=== PATIENT | female | born 1940 | race Caucasian/White ===

== ENCOUNTER 2019-11-18 10:07 | Outpatient (CLI) | payer MEDICARE, OTHER, SELFPAY ==
[2019-11-18 11:20] LABS: Blood Urea Nitrogen 29 mg/dL (7-17); Calcium 9.5 mg/dL (8.4-10.2); Carbon Dioxide 30 mmol/L (22-30); Chloride 87 mmol/L (98-107); Cholesterol 133 mg/dL (0-200); Estimated Glomerular Filt Rate 43; Glucose 189 mg/dL (65-105); HDL Direct 48 mg/dL; Potassium 3.9 mmol/L (3.4-5.0); Sodium 129 mmol/L (137-145); Triglycerides 102 mg/dL (<150)
[2019-11-18 11:31] LABS: LDL Cholesterol Direct 64 mg/dL
[2019-11-18 11:34] LABS: Creatinine Urine 50.5 mg/dL
[2019-11-18 11:55] LABS: MALB Creatinine Ratio 966.5 mg/g (0-30); Microalbumin Urine Random 488.1 mg/L (0-16.7)
[2019-11-20 16:44] LABS: Glutamic acid decarboxylase AA <5 IU/mL (<5)
[2019-11-20 19:39] LABS: C-Peptide 1.36 ng/mL (0.80-3.85)
[2019-11-23 06:51] LABS: Islet Cell Antibody Screen NEGATIVE (NEGATIVE)
== END 2019-11-18 10:08 | disposition home or self-care (01) ==
PROVIDERS: PCP Internal Medicine; Visit Provider Internal Medicine Endocrinology, Diabetes & Metabolism
DX: E11.9 Type 2 diabetes mellitus without complications (principal)
CPT/HCPCS: 36415; 80048; 80061; 82043; 84443; 84681; 86341

== ENCOUNTER 2019-12-11 10:13 | Outpatient (CLI) | payer MEDICARE, OTHER, SELFPAY ==
[2019-12-11 10:32] LABS: Basophils Percent Auto 0.4 % (0.2-1.2); Eosinophils Absolute Auto 0.1 K/mm3 (0-0.3); Eosinophils Percent Auto 1.6 % (0-4.4); Hematocrit 36.6 % (37.0-47.0); Hemoglobin 12.3 g/dL (12.0-15.0); Immature Granulocyte Absolute 0.03 K/mm3 (0.00-0.031); Immature Granulocyte Percent A 0.4 % (0-0.5); Lymphocytes Absolute Auto 1.53 K/mm3 (0.9-3.2); Lymphocytes Percent Auto 18.9 % (18.3-44.2); Mean Corpuscular HGB Conc 33.6 g/dl (32-36); Mean Corpuscular Hemoglobin 31.1 pg (26-34); Mean Corpuscular Volume 92.7 fl (80-100); Mean Platelet Volume 8.8 fl (7.4-10.4); Monocytes Absolute Auto 0.7 K/mm3 (0.1-0.6); Monocytes Percent Auto 8.9 % (2.6-8.5); Neutrophils Absolute Auto 5.6 K/mm3 (1.3-6.7); Neutrophils Percent Auto 69.8 % (45.5-73.1); Platelet Count Result 311 k/mm3 (150-375); Red Blood Count 3.95 M/mm3 (4.2-5.4); Red Cell Distribution Width 11.9 % (11.5-14.5); White Blood Count 8.1 K/mm3 (4.5-10.0)
[2019-12-11 12:25] LABS: Blood Urea Nitrogen 25 mg/dL (7-17); Calcium 9.6 mg/dL (8.4-10.2); Carbon Dioxide 28 mmol/L (22-30); Chloride 88 mmol/L (98-107); Estimated Glomerular Filt Rate 48; Glucose 215 mg/dL (65-105); Sodium 129 mmol/L (137-145)
[2019-12-11 12:26] LABS: Iron 99 ug/dL (37-170)
[2019-12-11 12:35] LABS: Percent Iron Saturation 26 % (20-50)
== END 2019-12-11 10:14 | disposition home or self-care (01) ==
LOC: ANHLAB 10:14
PROVIDERS: PCP Internal Medicine; Visit Provider Internal Medicine Hematology & Oncology
DX: D50.9 Iron deficiency anemia, unspecified (principal)
CPT/HCPCS: 36415; 80048; 82728; 83540; 83550; 85025

== ENCOUNTER 2020-03-03 21:53 | Emergency (ER) | payer MEDICARE, OTHER, SELFPAY ==
[2020-03-03 21:56] VITALS: BP 174/87; PULSE 95; RESP 16; TEMP 36.8; O2SAT 97
--- NOTE | 2020-03-03 23:05 | ED.EYEPROB ---
HPI - Eye Problem General Chief complaint: Eye Problems Stated complaint: left eye swelling Time Seen by Provider: 03/03/20 22:46 Source: patient Mode of arrival: ambulatory Limitations: no limitations History of Present Illness HPI Narrative: Patient is a 79-year-old female who presents to the emergency department with complaint of left eye swelling. Patient states when she woke up this morning her left eye was swollen and she had trouble opening it. Patient has noticed throughout the day feeling as though the swelling has been present. She noticed some decreased vision to that I like she had trouble focusing. She denies any crusting or drainage. She does note her eye feeling a little bit watery. She denies any itching or redness. Patient called [facility] and has an appointment for Sunday. Patient became concerned and decided she should have an evaluation tonight due to persistent symptoms. chief complaint: other (Left eye swelling) Onset (ago): hour(s) Onset description: awoke with symptoms Duration: constant and now resolved Location: left eye Eye Symptoms: pain and blurry vision Place: home Mechanism: none Severity scale (1-10): 2 Associated symptoms: none Treatments Prior to Arrival: none Related Data Home Medications Medication Instructions Recorded Confirmed blood sugar diagnostic #10 each 10/01/19 11/23/19 cholecalciferol (vitamin D3) 25 1,000 unit PO DAILY 10/01/19 11/23/19 mcg (1,000 unit) capsule furosemide 20 mg tablet 20 mg PO QAM 10/01/19 11/23/19 gabapentin 100 mg capsule 100 mg PO TID 10/01/19 11/23/19 lancets #50 each 10/01/19 11/23/19 kobeug-[id number]-[id number] 1 cap PO TID 10/01/19 11/23/19 24,000-76,000-120,000 unit capsule,delayed rel naproxen sodium 220 mg capsule 220 mg PO BID PRN 10/01/19 11/23/19 Allergies Allergy/AdvReac Type Severity Reaction Status Date / Time acetaminophen Allergy Intermediate Rash Verified 11/17/19 10:50 Review of Systems Review of Systems: All systems reviewed & are unremarkable except as noted in HPI and below Eyes: Eyes: Reports blurry vision, Denies eye discharge, Reports irritation, Denies itchy eyes, Denies loss of vision and Reports eye pain PMF Past Medical History Medical History (Updated 03/03/20 @ 23:19 by Karin Cuevas MD) Anemia Benign paroxysmal positional vertigo due to bilateral vestibular disorder Chronic bilateral low back pain without sciatica CKD (chronic kidney disease) stage 3, GFR 30-59 ml/min Essential hypertension Gastroesophageal reflux disease Hyperlipidemia associated with type 2 diabetes mellitus Hyponatremia Idiopathic chronic pancreatitis Iron deficiency anemia Moderate mitral regurgitation Neuropathy Pulmonary hypertension Pure hypercholesterolemia Sarcoidosis of lung Spinal stenosis of lumbosacral region Type 2 diabetes mellitus with diabetic nephropathy, without long-term current use of insulin Venous insufficiency Surgical History Surgical History (Updated 03/03/20 @ 23:13 by Karin Cuevas MD) History of appendectomy History of cataract surgery History of repair of left rotator cuff History of tonsillectomy History of total right knee replacement Social History Social History Smoking status: Never smoker Alcohol intake: never Exam Const: General: cooperative, no acute distress and alert Nutritional Appearance: well nourished Orientation/consciousness: patient oriented x3 Limitations: no limitations Eyes: Alignment and Position: alignment normal Eyelids: eyelids normal (No swelling, erythema, induration) Conjunctivae: conjunctivae normal Sclera: sclerae normal Cornea: corneas normal Pupils: Equal, round and reactive pupils present EOM: EOMs intact bilaterally Other: Visual acuity 20/30 right eye, 20/50 left eye Resp: Effort & Inspection: normal respiratory effort Skin: General skin exam: normal color Neuro: G
[2020-03-03 23:19] VITALS: BP 157/76; PULSE 87; RESP 16; O2SAT 97
== END 2020-03-03 23:30 | disposition home or self-care (01) ==
PROVIDERS: Emergency Provider Emergency Medicine; PCP Internal Medicine
DX: H53.9 Unspecified visual disturbance (principal); H57.12 Ocular pain, left eye; Z86.2 Personal history of diseases of the blood and blood-forming organs and certain disorders involving the immune mechanism; I12.9 Hypertensive chronic kidney disease with stage 1 through stage 4 chronic kidney disease, or unspecified chronic kidney disease; E11.22 Type 2 diabetes mellitus with diabetic chronic kidney disease; N18.3 Chronic kidney disease, stage 3 (moderate); E11.21 Type 2 diabetes mellitus with diabetic nephropathy; K21.9 Gastro-esophageal reflux disease without esophagitis; E11.42 Type 2 diabetes mellitus with diabetic polyneuropathy; E11.69 Type 2 diabetes mellitus with other specified complication; E78.5 Hyperlipidemia, unspecified; K86.1 Other chronic pancreatitis; I34.0 Nonrheumatic mitral (valve) insufficiency; I27.20 Pulmonary hypertension, unspecified; D86.0 Sarcoidosis of lung; I87.2 Venous insufficiency (chronic) (peripheral); Z79.84 Long term (current) use of oral hypoglycemic drugs; Z79.4 Long term (current) use of insulin; Z98.49 Cataract extraction status, unspecified eye; Z96.651 Presence of right artificial knee joint
CPT/HCPCS: 99282

== ENCOUNTER 2020-03-15 10:17 | Outpatient (CLI) | payer MEDICARE, OTHER, SELFPAY ==
[2020-03-15 11:27] LABS: Albumin Level 4.4 g/dL (3.5-5.1); Blood Urea Nitrogen 24 mg/dL (7-17); Calcium 9.5 mg/dL (8.4-10.2); Carbon Dioxide 28 mmol/L (22-30); Chloride 87 mmol/L (98-107); Estimated Glomerular Filt Rate 43; Glucose 116 mg/dL (65-105); Phosphorus 3.7 mg/dL (2.5-4.5); Potassium 3.7 mmol/L (3.4-5.0); Sodium 125 mmol/L (137-145)
== END 2020-03-15 10:18 | disposition home or self-care (01) ==
PROVIDERS: PCP Internal Medicine; Referring Provider Internal Medicine; Visit Provider Internal Medicine Nephrology
DX: N18.3 Chronic kidney disease, stage 3 (moderate) (principal); E87.1 Hypo-osmolality and hyponatremia; E11.21 Type 2 diabetes mellitus with diabetic nephropathy
CPT/HCPCS: 36415; 80069; 83036

== ENCOUNTER 2020-03-26 10:47 | Outpatient (CLI) | payer MEDICARE, OTHER, SELFPAY ==
--- NOTE | ~2020-03-26 | CT_ITS ---
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 TECHNIQUE: Computed tomography (CT) of the head was performed without and with 100 mL Omnipaque 350 i ntravenous contrast. The mA was adjusted according to patient size. Iterative reconstruction techniqu e was employed. The dose-length product was 1059.33 mGy-cm. COMPARISON: Head CT 05/16/2019 FINDINGS: There is no intracranial hemorrhage, acute infarction, or abnormal intracranial mass lesion . There are scattered areas of low attenuation in the cerebral white matter, which is within normal l imits for the patient's age. The ventricles are normal in size. The paranasal sinuses are clear. Ther e are likely changes of ocular lens replacement surgeries. Again seen is a right mastoid effusion. Ag ain seen is a left otomastoid effusion. IMPRESSION: 1. Normal aging brain. Reviewed, dictated and finalized at location E. IMPRESSION: 1. Normal aging brain.
[2020-03-26 12:10] LABS: Estimated Glomerular Filt Rate 43
== END 2020-03-26 10:48 | disposition home or self-care (01) ==
LOC: ANHIMG 10:55
PROVIDERS: PCP Internal Medicine; Visit Provider Internal Medicine
DX: H49.02 Third [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, left eye (principal)
CPT/HCPCS: 36415; 70470; Q9967

== ENCOUNTER 2020-03-30 10:50 | Inpatient (IN) | payer MEDICARE, OTHER, SELFPAY ==
[2020-03-30] VITALS (16 sets, daily range): BP systolic 138–163; BP diastolic 66–100; PULSE 75–84; RESP 16–18; TEMP 36.3–36.7; O2SAT 95–100; BMI 26.5
--- NOTE | ~2020-03-30 | US_ITS ---
EXAMINATION: US renal BI DATE: 03/31/2020 12:47 INDICATION: Elevated creatinine TECHNIQUE: Multiple ultrasound grayscale images of the kidneys were obtained. COMPARISON: 12/13/[address] dated 6 FINDINGS: The right kidney measures 9.9 x 4.9 x 4.8 cm. The left kidney measures 10.2 x 4.9 x 4.7 cm. Bilateral diffuse mildly increased renal cortical echogenicity consistent with medical renal disease. 9 mm cys t at the lateral lower pole of the left kidney.. There is no hydronephrosis in either kidney. No sto erin identified. The bladder is nonvisualized, likely decompressed with a Marques catheter reportedly in place. IMPRESSION: 1. Bilateral increased renal cortical echogenicity consistent with medical renal disease. No hydrone phrosis. Reviewed, dictated and finalized at location D. IMPRESSION: 1. Bilateral increased renal cortical echogenicity consistent with medical regi al disease. No hydronephrosis.
--- NOTE | ~2020-03-30 | XR_ITS ---
CORRECTED REPORT ORDER CHANGE, TITLE CHANGE 04/05/20 PK EXAMINATION: XR CHEST-CHEST TUBE INSERT/POS DATE: 04/01/2020 16:46 INDICATION: CHEST TUBE INSERTION TECHNIQUE: Single postoperative upright AP view of the chest was obtained and submitted on 04/05/2020 COMPARISON: Chest radiograph dated 04/01/2020 at 2:32 PM FINDINGS: Dual-lumen left internal jugular central venous catheter with distal tip in the right atrium. Placement of a left chest tube. Resolution of prior small left pneumothorax. Bilateral airspace opacities most prominent in the left lower and right mid to upper lung zones. Prior opacities in the right lower lung zone has improved. Blunting at the bilateral costophrenic angles consistent with small bilateral pleural effusions. The cardiomediastinal silhouette is normal. Calcified mediastinal lymph nodes consistent with old granulomatous disease. Suture anchors at the right humeral head likely related to prior rotator cuff repair. IMPRESSION: 1. Resolution of prior left pneumothorax post left chest tube placement. 2. Bilateral lung disease consistent with small bilateral pleural effusions and associated pneumonia, pulmonary edema, atelectasis or some combination thereof. Reviewed, dictated and finalized at location A. YN NEELY
--- NOTE | ~2020-03-30 | XR_ITS ---
EXAMINATION: XR chest 1V portable DATE: 04/01/2020 03:35 INDICATION: Shortness of breath and wheezing. TECHNIQUE: A single frontal view of the chest was obtained. COMPARISON: Chest 2 views 11/28/2017, CT abdomen and pelvis 03/30/2020 FINDINGS: There is a diffuse interstitial pattern in the lungs. There are airspace opacities in the p erihilar regions and at left lung base. There is a small left pleural effusion. No pneumothorax. The heart size is normal. There are suture anchors in right humeral head. IMPRESSION: 1. New diffuse lung disease, consistent with moderate pulmonary edema versus pneumonia. 2. New small left pleural effusion. Reviewed, dictated and finalized at location A. IMPRESSION: 1. New diffuse lung disease, consistent with moderate pulmonary edema versus pn eumonia. 2. New small left pleural effusion.
--- NOTE | ~2020-03-30 | CT_ITS ---
EXAMINATION: CT abdomen pelvis wo con DATE: 03/30/2020 12:02 INDICATION: Abdominal pain. Vomiting. TECHNIQUE: Computed tomography (CT) of the abdomen and pelvis was performed without intravenous contr ast. Automated exposure control and iterative reconstruction technique were employed. The dose-length product was 325.12 mGy-cm. COMPARISON: None. FINDINGS: The visualized portions of the lung bases demonstrate mild atelectasis. There is a 5 mm nod ule in right lower lobe, likely benign. A calcified left lung nodule is consistent with old granuloma tous disease. No pleural effusion. The heart size is normal. There are coronary artery calcifications . No pericardial effusion. Calcifications in the liver and spleen are consistent with old granulomato us disease. There is contrast in the gallbladder, which is normal in size. The spleen and adrenal gla nds are normal. There is cortical thinning of the kidneys. There are heterogeneous persistent nephrog shane bilaterally, consistent with decreased renal function. There is a 4.2 cm fibroid in the uterus. There are no dilated loops of bowel. There are no dilated loops of bowel. The appendix is not visuali zed. There are no pathologically enlarged lymph nodes. There is no free intraperitoneal fluid. There is severe lumbar spondylosis. IMPRESSION: 1. Mild atrophy of the kidneys. Heterogeneous persistent nephrograms, consistent with acute kidney in jury. 2. Uterine fibroid. Reviewed, dictated and finalized at location A. IMPRESSION: 1. Mild atrophy of the kidneys. Heterogeneous persistent nephrograms, consisten t with acute kidney injury. 2. Uterine fibroid.
--- NOTE | ~2020-03-30 | XR_ITS ---
EXAMINATION: XR chest 1V portable DATE: 04/02/2020 09:29 INDICATION: Left pneumothorax. TECHNIQUE: A single frontal view of the chest was obtained. COMPARISON: A single view 04/01/2020 FINDINGS: There are mild airspace opacities in all right lung zones and in left lower lung zone. A ca lcified left lung nodule is consistent with old granulomatous disease. No pleural effusion or pneumot horax. There is a left-sided chest tube in expected position. The heart size is normal. A left international manager al jugular central venous catheter is seen with tip in the right atrium. There are suture anchors in right humeral head. IMPRESSION: 1. No pneumothorax. Left-sided chest tube in expected position. 2. Airspace opacities in right lung and left lower lung zone with interval improvement, consistent wi th pulmonary edema and atelectasis. Reviewed, dictated and finalized at location A. IMPRESSION: 1. No pneumothorax. Left-sided chest tube in expected position. 2. Airspace opacities in right lung and left lower lung zone with interval impr ovement, consistent with pulmonary edema and atelectasis.
--- NOTE | ~2020-03-30 | XR_ITS ---
CORRECTED REPORT ORDER # CHANGE, TITLE CHANGE 04/05/20 PK EXAMINATION: XR CHEST PORT-A-CATH/CENTRAL DATE: 04/01/2020 14:33 INDICATION: Central line placement. TECHNIQUE: A single frontal view of the chest was obtained. COMPARISON: Chest single view at 3:27 AM, CT abdomen and pelvis 03/30/2020 FINDINGS: There are airspace opacities in the mid and lower lung zones, right worse than left. There is a moderate-sized left pneumothorax. No pleural effusion. The heart size is normal. There are suture anchors in right humeral head. A left internal jugular central venous catheter is seen with tip in the proximal right atrium. There is soft tissue gas in left neck. IMPRESSION: 1. Moderate-sized left pneumothorax. Central line tip in proximal right atrium. I called this result to Dr. Carballo on 04/01/20 at 14:40. 2. Worsened airspace opacities in the mid and lower lung zones, right worse than left, consistent with pulmonary edema versus pneumonia. Reviewed, dictated and finalized at location A. MTDD
--- NOTE | ~2020-03-30 | XR_ITS ---
XR chest 1V portable 04/03/2020 05:39 Indication: Left pneumothorax Procedure: AP portable chest Comparison: Comparison to multiple prior studies sequentially, with oldest reviewed study dated 04/01. Findings: No pneumothorax identified. Chest tube in expected position. Subcutaneous gas in the left s upraclavicular soft tissues. Persistent mild interstitial edema. Probable bibasilar atelectasis. No a cute osseous abnormality. Central venous catheter tip near the cavoatrial junction. Impression: 1: Persistent mild interstitial edema and/or atelectasis. 2: No pneumothorax identified. Reviewed, dictated and finalized at location A. Impression: 1: Persistent mild interstitial edema and/or atelectasis. 2: No pneumothorax identified.
--- NOTE | ~2020-03-30 | XR_ITS ---
EXAMINATION: XR fl guide central line place DATE: 04/01/2020 14:08 INDICATION: Central line placement. TECHNIQUE: A single intraoperative fluoroscopic view of the chest was obtained. I was not present. Fl uoroscopy exposure time was 32 seconds. COMPARISON: Chest single view 04/01/2020 FINDINGS: A left internal jugular central venous catheter is seen with tip in the proximal right atri um. IMPRESSION: 1. Central line tip in proximal right atrium. Reviewed, dictated and finalized at location A.
--- NOTE | ~2020-03-30 | XR_ITS ---
XR chest 1V portable 04/03/2020 08:44 Indication: Removal of left chest tube Procedure: AP portable chest Comparison: Comparison to multiple prior studies sequentially, with oldest reviewed study dated 04/01. Findings: Central venous catheter tips near the cavoatrial junction. Right basilar airspace consolida tion. No pneumothorax. No pleural effusion. There is atherosclerosis. No edema. Impression: 1: Right basilar airspace disease may represent residual edema, atelectasis and/or pneumonia. Reviewed, dictated and finalized at location A. Impression: 1: Right basilar airspace disease may represent residual edema, atelectasis and /or pneumonia.
[2020-03-30 11:26] LABS: Basophils Percent Auto 0.3 % (0.2-1.2); Eosinophils Absolute Auto 0.1 K/mm3 (0-0.3); Eosinophils Percent Auto 0.5 % (0-4.4); Hematocrit 33.7 % (37.0-47.0); Hemoglobin 11.8 g/dL (12.0-15.0); Immature Granulocyte Absolute 0.07 K/mm3 (0.00-0.031); Immature Granulocyte Percent A 0.5 % (0-0.5); Lymphocytes Absolute Auto 1.31 K/mm3 (0.9-3.2); Mean Corpuscular Volume 88.5 fl (80-100); Mean Platelet Volume 8.8 fl (7.4-10.4); Monocytes Absolute Auto 0.8 K/mm3 (0.1-0.6); Monocytes Percent Auto 5.5 % (2.6-8.5); Neutrophils Absolute Auto 12.3 K/mm3 (1.3-6.7); Neutrophils Percent Auto 84.2 % (45.5-73.1); Platelet Count Result 333 k/mm3 (150-375); Red Blood Count 3.81 M/mm3 (4.2-5.4); Red Cell Distribution Width 12.2 % (11.5-14.5); White Blood Count 14.6 K/mm3 (4.5-10.0)
[2020-03-30 11:37] LABS: Magnesium 1.4 mg/dL (1.6-2.3)
[2020-03-30 11:41] LABS: Alanine Aminotransferase 18 U/L (4-35); Albumin Level 4.2 g/dL (3.5-5.1); Alkaline Phosphatase 108 U/L (38-126); Aspartate Amino Transferase 25 U/L (14-36); Bilirubin,Total 1.1 mg/dL (0.2-1.3); Blood Urea Nitrogen 60 mg/dL (7-17); Carbon Dioxide 24 mmol/L (22-30); Chloride 85 mmol/L (98-107); Estimated CRCL calculation 7 ml/min; Estimated Glomerular Filt Rate 8; Glucose 118 mg/dL (65-105); Lipase 110 U/L (23-300); Potassium 4.7 mmol/L (3.4-5.0); Sodium 123 mmol/L (137-145)
[2020-03-30] MEDS: LACTATED RINGERS 1,000 ML 999 ML IV CONT (11:41)
--- NOTE | 2020-03-30 13:17 | ED.GENADULT ---
HPI - General Adult General Chief complaint: Allergic Reaction Stated complaint: allgeric reaction ?? Time Seen by Provider: 03/30/20 10:56 Source: patient Mode of arrival: ambulatory Limitations: no limitations History of Present Illness HPI narrative: This patient is a 79 year old female who presents for evaluation of weakness started after taking antibiotics. She states on 03/26/20 she was prescribed Augmentin to treat Sinusitis seen on CT scan. AFter starting the antibiotics she developed diarrhea , weakness and nausea. She has not had any diarrhea today. She became more concerned today because she has having weakness and abnormal jerking of her hands. She states she was not having symptoms of sinusitis. Related Data Home Medications Medication Instructions Recorded Confirmed cholecalciferol (vitamin D3) 25 1,000 unit PO DAILY 10/01/19 03/30/20 mcg (1,000 unit) capsule furosemide 20 mg tablet 20 mg PO DAILY 10/01/19 03/30/20 gabapentin 100 mg capsule 100 mg PO TID 10/01/19 03/30/20 lancets #50 each 10/01/19 11/23/19 sxtveg-hdbryfag-gzszzie 1 cap PO TID 10/01/19 03/30/20 24,000-76,000-120,000 unit capsule,delayed rel naproxen sodium 220 mg capsule 220 mg PO BID PRN 10/01/19 03/30/20 amlodipine 2.5 mg tablet 2.5 mg PO DAILY 03/26/20 03/30/20 famotidine 40 mg tablet 40 mg PO BID tablet 03/26/20 03/30/20 atorvastatin 40 mg PO DAILY 03/30/20 03/30/20 metformin 500 mg PO BID 03/30/20 03/30/20 metoprolol tartrate 100 mg PO BID 03/30/20 03/30/20 vitamin B complex 1 tablet PO DAILY 03/30/20 03/30/20 Allergies Allergy/AdvReac Type Severity Reaction Status Date / Time acetaminophen Allergy Intermediate Rash Verified 03/30/20 15:14 Review of Systems Review of Systems: All systems reviewed & are unremarkable except as noted in HPI and below Constitutional: Constitutional: Denies chills, Denies fever(s) and Reports weakness ENT: Reports dizziness and Denies sore throat Cardiovascular: Cardiovascular: Denies chest pain Respiratory: Respiratory: Denies cough and Denies dyspnea Gastrointestinal: Gastrointestinal: Reports abdominal pain, Reports diarrhea and Reports nausea Neurologic: Denies headache(s), Denies focal weakness and Reports weakness Allergic/Immunologic: Allergic/Immunologic: Denies lip swelling, Denies throat swelling and Denies tongue swelling [facility] Past Medical History Medical History (Updated 03/30/20 @ 18:21 by Marielos Trejo MD) Anemia Benign paroxysmal positional vertigo due to bilateral vestibular disorder Chronic bilateral low back pain without sciatica CKD (chronic kidney disease) stage 3, GFR 30-59 ml/min Essential hypertension Gastroesophageal reflux disease Hyperlipidemia associated with type 2 diabetes mellitus Hyponatremia Idiopathic chronic pancreatitis Iron deficiency anemia Moderate mitral regurgitation Neuropathy Pulmonary hypertension Pure hypercholesterolemia Sarcoidosis of lung Spinal stenosis of lumbosacral region Type 2 diabetes mellitus with diabetic nephropathy, without long-term current use of insulin Venous insufficiency Surgical History Surgical History (Updated 03/03/20 @ 23:13 by Karin Cuevas MD) History of appendectomy History of cataract surgery History of repair of left rotator cuff History of tonsillectomy History of total right knee replacement Social History Social History Smoking status: Never smoker Alcohol intake: never Substance use: never Gender identity (if verbalized by the patient): Female Spiritual care concerns: No Exam Narrative: Exam Narrative: GENERAL: Well-appearing, well-nourished, and in no acute distress. HEAD: Normocephalic, atraumatic EYES: PERRLA and EOMI, conjunctiva clear without discharge THROAT:Mucous membranes moist, Oropharynx normal without erythema, exudate, peritonsillar swelling or fluctuance NECK: Supple, without l
[2020-03-30 13:44] LABS: Add Urine Microscopic? YES; Appearance Urine Clear (Clear); Bacteria Urine Trace /hpf; Bilirubin Urine Negative (Negative); Blood Urine 2+ (Negative); Color Urine Yellow (Yellow); Glucose Urine UA 1+ mg/dL (Negative); Ketones Urine Negative (Negative); Leukocyte Esterase Ur 1+ LEU/UL (Negative); Mucus Urine Rare /lpf; Nitrate Urine Negative (Negative); Protein Urine 2+ mg/dL (Negative); RBC Urine >75 /hpf (0-2); Specific Grav Ur 1.016 (1.001-1.035); Squamous Epithelial Cell Urine Rare /hpf (Few); Urobilinogen Urine Negative mg/dL (<2.0); WBC Clumps Urine Present /HPF; WBC Urine >75 /hpf
[2020-03-30] MEDS: SODIUM CHLORIDE 0.9% IV 1,000 ML 200 ML IV CONT (15:56)
--- NOTE | 2020-03-30 22:00 | PM.IMHP ---
H&P: HPI History of Present Illness Chief complaint: Diarrhea, weakness. Narrative: Danielle Thomason is a very pleasant 79-year-old female with insulin-dependent type 2 diabetes mellitus, diabetic peripheral neuropathy, GERD, and hypertension who presented to the emergency department earlier this evening from home with complaints of diarrhea and generalized weakness. She was seen by her primary care provider on 03/26/2020 in follow-up after seeing and an data architect manager due to diplopia in the left eye. A brain CT did not demonstrate any intracranial pathology and she was ultimately diagnosed with a 3rd nerve palsy by her data architect manager, attributed to her diabetes. The patient tells me that she was prescribed Augmentin due to findings of sinusitis on that brain CT (reading notes a right mastoid effusion and a left otomastoid effusion, both which had been documented on previous images). With further questioning, she tells me that she has had mild rhinorrhea which seems to improve when taking a half of an anti allergy pill. She had no other findings to suggest sinusitis. Shortly after taking her 1st dose of Augmentin, she developed diarrhea which persisted throughout that night. The following day she felt weak and lethargic. Her appetite has been poor for the past couple of days and she has been experiencing nausea but no vomiting. She also notes a subjective fever sometime last evening and sweats. Her legs were so weak today and she was having uncontrollable tremors of her hands, and she felt it would be best to come in for evaluation as she thought perhaps her symptoms were due to an allergic reaction from the Augmentin. She was found to have an acute kidney injury, and with further questioning she does admit that the last time she urinated on her own was last evening. A Marques catheter was placed in the emergency department. At the time my evaluation she does not really have any complaints and seems to be feeling a bit better. Review of Systems Review of Systems: Narrative: Twelve systems were reviewed. She reports subjective fever last evening. No sinus congestion, otalgia, or odynophagia. She was a bit short of breath today with exertion. No cough. She denies sick contacts and recent travel. No chest pain or palpitations. No lightheadedness or dizziness. She has not had diarrhea today. No dysuria or hematuria. She has chronic back pain for which she typically takes Aleve at home twice a day. She does suffer from peripheral neuropathy, and has had more tingling in her left hand and in fact she has been referred to Dr. Rose for possible carpal tunnel syndrome. Except as documented, all other systems were reviewed and are negative. [facility] Past Medical History Medical History (Updated 03/30/20 @ 22:45 by Monique Fernandez PA-C) Anemia With history of iron deficiency anemia requiring iron transfusions. Benign paroxysmal positional vertigo due to bilateral vestibular disorder Chronic anemia Chronic bilateral low back pain without sciatica Chronic hyponatremia CKD (chronic kidney disease) stage 3, GFR 30-59 ml/min She is a patient of Dr. Robin Shoemaker. Diabetic peripheral neuropathy Essential hypertension Gastroesophageal reflux disease Hyperlipidemia associated with type 2 diabetes mellitus Hyponatremia Idiopathic chronic pancreatitis On long-term Creon. Moderate mitral regurgitation Pulmonary hypertension Pure hypercholesterolemia Rectal hemorrhage due to inflammatory polyps of colon Sarcoidosis of lung Diagnosed in the . Spinal stenosis of lumbosacral region Type 2 diabetes mellitus with diabetic nephropathy, without long-term current use of insulin Venous insufficiency Surgical History Surgical History History of appendectomy History of cataract surgery History of repair of left rotator cuff History of tonsillectomy History of total right knee replacement Family
[2020-03-30 22:42] LABS: Blood Urea Nitrogen 62 mg/dL (7-17); Carbon Dioxide 21 mmol/L (22-30); Chloride 86 mmol/L (98-107); Estimated CRCL calculation 7 ml/min; Estimated Glomerular Filt Rate 7; Glucose 144 mg/dL (65-105); Sodium 121 mmol/L (137-145)
[2020-03-30 22:47] LABS: Creatine Kinase 55 U/L (30-135)
[2020-03-30] MEDS: INSULIN GLARGINE (*BKC) 100 UNITS/ML 15 UNITS SUB-Q (23:02)
[2020-03-30 23:18] LABS: Magnesium 1.4 mg/dL (1.6-2.3)
[2020-03-30 23:27] LABS: Complement C3 98 mg/dL (88-165)
[2020-03-31 01:32] LABS: Sodium Urine Random 47 meq/L
[2020-03-31 02:12] LABS: Blood Urea Nitrogen 63 mg/dL (7-17); Carbon Dioxide 21 mmol/L (22-30); Chloride 89 mmol/L (98-107); Estimated CRCL calculation 7 ml/min; Estimated Glomerular Filt Rate 7; Glucose 79 mg/dL (65-105); Sodium 119 mmol/L (137-145)
[2020-03-31] MEDS: MAGNESIUM SULF 2 GM/WATER 50ML 2 GM/50 ML BAG IVPB (03:11)
[2020-03-31] MEDS: SODIUM BICARBONATE 8.4% 150 MEQ in DEXTROSE 5% 1,000 ML 950 ML IV CONT ×2 (04:08→16:44)
[2020-03-31 05:25] VITALS: BP 146/68; PULSE 78; RESP 16; TEMP 36.7; O2SAT 96
[2020-03-31 08:04] LABS: Potassium 4.7 mmol/L (3.4-5.0)
[2020-03-31 08:08] LABS: Glucose Point of Care 98 (65-105)
[2020-03-31 08:14] LABS: Alanine Aminotransferase 13 U/L (4-35); Albumin Level 3.2 g/dL (3.5-5.1); Alkaline Phosphatase 90 U/L (38-126); Aspartate Amino Transferase 18 U/L (14-36); Bilirubin,Total 0.8 mg/dL (0.2-1.3); Blood Urea Nitrogen 63 mg/dL (7-17); Calcium 8.6 mg/dL (8.4-10.2); Carbon Dioxide 23 mmol/L (22-30); Chloride 85 mmol/L (98-107); Estimated CRCL calculation 7 ml/min; Estimated Glomerular Filt Rate 7; Glucose 99 mg/dL (65-105); Sodium 120 mmol/L (137-145)
[2020-03-31] MEDS: AMLODIPINE BESYLATE 5 MG TABLET PO (09:33)
[2020-03-31] MEDS: AMLODIPINE BESYLATE 2.5 MG TABLET PO (09:33)
[2020-03-31] MEDS: FAMOTIDINE 20 MG TABLET 40 MG PO ×2 (09:33→16:42)
[2020-03-31] MEDS: CHOLECALCIFEROL 1,000 UNIT TABLET 1000 UNITS PO (09:33)
[2020-03-31] MEDS: VITAMIN B COMPLEX CAPSULE 1 CAP PO (09:34)
[2020-03-31] MEDS: LIPASE/AMYLASE/PROTEASE 12,000 UNITS CAP 2 CAP PO ×2 (09:34→16:42)
[2020-03-31] MEDS: GABAPENTIN 100 MG CAPSULE PO ×2 (09:34→16:42)
[2020-03-31 09:39] VITALS: PULSE 85
[2020-03-31] MEDS: METOPROLOL TARTRATE 50 MG TAB 100 MG PO ×2 (09:39→20:43)
[2020-03-31 11:35] LABS: Glucose Point of Care 174 (65-105)
[2020-03-31 11:35] LABS: Sodium 119 mmol/L (137-145)
--- NOTE | 2020-03-31 13:53 | PM.IMPN ---
Progress Note: A&P Assessment and Plan (1) Ykfwj-ka-nsflfbh kidney injury: Code(s): N17.9 - Acute kidney failure, unspecified; N18.9 - Chronic kidney disease, unspecified Status: Acute Assessment and Plan: Her creatinine was 1.20 just 4 days ago and given the rapid insult, I am suspicious she may have interstitial nephritis from the Augmentin. Marques catheter has been inserted we will monitor strict I/O. Nephro toxic agents will be avoided. Renal ultrasound shows mild atrophy of the kidneys and findings suggestive of acute kidney injury. I will ask Dr. Shoemaker to see her in consult for his recommendations. ___03/31/20 13:53 Patient is 79-year-old female with history of chronic kidney disease her last creatinine was 1.2 on 03/26, patient was treated with Augmentin for sinusitis after 2 days developed generalized weakness and fatigue, nausea and had couple of loose bowel movement patient presented emergency department and found to acute kidney injury with creatinine of 5.4 and BUN of 60, most likely patient may have developed interstitial nephritis secondary to Augmentin, and is being hydrated will continue to monitor also patient has a chronic hyponatremia is getting worse most likely secondary to dehydration due to diarrhea, is being gently hydrated will monitor kidney function and sodium, will be seen by property management bookkeeper, we have ordered kidney ultrasound for further evaluation, showed Bilateral increased renal cortical echogenicity consistent with medical renal disease. No hydronephrosis. the patient states the feeling much better compared to when she arrived, is encouraged to hydrate herself and will continue IV fluids (2) Hyponatremia: Code(s): E87.1 - Hypo-osmolality and hyponatremia Status: Acute Assessment and Plan: She has chronic hyponatremia, and it looks like her sodium level is typically around 129 to 132. She may very well be a bit dry from the diarrhea, and she was aggressively hydrated in the emergency department. Repeat sodium pending at the time of this dictation to ensure it is correcting appropriately. (3) Type 2 diabetes mellitus with diabetic nephropathy, without long-term current use of insulin: Code(s): E11.21 - Type 2 diabetes mellitus with diabetic nephropathy Status: Acute Assessment and Plan: Hemoglobin A1c was 8.0% on 03/15/2020. Will continue basal insulin but hold metformin and nateglinide given acute kidney injury. Initiate sliding scale insulin, Accu-Cheks, and hypoglycemic protocol. (4) Anemia: Code(s): D64.9 - Anemia, unspecified Status: Acute Assessment and Plan: Hemoglobin and hematocrit are stable on review of previous labs. (5) Essential hypertension: Code(s): I10 - Essential (primary) hypertension Status: Acute Assessment and Plan: Blood pressures were reviewed and they are reasonable in the 140 systolic. Monitor closely as her losartan, furosemide, and chlorthalidone her on hold given acute kidney injury. (6) Hyperlipidemia associated with type 2 diabetes mellitus: Code(s): E11.69 - Type 2 diabetes mellitus with other specified complication; E78.5 - Hyperlipidemia, unspecified Status: Acute Assessment and Plan: Continue statin; LFTs within normal limits. (7) Gastroesophageal reflux disease: Code(s): K21.9 - Gastro-esophageal reflux disease without esophagitis Status: Acute Assessment and Plan: No acute issues. Continue Pepcid. Subjective Date/time seen: 03/31/20 13:53 Patient is 79-year-old formerly [facility]
[2020-03-31 14:00] VITALS: BP 142/72; PULSE 82; RESP 16; TEMP 36.7; O2SAT 97
[2020-03-31 14:45] LABS: Basophils Percent Auto 0.3 % (0.2-1.2); Eosinophils Absolute Auto 0.2 K/mm3 (0-0.3); Eosinophils Percent Auto 1.3 % (0-4.4); Hematocrit 31.1 % (37.0-47.0); Hemoglobin 10.9 g/dL (12.0-15.0); Immature Granulocyte Absolute 0.06 K/mm3 (0.00-0.031); Immature Granulocyte Percent A 0.5 % (0-0.5); Lymphocytes Percent Auto 9.9 % (18.3-44.2); Mean Corpuscular Hemoglobin 30.8 pg (26-34); Mean Corpuscular Volume 87.9 fl (80-100); Mean Platelet Volume 9.1 fl (7.4-10.4); Monocytes Absolute Auto 0.8 K/mm3 (0.1-0.6); Monocytes Percent Auto 6.9 % (2.6-8.5); Neutrophils Absolute Auto 9.9 K/mm3 (1.3-6.7); Neutrophils Percent Auto 81.1 % (45.5-73.1); Platelet Count Result 293 k/mm3 (150-375); Red Blood Count 3.54 M/mm3 (4.2-5.4); Red Cell Distribution Width 12.3 % (11.5-14.5); White Blood Count 12.2 K/mm3 (4.5-10.0)
[2020-03-31 15:01] LABS: Sodium 120 mmol/L (137-145)
[2020-03-31] MEDS: INSULIN ASPART (*BKC) 100 UNITS/ML SUB-Q (16:43)
[2020-03-31 16:48] LABS: Glucose Point of Care 208 (65-105)
--- NOTE | 2020-03-31 17:12 | PM.CNNEP ---
Assessment and Plan Assessment and plan (1) Oqsaj-qx-ljkxurr kidney injury: Code(s): N17.9 - Acute kidney failure, unspecified; N18.9 - Chronic kidney disease, unspecified Status: Acute Assessment and Plan: Danielle has chronic kidney disease. This is from diabetes and hypertension. Her creatinine has been stable at 1.2. She also has acute kidney injury. Her creatinine has kwasi rocketed to 6.0. There are several possible reasons. The patient had nausea and diarrhea for a few days. So she could just be dehydrated. Is a bit high consistent with concentrated urine. The patient was on Augmentin and so she could have allergic interstitial nephritis but this seems rather severe for that. She does not have a rash or fever. In her blood. I think this is a bit less likely. But it is possible so we can get some urine eosinophils. Was on metformin. Her bicarbonate level is not low and her anion gap is not high so I think we can just stop the medications. I do not think we need to do dialysis for this. (2) Hyponatremia: Code(s): E87.1 - Hypo-osmolality and hyponatremia Status: Acute Assessment and Plan: Sodium level is low. This is always somewhat low at around 1:30 a.m.. Now it is worse, possibly because of the dehydration. Will put her on fluid restriction as well as give her saline for IV fluids. Has been okay in the past. Will check a serum cortisol. (3) Acute UTI: Code(s): N39.0 - Urinary tract infection, site not specified Status: Acute Assessment and Plan: The patient has a culture pending She has no symptoms of UTI. Her nitrites are negative. Will repeat the UA using a in an out catheterization. (4) Type 2 diabetes mellitus with diabetic nephropathy, without long-term current use of insulin: Code(s): E11.21 - Type 2 diabetes mellitus with diabetic nephropathy Status: Acute Assessment and Plan: On Accu-Cheks and sliding-scale insulin. (5) Essential hypertension: Code(s): I10 - Essential (primary) hypertension Status: Acute Assessment and Plan: Blood pressure is doing pretty well. (6) Anemia: Code(s): D64.9 - Anemia, unspecified Status: Acute Assessment and Plan: Hemoglobin is 10.9. This is in the general range of where she usually is. Will follow this along. (7) Pulmonary hypertension: Code(s): I27.20 - Pulmonary hypertension, unspecified Status: Acute History of Present Illness Reason for Consult Consult date: 03/31/20 Chief Complaint Chief complaint: Diarrhea, weakness. History of Present Illness Narrative: Danielle is a very pleasant 79-year-old lady who has chronic kidney disease with a baseline creatinine about 1.2, hyperlipidemia, hypertension, diabetes, GERD, diabetic neuropathy, chronic pancreatitis, who was well until a few days ago when she started developing I discomfort and fuzzy vision. She went to see Dr. Kait leon who was concerned about cellulitis and so he sent her for a CT scan. The CT scan showed sinusitis. in a collar placed her on Augmentin. She took this for 3 doses but then developed nausea and diarrhea. She did not eat much at all during this period of time. Today she woke up and she was anxious and twitchy. So she decided to come to the emergency room. In the emergency room she was evaluated and found to be dehydrated. BUN and creatinine were very high. She received IV fluids and was admitted to the floor. Renal consultation was requested. Patient denies any rash or fever. No bloody foamy cloudy or smelly urine. No history of kidney stones. She is making some urine. Review of Systems Constitutional: Constitutional: Reports no additional constitutional complaints Eyes: Eyes: Reports no additional eye complaints ENT: Reports system reviewed and no additional complaints, except as documented Cardiovascular: Cardiovascular: Reports n
[2020-03-31 17:56] LABS: Sodium 120 mmol/L (137-145)
[2020-03-31 18:05] LABS: Creatine Kinase 69 U/L (30-135)
[2020-03-31 20:00] VITALS: PULSE 94; RESP 16; O2SAT 93
[2020-03-31 20:23] VITALS: BP 146/63; PULSE 94; RESP 16; TEMP 37; O2SAT 93
[2020-03-31 20:43] VITALS: PULSE 94
[2020-03-31] MEDS: INSULIN GLARGINE (*BKC) 100 UNITS/ML 15 UNITS SUB-Q (20:44)
[2020-03-31 20:45] LABS: Sodium 120 mmol/L (137-145)
[2020-03-31 21:15] LABS: Glucose Point of Care 290 (65-105)
[2020-04-01] VITALS (39 sets, daily range): BP systolic 122–170; BP diastolic 60–94; PULSE 76–94; RESP 10–20; TEMP 36.1–37; O2SAT 89–96
[2020-04-01 00:08] LABS: Sodium 120 mmol/L (137-145)
[2020-04-01] MEDS: SODIUM BICARBONATE 8.4% 150 MEQ in DEXTROSE 5% 1,000 ML 950 ML IV CONT (01:16)
[2020-04-01 02:22] LABS: Add Urine Microscopic? YES; Appearance Urine Clear (Clear); Bacteria Urine Trace /hpf; Bilirubin Urine Negative (Negative); Blood Urine 2+ (Negative); Color Urine Straw (Yellow); Glucose Urine UA 2+ mg/dL (Negative); Ketones Urine Negative (Negative); Leukocyte Esterase Ur 3+ LEU/UL (NEGATIVE); Nitrate Urine Negative (Negative); Protein Urine 3+ mg/dL (Negative); RBC Urine >75 /hpf (0-2); Specific Grav Ur 1.011 (1.001-1.035); Urobilinogen Urine Negative mg/dL (<2.0); WBC Urine >75 /hpf (0-3)
[2020-04-01 02:31] LABS: Creatinine Urine 39.4 mg/dL
[2020-04-01 02:32] LABS: Sodium Urine Random 42 meq/L
[2020-04-01 03:11] LABS: Total Protein Urine Random 235 mg/dL
[2020-04-01] MEDS: FUROSEMIDE INJ 40 MG/4 ML VIAL 20 MG IV PUSH (04:38)
[2020-04-01 06:18] LABS: Hematocrit 28.9 % (37.0-47.0); Hemoglobin 10.3 g/dL (12.0-15.0); Mean Corpuscular HGB Conc 35.6 g/dl (32-36); Mean Corpuscular Hemoglobin 30.7 pg (26-34); Mean Corpuscular Volume 86.3 fl (80-100); Mean Platelet Volume 8.8 fl (7.4-10.4); Platelet Count Result 269 k/mm3 (150-375); Red Blood Count 3.35 M/mm3 (4.2-5.4); Red Cell Distribution Width 12.2 % (11.5-14.5); White Blood Count 11.3 K/mm3 (4.5-10.0)
[2020-04-01 06:28] LABS: Albumin Level 3.1 g/dL (3.5-5.1); Blood Urea Nitrogen 70 mg/dL (7-17); Calcium 8.3 mg/dL (8.4-10.2); Carbon Dioxide 30 mmol/L (22-30); Chloride 81 mmol/L (98-107); Estimated CRCL calculation 6 ml/min; Estimated Glomerular Filt Rate 6; Glucose 147 mg/dL (65-105); Phosphorus 4.6 mg/dL (2.5-4.5); Sodium 119 mmol/L (137-145)
--- NOTE | 2020-04-01 07:48 | PM.PNNEP ---
Progress Note: A&P Assessment and Plan (1) Ogzdj-uc-otbrhyw kidney injury: Code(s): N17.9 - Acute kidney failure, unspecified; N18.9 - Chronic kidney disease, unspecified Status: Acute Assessment and Plan: Danielle has chronic kidney disease. This is from diabetes and hypertension. Her creatinine had been stable at 1.2. She also has acute kidney injury. Her creatinine has kwasi rocketed to 6.0 on admission and now is up to 6.7. Renal ultrasound shows only chronic changes. Urine electrolytes are non pre renal. Urine eosinophils pending UA still shows white cells. Currently she is fluid overloaded and creatinine is rising and urine output is very low. I think she needs to start dialysis. I do not know if this is acute or chronic. Since the creatinine got so much worse so quickly I am hoping it is only temporary. Long discussion about the process, risks, benefits and alternatives to dialysis. The patient agrees to proceed. (2) Hyponatremia: Code(s): E87.1 - Hypo-osmolality and hyponatremia Status: Acute Assessment and Plan: Sodium level is low. Dialysis will help this. Because of the low sodium I will do some dry ultrafiltration and some dialysis so it does not correct too quickly.. (3) Acute UTI: Code(s): N39.0 - Urinary tract infection, site not specified Status: Acute Assessment and Plan: The patient has a culture pending She has no symptoms of UTI. Her nitrites are negative. UA is positive still. Will give antibiotics. (4) Type 2 diabetes mellitus with diabetic nephropathy, without long-term current use of insulin: Code(s): E11.21 - Type 2 diabetes mellitus with diabetic nephropathy Status: Acute Assessment and Plan: On Accu-Cheks and sliding-scale insulin. (5) Essential hypertension: Code(s): I10 - Essential (primary) hypertension Status: Acute Assessment and Plan: Blood pressure is doing pretty well. Will keep observing this. (6) Anemia: Code(s): D64.9 - Anemia, unspecified Status: Acute Assessment and Plan: Hemoglobin is 10.3 today. Consider EPO if her hemoglobin keeps dropping. (7) Pulmonary hypertension: Code(s): I27.20 - Pulmonary hypertension, unspecified Status: Acute Subjective Date/time seen: 04/01/20 07:48 Interval history: Danielle is feeling worse today. She became short of breath last night. Fluids were stopped, she received a little Lasix, and today she feels a little bit better. She only made 150cc after the Lasix. She still has some nausea. Review of Systems Cardiovascular: Cardiovascular: Reports no additional cardiovascular complaints Respiratory: Respiratory: Reports no additional respiratory complaints Gastrointestinal: Gastrointestinal: Reports no additional gastrointestinal complaints Genitourinary: Genitourinary: Reports no additional female genitourinary complaints Exam Narrative: Exam Narrative: WDWN in NAD skin no rash head ncat lungs crackles at the bases. Some increase in expiratory phase. cor reg no rub abd BS+ nontender and soft ext 1+ edema. Objective Data Vital Signs Vital Signs: Vital Signs - 24 hr 03/31/20 09:39 03/31/20 14:00 03/31/20 20:00 Temperature 36.7 C Pulse Rate 85 82 94 Respiratory Rate 16 16 Blood Pressure 142/72 H Pulse Oximetry 97 93 03/31/20 20:23 03/31/20 20:43 04/01/20 03:10 Temperature 37.0 C Pulse Rate 94 94 94 Respiratory Rate 16 16 Blood Pressure 146/63 H Pulse Oximetry 93 93 04/01/20 05:13 04/01/20 05:45 Temperature 36.3 C L Pulse Rate 76 76 Respiratory Rate 14 14 Blood Pressure 144/83 H Pulse Oximetry 94 94 Intake/Output Intake/Output: Intake & Output 03/29/20 03/30/20 03/31/20 04/01/20 23:59 23:59 23:59 23:59 Intake Total 2165 2960 1492 Output Total 350 610 150 Balance 1815 2350 1342 Meds/Results Medications: Active Medicat
[2020-04-01 08:31] LABS: Glucose Point of Care 141 (65-105)
--- NOTE | 2020-04-01 09:32 | PM.CNGS ---
Assessment and Plan Assessment and plan (1) Ewowx-cz-dtrapyh kidney injury: Code(s): N17.9 - Acute kidney failure, unspecified; N18.9 - Chronic kidney disease, unspecified Status: Acute Assessment and Plan: Patient has continued to have worsening kidney function with current treatment. She is being followed by Nephrology, who is requesting temporary dialysis catheter placement in hopes that her kidney function will improve and this is only a temporary measure. I discussed the patient's case and plan of care with Dr. Carballo. We would be able to place the temporary dialysis catheter at the bedside today. Description of the procedure, risks, benefits, indications, and expected outcomes were discussed with the patient in detail. All questions were answered. The patient agrees to proceed. Thank you for allowing me to see the patient in consultation. (2) Hyponatremia: Code(s): E87.1 - Hypo-osmolality and hyponatremia Status: Acute (3) Anemia: Code(s): D64.9 - Anemia, unspecified Status: Acute (4) Type 2 diabetes mellitus with diabetic nephropathy, without long-term current use of insulin: Code(s): E11.21 - Type 2 diabetes mellitus with diabetic nephropathy Status: Acute (5) Essential hypertension: Code(s): I10 - Essential (primary) hypertension Status: Acute (6) Gastroesophageal reflux disease: Code(s): K21.9 - Gastro-esophageal reflux disease without esophagitis Status: Acute (7) Hyperlipidemia associated with type 2 diabetes mellitus: Code(s): E11.69 - Type 2 diabetes mellitus with other specified complication; E78.5 - Hyperlipidemia, unspecified Status: Acute (8) Idiopathic chronic pancreatitis: Code(s): K86.1 - Other chronic pancreatitis Status: Acute (9) Pulmonary hypertension: Code(s): I27.20 - Pulmonary hypertension, unspecified Status: Acute (10) 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 Qualified Code(s): H49.02 - Third [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, left eye Code(s): H49.00 - Third [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, unspecified eye Status: Acute History of Present Illness Consult details Consult date: 04/01/20 Reason for consult: other (Placement of temporary dialysis catheter) Requesting physician: Robin Shoemaker MD Narrative: This is a 79-year-old female with a history of insulin-dependent type 2 diabetes mellitus, diabetic peripheral neuropathy, chronic kidney disease, hypertension, and GERD, who presented to the ER with complaints of diarrhea, generalized weakness, and tremors. She had recently seen her opthalmologist for diplopia of the left eye and was diagnosed with 3rd nerve palsy. She reports being started on Augmentin for sinusitis, and began to develop the diarrhea, lethargy, and generalized weakness after taking this medication. Symptoms continued to worsen and she presented to the emeregency room for further evaluation. She was found to have acute on chronic kidney injury with hyponatremia. Sodium is at 119 today. The patient was admitted to the Hospitalist service and Nephrology was consulted. Baseline creatinine is 1.2 and on admission creatinine was 5.4. She has been given an adequate amount of IV fluid hydration. Overnight, she developed shortness of breath. IV fluids were stopped and she was diuresed. Still low urine output. Creatinine has continued to climb to 6.7 today. Nephrology has now consulted our service for placement of a temporary dialysis catheter. The patient is now being seen on the medical floor. She is now on oxygen via nasal cannula and reports feeling better this morning. Still having some generalized weakness and shakiness, but otherwise no new complaints. Review of Systems Constitutional: Constitutional: Reports as per HPI, Denies chills, Denies excessive sweating, Reports fatigue, Denies fever(s), Denies headache(s) and Reports weakness Eyes: Eyes:
[2020-04-01] MEDS: AMLODIPINE BESYLATE 2.5 MG TABLET PO (09:47)
[2020-04-01] MEDS: GABAPENTIN 100 MG CAPSULE PO ×2 (09:47→21:56)
[2020-04-01] MEDS: METOPROLOL TARTRATE 50 MG TAB 100 MG PO ×2 (09:47→21:55)
[2020-04-01] MEDS: AMLODIPINE BESYLATE 5 MG TABLET PO (09:49)
[2020-04-01 10:19] LABS: Hepatitis B Surface Anti Res Negative
--- NOTE | 2020-04-01 11:00 | PC.NURSE ---
Temporary dialysis catheter attempted at bedside by Dr. Carballo. Unable to thread catheter. Per Dr. Carballo, patient will go to the OR later today to have catheter placed.
[2020-04-01 11:33] LABS: Glucose Point of Care 132 (65-105)
--- NOTE | 2020-04-01 12:20 | PC.NURSE ---
To OR via bed with OR staff for placement of temporary dialysis catheter. Consent on chart.
[2020-04-01 12:28] LABS: Hepatitis B Surface Antigen Negative (Negative)
[2020-04-01] MEDS: SODIUM CHLORIDE 0.9% IV 500 ML 30 ML IV CONT (12:30)
--- NOTE | 2020-04-01 12:33 | P.PNAN_ITS ---
Anes - Eval Final PreProcedure Day of Procedure 04/01/20 12:33 Patient weight: obese Heart: regular rate and rhythm Lungs: clear to auscultation Airway: Mallampati scale class II Neurological: alert and oriented Last oral intake: >/= 8 hours ASA classification: IV Emergent: no Anesthetic plan: proceed Anesthesia type and monitoring: general GIVS and standard monitoring Informed Consent: The patient's anesthetic plan and its attendant risks and be nefits were discussed with the patient/family/POA. Questions were solicited and answers provided to the satisfaction of the patient/family/POA.
[2020-04-01 12:46] LABS: Hepatitis C Virus Antibody Negative (Negative)
[2020-04-01] MEDS: ceFAZolin 2 GM/D5W 50 ML 2 GM/50 ML BAG IVPB (13:20)
[2020-04-01] MEDS: LIDO 1%/EPINEPHRINE 1:100,000 20 ML VIAL INFILTRATE ×2 (13:49→16:02)
[2020-04-01] MEDS: HEPARIN SODIUM 5,000 UNITS/ML VIAL 5000 UNITS IRRIGATION (13:50)
[2020-04-01] MEDS: HEPARIN SODIUM, PORCINE 10,000 UNITS/10 ML VIAL 10000 UNITS IV PUSH (13:52)
--- NOTE | 2020-04-01 13:55 | PCOTNOTE ---
OT evaluation attempted this date. Patient off floor at this time. Will attempt OT evaluation at later time.
--- NOTE | 2020-04-01 13:56 | PCPTNOTE ---
Pt unable to be seen this afternoon secondary to out for procedure, will attempt again later when appropriate.
--- NOTE | 2020-04-01 14:17 | PM.PROC ---
Procedure Note - Detailed Date of procedure: 04/01/20 Pre-op diagnosis: Diarrhea, weakness. renal failure Post-op diagnosis: same Procedure performed: placement of left internal jugular vein Malik dialysis catheter measuring 19-1/2 cm Description of procedure: The patient was taken to the operating room and placed in the supine position. After adequate induction of mac anesthesia, the patient was prepped and draped in the normal sterile fashion. A time-out was then done to verify the patient's identity was well as the procedure being performed. I began by localizing an area in the left neck. Once this area was locally anesthetized, I used an 18 gauge needle to gain access into the left internal jugular vein. Once into the vein, was able to pass the guidewire into the left internal jugular vein. The 18 gauge needle was subsequently removed. I then serially dilated the vein over the guidewire. Once this was done, a 16 cm Malik catheter was placed into the left internal jugular vein. I was able to easily draw and flush from the blue port as well as the pigtail catheter, however, I was unable to easily draw from the blue port. I then had fluoroscopy called and it was noted that the catheter was too high. Given this, I removed the 16 cm catheter and replaced it with a 19-1/2 cm catheter. This looked to be in much better position under fluoroscopy. I was now able to easily draw and flush from both ports. The patient tolerated the procedure well, was alert awake in the operating room postoperatively. She will be sent to the recovery room in stable condition. Implants: Malik dialysis catheter left internal jugular vein Anesthesia: MAC and local Surgeon: Dannielle Carballo MD Estimated blood loss (mL): 5 Drains: No Packing: No Pathology: none sent Complications: No immediate complications Condition: stable Disposition: PACU Findings: Initially attempted right internal jugular vein placement of Malik catheter at bedside, however, was unable to pass guidewire despite multiple attempts. The patient was also becoming increasingly agitated and uncomfortable. Given this, patient was taken to the operating room for placement of Malik dialysis catheter. Placed left internal jugular Malik dialysis catheter. It was noted initial 16 cm catheter was difficult to withdrawal and subsequently switched to 19-1/2 cm catheter.
[2020-04-01 14:36] LABS: Glucose Point of Care 142 (65-105)
--- NOTE | 2020-04-01 15:13 | PCOTNOTE ---
Attempted OT evaluation, but unable to complete at this time. Per RN, patient went to surgery to have a dialysis catheter placed, things didn't go well, and patient will now be transferring to IMU upon return from surgery. Per RN, patient currently still in recovery. Will continue to follow.
--- NOTE | 2020-04-01 15:34 | SUR.PHASEI ---
1428 PORTABLE CHEST XRAY TAKEN.
--- NOTE | 2020-04-01 15:48 | PM.IMPN ---
Progress Note: A&P Assessment and Plan (1) Qygcr-ac-zttqdpy kidney injury: Code(s): N17.9 - Acute kidney failure, unspecified; N18.9 - Chronic kidney disease, unspecified Status: Acute Assessment and Plan: Her creatinine was 1.20 just 4 days ago and given the rapid insult, I am suspicious she may have interstitial nephritis from the Augmentin. Marques catheter has been inserted we will monitor strict I/O. Nephro toxic agents will be avoided. Renal ultrasound shows mild atrophy of the kidneys and findings suggestive of acute kidney injury. I will ask Dr. Shoemaker to see her in consult for his recommendations. 04/01/20 15:48 Patient is 79-year-old female with history of chronic kidney disease her last creatinine was 1.2 on 03/26, patient was treated with Augmentin for sinusitis after 2 days developed generalized weakness and fatigue, nausea and had couple of loose bowel movement patient presented emergency department and found to acute kidney injury with creatinine of 5.4 and BUN of 60, most likely patient may have developed interstitial nephritis secondary to Augmentin, and is being hydrated will continue to monitor also patient has a chronic hyponatremia is getting worse most likely secondary to dehydration due to diarrhea, is being gently hydrated will monitor kidney function and sodium, will be seen by cab starter, we have ordered kidney ultrasound for further evaluation, showed Bilateral increased renal cortical echogenicity consistent with medical renal disease. No hydronephrosis. the patient states the feeling much better compared to when she arrived, is encouraged to hydrate herself and will continue IV fluids, today discussed with Dr. Shoemaker patient BUN and creatinine are not improving patient will require emergent temporary dialysis, patient be seen by surgery team and temporary catheter placed and will have a dialysis today this will improve patient BUN creatinine as well as volume overload, patient hypernatremia still persist may receive 3% sodium chloride per Dr. Shoemaker, today patient is feeling little better did have an episode of shortness of breath last night this will improve with dialysis to remove excess volume, will continue to monitor (2) Hyponatremia: Code(s): E87.1 - Hypo-osmolality and hyponatremia Status: Acute Assessment and Plan: She has chronic hyponatremia, and it looks like her sodium level is typically around 129 to 132. She may very well be a bit dry from the diarrhea, and she was aggressively hydrated in the emergency department. Repeat sodium pending at the time of this dictation to ensure it is correcting appropriately. (3) Type 2 diabetes mellitus with diabetic nephropathy, without long-term current use of insulin: Code(s): E11.21 - Type 2 diabetes mellitus with diabetic nephropathy Status: Acute Assessment and Plan: Hemoglobin A1c was 8.0% on 03/15/2020. Will continue basal insulin but hold metformin and nateglinide given acute kidney injury. Initiate sliding scale insulin, Accu-Cheks, and hypoglycemic protocol. (4) Anemia: Code(s): D64.9 - Anemia, unspecified Status: Acute Assessment and Plan: Hemoglobin and hematocrit are stable on review of previous labs. (5) Essential hypertension: Code(s): I10 - Essential (primary) hypertension Status: Acute Assessment and Plan: Blood pressures were reviewed and they are reasonable in the 140 systolic. Monitor closely as her losartan, furosemide, and chlorthalidone her on hold given acute kidney injury. (6) Hyperlipidemia associated with type 2 diabetes mellitus: Code(s): E11.69 - Type 2 diabetes mellitus with other specified complication; E78.5 - Hyperli
--- NOTE | 2020-04-01 16:01 | PC.NURSE ---
Patient to go to room 214 (IMU) from surgery. Report given to Page VELAZQUEZ in IMU. Belongings transferred to room 214. Meds sent to unit. Patient to transfer directly to 214 from PACU.
--- NOTE | 2020-04-01 16:14 | P.OP_ITS ---
Procedure Note - Detailed Date of procedure: 04/01/20 Pre-op diagnosis: left pneumothorax Post-op diagnosis: same Procedure performed: Left thoracostomy tube placement Description of procedure: Procedure as well as risks benefits and alternatives were explained to the patient. Written consent was obtained and placed in chart prior to procedure. Time-out was done to confirm patient and procedure. Patient was placed in supine position in hospital bed. His left chest area was prepped and draped in sterile fashion using chlorhexidine prep. 1% lidocaine with epinephrine was infiltrated along the left anterior axillary space in the 5th intercostal space. A 2 cm incision was made using a 15 blade scalpel. Careful blunt dissection was carried out down to the 6th rib. A curved hemostat was then used to bluntly dissect directly over the 6th rib and into the 5th intercostal space. Then bluntly entered into the intercostal space and through the pleura into the pleural cavity. A gush of air was released. A 28 [place] chest tube was then advanced cephalad and anteriorly. The chest tube was sutured in place using 0 silk suture. Vaseline gauze was then applied at the insertion site, followed by 4 x 4 gauze and silk tape. The chest tube was applied to -20 cm of water suction. The patient was then sat up in bed and chest x-ray was ordered to confirm placement. Anesthesia: MAC and local (1% lidocaine with epinephrine) Surgeon: Alvaro Jensen DO Estimated blood loss (mL): 5 Drains: Yes ( 28 [place] chest tube) Complications: No immediate complications Condition: stable Disposition: floor Findings: * 28 Fr chest tube placed and directed anterior and cephalad. CXR pending in recovery.
--- NOTE | 2020-04-01 17:05 | SUR.PHASEI ---
1550 SPOKE WITH SPOUSE PER PHONE- VERBAL CONSENT OBTAINED FOR CHEST TUBE PLACEMENT UNDER ANESTHESIA. 1625 SPOKE WITH SPOUSE & UPDATED HIM THAT PT WAS OUT OF SURGERY.
[2020-04-01 17:59] LABS: Glucose Point of Care 166 (65-105)
--- NOTE | 2020-04-01 18:07 | PC.NURSE ---
This patient, Danielle Thomason, was received from PACU on 04/01/20 at 1722. The patient was delivered to 308, Dialysis room, directly from PACU and I went up to meet and assess the patient. Report was received from BOX TOE CUTTER and also from Kristen Bahena, 3rd medical RN. Assessed patients chest tube and full systems assessment as well as obtaining vital signs and checking IV status. Patient to receive first dialysis treatment using new left IJ Malik catheter. Report given to circus trainerNavin. Personal belongings list checked and signed. Patient/family oriented to unit policies and routines
[2020-04-01 21:46] LABS: Glucose Point of Care 195 (65-105)
[2020-04-01] MEDS: LIPASE/AMYLASE/PROTEASE 12,000 UNITS CAP 2 CAP PO (21:55)
[2020-04-01] MEDS: INSULIN GLARGINE (*BKC) 100 UNITS/ML 15 UNITS SUB-Q (22:01)
--- NOTE | 2020-04-01 22:07 | PC.NURSE ---
RECEIVED PT. FROM DIALYSIS REPORT FROM DEIDRE VELAZQUEZ AT 2130.
[2020-04-02] VITALS (32 sets, daily range): BP systolic 118–149; BP diastolic 63–86; PULSE 69–84; RESP 16–24; TEMP 35.8–37; O2SAT 86–98
[2020-04-02 05:03] LABS: Basophils Percent Auto 0.1 % (0.2-1.2); Hematocrit 27.5 % (37.0-47.0); Hemoglobin 9.7 g/dL (12.0-15.0); Immature Granulocyte Absolute 0.05 K/mm3 (0.00-0.031); Immature Granulocyte Percent A 0.4 % (0-0.5); Lymphocytes Absolute Auto 0.95 K/mm3 (0.9-3.2); Lymphocytes Percent Auto 8.5 % (18.3-44.2); Mean Corpuscular HGB Conc 35.3 g/dl (32-36); Mean Corpuscular Hemoglobin 30.8 pg (26-34); Mean Corpuscular Volume 87.3 fl (80-100); Mean Platelet Volume 8.9 fl (7.4-10.4); Monocytes Absolute Auto 0.9 K/mm3 (0.1-0.6); Monocytes Percent Auto 8.1 % (2.6-8.5); Neutrophils Absolute Auto 9.3 K/mm3 (1.3-6.7); Neutrophils Percent Auto 82.9 % (45.5-73.1); Platelet Count Result 274 k/mm3 (150-375); Red Blood Count 3.15 M/mm3 (4.2-5.4); Red Cell Distribution Width 12.3 % (11.5-14.5); White Blood Count 11.2 K/mm3 (4.5-10.0)
[2020-04-02 05:20] LABS: Albumin Level 3.2 g/dL (3.5-5.1); Blood Urea Nitrogen 51 mg/dL (7-17); Calcium 7.9 mg/dL (8.4-10.2); Carbon Dioxide 30 mmol/L (22-30); Chloride 84 mmol/L (98-107); Estimated CRCL calculation 7 ml/min; Estimated Glomerular Filt Rate 7; Glucose 217 mg/dL (65-105); Phosphorus 5.3 mg/dL (2.5-4.5); Potassium 4.4 mmol/L (3.4-5.0); Sodium 124 mmol/L (137-145)
[2020-04-02 08:27] LABS: Glucose Point of Care 147 (65-105)
--- NOTE | 2020-04-02 09:07 | WPDANESPN ---
Anes - Prog Note Post-Op Date/Time: 04/02/20 09:07 Cardiovascular status: normal Respiratory status: normal Airway patency: baseline Mental status: baseline Post-Op hydration status: normal Vital Signs: Last Vital Signs Temp 36.5 C 04/02/20 08:00 Pulse 79 04/02/20 08:00 Resp 20 04/02/20 08:00 BP 149/82 H 04/02/20 08:00 Pulse Ox 91 04/02/20 08:00 I/O: Intake & Output 04/01/20 04/02/20 04/02/20 23:59 07:59 15:59 Intake Total 60 250 Output Total 3635 660 Balance -3575 -410 Laboratory Tests 04/02/20 04:39 04/02/20 04:39 04/01/20 04/01/20 04/01/20 08:42 08:42 11:20 WBC RBC Hgb Hct MCV MCH MCHC RDW Plt Count MPV Immature Gran % (Auto) Neut % (Auto) Lymph % (Auto) Hand % (Auto) Eos % (Auto) Baso % (Auto) Lymph # (Auto) Hand # (Auto) Eos # (Auto) Baso # (Auto) Abs Immat Gran (auto) Absolute Neuts (auto) Absolute Nucleated RBC Nucleated RBC % Sodium Potassium Chloride Carbon Dioxide BUN Creatinine Estim Creat Clear Calc Estimated GFR Glucose POC Capillary Glucose 132 H Calcium Phosphorus Albumin Hep Bs Antigen Negative Hep Bs Antibody Negative Hepatitis C Ab Screen Negative 04/01/20 04/01/20 04/01/20 14:34 17:41 21:41 WBC RBC Hgb Hct MCV MCH MCHC RDW Plt Count MPV Immature Gran % (Auto) Neut % (Auto) Lymph % (Auto) Hand % (Auto) Eos % (Auto) Baso % (Auto) Lymph # (Auto) Hand # (Auto) Eos # (Auto) Baso # (Auto) Abs Immat Gran (auto) Absolute Neuts (auto) Absolute Nucleated RBC Nucleated RBC % Sodium Potassium Chloride Carbon Dioxide BUN Creatinine Estim Creat Clear Calc Estimated GFR Glucose POC Capillary Glucose 142 H 166 H 195 H Calcium Phosphorus Albumin Hep Bs Antigen Hep Bs Antibody Hepatitis C Ab Screen 04/02/20 04/02/20 04/02/20 04:39 04:39 08:02 WBC 11.2 H RBC 3.15 L Hgb 9.7 L Hct 27.5 L MCV 87.3 MCH 30.8 MCHC 35.3 RDW 12.3 Plt Count 274 MPV 8.9 Immature Gran % (Auto) 0.4 Neut % (Auto) 82.9 H Lymph % (Auto) 8.5 L Hand % (Auto) 8.1 Eos % (Auto) 0.0 Baso % (Auto) 0.1 L Lymph # (Auto) 0.95 Hand # (Auto) 0.9 H Eos # (Auto) 0.0 Baso # (Auto) 0.0 Abs Immat Gran (auto) 0.05 H Absolute Neuts (auto) 9.3 H Absolute Nucleated RBC 0.0 Nucleated RBC % 0.0 Sodium 124 L Potassium 4.4 Chloride 84 L Carbon Dioxide 30 BUN 51 H D Creatinine 5.70 H Estim Creat Clear Calc 7 Estimated GFR 7 L Glucose 217 H POC Capillary Glucose 147 H Calcium 7.9 L Phosphorus 5.3 H Albumin 3.2 L Hep Bs Antigen Hep Bs Antibody Hepatitis C Ab Screen Post-procedural complaints: none Patient Feedback: Patient satisfied with anesthetic care.
[2020-04-02] MEDS: GABAPENTIN 100 MG CAPSULE PO ×2 (09:28→18:48)
[2020-04-02] MEDS: AMLODIPINE BESYLATE 5 MG TABLET PO (09:28)
[2020-04-02] MEDS: LIPASE/AMYLASE/PROTEASE 12,000 UNITS CAP 2 CAP PO ×3 (09:28→18:48)
[2020-04-02] MEDS: CHOLECALCIFEROL 1,000 UNIT TABLET 1000 UNITS PO (09:28)
[2020-04-02] MEDS: AMLODIPINE BESYLATE 2.5 MG TABLET PO (09:28)
[2020-04-02] MEDS: METOPROLOL TARTRATE 50 MG TAB 100 MG PO ×2 (09:28→21:27)
[2020-04-02] MEDS: VITAMIN B COMPLEX CAPSULE 1 CAP PO (09:28)
--- NOTE | 2020-04-02 10:11 | PM.PNGS ---
Progress Note: A&P Assessment and Plan (1) Acute renal failure (ARF): Code(s): N17.9 - Acute kidney failure, unspecified Status: Acute Assessment and Plan: catheter used for HD yesterday, cont to use as necessary (2) Pneumothorax, left: Code(s): J93.9 - Pneumothorax, unspecified Status: Acute Assessment and Plan: CXR shows no PTX, no leak on exam, will place to water seal Subjective Subjective Date/Time Seen: 04/02/20 10:11 Pt feels ok, c/o some pain at CT site. Pt had HD yest s issue, plan for HD again today. Review of Systems Constitutional: Constitutional: Reports fatigue, Reports lethargy and Reports weakness Cardiovascular: Cardiovascular: Denies chest pain and Denies palpitations Respiratory: Respiratory: Denies cough, Denies dyspnea and Denies wheezing Gastrointestinal: Gastrointestinal: Denies abdominal pain, Denies nausea and Denies vomiting Exam Const: General: no acute distress Neck: Other: LIJ HD cath - C/D/I Resp: Auscultation: clear to auscultation bilaterally Cardio: Rate: regular rate Rhythm: regular rhythm GI: Other: SNTND Objective Data Vital Signs Vital Signs: Vital Signs - 24 hr 04/01/20 12:40 04/01/20 14:23 04/01/20 14:35 Temperature 36.9 C 36.5 C Pulse Rate 83 84 81 Respiratory Rate 10 L 12 Blood Pressure 138/62 143/91 H 146/94 H Pulse Oximetry 90 90 93 04/01/20 14:50 04/01/20 15:05 04/01/20 15:20 Temperature Pulse Rate 80 80 82 Respiratory Rate 18 16 16 Blood Pressure 154/72 H 146/66 H 126/67 Pulse Oximetry 90 91 91 04/01/20 15:35 04/01/20 15:50 04/01/20 16:14 Temperature 36.5 C 36.9 C Pulse Rate 81 82 82 Respiratory Rate 16 14 18 Blood Pressure 133/68 144/74 H 125/61 Pulse Oximetry 91 92 91 04/01/20 16:25 04/01/20 16:40 04/01/20 16:55 Temperature Pulse Rate 84 82 83 Respiratory Rate 18 14 12 Blood Pressure 143/66 H 124/63 122/60 Pulse Oximetry 94 92 89 L 04/01/20 17:10 04/01/20 17:30 04/01/20 17:35 Temperature 36.7 C 36.7 C 36.6 C Pulse Rate 82 83 84 Respiratory Rate 12 20 20 Blood Pressure 130/66 170/76 H 170/76 H Pulse Oximetry 95 96 04/01/20 18:09 04/01/20 18:15 04/01/20 18:30 Temperature Pulse Rate 84 81 82 Respiratory Rate Blood Pressure 157/84 H 155/71 H 154/79 H Pulse Oximetry 04/01/20 18:45 04/01/20 19:00 04/01/20 19:10 Temperature Pulse Rate 81 81 81 Respiratory Rate 20 Blood Pressure 137/75 148/78 H 148/78 H Pulse Oximetry 93 04/01/20 19:15 04/01/20 19:30 04/01/20 19:45 Temperature Pulse Rate 80 82 81 Respiratory Rate Blood Pressure 134/77 144/77 H 137/80 Pulse Oximetry 04/01/20 20:00 04/01/20 20:15 04/01/20 20:30 Temperature Pulse Rate 83 82 82 Respiratory Rate Blood Pressure 165/85 H 151/79 H 150/82 H Pulse Oximetry 04/01/20 20:45 04/01/20 21:00 04/01/20 21:09 Temperature Pulse Rate 81 81 81 Respiratory Rate Blood Pressure 150/88 H 140/84 153/80 H Pulse Oximetry 04/01/20 21:15 04/01/20 21:46 04/01/20 22:00 Temperature 36.5 C 36.1 C L Pulse Rate 83 90 82 Respiratory Rate 18 20 Blood Pressure 164/90 H 164/70 H Pulse Oximetry 92 04/02/20 00:00 04/02/20 02:00 04/02/20 04:00 Temperature 36.1 C L 36.6 C Pulse Rate 84 81 81 Respiratory Rate 24 H 20 Blood Pressure 125/63 148/65 H Pulse Oximetry 98 97 04/02/20 06:00 04/02/20 08:00 04/02/20 09:28 Temperature 36.5 C Pulse Rate 76 79 76 Respiratory Rate 20 Blood Pressure 149/82 H Pulse Oximetry 91 Intake/Output Intake/Output: Intake & Output 06/16/20 06/17/20 06/18/20 06/19/20 23:59 23:59 23:59 23:59 Intake Total 2165 2960 1652 350 Output Total 702 908 3770 660 Balance 4419 9122 -7505 -608 Meds/Results Medications: Active Medications Generic Name Dose Route Start Last Admin Trade Name Freq PRN Reason Stop Dose Admin Amlodipine Besylate 2.5 mg 03/31/20 09:00 04/02/20 09:28 Norvasc PO 2.5 mg
[2020-04-02 11:12] LABS: Creatine Kinase 73 U/L (30-135)
[2020-04-02 11:26] LABS: Erythrocyte Sedimentation Rate 89 mm/hr (0-20)
[2020-04-02 11:45] LABS: Complement C3 122 mg/dL (88-165)
--- NOTE | 2020-04-02 12:07 | PM.PNNEP ---
Progress Note: A&P Assessment and Plan (1) Ukecg-zy-cmkbyeh kidney injury: Code(s): N17.9 - Acute kidney failure, unspecified; N18.9 - Chronic kidney disease, unspecified Status: Acute Assessment and Plan: Danielle has chronic kidney disease. This is from diabetes and hypertension. Her creatinine had been stable at 1.2. She also has acute kidney injury. Her creatinine has kwasi rocketed. The reason for this is not clear. Fluids that not help. Renal ultrasound shows only chronic changes. Urine electrolytes are non pre renal. Urine eosinophils pending UA still shows white cells. Urine culture is negative. Consider some intrinsic disease? I doubt if this is ATN there is no inciting cause. Consider some GN because of the active urinary sediment. Will expand serology. Will try steroids. Consider biopsy on Sunday if things do not improve. Will do another round of dialysis later today. (2) Hyponatremia: Code(s): E87.1 - Hypo-osmolality and hyponatremia Status: Acute Assessment and Plan: Sodium level is low. Dialysis will help this. Once again will do brief dialysis but a dry ultrafiltration, this combination to get rid of fluid and not bring the sodium up to quickly. (3) Acute UTI: Code(s): N39.0 - Urinary tract infection, site not specified Status: Acute Assessment and Plan: The patient has a culture which is negative. She has no symptoms of UTI. Her nitrites are negative. (4) Type 2 diabetes mellitus with diabetic nephropathy, without long-term current use of insulin: Code(s): E11.21 - Type 2 diabetes mellitus with diabetic nephropathy Status: Acute Assessment and Plan: On Accu-Cheks and sliding-scale insulin. (5) Essential hypertension: Code(s): I10 - Essential (primary) hypertension Status: Acute Assessment and Plan: Blood pressure is doing pretty well. Will keep observing this. (6) Anemia: Code(s): D64.9 - Anemia, unspecified Status: Acute Assessment and Plan: Hemoglobin is 9.7. Will give EPO. (7) Pulmonary hypertension: Code(s): I27.20 - Pulmonary hypertension, unspecified Status: Acute Assessment and Plan: Continue supportive care Subjective Date/time seen: 04/02/20 12:07 Interval history: Danielle is feeling a little better today. She is not short of breath. She does have some tremor. Appetite is not great. She has had some pain where her chest tube site is. Review of Systems Cardiovascular: Cardiovascular: Reports no additional cardiovascular complaints Respiratory: Respiratory: Reports no additional respiratory complaints Gastrointestinal: Gastrointestinal: Reports no additional gastrointestinal complaints Genitourinary: Genitourinary: Reports no additional female genitourinary complaints Exam Narrative: Exam Narrative: WDWN in NAD skin no rash head ncat lungs decreased breath sounds on the left mostly because of the pain with the chest tube. cor reg no rub abd BS+ nontender and soft ext 1+ edema. Objective Data Vital Signs Vital Signs: Vital Signs - 24 hr 04/01/20 12:40 04/01/20 14:23 04/01/20 14:35 Temperature 36.9 C 36.5 C Pulse Rate 83 84 81 Respiratory Rate 10 L 12 Blood Pressure 138/62 143/91 H 146/94 H Pulse Oximetry 90 90 93 04/01/20 14:50 04/01/20 15:05 04/01/20 15:20 Temperature Pulse Rate 80 80 82 Respiratory Rate 18 16 16 Blood Pressure 154/72 H 146/66 H 126/67 Pulse Oximetry 90 91 91 04/01/20 15:35 04/01/20 15:50 04/01/20 16:14 Temperature 36.5 C 36.9 C Pulse Rate 81 82 82 Respiratory Rate 16 14 18 Blood Pressure 133/68 144/74 H 125/61 Pulse Oximetry 91 92 91 04/01/20 16:25 04/01/20 16:40 04/01/20 16:55 Temperature Pulse Rate 84 82 83 Respiratory Rate 18 14 12 Blood Pressure 143/66 H 124/63 122/60 Pulse Oximetry 94 92 89 L 04/01/20 17:10 04/01/20 17:30
[2020-04-02 12:53] LABS: Glucose Point of Care 217 (65-105)
[2020-04-02 13:40] LABS: Add Urine Microscopic? YES; Appearance Urine Clear (Clear); Bilirubin Urine Negative (Negative); Blood Urine 1+ (Negative); Color Urine Straw (Yellow); Glucose Urine UA 3+ mg/dL (Negative); Ketones Urine Negative (Negative); Leukocyte Esterase Ur 1+ LEU/UL (NEGATIVE); Mucus Urine Rare /lpf; Nitrate Urine Negative (Negative); Protein Urine 2+ mg/dL (Negative); Specific Grav Ur 1.007 (1.001-1.035); Squamous Epithelial Cell Urine Rare /hpf (Few); Urobilinogen Urine Negative mg/dL (<2.0); WBC Urine 21-30 /hpf (0-3)
[2020-04-02 13:49] LABS: Creatinine Urine 23.4 mg/dL; Total Protein Urine Random 82 mg/dL
[2020-04-02 13:50] LABS: Sodium Urine Random 96 meq/L
[2020-04-02] MEDS: INSULIN ASPART (*BKC) 100 UNITS/ML SUB-Q (14:26)
[2020-04-02] MEDS: FAMOTIDINE 20 MG TABLET 40 MG PO ×2 (14:27→18:48)
--- NOTE | 2020-04-02 14:50 | PC.NURSE ---
Patient to dialysis via bed.
[2020-04-02] MEDS: SODIUM CHLORIDE 0.9% IV 1,000 ML 285 ML (15:00)
--- NOTE | 2020-04-02 17:14 | PM.IMPN ---
Progress Note: A&P Assessment and Plan (1) Jrllt-nn-izyhlmc kidney injury: Code(s): N17.9 - Acute kidney failure, unspecified; N18.9 - Chronic kidney disease, unspecified Status: Acute Assessment and Plan: Her creatinine was 1.20 just 4 days ago and given the rapid insult, I am suspicious she may have interstitial nephritis from the Augmentin. [place] catheter has been inserted we will monitor strict I/O. Nephro toxic agents will be avoided. Renal ultrasound shows mild atrophy of the kidneys and findings suggestive of acute kidney injury. I will ask Dr. Shoemaker to see her in consult for his recommendations. 04/02/20 17:14 Patient is 79-year-old female with history of chronic kidney disease her last creatinine was 1.2 on 03/26, patient was treated with Augmentin for sinusitis after 2 days developed generalized weakness and fatigue, nausea and had couple of loose bowel movement patient presented emergency department and found to acute kidney injury with creatinine of 5.4 and BUN of 60, most likely patient may have developed interstitial nephritis secondary to Augmentin, and is being hydrated will continue to monitor also patient has a chronic hyponatremia is getting worse most likely secondary to dehydration due to diarrhea, is being gently hydrated will monitor kidney function and sodium, will be seen by vp production, we have ordered kidney ultrasound for further evaluation, showed Bilateral increased renal cortical echogenicity consistent with medical renal disease. No hydronephrosis. the patient states the feeling much better compared to when she arrived, is encouraged to hydrate herself and will continue IV fluids, today discussed with Dr. Shoemaker patient BUN and creatinine are not improving patient will require emergent temporary dialysis, patient be seen by surgery team and temporary catheter placed and will have a dialysis today this will improve patient BUN creatinine as well as volume overload, patient hypernatremia still persist may receive 3% sodium chloride per Dr. Shoemaker, on 04/01 patient was seen by surgery team and temporary dialysis catheter was placed however there was complication patient developed pneumothorax chest tube was placed, catheter was used dialyzed the dialysis yesterday this has improved patient kidney function as well as hyponatremia, today patient is feeling little better denies any cough or shortness of breath, abdominal pain nausea or vomiting fever or chills, patient continue to make urine this is a good sign, patient will have dialysis today patient is seen by vp production and further recommendation to follow (2) Hyponatremia: Code(s): E87.1 - Hypo-osmolality and hyponatremia Status: Acute Assessment and Plan: She has chronic hyponatremia, and it looks like her sodium level is typically around 129 to 132. She may very well be a bit dry from the diarrhea, and she was aggressively hydrated in the emergency department. Repeat sodium pending at the time of this dictation to ensure it is correcting appropriately. (3) Type 2 diabetes mellitus with diabetic nephropathy, without long-term current use of insulin: Code(s): E11.21 - Type 2 diabetes mellitus with diabetic nephropathy Status: Acute Assessment and Plan: Hemoglobin A1c was 8.0% on 03/15/2020. Will continue basal insulin but hold metformin and nateglinide given acute kidney injury. Initiate sliding scale insulin, Accu-Cheks, and hypoglycemic protocol. (4) Anemia: Code(s): D64.9 - Anemia, unspecified Status: Acute Assessment and Plan: Hemoglobin and hematocrit are stable on review of previous labs. (5) Essential hypertension: Code(s): I10 - Essential (primary) hypertension Status: Acute Assessment and Plan: B
[2020-04-02] MEDS: EPOETIN ALFA 10,000 UNITS/ML VIAL 10000 UNITS IV PUSH (18:23)
--- NOTE | 2020-04-02 18:44 | PC.NURSE ---
Patient returned to room following dialysis.
[2020-04-02 18:54] LABS: Glucose Point of Care 178 (65-105)
[2020-04-02 21:02] LABS: Glucose Point of Care 269 (65-105)
[2020-04-02] MEDS: INSULIN GLARGINE (*BKC) 100 UNITS/ML 15 UNITS SUB-Q (21:29)
[2020-04-03] VITALS (33 sets, daily range): BP systolic 97–171; BP diastolic 52–81; PULSE 65–88; RESP 16–20; TEMP 35.6–37; O2SAT 95–98
[2020-04-03 03:52] LABS: Osmolality, Urine 265 mOsm/kg (50-1200)
[2020-04-03 05:10] LABS: Basophils Percent Auto 0.4 % (0.2-1.2); Eosinophils Absolute Auto 0.1 K/mm3 (0-0.3); Eosinophils Percent Auto 1.1 % (0-4.4); Hematocrit 29.6 % (37.0-47.0); Hemoglobin 10.2 g/dL (12.0-15.0); Immature Granulocyte Absolute 0.05 K/mm3 (0.00-0.031); Immature Granulocyte Percent A 0.5 % (0-0.5); Lymphocytes Absolute Auto 1.74 K/mm3 (0.9-3.2); Lymphocytes Percent Auto 18.6 % (18.3-44.2); Mean Corpuscular HGB Conc 34.5 g/dl (32-36); Mean Corpuscular Hemoglobin 30.6 pg (26-34); Mean Corpuscular Volume 88.9 fl (80-100); Mean Platelet Volume 9.3 fl (7.4-10.4); Monocytes Absolute Auto 1.1 K/mm3 (0.1-0.6); Monocytes Percent Auto 11.3 % (2.6-8.5); Neutrophils Absolute Auto 6.4 K/mm3 (1.3-6.7); Neutrophils Percent Auto 68.1 % (45.5-73.1); Platelet Count Result 268 k/mm3 (150-375); Red Blood Count 3.33 M/mm3 (4.2-5.4); Red Cell Distribution Width 12.6 % (11.5-14.5); White Blood Count 9.3 K/mm3 (4.5-10.0)
[2020-04-03 05:28] LABS: Albumin Level 3.5 g/dL (3.5-5.1); Blood Urea Nitrogen 37 mg/dL (7-17); Calcium 8.5 mg/dL (8.4-10.2); Carbon Dioxide 30 mmol/L (22-30); Chloride 87 mmol/L (98-107); Estimated CRCL calculation 9 ml/min; Estimated Glomerular Filt Rate 10; Glucose 130 mg/dL (65-105); Phosphorus 4.8 mg/dL (2.5-4.5); Sodium 127 mmol/L (137-145)
[2020-04-03 08:06] LABS: Glucose Point of Care 99 (65-105)
--- NOTE | 2020-04-03 08:38 | PM.PNGS ---
Progress Note: A&P Assessment and Plan (1) Pneumothorax, left: Code(s): J93.9 - Pneumothorax, unspecified Status: Acute Assessment and Plan: No pleural leak noted this morning on water seal. Left chest tube removed without difficulty. Pending postprocedure chest x-ray. Patient tolerated this well. (2) Acute renal failure (ARF): Code(s): N17.9 - Acute kidney failure, unspecified Status: Acute Assessment and Plan: About to begin dialysis this morning. Subjective Subjective Date/Time Seen: 04/03/20 08:38 Patient reports: no new complaints and pain is less Review of Systems Review of Systems: All systems reviewed & are unremarkable except as noted in HPI and below (HPI) Exam Const: General: comfortable and no acute distress; No confusion Orientation/consciousness: patient oriented x3 and No confusion Resp: Effort & Inspection: normal respiratory effort and other (No pleural leak from left chest) Auscultation: clear to auscultation bilaterally Other: Left chest tube removed without difficulty. Sen chest x-ray Neuro: General: patient oriented x3, no focal motor deficits and No confusion Extrem: General: no calf tenderness and no edema Psych: Affect: normal affect Insight: Good insight present (Psych) Judgement: Good judgement present (Psych) Objective Data Vital Signs Vital Signs: Vital Signs - 24 hr 04/02/20 09:28 04/02/20 09:53 04/02/20 10:00 Temperature Pulse Rate 76 72 Respiratory Rate Blood Pressure Pulse Oximetry 95 04/02/20 10:31 04/02/20 12:00 04/02/20 14:00 Temperature 36.5 C Pulse Rate 77 76 Respiratory Rate 20 Blood Pressure 144/63 H Pulse Oximetry 86 L 92 04/02/20 15:00 04/02/20 15:15 04/02/20 15:30 Temperature Pulse Rate 76 74 70 Respiratory Rate Blood Pressure 144/76 H 132/66 125/71 Pulse Oximetry 04/02/20 15:45 04/02/20 16:00 04/02/20 16:15 Temperature Pulse Rate 71 69 70 Respiratory Rate Blood Pressure 133/71 133/70 132/69 Pulse Oximetry 04/02/20 16:30 04/02/20 16:45 04/02/20 17:00 Temperature Pulse Rate 71 70 69 Respiratory Rate Blood Pressure 119/69 126/68 118/63 Pulse Oximetry 04/02/20 17:15 04/02/20 17:30 04/02/20 17:45 Temperature Pulse Rate 70 71 72 Respiratory Rate Blood Pressure 127/69 123/69 126/74 Pulse Oximetry 04/02/20 18:00 04/02/20 18:15 04/02/20 18:30 Temperature Pulse Rate 80 73 73 Respiratory Rate Blood Pressure 123/75 122/70 121/73 Pulse Oximetry 04/02/20 18:35 04/02/20 19:45 04/02/20 20:00 Temperature 35.8 C L Pulse Rate 71 80 79 Respiratory Rate 16 18 Blood Pressure 149/78 H 120/86 Pulse Oximetry 97 04/02/20 21:27 04/02/20 22:00 04/03/20 00:00 Temperature Pulse Rate 82 81 75 Respiratory Rate Blood Pressure Pulse Oximetry 04/03/20 00:10 04/03/20 02:00 04/03/20 04:00 Temperature 35.8 C L Pulse Rate 78 65 69 Respiratory Rate 18 Blood Pressure 153/64 H Pulse Oximetry 95 04/03/20 04:55 04/03/20 05:53 04/03/20 08:00 Temperature 35.6 C L 36.6 C Pulse Rate 75 73 76 Respiratory Rate 18 18 Blood Pressure 171/72 H 152/62 H Pulse Oximetry 97 95 Intake/Output Intake/Output: Intake & Output 03/31/20 04/01/20 04/02/20 04/03/20 23:59 23:59 23:59 23:59 Intake Total 2960 1652 630 50 Output Total 610 5895 4510 1025 Balance 8220 -2133 -3880 -975 Meds/Results Medications: Active Medications Generic Name Dose Route Start Last Admin Trade Name Freq PRN Reason Stop Dose Admin Amlodipine Besylate 2.5 mg 03/31/20 09:00 04/02/20 09:28 Norvasc PO 2.5 mg DAILY JAMARI Administration Amlodipine Besylate 5 mg 03/31/20 09:00 04/02/20 09:28 Norvasc PO 5 mg DAILY JAMARI Administration Lipase/Protease/Amylase 2 cap 03/31/20 09:00 04/02/20 18:[address] 12,000 Units Capsule PO 04/30/20 09:01 2 cap TID JAMARI Administration Dextrose 12.5 gm 0
--- NOTE | 2020-04-03 09:18 | PCOTNOTE ---
Patient out of room for testing this date
[2020-04-03] MEDS: EPOETIN ALFA 10,000 UNITS/ML VIAL 10000 UNITS IV PUSH (10:48)
--- NOTE | 2020-04-03 12:06 | PM.PNNEP ---
Progress Note: A&P Assessment and Plan (1) Phzbr-pd-myeozmp kidney injury: Code(s): N17.9 - Acute kidney failure, unspecified; N18.9 - Chronic kidney disease, unspecified Status: Acute Assessment and Plan: Danielle has chronic kidney disease. This is from diabetes and hypertension. Her creatinine had been stable at 1.2. She also has acute kidney injury. The reason for this is not clear. Fluids that not help. Renal ultrasound shows only chronic changes. Urine electrolytes are non pre renal. Urine eosinophils pending UA still shows white cells. Urine culture is negative. Receiving steroids. If no recovery by Sunday or Sunday consider biopsy. (2) Hyponatremia: Code(s): E87.1 - Hypo-osmolality and hyponatremia Status: Acute Assessment and Plan: Sodium level is low. This is gradually improving. (3) Acute UTI: Code(s): N39.0 - Urinary tract infection, site not specified Status: Acute Assessment and Plan: The patient has a culture which is negative. She has no symptoms of UTI. Her nitrites are negative. (4) Type 2 diabetes mellitus with diabetic nephropathy, without long-term current use of insulin: Code(s): E11.21 - Type 2 diabetes mellitus with diabetic nephropathy Status: Acute Assessment and Plan: On Accu-Cheks and sliding-scale insulin. (5) Essential hypertension: Code(s): I10 - Essential (primary) hypertension Status: Acute Assessment and Plan: Blood pressure is doing pretty well. (6) Anemia: Code(s): D64.9 - Anemia, unspecified Status: Acute Assessment and Plan: Hemoglobin is 9.7. Will give EPO. (7) Pulmonary hypertension: Code(s): I27.20 - Pulmonary hypertension, unspecified Status: Acute Assessment and Plan: Continue supportive care Subjective Date/time seen: 04/03/20 12:06 Interval history: Danielle is feeling better. On dialysis. Blood pressure dropped while on the machine and so ultrafiltration stopped and she was given some fluid. She recovered promptly. She was seen at 11 40 a.m. Review of Systems Cardiovascular: Cardiovascular: Reports no additional cardiovascular complaints Respiratory: Respiratory: Reports no additional respiratory complaints Gastrointestinal: Gastrointestinal: Reports no additional gastrointestinal complaints Genitourinary: Genitourinary: Reports no additional female genitourinary complaints Exam Narrative: Exam Narrative: WDWN in NAD skin no rash or subcu nodules head ncat lungs clear cor reg no rub or gallop abd BS+ nontender and soft ext no edema. Objective Data Vital Signs Vital Signs: Vital Signs - 24 hr 04/02/20 14:00 04/02/20 15:00 04/02/20 15:15 Temperature Pulse Rate 76 76 74 Respiratory Rate Blood Pressure 144/76 H 132/66 Pulse Oximetry 04/02/20 15:30 04/02/20 15:45 04/02/20 16:00 Temperature Pulse Rate 70 71 69 Respiratory Rate Blood Pressure 125/71 133/71 133/70 Pulse Oximetry 04/02/20 16:15 04/02/20 16:30 04/02/20 16:45 Temperature Pulse Rate 70 71 70 Respiratory Rate Blood Pressure 132/69 119/69 126/68 Pulse Oximetry 04/02/20 17:00 04/02/20 17:15 04/02/20 17:30 Temperature Pulse Rate 69 70 71 Respiratory Rate Blood Pressure 118/63 127/69 123/69 Pulse Oximetry 04/02/20 17:45 04/02/20 18:00 04/02/20 18:15 Temperature Pulse Rate 72 80 73 Respiratory Rate Blood Pressure 126/74 123/75 122/70 Pulse Oximetry 04/02/20 18:30 04/02/20 18:35 04/02/20 19:45 Temperature 35.8 C L Pulse Rate 73 71 80 Respiratory Rate 16 18 Blood Pressure 121/73 149/78 H 120/86 Pulse Oximetry 97 04/02/20 20:00 04/02/20 21:27 04/02/20 22:00 Temperature Pulse Rate 79 82 81 Respiratory Rate Blood Pressure Pulse Oximetry 04/03/20 00:00 04/03/20 00:10 04/03/20 02:00 Temperature 35.8 C L Puls
[2020-04-03 12:44] LABS: Glucose Point of Care 256 (65-105)
[2020-04-03] MEDS: GABAPENTIN 100 MG CAPSULE PO ×2 (12:44→16:41)
[2020-04-03] MEDS: METOPROLOL TARTRATE 50 MG TAB 100 MG PO ×2 (12:44→20:08)
[2020-04-03] MEDS: LIPASE/AMYLASE/PROTEASE 12,000 UNITS CAP 2 CAP PO ×2 (12:44→16:41)
[2020-04-03] MEDS: VITAMIN B COMPLEX CAPSULE 1 CAP PO (12:44)
[2020-04-03] MEDS: CHOLECALCIFEROL 1,000 UNIT TABLET 1000 UNITS PO (12:45)
[2020-04-03] MEDS: AMLODIPINE BESYLATE 5 MG TABLET PO (12:45)
[2020-04-03] MEDS: FAMOTIDINE 20 MG TABLET 40 MG PO ×2 (12:45→16:41)
[2020-04-03] MEDS: AMLODIPINE BESYLATE 2.5 MG TABLET PO (12:45)
[2020-04-03] MEDS: INSULIN ASPART (*BKC) 100 UNITS/ML SUB-Q ×2 (12:45→16:41)
--- NOTE | 2020-04-03 13:21 | PC.NURSE ---
This patient, Danielle Thomason, was transferred to [facility] on 04/03/20 at 1305. Personal belongings sent with patient. Belongings list checked]. Report given to Rafaela VELAZQUEZ. Appropriate documentation sent with patient.
--- NOTE | 2020-04-03 14:30 | PC.NURSE ---
1324 transfer from IMU on today. Instructed to call for assistance as needed,call light in reach. Resting in bed without any complaints voiced.
[2020-04-03 16:41] LABS: Glucose Point of Care 287 (65-105)
--- NOTE | 2020-04-03 17:31 | PM.IMPN ---
Progress Note: A&P Assessment and Plan (1) Gmfzh-aa-yrkwfjr kidney injury: Code(s): N17.9 - Acute kidney failure, unspecified; N18.9 - Chronic kidney disease, unspecified Status: Acute Assessment and Plan: Her creatinine was 1.20 just 4 days ago and given the rapid insult, I am suspicious she may have interstitial nephritis from the Augmentin. Marques catheter has been inserted we will monitor strict I/O. Nephro toxic agents will be avoided. Renal ultrasound shows mild atrophy of the kidneys and findings suggestive of acute kidney injury. I will ask Dr. Shoemaker to see her in consult for his recommendations. 04/03/20 17:31 Patient is 79-year-old female with history of chronic kidney disease her last creatinine was 1.2 on 03/26, patient was treated with Augmentin for sinusitis after 2 days developed generalized weakness and fatigue, nausea and had couple of loose bowel movement patient presented emergency department and found to acute kidney injury with creatinine of 5.4 and BUN of 60, most likely patient may have developed interstitial nephritis secondary to Augmentin, and is being hydrated will continue to monitor also patient has a chronic hyponatremia is getting worse most likely secondary to dehydration due to diarrhea, is being gently hydrated will monitor kidney function and sodium, will be seen by crm dynamics developer, we have ordered kidney ultrasound for further evaluation, showed Bilateral increased renal cortical echogenicity consistent with medical renal disease. No hydronephrosis. the patient states the feeling much better compared to when she arrived, is encouraged to hydrate herself and will continue IV fluids, today discussed with Dr. Shoemaker patient BUN and creatinine are not improving patient will require emergent temporary dialysis, patient be seen by surgery team and temporary catheter placed and will have a dialysis today this will improve patient BUN creatinine as well as volume overload, patient hypernatremia still persist may receive 3% sodium chloride per Dr. Shoemaker, on 04/01 patient was seen by surgery team and temporary dialysis catheter was placed however there was complication patient developed pneumothorax chest tube was placed, catheter was used dialyzed the dialysis yesterday this has improved patient kidney function as well as hyponatremia, today patient was seen by surgery team chest tube was removed repeat x-ray did not show any pneumothorax, patient seen in dialysis while having dialysis patient developed hypotension Dr. Shoemaker was present patient was given 200 cc twice bolus to improve her blood pressure patient remained clinically stable will continue to monitor. (2) Hyponatremia: Code(s): E87.1 - Hypo-osmolality and hyponatremia Status: Acute Assessment and Plan: She has chronic hyponatremia, and it looks like her sodium level is typically around 129 to 132. She may very well be a bit dry from the diarrhea, and she was aggressively hydrated in the emergency department. Repeat sodium pending at the time of this dictation to ensure it is correcting appropriately. (3) Type 2 diabetes mellitus with diabetic nephropathy, without long-term current use of insulin: Code(s): E11.21 - Type 2 diabetes mellitus with diabetic nephropathy Status: Acute Assessment and Plan: Hemoglobin A1c was 8.0% on 03/15/2020. Will continue basal insulin but hold metformin and nateglinide given acute kidney injury. Initiate sliding scale insulin, Accu-Cheks, and hypoglycemic protocol. (4) Anemia: Code(s): D64.9 - Anemia, unspecified Status: Acute Assessment and Plan: Hemoglobin and hematocrit are stable on review of previous labs. (5) Essential hypertension: Code(s): I10 - Essential (primary) hypertension
[2020-04-03 19:43] LABS: Hepatitis B Core Ab Total Nonreactive (Nonreactive)
[2020-04-03] MEDS: INSULIN GLARGINE (*BKC) 100 UNITS/ML 15 UNITS SUB-Q (20:09)
[2020-04-03 20:47] LABS: Glucose Point of Care 327 (65-105)
[2020-04-04] VITALS (15 sets, daily range): BP systolic 101–157; BP diastolic 56–77; PULSE 69–94; RESP 16–18; TEMP 36.1–36.6; O2SAT 95–100
[2020-04-04 06:01] LABS: Hemoglobin 10.5 g/dL (12.0-15.0); Mean Corpuscular HGB Conc 33.9 g/dl (32-36); Mean Corpuscular Hemoglobin 31.2 pg (26-34); Mean Platelet Volume 9.2 fl (7.4-10.4); Platelet Count Result 287 k/mm3 (150-375); Red Blood Count 3.37 M/mm3 (4.2-5.4); Red Cell Distribution Width 12.8 % (11.5-14.5); White Blood Count 10.4 K/mm3 (4.5-10.0)
[2020-04-04 06:22] LABS: Albumin Level 3.6 g/dL (3.5-5.1); Blood Urea Nitrogen 30 mg/dL (7-17); Calcium 8.8 mg/dL (8.4-10.2); Carbon Dioxide 29 mmol/L (22-30); Chloride 89 mmol/L (98-107); Estimated CRCL calculation 11 ml/min; Estimated Glomerular Filt Rate 12; Glucose 174 mg/dL (65-105); Phosphorus 3.8 mg/dL (2.5-4.5); Potassium 3.5 mmol/L (3.4-5.0); Sodium 128 mmol/L (137-145)
[2020-04-04] MEDS: CHOLECALCIFEROL 1,000 UNIT TABLET 1000 UNITS PO (07:36)
[2020-04-04] MEDS: LIPASE/AMYLASE/PROTEASE 12,000 UNITS CAP 2 CAP PO ×3 (07:36→16:13)
[2020-04-04] MEDS: AMLODIPINE BESYLATE 2.5 MG TABLET PO (07:37)
[2020-04-04] MEDS: METOPROLOL TARTRATE 50 MG TAB 100 MG PO ×2 (07:37→20:41)
[2020-04-04] MEDS: VITAMIN B COMPLEX CAPSULE 1 CAP PO (07:38)
[2020-04-04] MEDS: AMLODIPINE BESYLATE 5 MG TABLET PO (07:38)
[2020-04-04] MEDS: FAMOTIDINE 20 MG TABLET 40 MG PO ×2 (07:38→16:13)
[2020-04-04] MEDS: GABAPENTIN 100 MG CAPSULE PO ×2 (07:39→16:13)
[2020-04-04 09:08] LABS: Glucose Point of Care 168 (65-105)
--- NOTE | 2020-04-04 10:21 | PM.PNNEP ---
Progress Note: A&P Assessment and Plan (1) Zhqdb-oq-aybrruw kidney injury: Code(s): N17.9 - Acute kidney failure, unspecified; N18.9 - Chronic kidney disease, unspecified Status: Acute Assessment and Plan: Danielle has chronic kidney disease. This is from diabetes and hypertension. Her creatinine had been stable at 1.2. She also has acute kidney injury. The reason for this is not clear. Renal ultrasound shows only chronic changes. Urine electrolytes are non pre renal. Urine eosinophils pending UA still shows white cells. Urine culture is negative. She has a past history of sarcoidosis. Consider: ATN, allergic interstitial nephritis, sarcoidosis, GN? Receiving steroids. She made a little bit more urine yesterday. Will watch this overnight. Recheck blood work. If she seems to be recovering will hold off on dialysis tomorrow. If no recovery evident then continue dialysis and consider biopsy. Long conversation with the patient today in with her sister yesterday. 25 minutes were spent in conversations apart from clinical activity. (2) Hyponatremia: Code(s): E87.1 - Hypo-osmolality and hyponatremia Status: Acute Assessment and Plan: Sodium level is low but stable. (3) Acute UTI: Code(s): N39.0 - Urinary tract infection, site not specified Status: Acute Assessment and Plan: The patient has a culture which is negative. She has no symptoms of UTI. Her nitrites are negative. (4) Type 2 diabetes mellitus with diabetic nephropathy, without long-term current use of insulin: Code(s): E11.21 - Type 2 diabetes mellitus with diabetic nephropathy Status: Acute Assessment and Plan: On Accu-Cheks and sliding-scale insulin. (5) Essential hypertension: Code(s): I10 - Essential (primary) hypertension Status: Acute Assessment and Plan: Blood pressure dropped with ultrafiltration yesterday. It is been fine since then. (6) Anemia: Code(s): D64.9 - Anemia, unspecified Status: Acute Assessment and Plan: Hemoglobin is 9.7. Will give EPO. (7) Pulmonary hypertension: Code(s): I27.20 - Pulmonary hypertension, unspecified Status: Acute Assessment and Plan: Continue supportive care Subjective Date/time seen: 04/04/20 10:21 Interval history: Danielle is feeling better. She can take a deep breath without pain. No shortness of breath. No swelling. Blood pressure stable overnight. Review of Systems Cardiovascular: Cardiovascular: Reports no additional cardiovascular complaints Respiratory: Respiratory: Reports no additional respiratory complaints Gastrointestinal: Gastrointestinal: Reports no additional gastrointestinal complaints Genitourinary: Genitourinary: Reports no additional female genitourinary complaints Exam Narrative: Exam Narrative: WDWN in NAD skin no rash or subcu nodules head ncat lungs clear bilaterally cor reg no rub or gallop abd BS+ nontender and soft ext no edema. No cyanosis Objective Data Vital Signs Vital Signs: Vital Signs - 24 hr 04/03/20 10:30 04/03/20 10:45 04/03/20 11:00 Temperature Pulse Rate 78 79 78 Respiratory Rate Blood Pressure 122/71 123/65 122/62 Pulse Oximetry 04/03/20 11:15 04/03/20 11:20 04/03/20 11:30 Temperature Pulse Rate 85 82 76 Respiratory Rate Blood Pressure 97/52 L 155/75 H 133/71 Pulse Oximetry 04/03/20 11:45 04/03/20 11:54 04/03/20 12:00 Temperature 36.6 C Pulse Rate 80 80 85 Respiratory Rate 16 Blood Pressure 135/76 149/77 H 145/79 H Pulse Oximetry 04/03/20 12:30 04/03/20 12:44 04/03/20 13:43 Temperature 36.8 C Pulse Rate 77 88 74 Respiratory Rate 18 Blood Pressure 128/58 L Pulse Oximetry 98 04/03/20 16:00 04/03/20 17:50 04/03/20 20:00 Temperature 36.7 C Pulse Rate 82 83 80 Respiratory Rate 18 Blood Pressure 131/65 Pulse Oximetr
[2020-04-04 11:37] LABS: Glucose Point of Care 347 (65-105)
[2020-04-04] MEDS: INSULIN ASPART (*BKC) 100 UNITS/ML SUB-Q ×3 (11:45→21:01)
--- NOTE | 2020-04-04 14:29 | PM.IMPN ---
Progress Note: A&P Assessment and Plan (1) Njwsp-mg-lxartiq kidney injury: Code(s): N17.9 - Acute kidney failure, unspecified; N18.9 - Chronic kidney disease, unspecified Status: Acute Assessment and Plan: Her creatinine was 1.20 just 4 days ago and given the rapid insult, I am suspicious she may have interstitial nephritis from the Augmentin. Marques catheter has been inserted we will monitor strict I/O. Nephro toxic agents will be avoided. Renal ultrasound shows mild atrophy of the kidneys and findings suggestive of acute kidney injury. I will ask Dr. Shoemaker to see her in consult for his recommendations. 04/04/20 14:29 Patient is 79-year-old female with history of chronic kidney disease her last creatinine was 1.2 on 03/26, patient was treated with Augmentin for sinusitis after 2 days developed generalized weakness and fatigue, nausea and had couple of loose bowel movement patient presented emergency department and found to acute kidney injury with creatinine of 5.4 and BUN of 60, most likely patient may have developed interstitial nephritis secondary to Augmentin, and is being hydrated and continued to monitor also patient has a chronic hyponatremia is getting worse most likely secondary to dehydration due to diarrhea, is being gently hydrated will monitor kidney function and sodium, will be seen by box blank machine operator, we had ordered kidney ultrasound for further evaluation, showed Bilateral increased renal cortical echogenicity consistent with medical renal disease. No hydronephrosis. the patient stated the feeling much better compared to when she arrived, is encouraged to hydrate herself and will continue IV fluids, discussed with Dr. Shoemaker patient BUN and creatinine are not improving patient will require emergent temporary dialysis, patient was seen by surgery team and temporary catheter placed and will have a dialysis later, this will improve patient BUN creatinine as well as volume overload, patient hyponatremia still persist may receive 3% sodium chloride per Dr. Shoemaker, on 04/01 patient was seen by surgery team and temporary dialysis catheter was placed however there was complication patient had developed pneumothorax chest tube was placed and catheter was used dialyzed the dialysis, this has improved patient kidney function as well as hyponatremia, 04/03 patient was seen by surgery team chest tube was removed repeat x-ray did not show any pneumothorax, patient seen in dialysis while having dialysis patient developed hypotension Dr. Shoemaker was present patient was given 200 cc twice bolus to improve her blood pressure patient remained clinically stable continued her dailysis, today patien stats she feeling and urinating more, tomorrow patient will have a dialysis and further recommendation to follow, denies any chest pain shortness of breath palpitation, abdominal pain fever or chills (2) Hyponatremia: Code(s): E87.1 - Hypo-osmolality and hyponatremia Status: Acute Assessment and Plan: She has chronic hyponatremia, and it looks like her sodium level is typically around 129 to 132. She may very well be a bit dry from the diarrhea, and she was aggressively hydrated in the emergency department. Repeat sodium pending at the time of this dictation to ensure it is correcting appropriately. (3) Type 2 diabetes mellitus with diabetic nephropathy, without long-term current use of insulin: Code(s): E11.21 - Type 2 diabetes mellitus with diabetic nephropathy Status: Acute Assessment and Plan: Hemoglobin A1c was 8.0% on 03/15/2020. Will continue basal insulin but hold metformin and nateglinide given acute kidney injury. Initiate sliding scale insulin, Accu-Cheks, and hypoglycemic protocol. (4) Anemia: Code(s): D64.9 - Anemia, unspecified Status: Acute Assessment and Plan: H
[2020-04-04 16:25] LABS: Glucose Point of Care 360 (65-105)
--- NOTE | 2020-04-04 16:34 | PCPTNOTE ---
Attempted therapy session. Pt was eating dinner and requested therapy to come back tomorrow. Will continue PT per POC.
[2020-04-04] MEDS: INSULIN GLARGINE (*BKC) 100 UNITS/ML 15 UNITS SUB-Q (20:44)
[2020-04-04 22:56] LABS: Glucose Point of Care 374 (65-105)
[2020-04-05] VITALS (14 sets, daily range): BP systolic 105–151; BP diastolic 54–69; PULSE 66–114; RESP 14–18; TEMP 36.1–36.9; O2SAT 94–98
[2020-04-05 01:15] LABS: Glucose Point of Care 215 (65-105)
--- NOTE | 2020-04-05 01:20 | ECG_ITS ---
Measurements Intervals [place] Rate: 86 P: AL: 0 QRS: -31 QRSD: 142 T: 136 QT: 411 QTc: 494 Interpretive Statements ATRIAL FIBRILLATION LEFT AXIS DEVIATION LEFT BUNDLE BRANCH BLOCK ABNORMAL ECG Electronically Signed On 04-05-2020 11:22:37 CDT by Jose Carty D.O.
[2020-04-05 05:17] LABS: Hematocrit 29.7 % (37.0-47.0); Hemoglobin 10.3 g/dL (12.0-15.0); Mean Corpuscular HGB Conc 34.7 g/dl (32-36); Mean Corpuscular Hemoglobin 31.2 pg (26-34); Mean Platelet Volume 8.8 fl (7.4-10.4); Platelet Count Result 287 k/mm3 (150-375); Red Cell Distribution Width 12.6 % (11.5-14.5); White Blood Count 11.5 K/mm3 (4.5-10.0)
[2020-04-05 05:30] LABS: Albumin Level 3.5 g/dL (3.5-5.1); Blood Urea Nitrogen 40 mg/dL (7-17); Calcium 8.8 mg/dL (8.4-10.2); Carbon Dioxide 28 mmol/L (22-30); Chloride 90 mmol/L (98-107); Estimated CRCL calculation 10 ml/min; Estimated Glomerular Filt Rate 12; Glucose 211 mg/dL (65-105); Potassium 3.1 mmol/L (3.4-5.0); Sodium 127 mmol/L (137-145)
[2020-04-05 07:58] LABS: Glucose Point of Care 190 (65-105)
[2020-04-05] MEDS: POTASSIUM CHLORIDE 20 MEQ TABLET 40 MEQ PO (07:59)
[2020-04-05] MEDS: AMLODIPINE BESYLATE 5 MG TABLET PO (09:38)
[2020-04-05] MEDS: AMLODIPINE BESYLATE 2.5 MG TABLET PO (09:38)
[2020-04-05] MEDS: VITAMIN B COMPLEX CAPSULE 1 CAP PO (09:39)
[2020-04-05] MEDS: GABAPENTIN 100 MG CAPSULE PO ×2 (09:39→18:07)
[2020-04-05] MEDS: METOPROLOL TARTRATE 50 MG TAB 100 MG PO ×2 (09:39→20:57)
[2020-04-05] MEDS: FAMOTIDINE 20 MG TABLET 40 MG PO ×2 (09:39→18:07)
[2020-04-05] MEDS: LIPASE/AMYLASE/PROTEASE 12,000 UNITS CAP 2 CAP PO ×3 (09:39→18:07)
[2020-04-05] MEDS: CHOLECALCIFEROL 1,000 UNIT TABLET 1000 UNITS PO (09:39)
[2020-04-05] MEDS: INSULIN ASPART (*BKC) 100 UNITS/ML SUB-Q (11:38)
--- NOTE | 2020-04-05 12:56 | PM.IMPN ---
Progress Note: A&P Assessment and Plan (1) Lidcz-bh-nmcxaco kidney injury: Code(s): N17.9 - Acute kidney failure, unspecified; N18.9 - Chronic kidney disease, unspecified Status: Acute Assessment and Plan: Her creatinine was 1.20 just 4 days ago and given the rapid insult, I am suspicious she may have interstitial nephritis from the Augmentin. Marques catheter has been inserted we will monitor strict I/O. Nephro toxic agents will be avoided. Renal ultrasound shows mild atrophy of the kidneys and findings suggestive of acute kidney injury. I will ask Dr. Shoemaker to see her in consult for his recommendations. 04/05/20 12:56 Patient is 79-year-old female with history of chronic kidney disease her last creatinine was 1.2 on 03/26, patient was treated with Augmentin for sinusitis after 2 days developed generalized weakness and fatigue, nausea and had couple of loose bowel movement patient presented emergency department and found to acute kidney injury with creatinine of 5.4 and BUN of 60, most likely patient may have developed interstitial nephritis secondary to Augmentin, and is being hydrated and continued to monitor also patient has a chronic hyponatremia is getting worse most likely secondary to dehydration due to diarrhea, is being gently hydrated will monitor kidney function and sodium, will be seen by plasterer apprentice, we had ordered kidney ultrasound for further evaluation, showed Bilateral increased renal cortical echogenicity consistent with medical renal disease. No hydronephrosis. the patient stated the feeling much better compared to when she arrived, is encouraged to hydrate herself and will continue IV fluids, discussed with Dr. Shoemaker patient BUN and creatinine are not improving patient will require emergent temporary dialysis, patient was seen by surgery team and temporary catheter placed and will have a dialysis later, this will improve patient BUN creatinine as well as volume overload, patient hyponatremia still persist may receive 3% sodium chloride per Dr. Shoemaker, on 04/01 patient was seen by surgery team and temporary dialysis catheter was placed however there was complication patient had developed pneumothorax chest tube was placed and catheter was used dialyzed the dialysis, this has improved patient kidney function as well as hyponatremia, 04/03 patient was seen by surgery team chest tube was removed repeat x-ray did not show any pneumothorax, patient seen in dialysis while having dialysis patient developed hypotension Dr. Shoemaker was present patient was given 200 cc twice bolus to improve her blood pressure patient remained clinically stable continued her dailysis, on 04/04 patien stats she feeling and urinating more, her BUN and creatinine are trending down and there was no plan for dialysis. Today patient feeling better still urinating, sodium is trending up, have not seen the plasterer apprentice today not sure about the dialysis, patient will be seen by Dr. Shrestha today further recommendation to follow, denies any chest pain shortness of breath palpitation, abdominal pain fever or chills (2) Hyponatremia: Code(s): E87.1 - Hypo-osmolality and hyponatremia Status: Acute Assessment and Plan: She has chronic hyponatremia, and it looks like her sodium level is typically around 129 to 132. She may very well be a bit dry from the diarrhea, and she was aggressively hydrated in the emergency department. Repeat sodium pending at the time of this dictation to ensure it is correcting appropriately. (3) Type 2 diabetes mellitus with diabetic nephropathy, without long-term current use of insulin: Code(s): E11.21 - Type 2 diabetes mellitus with diabetic nephropathy Status: Acute Assessment and Plan: Hemoglobin A1c was 8.0% on 03/15/2020. Will continue basal insulin but hold metformin and nateglinide given acute kidney injury. Initiate sliding scal
[2020-04-05 16:44] LABS: Glucose Point of Care 413 (65-105)
[2020-04-05] MEDS: INSULIN GLARGINE (*BKC) 100 UNITS/ML 10 UNITS SUB-Q (16:45)
[2020-04-05] MEDS: INSULIN ASPART (*BKC) 100 UNITS/ML 9 UNITS SUB-Q (16:45)
--- NOTE | 2020-04-05 17:00 | PC.NURSE ---
Dr. Shrestha here making rounds. Asked him about ordered Epogen (patient did not go to dialysis today). He states it should be held since patient is not receiving dialysis today.
--- NOTE | 2020-04-05 17:46 | PM.PNNEP ---
Progress Note: A&P Assessment and Plan (1) Acute kidney injury: Code(s): N17.9 - Acute kidney failure, unspecified Status: Acute Assessment and Plan: etiology not entirely clear evaluation to date demonstrates: - renal ultrasound shows only chronic changes - urine electrolytes are non pre renal - urine eosinophils pending - UA with white cells but urine culture is negative possible ATN versus allergic interstitial nephritis versus sarcoidosis or glomerulonephritis?? empirically on steroids better urine output and not much change in creatinine over the last 24 hours - possible kidney recovery? - hold HD today and follow trend of labs and UOP (2) Chronic kidney disease, stage 3: Code(s): N18.3 - Chronic kidney disease, stage 3 (moderate) Status: Chronic Assessment and Plan: baseline creatinine runs ~ 1.2mg/dl this is due to diabetes and hypertension (3) Hyponatremia: Code(s): E87.1 - Hypo-osmolality and hyponatremia Status: Acute Assessment and Plan: slow improvement noted presumably due to #1 follow repeat labs (4) Essential hypertension: Code(s): I10 - Essential (primary) hypertension Status: Acute Assessment and Plan: reasonable control at this time follow trend of hemodynamics (5) Anemia: Code(s): D64.9 - Anemia, unspecified Status: Acute Assessment and Plan: partly related to #1 was getting Epogen with HD follow trend of H/H (6) Pulmonary hypertension: Code(s): I27.20 - Pulmonary hypertension, unspecified Status: Acute Assessment and Plan: continue supportive care (7) Type 2 diabetes mellitus with diabetic nephropathy, without long-term current use of insulin: Code(s): E11.21 - Type 2 diabetes mellitus with diabetic nephropathy Status: Acute Assessment and Plan: follow accuchecks on SSI Will continue to follow. Subjective Date/time seen: 04/05/20 17:46 Overall, she states she is feeling better; no apparent distress voiced; concern about jerking movements in her hands which is making it difficult for her to write as well text. Exam Narrative: Exam Narrative: General: WD/WN female in NAD Heart: normal S1 and S2; no rub Lungs: clear to auscultation Abdomen: soft, nontender, nondistended, positive bowel sounds Extremities: no cyanosis or clubbing; no edema Skin: warm and dry Objective Data Vital Signs Vital Signs: Vital Signs Temp Pulse Resp BP Pulse Ox 04/05/20 16:00 80 04/05/20 13:47 36.3 C L 86 14 134/54 L 96 04/05/20 12:00 82 04/05/20 09:56 36.1 C L 88 16 150/65 H 98 04/05/20 09:39 84 04/05/20 08:00 86 04/05/20 05:00 36.2 C L 90 16 143/63 H 94 04/05/20 04:00 93 04/05/20 01:09 36.3 C L 66 16 105/69 94 04/05/20 00:00 114 H 04/04/20 21:59 36.3 C L 88 16 157/65 H 96 04/04/20 20:41 89 04/04/20 20:00 92 04/04/20 18:00 36.6 C 94 18 147/58 H 97 Intake/Output Intake/Output: Intake & Output 04/02/20 04/03/20 04/04/20 04/05/20 23:59 23:59 23:59 23:59 Intake Total 630 530 920 460 Output Total 4510 3075 750 1825 Balance -4033 -0172 170 -1365 Meds/Results Medications: Active Medications Generic Name Dose Route Start Last Admin Trade Name Jalilq PRN Reason Stop Dose Admin Amlodipine Besylate 2.5 mg 03/31/20 09:00 04/05/20 09:38 Norvasc PO 2.5 mg DAILY JAMARI Administration Amlodipine Besylate 5 mg 03/31/20 09:00 04/05/20 09:38 Norvasc PO 5 mg DAILY JAMARI Administration Lipase/Protease/Amylase 2 cap 03/31/20 09:00 04/05/20 12:[address] 12,000 Units Capsule PO 04/30/20 09:01 2 cap TID JAMARI Administration Dextrose 12.5 gm 03/30/20 22:30 Dextrose 50% Syringe IV PUSH PRN PRN Hypoglycemia Protocol Epoetin Mau 10,000 units 04/02/20 12:20 04/05/20 1
[2020-04-05] MEDS: INSULIN GLARGINE (*BKC) 100 UNITS/ML 15 UNITS SUB-Q (20:57)
[2020-04-05 21:17] LABS: Glucose Point of Care 378 (65-105)
[2020-04-05 23:30] LABS: Kappa\\Lambda Light Chains 1.89 (0.26-1.65); Lambda Light Chain 46.4 mg/L (5.7-26.3)
[2020-04-06] VITALS (15 sets, daily range): BP systolic 133–151; BP diastolic 60–65; PULSE 72–97; RESP 12–20; TEMP 36.7–37.6; O2SAT 95–99
[2020-04-06 03:43] LABS: Glucose Point of Care 451 (65-105)
[2020-04-06 05:49] LABS: Hematocrit 29.8 % (37.0-47.0); Hemoglobin 10.1 g/dL (12.0-15.0); Mean Corpuscular HGB Conc 33.9 g/dl (32-36); Mean Corpuscular Hemoglobin 30.7 pg (26-34); Mean Corpuscular Volume 90.6 fl (80-100); Mean Platelet Volume 8.9 fl (7.4-10.4); Platelet Count Result 294 k/mm3 (150-375); Red Blood Count 3.29 M/mm3 (4.2-5.4); Red Cell Distribution Width 12.6 % (11.5-14.5); White Blood Count 10.6 K/mm3 (4.5-10.0)
[2020-04-06 06:11] LABS: Albumin Level 3.5 g/dL (3.5-5.1); Blood Urea Nitrogen 47 mg/dL (7-17); Calcium 8.9 mg/dL (8.4-10.2); Carbon Dioxide 28 mmol/L (22-30); Chloride 92 mmol/L (98-107); Estimated CRCL calculation 12 ml/min; Estimated Glomerular Filt Rate 14; Glucose 223 mg/dL (65-105); Phosphorus 3.8 mg/dL (2.5-4.5); Potassium 3.2 mmol/L (3.4-5.0); Sodium 127 mmol/L (137-145)
[2020-04-06 08:10] LABS: Glucose Point of Care 181 (65-105)
[2020-04-06] MEDS: GABAPENTIN 100 MG CAPSULE PO ×2 (08:31→16:35)
[2020-04-06] MEDS: LIPASE/AMYLASE/PROTEASE 12,000 UNITS CAP 2 CAP PO ×3 (08:31→16:35)
[2020-04-06] MEDS: AMLODIPINE BESYLATE 5 MG TABLET PO (08:32)
[2020-04-06] MEDS: METOPROLOL TARTRATE 50 MG TAB 100 MG PO ×2 (08:32→21:07)
[2020-04-06] MEDS: CHOLECALCIFEROL 1,000 UNIT TABLET 1000 UNITS PO (08:32)
[2020-04-06] MEDS: VITAMIN B COMPLEX CAPSULE 1 CAP PO (08:32)
[2020-04-06] MEDS: POTASSIUM CHLORIDE 20 MEQ TABLET 40 MEQ PO (08:32)
[2020-04-06] MEDS: AMLODIPINE BESYLATE 2.5 MG TABLET PO (08:32)
[2020-04-06] MEDS: FAMOTIDINE 20 MG TABLET 40 MG PO ×2 (08:33→16:35)
[2020-04-06] MEDS: INSULIN GLARGINE (*BKC) 100 UNITS/ML 15 UNITS SUB-Q ×2 (08:33→21:04)
--- NOTE | 2020-04-06 09:35 | PM.PNNEP ---
Progress Note: A&P Assessment and Plan (1) Acute kidney injury: Code(s): N17.9 - Acute kidney failure, unspecified Status: Acute Assessment and Plan: etiology not entirely clear evaluation to date demonstrates: - renal ultrasound shows only chronic changes - urine electrolytes are non pre renal - urine eosinophils pending - UA with white cells but urine culture is negative possible ATN versus allergic interstitial nephritis versus sarcoidosis or glomerulonephritis?? s/p empiric steroids continues to have good urine output with improvement in creatinine by AM labs - possible kidney recovery? -- creatinine peaked/plateaued at 3.7mg/dl(?) - continue to hold HD and follow trend of labs and UOP (2) Chronic kidney disease, stage 3: Code(s): N18.3 - Chronic kidney disease, stage 3 (moderate) Status: Chronic Assessment and Plan: baseline creatinine runs ~ 1.2mg/dl this is due to diabetes and hypertension (3) Hyponatremia: Code(s): E87.1 - Hypo-osmolality and hyponatremia Status: Acute Assessment and Plan: slow improvement if not stability noted presumably due to #1 follow repeat labs (4) Essential hypertension: Code(s): I10 - Essential (primary) hypertension Status: Acute Assessment and Plan: reasonable control at this time follow trend of hemodynamics (5) Anemia: Code(s): D64.9 - Anemia, unspecified Status: Acute Assessment and Plan: partly related to #1 was getting Epogen with HD follow trend of H/H (6) Pulmonary hypertension: Code(s): I27.20 - Pulmonary hypertension, unspecified Status: Acute Assessment and Plan: continue supportive care (7) Type 2 diabetes mellitus with diabetic nephropathy, without long-term current use of insulin: Code(s): E11.21 - Type 2 diabetes mellitus with diabetic nephropathy Status: Acute Assessment and Plan: follow accuchecks on SSI Will continue to follow. Subjective Date/time seen: 04/06/20 09:35 Dialysis held yesterday (since good urine output and stable renal function); continues to have good urine output in the last 24 hours; no apparent distress voiced. Exam Narrative: Exam Narrative: General: WD/WN female in NAD Heart: normal S1 and S2; no rub Lungs: clear to auscultation Abdomen: soft, nontender, nondistended, positive bowel sounds Extremities: no cyanosis or clubbing; no edema Skin: warm and intact Objective Data Vital Signs Vital Signs: Vital Signs Temp Pulse Resp BP Pulse Ox 04/06/20 08:32 84 04/06/20 08:00 86 04/06/20 06:00 36.7 C 75 16 144/65 H 95 04/06/20 04:00 74 04/06/20 02:00 37.1 C 77 12 142/63 H 97 04/06/20 00:00 76 04/05/20 22:00 36.9 C 85 16 151/59 H 96 04/05/20 20:57 90 04/05/20 20:00 88 04/05/20 18:21 36.3 C L 86 18 147/63 H 97 04/05/20 16:00 80 04/05/20 13:47 36.3 C L 86 14 134/54 L 96 04/05/20 12:00 82 04/05/20 09:56 36.1 C L 88 16 150/65 H 98 04/05/20 09:39 84 Intake/Output Intake/Output: Intake & Output 04/03/20 04/04/20 04/05/20 04/06/20 23:59 23:59 23:59 23:59 Intake Total 530 920 700 240 Output Total 3073 288 1829 559 [facility] -[phone] Meds/Results Medications: Active Medications Generic Name Dose Route Start Last Admin Trade Name Freq PRN Reason Stop Dose Admin Amlodipine Besylate 2.5 mg 03/31/20 09:00 04/06/20 08:32 Norvasc PO 2.5 mg DAILY JAMARI Administration Amlodipine Besylate 5 mg 03/31/20 09:00 04/06/20 08:32 Norvasc PO 5 mg DAILY JAMARI Administration Lipase/Protease/Amylase 2 cap 03/31/20 09:00 04/06/20 08:31 Thao Bennett 12,000 Units Capsule PO 04/30/20 09:01 2 cap TID JAMARI Administration Dextrose 12.5 gm 03/30/20 22:30 Dextrose 50% Syringe IV PUSH PRN PRN Hypoglycemi
[2020-04-06 11:53] LABS: Glucose Point of Care 332 (65-105)
[2020-04-06] MEDS: INSULIN ASPART (*BKC) 100 UNITS/ML SUB-Q ×2 (11:56→16:37)
--- NOTE | 2020-04-06 14:30 | PM.IMPN ---
Progress Note: A&P Assessment and Plan (1) Foepl-xd-elglghg kidney injury: Code(s): N17.9 - Acute kidney failure, unspecified; N18.9 - Chronic kidney disease, unspecified Status: Acute Assessment and Plan: Her creatinine was 1.20 just 4 days ago and given the rapid insult, I am suspicious she may have interstitial nephritis from the Augmentin. Marques catheter has been inserted we will monitor strict I/O. Nephro toxic agents will be avoided. Renal ultrasound shows mild atrophy of the kidneys and findings suggestive of acute kidney injury. I will ask Dr. Shoemaker to see her in consult for his recommendations. 04/06/20 14:30 Patient is 79-year-old female with history of chronic kidney disease her last creatinine was 1.2 on 03/26, patient was treated with Augmentin for sinusitis after 2 days developed generalized weakness and fatigue, nausea and had couple of loose bowel movement patient presented emergency department and found to acute kidney injury with creatinine of 5.4 and BUN of 60, most likely patient may have developed interstitial nephritis secondary to Augmentin, and is being hydrated and continued to monitor also patient has a chronic hyponatremia is getting worse most likely secondary to dehydration due to diarrhea, is being gently hydrated will monitor kidney function and sodium, will be seen by relief pilot, we had ordered kidney ultrasound for further evaluation, showed Bilateral increased renal cortical echogenicity consistent with medical renal disease. No hydronephrosis. the patient stated the feeling much better compared to when she arrived, is encouraged to hydrate herself and will continue IV fluids, discussed with Dr. Shoemaker patient BUN and creatinine are not improving patient will require emergent temporary dialysis, patient was seen by surgery team and temporary catheter placed and will have a dialysis later, this will improve patient BUN creatinine as well as volume overload, patient hyponatremia still persist may receive 3% sodium chloride per Dr. Shoemaker, on 04/01 patient was seen by surgery team and temporary dialysis catheter was placed however there was complication patient had developed pneumothorax chest tube was placed and catheter was used dialyzed the dialysis, this has improved patient kidney function as well as hyponatremia, 04/03 patient was seen by surgery team chest tube was removed repeat x-ray did not show any pneumothorax, patient seen in dialysis while having dialysis patient developed hypotension Dr. Shoemaker was present patient was given 200 cc twice bolus to improve her blood pressure patient remained clinically stable continued her dailysis, on 04/04 patien stats she feeling and urinating more, her BUN and creatinine are trending down and there was no plan for dialysis. Today patient feeling better still urinating, sodium is trending up, patient will be seen by Dr. Shrestha today patient kidney function is improved and not need dialysis today will continue to monitor kidney function reassess her tomorrow further recommendation to follow, denies any chest pain shortness of breath palpitation, abdominal pain fever or chills (2) Hyponatremia: Code(s): E87.1 - Hypo-osmolality and hyponatremia Status: Acute Assessment and Plan: She has chronic hyponatremia, and it looks like her sodium level is typically around 129 to 132. She may very well be a bit dry from the diarrhea, and she was aggressively hydrated in the emergency department. Repeat sodium pending at the time of this dictation to ensure it is correcting appropriately. (3) Type 2 diabetes mellitus with diabetic nephropathy, without long-term current use of insulin: Code(s): E11.21 - Type 2 diabetes mellitus with diabetic nephropathy Status: Acute Assessment and Plan: Hemoglobin A1c was 8.0% on 03/15/2020. Will continue basal insulin but hold metformin and
[2020-04-06 16:42] LABS: Glucose Point of Care 368 (65-105)
--- NOTE | 2020-04-06 17:18 | PCDIET ---
Nutrition LOS screen complete Pt current nutrition is Renal Dialysis Diet/Fluid Restriction Nutrition recommendation: Agree Last recorded weight is 61 kg. Bowel Motility: 04/05 BM + Labs Reviewed:Hgb 10.1, Hct 29.8, Na 127, K 3.2, GFR 14, BUN 47, Cr 3.30, Glucose 332 Meds Noted:Insulin, Epogen, Gabapentin, Zofran, Tramadol, Vitamin D and B complex Additional Notes: Pt eating well on a limited diet (90, 95, and 75%). She states being tired from walking. She denies GI pain. She would like more fluids at this time. Diet rationale explained. Diet appropriate. We will continue to monitor PO intake, labs, weight, diet every seven days.
[2020-04-06 21:13] LABS: Glucose Point of Care 322 (65-105)
[2020-04-06 21:18] LABS: ANCA Screen Negative (Negative)
[2020-04-07] VITALS (13 sets, daily range): BP systolic 144–157; BP diastolic 63–80; PULSE 74–94; RESP 12–20; TEMP 36.5–37; O2SAT 96–99
[2020-04-07 06:26] LABS: Hematocrit 29.1 % (37.0-47.0); Hemoglobin 9.9 g/dL (12.0-15.0); Mean Corpuscular Hemoglobin 30.8 pg (26-34); Mean Corpuscular Volume 90.7 fl (80-100); Mean Platelet Volume 8.9 fl (7.4-10.4); Platelet Count Result 333 k/mm3 (150-375); Red Blood Count 3.21 M/mm3 (4.2-5.4); Red Cell Distribution Width 12.6 % (11.5-14.5); White Blood Count 11.5 K/mm3 (4.5-10.0)
[2020-04-07 06:42] LABS: Albumin Level 3.5 g/dL (3.5-5.1); Blood Urea Nitrogen 49 mg/dL (7-17); Calcium 9.1 mg/dL (8.4-10.2); Carbon Dioxide 26 mmol/L (22-30); Chloride 93 mmol/L (98-107); Estimated CRCL calculation 14 ml/min; Estimated Glomerular Filt Rate 17; Glucose 207 mg/dL (65-105); Phosphorus 3.5 mg/dL (2.5-4.5); Potassium 3.5 mmol/L (3.4-5.0); Sodium 127 mmol/L (137-145)
[2020-04-07 07:51] LABS: Glucose Point of Care 198 (65-105)
[2020-04-07] MEDS: INSULIN GLARGINE (*BKC) 100 UNITS/ML 15 UNITS SUB-Q ×2 (07:53→21:20)
[2020-04-07] MEDS: VITAMIN B COMPLEX CAPSULE 1 CAP PO (07:54)
[2020-04-07] MEDS: AMLODIPINE BESYLATE 5 MG TABLET PO (07:55)
[2020-04-07] MEDS: FAMOTIDINE 20 MG TABLET 40 MG PO ×2 (07:55→16:39)
[2020-04-07] MEDS: CHOLECALCIFEROL 1,000 UNIT TABLET 1000 UNITS PO (07:55)
[2020-04-07] MEDS: GABAPENTIN 100 MG CAPSULE PO ×2 (07:55→16:39)
[2020-04-07] MEDS: METOPROLOL TARTRATE 50 MG TAB 100 MG PO ×2 (07:55→21:20)
[2020-04-07] MEDS: LIPASE/AMYLASE/PROTEASE 12,000 UNITS CAP 2 CAP PO ×3 (07:55→16:39)
[2020-04-07] MEDS: AMLODIPINE BESYLATE 2.5 MG TABLET PO (07:55)
[2020-04-07 11:50] LABS: Glucose Point of Care 377 (65-105)
[2020-04-07] MEDS: INSULIN ASPART (*BKC) 100 UNITS/ML SUB-Q (11:53)
--- NOTE | 2020-04-07 12:00 | PM.IMPN ---
Progress Note: A&P Assessment and Plan (1) Jzxja-fk-fhyombf kidney injury: Code(s): N17.9 - Acute kidney failure, unspecified; N18.9 - Chronic kidney disease, unspecified Status: Acute Assessment and Plan: ESRD ? medication related Marques catheter has been inserted we will monitor strict I/O. Nephro toxic agents will be avoided. Renal ultrasound shows mild atrophy of the kidneys and findings suggestive of acute kidney injury. Nephrology rounding. (2) Hyponatremia: Code(s): E87.1 - Hypo-osmolality and hyponatremia Status: Acute Assessment and Plan: She has chronic hyponatremia, and it looks like her sodium level is typically around 129 to 132. Fluid restrict, sodium is 127. (3) Type 2 diabetes mellitus with diabetic nephropathy, without long-term current use of insulin: Code(s): E11.21 - Type 2 diabetes mellitus with diabetic nephropathy Status: Acute Assessment and Plan: Hemoglobin A1c was 8.0% on 03/15/2020. Will continue basal insulin but hold metformin and nateglinide given acute kidney injury. Initiate sliding scale insulin, Accu-Cheks, and hypoglycemic protocol. (4) Anemia: Code(s): D64.9 - Anemia, unspecified Status: Acute Assessment and Plan: Hemoglobin and hematocrit are stable, continue to monitor (5) Essential hypertension: Code(s): I10 - Essential (primary) hypertension Status: Acute Assessment and Plan: Blood pressures were reviewed and they are reasonable in the 140 systolic. Monitor closely as her losartan, furosemide, and chlorthalidone her on hold given acute kidney injury. (6) Hyperlipidemia associated with type 2 diabetes mellitus: Code(s): E11.69 - Type 2 diabetes mellitus with other specified complication; E78.5 - Hyperlipidemia, unspecified Status: Acute Assessment and Plan: Continue statin; LFTs within normal limits. (7) Gastroesophageal reflux disease: Code(s): K21.9 - Gastro-esophageal reflux disease without esophagitis Status: Acute Assessment and Plan: No acute issues. Continue Pepcid. Subjective Date/time seen: 04/07/20 12:00 Interval history: 79-year-old female with history of chronic kidney disease her last creatinine was 1.2 on 03/26, patient was treated with Augmentin for sinusitis after 2 days developed generalized weakness and fatigue, nausea and had couple of loose bowel movement patient presented emergency department and found to acute kidney injury with creatinine of 5.4 and BUN of 60, most likely patient may have developed interstitial nephritis secondary to Augmentin, and is being hydrated and continued to monitor also patient has a chronic hyponatremia is getting worse most likely secondary to dehydration due to diarrhea, is being gently hydrated will monitor kidney function and sodium, will be seen by national sales associate, we had ordered kidney ultrasound for further evaluation, showed Bilateral increased renal cortical echogenicity consistent with medical renal disease. No hydronephrosis. As per previous note. Pt is seeing nephrology and is on a fluid restriction. Pt has started on dialysis and has a temprorary dialysis catheter in place. kidney function today is creat is 2.7, bun is 49. Pt has history of DM and htn, but does not mention previous kidney problems. Sodium is 127. Pt also developed a pneumothorax, pt had a chest tube was placed. Pt is feeling anxious otherwise denies any SOB or CP Review of Systems Review of Systems: All systems reviewed & are unremarkable except as noted in HPI and below Cardiovascular: Card
[2020-04-07 16:52] LABS: Glucose Point of Care 417 (65-105)
[2020-04-07] MEDS: INSULIN ASPART (*BKC) 100 UNITS/ML 7 UNITS SUB-Q (17:00)
--- NOTE | 2020-04-07 17:14 | PM.PNNEP ---
Progress Note: A&P Assessment and Plan (1) Acute kidney injury: Code(s): N17.9 - Acute kidney failure, unspecified Status: Acute Assessment and Plan: etiology not entirely clear evaluation to date demonstrates: - renal ultrasound shows only chronic changes - urine electrolytes are non pre renal - urine eosinophils pending - UA with white cells but urine culture is negative possible ATN versus allergic interstitial nephritis versus sarcoidosis or glomerulonephritis?? s/p empiric steroids continues to have good urine output with improvement in creatinine by AM labs - possible kidney recovery? -- creatinine peaked/plateaued at 3.7mg/dl(?) - continue to hold HD and follow trend of labs and UOP (2) Chronic kidney disease, stage 3: Code(s): N18.3 - Chronic kidney disease, stage 3 (moderate) Status: Chronic Assessment and Plan: baseline creatinine runs ~ 1.2mg/dl this is due to diabetes and hypertension (3) Hyponatremia: Code(s): E87.1 - Hypo-osmolality and hyponatremia Status: Acute Assessment and Plan: improvement noted and seems stable now partly due to #1 noted to a chronic issue with sodium levels running ~ 125 - 132 since at least 2018 follow repeat labs (4) Essential hypertension: Code(s): I10 - Essential (primary) hypertension Status: Acute Assessment and Plan: reasonable control at this time follow trend of hemodynamics (5) Anemia: Code(s): D64.9 - Anemia, unspecified Status: Acute Assessment and Plan: partly related to #1 was getting Epogen with HD follow trend of H/H (6) Pulmonary hypertension: Code(s): I27.20 - Pulmonary hypertension, unspecified Status: Acute Assessment and Plan: continue supportive care (7) Type 2 diabetes mellitus with diabetic nephropathy, without long-term current use of insulin: Code(s): E11.21 - Type 2 diabetes mellitus with diabetic nephropathy Status: Acute Assessment and Plan: follow accuchecks on SSI Will continue to follow. Subjective Date/time seen: 04/07/20 17:14 Appears to be doing reasonably well; stable urine output noted; remains hemodynamically stable at this time; no other acute issues or complaints voiced currently. Exam Narrative: Exam Narrative: General: WD/WN female in NAD Heart: normal S1 and S2; no rub Lungs: clear to auscultation Abdomen: soft, nontender, nondistended, positive bowel sounds Extremities: no cyanosis or clubbing; no edema Skin: No rash or nodules Objective Data Vital Signs Vital Signs: Vital Signs Temp Pulse Resp BP Pulse Ox 04/07/20 16:00 86 04/07/20 14:00 36.9 C 86 19 157/80 H 99 04/07/20 12:00 74 04/07/20 10:00 36.5 C 74 15 145/69 H 99 04/07/20 08:00 86 04/07/20 07:55 86 04/07/20 06:00 36.7 C 94 20 145/65 H 96 04/07/20 04:00 81 04/07/20 02:00 37.0 C 81 18 144/63 H 97 04/07/20 00:00 80 04/06/20 22:53 37.0 C 04/06/20 22:00 37.6 C H 97 20 151/60 H 97 04/06/20 21:07 88 04/06/20 20:00 88 04/06/20 18:00 36.9 C 88 16 139/65 98 Intake/Output Intake/Output: Intake & Output 04/04/20 04/05/20 04/06/20 04/07/20 23:59 23:59 23:59 23:59 Intake Total 920 700 905 370 Output Total 750 2015 1371 900 Balance 170 -1125 -470 -530 Meds/Results Medications: Active Medications Generic Name Dose Route Start Last Admin Trade Name Freq PRN Reason Stop Dose Admin Amlodipine Besylate 2.5 mg 03/31/20 09:00 04/07/20 07:55 Norvasc PO 2.5 mg DAILY JAMARI Administration Amlodipine Besylate 5 mg 03/31/20 09:00 04/07/20 07:55 Norvasc PO 5 mg DAILY JAMARI Administration Lipase/Protease/Amylase 2 cap 03/31/20 09:00 04/07/20 16:39 Creon 12,000 Units Capsule PO 04/30/20 09:01 2 cap TID JAMARI Administration Dextrose 12.5 gm
[2020-04-07 22:06] LABS: Glucose Point of Care 366 (65-105)
[2020-04-07 23:10] LABS: Anti Glomerular Basement Memb <1.0 AI (<1.0)
[2020-04-08] VITALS (7 sets, daily range): BP systolic 141–160; BP diastolic 64–69; PULSE 76–89; RESP 16–18; TEMP 36.2–36.8; O2SAT 96–97
[2020-04-08 06:22] LABS: Hematocrit 28.1 % (37.0-47.0); Hemoglobin 9.5 g/dL (12.0-15.0); Mean Corpuscular HGB Conc 33.8 g/dl (32-36); Mean Corpuscular Hemoglobin 30.7 pg (26-34); Mean Corpuscular Volume 90.9 fl (80-100); Mean Platelet Volume 8.7 fl (7.4-10.4); Platelet Count Result 323 k/mm3 (150-375); Red Blood Count 3.09 M/mm3 (4.2-5.4); Red Cell Distribution Width 12.7 % (11.5-14.5)
[2020-04-08 06:36] LABS: Blood Urea Nitrogen 52 mg/dL (7-17); Calcium 9.1 mg/dL (8.4-10.2); Carbon Dioxide 27 mmol/L (22-30); Chloride 96 mmol/L (98-107); Estimated CRCL calculation 15 ml/min; Estimated Glomerular Filt Rate 18; Glucose 197 mg/dL (65-105); Potassium 3.5 mmol/L (3.4-5.0); Sodium 130 mmol/L (137-145)
[2020-04-08] MEDS: AMLODIPINE BESYLATE 2.5 MG TABLET PO (08:43)
[2020-04-08] MEDS: AMLODIPINE BESYLATE 5 MG TABLET PO (08:43)
[2020-04-08] MEDS: LIPASE/AMYLASE/PROTEASE 12,000 UNITS CAP 2 CAP PO ×2 (08:44→12:01)
[2020-04-08] MEDS: METOPROLOL TARTRATE 50 MG TAB 100 MG PO (08:44)
[2020-04-08] MEDS: GABAPENTIN 100 MG CAPSULE PO (08:44)
[2020-04-08] MEDS: FAMOTIDINE 20 MG TABLET 40 MG PO (08:44)
[2020-04-08] MEDS: CHOLECALCIFEROL 1,000 UNIT TABLET 1000 UNITS PO (08:44)
[2020-04-08] MEDS: INSULIN GLARGINE (*BKC) 100 UNITS/ML 15 UNITS SUB-Q (08:45)
[2020-04-08] MEDS: VITAMIN B COMPLEX CAPSULE 1 CAP PO (08:45)
[2020-04-08] MEDS: INSULIN ASPART (*BKC) 100 UNITS/ML SUB-Q (08:47)
[2020-04-08 09:48] LABS: Glucose Point of Care 212 (65-105)
[2020-04-08 11:32] LABS: Glucose Point of Care 414 (65-105)
--- NOTE | 2020-04-08 11:49 | P.DS_ITS ---
DS: Admitting Diagnosis Admitting Diagnosis Admitting Diagnosis: Acute kidney failure, unspecified DS: Discharge Diagnosis Discharge Diagnosis (1) Vrhaw-rq-hgucyod kidney injury: Code(s): N17.9 - Acute kidney failure, unspecified; N18.9 - Chronic kidney disease, unspecified Status: Acute Assessment and Plan: * ESRD ? medication related * Marques catheter has been inserted we will monitor strict I/O. Nephro toxic agents will be avoided. * Renal ultrasound shows mild atrophy of the kidneys and findings suggestive of acute kidney injury. * Nephrology rounding. * creat is improving * Pt is accepted to [facility] bed, can be discharged today. (2) Hyponatremia: Code(s): E87.1 - Hypo-osmolality and hyponatremia Status: Acute Assessment and Plan: * She has chronic hyponatremia, and it looks like her sodium level is typically around 129 to 132. * Fluid restrict, sodium is 130 today. (3) Type 2 diabetes mellitus with diabetic nephropathy, without long-term current use of insulin: Code(s): E11.21 - Type 2 diabetes mellitus with diabetic nephropathy Status: Acute Assessment and Plan: * Hemoglobin A1c was 8.0% on 03/15/2020. * Will continue basal insulin but hold metformin and nateglinide given acute kidney injury. * Initiate sliding scale insulin, Accu-Cheks, and hypoglycemic protocol. (4) Anemia: Code(s): D64.9 - Anemia, unspecified Status: Acute Assessment and Plan: * Hemoglobin and hematocrit are stable, continue to monitor (5) Essential hypertension: Code(s): I10 - Essential (primary) hypertension Status: Acute Assessment and Plan: * Blood pressures were reviewed and they are reasonable in the 140 systolic. * Monitor closely as her losartan, furosemide, and chlorthalidone her on hold given acute kidney injury. (6) Hyperlipidemia associated with type 2 diabetes mellitus: Code(s): E11.69 - Type 2 diabetes mellitus with other specified complication; E78.5 - Hyperlipidemia, unspecified Status: Acute Assessment and Plan: * Continue statin; LFTs within normal limits. (7) Gastroesophageal reflux disease: Code(s): K21.9 - Gastro-esophageal reflux disease without esophagitis Status: Acute Assessment and Plan: * No acute issues. * Continue Pepcid. DS: Summary Time Spent with Patient Time attestation: Total time spent providing and/or coordinating discharge services:40 minutes on day of dischrage Exam Const: General: comfortable and no acute distress Chest: Other: temporary dialysis catheter in situ Resp: Effort & Inspection: normal respiratory effort Auscultation: clear to auscultation bilaterally Cardio: Rate: regular rate Rhythm: regular rhythm GI: Auscultation: normal bowel sounds Skin: General skin exam: normal color Neuro: Speech: normal speech Sensory Exam: normal sensation Extrem: General: normal to inspection Psych: Affect: Anxious affect present DS: Data Data Completed and Pending Labs on day of discharge: Labs from last 24 hours
--- NOTE | 2020-04-08 11:49 | PM.DS ---
DS: Admitting Diagnosis Admitting Diagnosis Admitting Diagnosis: Acute kidney failure, unspecified DS: Discharge Diagnosis Discharge Diagnosis (1) Yvafx-su-kdozphj kidney injury: Code(s): N17.9 - Acute kidney failure, unspecified; N18.9 - Chronic kidney disease, unspecified Status: Acute Assessment and Plan: ESRD ? medication related Marques catheter has been inserted we will monitor strict I/O. Nephro toxic agents will be avoided. Renal ultrasound shows mild atrophy of the kidneys and findings suggestive of acute kidney injury. Nephrology rounding. creat is improving Pt is accepted to [facility] bed, can be discharged today. (2) Hyponatremia: Code(s): E87.1 - Hypo-osmolality and hyponatremia Status: Acute Assessment and Plan: She has chronic hyponatremia, and it looks like her sodium level is typically around 129 to 132. Fluid restrict, sodium is 130 today. (3) Type 2 diabetes mellitus with diabetic nephropathy, without long-term current use of insulin: Code(s): E11.21 - Type 2 diabetes mellitus with diabetic nephropathy Status: Acute Assessment and Plan: Hemoglobin A1c was 8.0% on 03/15/2020. Will continue basal insulin but hold metformin and nateglinide given acute kidney injury. Initiate sliding scale insulin, Accu-Cheks, and hypoglycemic protocol. (4) Anemia: Code(s): D64.9 - Anemia, unspecified Status: Acute Assessment and Plan: Hemoglobin and hematocrit are stable, continue to monitor (5) Essential hypertension: Code(s): I10 - Essential (primary) hypertension Status: Acute Assessment and Plan: Blood pressures were reviewed and they are reasonable in the 140 systolic. Monitor closely as her losartan, furosemide, and chlorthalidone her on hold given acute kidney injury. (6) Hyperlipidemia associated with type 2 diabetes mellitus: Code(s): E11.69 - Type 2 diabetes mellitus with other specified complication; E78.5 - Hyperlipidemia, unspecified Status: Acute Assessment and Plan: Continue statin; LFTs within normal limits. (7) Gastroesophageal reflux disease: Code(s): K21.9 - Gastro-esophageal reflux disease without esophagitis Status: Acute Assessment and Plan: No acute issues. Continue Pepcid. DS: Summary Time Spent with Patient Time attestation: Total time spent providing and/or coordinating discharge services:40 minutes on day of dischrage Exam Const: General: comfortable and no acute distress Chest: Other: temporary dialysis catheter in situ Resp: Effort & Inspection: normal respiratory effort Auscultation: clear to auscultation bilaterally Cardio: Rate: regular rate Rhythm: regular rhythm GI: Auscultation: normal bowel sounds Skin: General skin exam: normal color Neuro: Speech: normal speech Sensory Exam: normal sensation Extrem: General: normal to inspection Psych: Affect: Anxious affect present DS: Data Data Completed and Pending Labs on day of discharge: Labs from last 24 hours 04/08/20 04/08/20 04/08/20 11:28 07:52 05:55 WBC RBC Hgb Hct MCV MCH MCHC RDW Plt Count MPV Sodium 130 L Potassium 3.5 Chloride 96 L Carbon Dioxide 27 BUN 52 H Creatinine 2.60 H Estim Creat Clear Calc 15 Estimated GFR 18 L Glucose 197 H POC Capillary Glucose 414 H 212 H Calcium 9.1 MARY Screen Glomerular Base Memb Ab 04/08/20 04/07/2004/07/20 05:55 21:19 16:41 WBC 10.0 RBC 3.09 L Hgb 9.5 L Hct 28.1 L MCV 90.9 MCH 30.7 MCHC 3
[2020-04-08] MEDS: INSULIN ASPART (*BKC) 100 UNITS/ML 7 UNITS SUB-Q (11:59)
--- NOTE | 2020-04-08 12:58 | PCOTNOTE ---
Attempted to see patient this pm, however upon entering RN stated patient is on bed rest at this time due to having a line removed.
[2020-04-08 15:02] LABS: Glucose Point of Care 297 (65-105)
--- NOTE | 2020-04-08 15:05 | PC.NURSE ---
Report called to [facility] nurse Dave. All questions and concerns answered at this time.
[2020-04-08 17:40] LABS: Complement Total CH50 >60 U/mL (31-60)
--- NOTE | 2020-04-09 15:30 | P.PNNP_ITS ---
Progress Note: A&P Assessment and Plan (1) Acute kidney injury: Code(s): N17.9 - Acute kidney failure, unspecified Status: Acute Assessment and Plan: * etiology not entirely clear * evaluation to date demonstrates: - renal ultrasound shows only chronic changes - urine electrolytes are non pre renal - urine eosinophils pending - UA with white cells but urine culture is negative * possible ATN versus allergic interstitial nephritis versus sarcoidosis or glomerulonephritis?? * s/p empiric steroids * continues to have good urine output with improvement in creatinine by labs - kidney recovery -- creatinine peaked/plateaued at 3.7mg/dl - s/p removal of temporary HD catheter * continue supportive therapy (2) Chronic kidney disease, stage 3: Code(s): N18.3 - Chronic kidney disease, stage 3 (moderate) Status: Chronic Assessment and Plan: * baseline creatinine runs ~ 1.2mg/dl * this is due to diabetes and hypertension (3) Hyponatremia: Code(s): E87.1 - Hypo-osmolality and hyponatremia Status: Acute Assessment and Plan: * improvement noted and seems stable now * partly due to #1 * noted to a chronic issue with sodium levels running ~ 125 - 132 since at least 2018 * follow repeat labs (4) Essential hypertension: Code(s): I10 - Essential (primary) hypertension Status: Acute Assessment and Plan: * reasonable control at this time * follow trend of hemodynamics (5) Anemia: Code(s): D64.9 - Anemia, unspecified Status: Acute Assessment and Plan: * partly related to #1 * was getting Epogen with HD * follow trend of H/H (6) Type 2 diabetes mellitus with diabetic nephropathy, without long-term current use of insulin: Code(s): E11.21 - Type 2 diabetes mellitus with diabetic nephropathy Status: Acute Assessment and Plan: * follow accuchecks * on SSI Will continue to follow. Subjective Date/time seen: 04/09/20 15:30 Transferred to ARU for further PT/OT/rehab following recent inpatient hospitalization at [facility] (please seen consultation by Dr. Shoemaker on 03/31/20 and my last progress noted from 04/07/20); appears to be doing reasonably well. Exam Narrative: Exam Narrative: General: WD/WN female in NAD Heart: normal S1 and S2; no rub Lungs: clear to auscultation Abdomen: soft, nontender, nondistended, positive bowel sounds Extremities: no cyanosis or clubbing; no edema Skin: warm and dry Objective Data Intake/Output Intake/Output: Intake & Output 04/06/20 04/07/20 04/08/20 04/09/20 23:59 23:59 23:59 23:59 Intake Total 905 695 660 Output Total 1375 1900 1350 Balance -832 -1738 -645 Meds/Results Radiology Results: ITS Impressions Abdomen/Pelvis CT 03/30/20 12:04 IMPRESSION: 1. Mild atrophy of the kidneys. Heterogeneous persistent nephrograms, consistent with acute kidney injury. 2. Uterine fibroid. Renal Ultrasound 03/31/20 13:00 IMPRESSION: 1. Bilateral increased renal cortical echogenicity consistent with medical renal disease. No hydronephrosis. Central Venous Line 04/01/20 14:33 IMPRESSION: 1. Central line tip in proximal right atrium. Labs Labs: Laboratory Tests
== END 2020-04-08 15:13 | DRG 683 ==
LOC: ANHED 13:53 → ANH3MED 17:26 → ANHIMU 04-01 20:55 → ANH2MED 04-03 15:36 → ANH3MED 04-12 16:40 → ANHIMU 04-12 16:40
PROVIDERS: Family Medicine; Internal Medicine Nephrology; Physician Assistant; Surgery; Admitting Provider Internal Medicine; Emergency Provider General Practice; PCP Internal Medicine; Visit Provider Family Medicine
PROC: 05HN33Z Insertion of Infusion Device into Left Internal Jugular Vein, Percutaneous Approach (ICD-10-PCS; principal; 2020-04-01 13:30)
PROC: 0W9B30Z Drainage of Left Pleural Cavity with Drainage Device, Percutaneous Approach (ICD-10-PCS; CPT 32551; principal; 2020-04-01 16:00)
DX: N17.9 Acute kidney failure, unspecified (principal); E87.1 Hypo-osmolality and hyponatremia; J95.811 Postprocedural pneumothorax; N39.0 Urinary tract infection, site not specified; E11.22 Type 2 diabetes mellitus with diabetic chronic kidney disease; I12.9 Hypertensive chronic kidney disease with stage 1 through stage 4 chronic kidney disease, or unspecified chronic kidney disease; N18.3 Chronic kidney disease, stage 3 (moderate); E78.5 Hyperlipidemia, unspecified; K21.9 Gastro-esophageal reflux disease without esophagitis; E11.42 Type 2 diabetes mellitus with diabetic polyneuropathy; H49.02 Third [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, left eye; N12 Tubulo-interstitial nephritis, not specified as acute or chronic; D64.9 Anemia, unspecified; Y83.8 Other surgical procedures as the cause of abnormal reaction of the patient, or of later complication, without mention of misadventure at the time of the procedure; I27.20 Pulmonary hypertension, unspecified; T36.0X5A Adverse effect of penicillins, initial encounter; T36.1X5A Adverse effect of cephalosporins and other beta-lactam antibiotics, initial encounter
CPT/HCPCS: 36415; 51703; 71045; 74176; 76775; 77001; 80048; 80053; 80069; 81001; 82533; 82550; 82570; 83520; 83690; 83735; 83883; 83930; 83935; 84156; 84295; 84300; 84443; 85025; 85027; 85652; 85999; 86021; 86038; 86160; 86162; 86334; 86704; 86706; 86803; 87086; 87324; 87340; 93005; 96361; 96365; 97110; 97116; 97161; 97165; 97530; 97535; 99285; A9270; C1729; C1752; G0257; J0690; J0696; J1644; J1815; J1940; J2704; J3010; J3475; J7030; J7040; J7070; J7120; Q4081

== ENCOUNTER 2020-04-08 15:27 | IRF | payer MEDICARE, OTHER, SELFPAY ==
[2020-04-08 15:30] VITALS: BP 154/58; PULSE 88; RESP 20; TEMP 36.7; O2SAT 99; BMI 26.2
--- NOTE | 2020-04-08 16:37 | ADMGEN ---
This patient, Danielle Thomason, was admitted to [facility] Room 219-02. Patient/family oriented to hospital policies and general routines including ID bracelet, bed and alarms, visiting hours, pain management, procedures, bathroom and other care routines, personal items, smoking policy, room service/diet, and visiting hours. Valuables list has been completed. Information on how to activate the Rapid Response Team has been discussed. Patient/Family are encouraged to report perceived risks to care and to ask questions if they do not understand what they are told or what they should do.
[2020-04-08] MEDS: LIPASE/AMYLASE/PROTEASE 12,000 UNITS CAP 2 CAP PO (18:05)
[2020-04-08 18:07] LABS: Glucose Point of Care 211 (65-105)
[2020-04-08 21:10] LABS: Glucose Point of Care 322 (65-105)
[2020-04-08 21:12] VITALS: PULSE 88
[2020-04-08] MEDS: METOPROLOL TARTRATE 50 MG TAB 100 MG PO (21:12)
[2020-04-08] MEDS: INSULIN GLARGINE (*BKC) 100 UNITS/ML 15 UNITS SUB-Q (21:17)
[2020-04-08 21:43] LABS: Add Urine Microscopic? YES; Appearance Urine Cloudy (Clear); Bacteria Urine Trace /hpf; Bilirubin Urine Negative (Negative); Blood Urine 2+ (Negative); Color Urine Yellow (Yellow); Glucose Urine UA 3+ mg/dL (Negative); Ketones Urine Negative (Negative); Leukocyte Esterase Ur 3+ LEU/UL (Negative); Mucus Urine Rare /lpf; Nitrate Urine Negative (Negative); Protein Urine 2+ mg/dL (Negative); RBC Urine 51-75 /hpf (0-2); Specific Grav Ur 1.015 (1.001-1.035); Urobilinogen Urine Negative mg/dL (<2.0); WBC Urine >75 /hpf
[2020-04-08 22:00] VITALS: BP 164/63; PULSE 95; RESP 20; TEMP 37.1; O2SAT 97
[2020-04-09 04:54] LABS: Basophils Percent Auto 0.4 % (0.2-1.2); Eosinophils Absolute Auto 0.3 K/mm3 (0-0.3); Eosinophils Percent Auto 2.6 % (0-4.4); Hemoglobin 9.5 g/dL (12.0-15.0); Immature Granulocyte Absolute 0.08 K/mm3 (0.00-0.031); Immature Granulocyte Percent A 0.8 % (0-0.5); Lymphocytes Absolute Auto 1.62 K/mm3 (0.9-3.2); Lymphocytes Percent Auto 15.3 % (18.3-44.2); Mean Corpuscular HGB Conc 33.9 g/dl (32-36); Mean Corpuscular Hemoglobin 30.9 pg (26-34); Mean Corpuscular Volume 91.2 fl (80-100); Mean Platelet Volume 8.7 fl (7.4-10.4); Monocytes Absolute Auto 1.1 K/mm3 (0.1-0.6); Monocytes Percent Auto 10.1 % (2.6-8.5); Neutrophils Absolute Auto 7.5 K/mm3 (1.3-6.7); Neutrophils Percent Auto 70.8 % (45.5-73.1); Platelet Count Result 335 k/mm3 (150-375); Red Blood Count 3.07 M/mm3 (4.2-5.4); Red Cell Distribution Width 12.8 % (11.5-14.5); White Blood Count 10.6 K/mm3 (4.5-10.0)
[2020-04-09 05:05] LABS: Hemoglobin A1C 8.3 % (<5.7)
[2020-04-09 05:08] LABS: Blood Urea Nitrogen 55 mg/dL (7-17); Calcium 9.1 mg/dL (8.4-10.2); Carbon Dioxide 26 mmol/L (22-30); Chloride 97 mmol/L (98-107); Estimated CRCL calculation 15 ml/min; Estimated Glomerular Filt Rate 21; Glucose 215 mg/dL (65-105); Potassium 3.4 mmol/L (3.4-5.0); Sodium 132 mmol/L (137-145)
[2020-04-09 06:00] VITALS: BP 149/70; PULSE 84; RESP 20; TEMP 36.9; O2SAT 99
[2020-04-09 06:37] LABS: Glucose Point of Care 183 (65-105)
[2020-04-09] MEDS: AMLODIPINE BESYLATE 5 MG TABLET PO (08:59)
[2020-04-09] MEDS: AMLODIPINE BESYLATE 2.5 MG TABLET PO (08:59)
[2020-04-09] MEDS: ATORVASTATIN 40 MG TABLET PO (08:59)
[2020-04-09] MEDS: CHOLECALCIFEROL 1,000 UNIT TABLET 1000 UNITS PO (08:59)
[2020-04-09] MEDS: GABAPENTIN 100 MG CAPSULE PO ×3 (09:00→16:59)
[2020-04-09] MEDS: FUROSEMIDE 20 MG TABLET PO (09:00)
[2020-04-09] MEDS: LIPASE/AMYLASE/PROTEASE 12,000 UNITS CAP 2 CAP PO ×3 (09:00→17:00)
[2020-04-09] MEDS: FAMOTIDINE 20 MG TABLET 40 MG PO ×2 (09:00→16:59)
[2020-04-09 09:01] VITALS: PULSE 92
[2020-04-09] MEDS: METOPROLOL TARTRATE 50 MG TAB 100 MG PO ×2 (09:01→20:35)
[2020-04-09] MEDS: LOSARTAN POTASSIUM 100 MG TABLET PO (09:01)
[2020-04-09] MEDS: VITAMIN B COMPLEX CAPSULE 1 CAP PO (09:02)
[2020-04-09] MEDS: INSULIN GLARGINE (*BKC) 100 UNITS/ML 15 UNITS SUB-Q ×2 (09:03→20:34)
--- NOTE | 2020-04-09 10:00 | WPDREHABHP ---
H&P: HPI History of Present Illness Chief complaint: acute renal failure Narrative: Danielle Thomason is a 79 year old femaleHISTORY OF PRESENT ILLNESS: The patient's primary rehab impairment category is 20-miscellaneous The etiologic diagnosis is acute renal failure with generalized weakness debility and inability to perform the activities of daily living I saw this patient [id number] on April 09 at 10:00 a.m. The patient is a 79-year-old right-handed white woman with a prior medical history of insulin dependent type 2 diabetes mellitus, diabetic peripheral neuropathy, GERD and hypertension who presented to [facility] on March 30 for evaluation of weakness after starting augmenting antibiotic to treat sinusitis on March 26, 2020. The patient reported that after starting the antibiotic she developed diarrhea weakness and nausea. She stated that she is not having symptoms of sinusitis. Lab results showed creatinine of 5.4 and BUN of 60. The patient was found to have acute kidney injury most likely she may have developed interstitial nephritis secondary to Augmentin and is being hydrated. Kidney ultrasound showed bilateral increased renal cortical echogenicity consistent with medical renal disease. No hydronephrosis nephrosis. Nephrology was consulted and due to the patient worsening renal failure the decision was made for emergent temporary dialysis catheter placement. Patient was seen by the surgery team and temporary dialysis catheter was placed on April 01, 2020 there was complication and the patient developed a left pneumothorax. A chest tube was placed than the new catheter was used for dialysis. Patient's kidney function improved as well as the hypo in a tree me a on April 03, 2020 the surgery team removed the chest tube as repeat imaging showed no pneumothorax. The patient developed hypotension while in the dialysis on the and was given fluids her blood pressure normalized and she continued her dialysis. On April 04, 2020 BUN and creatinine were trending down and there are no plans for dialysis in future. Her kidney function is improving and hyponatremia will require continued monitoring of the labs in the urinary output. She has a Marques catheter which I plan to remove as she is having good urine output hypertension is being reasonably controlled at this time the patient received Epogen during dialysis for her anemia and H and H and H will require monitoring. The patient will be discharged to rehab with sequential compression devices for DVT prophylaxis the patient has not traveled outside the [place] or had contact with someone who is ill that has traveled outside the [place] in the past 21 days. The patient has not traveled to an area of the [place] that is experiencing no transmission of the Coronavirus and has not had close personal contact with anyone that has. The patient does not have a fever. The patient is not experiencing lower respiratory illness symptoms Therapy was initiated at the acute care facility and the patient transferred to us from [facility] on April 08, 2020 FALLS OR SURGERIES: The patient has had no major surgeries in the 100 days prior to admission. They had no falls in the past year. They had no falls with injury in the past year. 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
[2020-04-09 12:29] LABS: Glucose Point of Care 237 (65-105)
--- NOTE | 2020-04-09 13:23 | PCCCNOTE ---
On 04/09/20, the student, [Will Coppola ], provided care and completed [facility] documentation on this patient. I have reviewed the student's documentation and agree with the findings.
[2020-04-09 13:35] VITALS: BMI 26.2
--- NOTE | 2020-04-09 13:55 | PHAR ---
The patient's home med of Nateglinide 120mg [id number]
[2020-04-09 14:00] VITALS: BP 152/72; PULSE 90; RESP 18; TEMP 36.5; O2SAT 97
--- NOTE | 2020-04-09 16:50 | RPD ---
INDIVIDUALIZED PLAN OF CARE FOR Danielle Thomason Brief Synthesis of Pre-Admission Screen, Post-Admission Evaluation and Therapy Evaluations: The patient presents to rehab with acute renal failure. Comorbidities include status post temporary dialysis catheter placement, temporary dialysis treatment, left pneumothorax, status post thoracostomy tube placement and removal, chronic kidney disease, hyponatremia, essential hypertension, anemia, pulmonary hypertension, type 2 diabetes mellitus with diabetic nephropathy, weakness, diarrhea, and dehydration.The patient?s needs will be best met in an intensive program vs. at a lower level of care. The patient requires physician services for medical oversight, management of medical complications (hyponatremia, left pneumothorax, hypotension) in setting of present comorbidities, and pain management. The patient requires nursing services for anticoagulation therapy, diabetes training, DVT prophylactics, infection protection, medication management and education, pressure relief, and wound care. Deficits include:ADLs, Balance, Endurance, Family Training/Education, Mobility, Pain Management, ROM, Safety, Strength, and Transfers Photographic Specialist/Case Management for: Discharge Planning and Patient/Family Counseling Physical Therapy: 5 days per week for 90 minutes. Treatments may include: Therapeutic Exercise, Gait Training, Neuromuscular Re-education, Transfer Training, Community Reintegration, Bed Mobility, Patient/Family Education, Wheelchair Mobility Group Therapy/Concurrent Therapy Rationales: -Improve attention span during functional activities in a distracted environment. -Enhance problem solving and/or adequate judgment skills during functional activities in a distracted environment. -Promote increased safety awareness in a distracted environment to reduce fall risk with functional tasks, transfers, and ambulation to allow a more safe, self-sufficient return to the home environment. -Improve dynamic balance skills to promote safety and independence with functional activities in a distracted environment for maximum gain. Occupational Therapy: 5 days per week for 90 minutes. Treatments may include: Therapeutic Exercise, Therapeutic Activity, Cognitive Training, Self-Care Transfer Training, Community Reintegration, Home Management, Patient/Family Education, Wheelchair Mobility Training, Energy Conservation Training Group Therapy/Concurrent Therapy Rationales: -Allow therapist to observe and teach generalization and carry-over of skills learned in individual therapy. -Enhance problem solving and sequencing skills during therapeutic activities in a distracted environment. -Promote increased safety awareness in a realistic setting to reduce fall risk with functional tasks due to visual and verbal distractions. -Increase functional level with ADLs, ADL transfers and use of adaptive equipment through therapeutic activities with others while promoting safety to allow a more safe, self-sufficient return home. Medical Prognosis: Good Anticipated Length of Stay: 7 days Rehab Goals: Eating Goal: 06-Independent Oral Hygiene Goal: 06-Independent Toileting Hygiene Goal: 06-Independent Shower/Bathe Self Goal: 06-Independent Upper Body Dressing Goal: 06-Independent Lower Body Dressing Goal: 06-Independent Putting On/Taking Off Footwear Goal: 06-Independent Rolling Left and Right Goal: 06-Independent Sit to Lying Goal: 06-Independent Lying to Sitting on Side of Bed Goal: 06-Independent Sit to Stand Goal: 06-Independent Chair/Prj-po-Staog Transfer Goal: 06-Independent Toilet Transfer Goal: 06-Independent Car Transfer Goal: 06-Independent Walk 10' Goal: 06-Independent Walk 50' with Two Turns Goal: 06-Independent Walk 150' Goal: 06-Independent Walk 10' on Uneven Surface Goal: 06-Independent 1 Step (Curb) Goal: 06-Independent 4 Steps Goal: 06-Independent 12 Steps Goal Score: 06-Independent Picking Up Object Goal: 06-Independent Whe
[2020-04-09 17:11] LABS: Glucose Point of Care 368 (65-105)
[2020-04-09 20:35] VITALS: PULSE 89
[2020-04-09 22:00] VITALS: BP 153/66; PULSE 87; RESP 18; TEMP 37; O2SAT 100
[2020-04-09 22:10] LABS: Glucose Point of Care 289 (65-105)
[2020-04-10 06:00] VITALS: BP 148/73; PULSE 81; RESP 17; TEMP 37.3; O2SAT 99
[2020-04-10 07:05] LABS: Glucose Point of Care 120 (65-105)
[2020-04-10] MEDS: ATORVASTATIN 40 MG TABLET PO (08:46)
[2020-04-10] MEDS: CHOLECALCIFEROL 1,000 UNIT TABLET 1000 UNITS PO (08:47)
[2020-04-10] MEDS: FAMOTIDINE 20 MG TABLET 40 MG PO ×2 (08:47→17:05)
[2020-04-10] MEDS: GABAPENTIN 100 MG CAPSULE PO ×3 (08:47→17:05)
[2020-04-10] MEDS: LIPASE/AMYLASE/PROTEASE 12,000 UNITS CAP 2 CAP PO ×3 (08:48→17:04)
[2020-04-10] MEDS: AMLODIPINE BESYLATE 5 MG TABLET PO (08:48)
[2020-04-10] MEDS: FUROSEMIDE 20 MG TABLET PO (08:48)
[2020-04-10] MEDS: AMLODIPINE BESYLATE 2.5 MG TABLET PO (08:48)
[2020-04-10 08:49] VITALS: PULSE 81
[2020-04-10] MEDS: LOSARTAN POTASSIUM 100 MG TABLET PO (08:49)
[2020-04-10] MEDS: METOPROLOL TARTRATE 50 MG TAB 100 MG PO ×2 (08:49→20:44)
[2020-04-10] MEDS: VITAMIN B COMPLEX CAPSULE 1 CAP PO (08:50)
[2020-04-10] MEDS: INSULIN GLARGINE (*BKC) 100 UNITS/ML 15 UNITS SUB-Q ×2 (08:54→20:44)
[2020-04-10 12:28] LABS: Glucose Point of Care 142 (65-105)
[2020-04-10 14:00] VITALS: BP 117/48; PULSE 82; RESP 17; TEMP 36.3; O2SAT 99
--- NOTE | 2020-04-10 15:47 | WPDNEURORHBP ---
Subjective Date/time seen: 04/10/20 15:47 Interval history: this 79-year-old woman is here after having and significant medical problems related to acute renal failure the details are available in my history she is doing better her renal functions getting better and show is quite happy with the progress her generalized weakness is improving while getting the PT OT and gait training Review of Systems Review of Systems: All systems reviewed & are unremarkable except as noted in HPI and below Functional Status Ambulation Ability Ability to Ambulate 10 Feet: Minimum Assistance X 1 Ability to Ambulate 50 Feet With 2 Turns: Minimum Assistance X 1 Ability to Ambulate 150 Feet: Minimum Assistance X 1 Ambulation Assistive Devices: Walker, Wheeled Transfers Ability Ability to Transfer In/Out of Chair: Standby Assistance Exam Const: General: comfortable and no acute distress HENMT: General nose exam: Normal nares present Mouth: Yes moist mucous membranes Eyes: General: appearance normal, both eyes and all related structures Neck: Neck: supple and no JVD Resp: Effort & Inspection: normal respiratory effort Auscultation: clear to auscultation bilaterally Cardio: Rate: regular rate Rhythm: regular rhythm GI: GI Palp: Yes Soft to palpation Auscultation: normal bowel sounds Skin: General skin exam: normal color and no rashes or lesions noted Neuro: Other: patient is awake alert well oriented has normal speech and language function normal cranial examination and improving strength in both upper lower extremities Extrem: General: normal to inspection Psych: Mental Status: mental status grossly normal Objective Data Vital Signs Vital Signs: Vital Signs - 24 hr 04/09/20 20:35 04/09/20 22:00 04/10/20 06:00 Temperature 37.0 C 37.3 C Pulse Rate 89 87 81 Respiratory Rate 18 17 Blood Pressure 153/66 H 148/73 H Pulse Oximetry 100 99 04/10/20 08:49 04/10/20 14:00 Temperature 36.3 C L Pulse Rate 81 82 Respiratory Rate 17 Blood Pressure 117/48 L Pulse Oximetry 99 Intake/Output Intake/Output: Intake & Output 04/07/20 04/08/20 04/09/20 04/10/20 23:59 23:59 23:59 23:59 Intake Total 1070 600 Output Total 1350 800 Balance -280 -200 Meds/Results Medications: Active Medications Generic Name Dose Route Start Last Admin Trade Name Freq PRN Reason Stop Dose Admin Amlodipine Besylate 2.5 mg 04/09/20 09:00 04/10/20 08:48 Norvasc PO 2.5 mg DAILY JAMARI Administration Amlodipine Besylate 5 mg 04/09/20 09:00 04/10/20 08:48 Norvasc PO 5 mg DAILY JAMARI Administration Lipase/Protease/Amylase 2 cap 04/08/20 17:00 04/10/20 12:[address] 12,000 Units Capsule PO 2 cap TID JAMARI Administration Atorvastatin Calcium 40 mg 04/09/20 09:00 04/10/20 08:46 Lipitor PO 40 mg DAILY JAMARI Administration Dextrose 12.5 gm 04/08/20 17:03 Dextrose 50% Syringe IV PUSH PRN PRN Hypoglycemia Protocol Famotidine 40 mg 04/09/20 09:00 04/10/20 08:47 Pepcid PO 40 mg BID JAMARI Administration Furosemide 20 mg 04/09/20 09:00 04/10/20 08:48 Lasix Tablet PO 20 mg DAILY JAMARI Administration Gabapentin 100 mg 04/09/20 09:00 04/10/20 12:19 Neurontin PO 100 mg TID JAMARI Administration Glucagon 1 mg 04/08/20 17:03 Glucagon For Inj IM PRN PRN Hypoglycemia Protocol Glucose 15 gm 04/08/20 17:03 Glutose 15 PO PRN PRN Hypoglycemia Protocol Dextrose 1,000 mls @ 100 mls/hr 04/08/20 17:03 Dextrose 5% 1,000 Ml IVPB PRN PRN Hypoglycemia Protocol Insulin Glargine 15 units 04/08/20 21:00 04/10/20 08:54 Lantus SUB-Q 15 units Q12HR JAMARI Administration Losartan Potassium 100 mg 04/09/20 09:00 04/10/20 08:49 Cozaar PO 100 mg DAILY JAMARI Administration Metoprolol Tartrate 100 mg 04/08/20 21:00 04/10/20 08:49 Lopressor PO 100 mg Q12HR JAMARI Administration Non-Form
--- NOTE | 2020-04-10 17:42 | PM.PNNEP ---
Progress Note: A&P Assessment and Plan (1) Acute kidney injury: Code(s): N17.9 - Acute kidney failure, unspecified Status: Acute Assessment and Plan: resolving possible ATN versus allergic interstitial nephritis versus sarcoidosis or glomerulonephritis?? s/p empiric steroids continues to have good urine output with improvement in creatinine by labs - kidney recovery -- creatinine peaked/plateaued at 3.7mg/dl - s/p removal of temporary HD catheter continue supportive therapy (2) Chronic kidney disease, stage 3: Code(s): N18.3 - Chronic kidney disease, stage 3 (moderate) Status: Chronic Assessment and Plan: baseline creatinine runs ~ 1.2mg/dl this is due to diabetes and hypertension (3) Hyponatremia: Code(s): E87.1 - Hypo-osmolality and hyponatremia Status: Acute Assessment and Plan: improvement noted and seems stable now partly due to #1 noted to a chronic issue with sodium levels running ~ 125 - 132 since at least 2018 follow repeat labs (4) Essential hypertension: Code(s): I10 - Essential (primary) hypertension Status: Chronic Assessment and Plan: reasonable control at this time follow trend of hemodynamics (5) Acute UTI: Code(s): N39.0 - Urinary tract infection, site not specified Status: Acute Assessment and Plan: urine culture with Pseudomonas started on oral ciprofloxacin (6) Debility: Code(s): R53.81 - Other malaise Status: Acute Assessment and Plan: due to prolonged inpatient stay PT/OT/rehab Will continue to follow. Subjective Date/time seen: 04/10/20 17:42 Working with PT/OT as tolerated; no new issues or problems to report at this time; feeling reasonably well; no apparent distress voiced at the time of my visit. Exam Narrative: Exam Narrative: General: WD/WN female in NAD Heart: normal S1 and S2; no rub Lungs: clear to auscultation Abdomen: soft, nontender, nondistended, positive bowel sounds Extremities: no cyanosis or clubbing; no edema Skin: no rash Objective Data Vital Signs Vital Signs: Vital Signs Temp Pulse Resp BP Pulse Ox 04/10/20 14:00 36.3 C L 82 17 117/48 L 99 04/10/20 08:49 81 04/10/20 06:00 37.3 C 81 17 148/73 H 99 04/09/20 22:00 37.0 C 87 18 153/66 H 100 04/09/20 20:35 89 Intake/Output Intake/Output: Intake & Output 04/07/20 04/08/20 04/09/20 04/10/20 23:59 23:59 23:59 23:59 Intake Total 1070 600 Output Total 1350 800 Balance -280 -200 Meds/Results Medications: Active Medications Generic Name Dose Route Start Last Admin Trade Name Russ PRN Reason Stop Dose Admin Amlodipine Besylate 2.5 mg 04/09/20 09:00 04/10/20 08:48 Norvasc PO 2.5 mg DAILY JAMARI Administration Amlodipine Besylate 5 mg 04/09/20 09:00 04/10/20 08:48 Norvasc PO 5 mg DAILY JAMARI Administration Lipase/Protease/Amylase 2 cap 04/08/20 17:00 04/10/20 17:[address] 12,000 Units Capsule PO 2 cap TID JAMARI Administration Atorvastatin Calcium 40 mg 04/09/20 09:00 04/10/20 08:46 Lipitor PO 40 mg DAILY JAMARI Administration Dextrose 12.5 gm 04/08/20 17:03 Dextrose 50% Syringe IV PUSH PRN PRN Hypoglycemia Protocol Famotidine 40 mg 04/09/20 09:00 04/10/20 17:05 Pepcid PO 40 mg BID JAMARI Administration Furosemide 20 mg 04/09/20 09:00 04/10/20 08:48 Lasix Tablet PO 20 mg DAILY JAMARI Administration Gabapentin 100 mg 04/09/20 09:00 04/10/20 17:05 Neurontin PO 100 mg TID JAMARI Administration Glucagon 1 mg 04/08/20 17:03 Glucagon For Inj IM PRN PRN Hypoglycemia Protocol Glucose 15 gm 04/08/20 17:03 Glutose 15 PO PRN PRN Hypoglycemia Protocol Dextrose 1,000 mls @ 100 mls/hr 04/08/20 17:03 Dextrose 5% 1,000 Ml IVPB PRN PRN Hypoglycemia Protocol Insulin G
[2020-04-10 19:11] LABS: Glucose Point of Care 410 (65-105)
[2020-04-10 19:11] LABS: Glucose Point of Care 419 (65-105)
[2020-04-10 20:44] VITALS: PULSE 80
[2020-04-10] MEDS: CIPROFLOXACIN 250 MG TABLET PO (20:44)
[2020-04-10 21:17] LABS: Glucose Point of Care 337 (65-105)
[2020-04-10 22:00] VITALS: BP 149/58; PULSE 88; RESP 17; TEMP 36.2; O2SAT 99
[2020-04-11 06:00] VITALS: BP 147/91; PULSE 80; RESP 18; TEMP 36.9; O2SAT 97
[2020-04-11 06:13] LABS: Glucose Point of Care 195 (65-105)
[2020-04-11] MEDS: ATORVASTATIN 40 MG TABLET PO (09:37)
[2020-04-11] MEDS: AMLODIPINE BESYLATE 2.5 MG TABLET PO (09:37)
[2020-04-11] MEDS: AMLODIPINE BESYLATE 5 MG TABLET PO (09:37)
[2020-04-11] MEDS: CIPROFLOXACIN 250 MG TABLET PO ×2 (09:38→20:43)
[2020-04-11] MEDS: CHOLECALCIFEROL 1,000 UNIT TABLET 1000 UNITS PO (09:38)
[2020-04-11] MEDS: FAMOTIDINE 20 MG TABLET 40 MG PO ×2 (09:38→17:33)
[2020-04-11] MEDS: VITAMIN B COMPLEX CAPSULE 1 CAP PO (09:39)
[2020-04-11] MEDS: FUROSEMIDE 20 MG TABLET PO (09:39)
[2020-04-11] MEDS: GABAPENTIN 100 MG CAPSULE PO ×3 (09:39→17:34)
[2020-04-11] MEDS: LIPASE/AMYLASE/PROTEASE 12,000 UNITS CAP 2 CAP PO ×3 (09:39→17:34)
[2020-04-11] MEDS: LOSARTAN POTASSIUM 100 MG TABLET PO (09:39)
[2020-04-11 09:40] VITALS: PULSE 80
[2020-04-11] MEDS: METOPROLOL TARTRATE 50 MG TAB 100 MG PO ×2 (09:40→20:43)
[2020-04-11] MEDS: INSULIN GLARGINE (*BKC) 100 UNITS/ML 15 UNITS SUB-Q (09:40)
[2020-04-11 12:23] LABS: Glucose Point of Care 293 (65-105)
[2020-04-11 14:00] VITALS: BP 120/65; PULSE 79; RESP 18; TEMP 36.3; O2SAT 99
--- NOTE | 2020-04-11 16:18 | PC.NURSE ---
Dr. Coley aware of high blood sugars last evening and today-he increased Lantus to 20 units BID.
--- NOTE | 2020-04-11 17:16 | WPDNEURORHBP ---
Subjective Date/time seen: 04/11/20 17:16 Interval history: this 79-year-old woman is recuperating here with generalized weakness related to acute renal failure acute kidney injury her sugars have been relatively high so have adjusted her insulin a little bit see what the responses otherwise she is doing well and in the physical therapy she denies any headache nausea vomiting chest pain or shortness of breath and she is producing urine to her satisfaction Review of Systems Review of Systems: All systems reviewed & are unremarkable except as noted in HPI and below Functional Status Ambulation Ability Ability to Ambulate 10 Feet: Standby Assistance Ability to Ambulate 50 Feet With 2 Turns: Standby Assistance Ability to Ambulate 150 Feet: Standby Assistance Ambulation Assistive Devices: Walker, Wheeled Transfers Ability Ability to Transfer In/Out of Chair: Standby Assistance Exam Const: General: comfortable and no acute distress HENMT: General nose exam: Normal nares present Mouth: Yes moist mucous membranes Eyes: General: appearance normal, both eyes and all related structures Neck: Neck: supple and no JVD Resp: Effort & Inspection: normal respiratory effort Auscultation: clear to auscultation bilaterally Cardio: Rate: regular rate Rhythm: regular rhythm GI: GI Palp: Yes Soft to palpation Auscultation: normal bowel sounds Skin: General skin exam: normal color and no rashes or lesions noted Neuro: Other: the patient remains awake alert well oriented time place and person is speech and language functions are normal cranial exam shows normal strength is improving Extrem: General: normal to inspection Psych: Mental Status: mental status grossly normal Objective Data Vital Signs Vital Signs: Vital Signs - 24 hr 04/10/20 20:44 04/10/20 22:00 04/11/20 06:00 Temperature 36.2 C L 36.9 C Pulse Rate 80 88 80 Respiratory Rate 17 18 Blood Pressure 149/58 H 147/91 H Pulse Oximetry 99 97 04/11/20 09:40 04/11/20 14:00 Temperature 36.3 C L Pulse Rate 80 79 Respiratory Rate 18 Blood Pressure 120/65 Pulse Oximetry 99 Intake/Output Intake/Output: Intake & Output 04/08/20 04/09/20 04/10/20 04/11/20 23:59 23:59 23:59 23:59 Intake Total 1070 840 720 Output Total 5725 454 4466 Balance -280 40 -280 Meds/Results Medications: Active Medications Generic Name Dose Route Start Last Admin Trade Name Freq PRN Reason Stop Dose Admin Amlodipine Besylate 2.5 mg 04/09/20 09:00 04/11/20 09:37 Norvasc PO 2.5 mg DAILY JAMARI Administration Amlodipine Besylate 5 mg 04/09/20 09:00 04/11/20 09:37 Norvasc PO 5 mg DAILY JAMARI Administration Lipase/Protease/Amylase 2 cap 04/08/20 17:00 04/11/20 13:[address] 12,000 Units Capsule PO 2 cap TID JAMARI Administration Atorvastatin Calcium 40 mg 04/09/20 09:00 04/11/20 09:37 Lipitor PO 40 mg DAILY JAMARI Administration Ciprofloxacin 250 mg 04/10/20 21:00 04/11/20 09:38 Cipro Po PO 04/15/20 09:01 250 mg Q12HR JAMARI Administration Dextrose 12.5 gm 04/08/20 17:03 Dextrose 50% Syringe IV PUSH PRN PRN Hypoglycemia Protocol Famotidine 40 mg 04/09/20 09:00 04/11/20 09:38 Pepcid PO 40 mg BID JAMARI Administration Furosemide 20 mg 04/09/20 09:00 04/11/20 09:39 Lasix Tablet PO 20 mg DAILY JAMARI Administration Gabapentin 100 mg 04/09/20 09:00 04/11/20 13:21 Neurontin PO 100 mg TID JAMARI Administration Glucagon 1 mg 04/08/20 17:03 Glucagon For Inj IM PRN PRN Hypoglycemia Protocol Glucose 15 gm 04/08/20 17:03 Glutose 15 PO PRN PRN Hypoglycemia Protocol Dextrose 1,000 mls @ 100 mls/hr 04/08/20 17:03 Dextrose 5% 1,000 Ml IVPB PRN PRN Hypoglycemia Protocol Insulin Glargine 20 units 04/11/20 21:00 Lantus SUB-Q Q12HR JAMARI Losartan Potassium 100 mg 04/09/20 09:00 04/11/20 09:39 Cozaar PO 100 m
[2020-04-11 17:40] LABS: Glucose Point of Care 219 (65-105)
[2020-04-11 20:41] LABS: Glucose Point of Care 308 (65-105)
[2020-04-11 20:43] VITALS: PULSE 82
[2020-04-11] MEDS: INSULIN GLARGINE (*BKC) 100 UNITS/ML 20 UNITS SUB-Q (20:44)
[2020-04-11 22:00] VITALS: BP 149/100; PULSE 84; RESP 16; TEMP 36.8; O2SAT 98
[2020-04-12 05:10] LABS: Albumin Level 3.3 g/dL (3.5-5.1); Blood Urea Nitrogen 53 mg/dL (7-17); Carbon Dioxide 26 mmol/L (22-30); Chloride 102 mmol/L (98-107); Estimated CRCL calculation 17 ml/min; Estimated Glomerular Filt Rate 24; Glucose 146 mg/dL (65-105); Phosphorus 4.3 mg/dL (2.5-4.5); Potassium 3.3 mmol/L (3.4-5.0); Sodium 136 mmol/L (137-145)
[2020-04-12 06:00] VITALS: BP 140/60; PULSE 67; RESP 18; TEMP 36.6; O2SAT 100
[2020-04-12 07:01] LABS: Glucose Point of Care 123 (65-105)
[2020-04-12] MEDS: AMLODIPINE BESYLATE 2.5 MG TABLET PO (08:23)
[2020-04-12] MEDS: AMLODIPINE BESYLATE 5 MG TABLET PO (08:23)
[2020-04-12] MEDS: ATORVASTATIN 40 MG TABLET PO (08:23)
[2020-04-12 08:24] VITALS: PULSE 62
[2020-04-12] MEDS: CIPROFLOXACIN 250 MG TABLET PO ×2 (08:24→20:33)
[2020-04-12] MEDS: FAMOTIDINE 20 MG TABLET 40 MG PO ×2 (08:24→16:58)
[2020-04-12] MEDS: METOPROLOL TARTRATE 50 MG TAB 100 MG PO ×2 (08:24→20:33)
[2020-04-12] MEDS: CHOLECALCIFEROL 1,000 UNIT TABLET 1000 UNITS PO (08:24)
[2020-04-12] MEDS: FUROSEMIDE 20 MG TABLET PO (08:25)
[2020-04-12] MEDS: LIPASE/AMYLASE/PROTEASE 12,000 UNITS CAP 2 CAP PO ×3 (08:25→16:58)
[2020-04-12] MEDS: LOSARTAN POTASSIUM 100 MG TABLET PO (08:25)
[2020-04-12] MEDS: VITAMIN B COMPLEX CAPSULE 1 CAP PO (08:27)
[2020-04-12] MEDS: GABAPENTIN 100 MG CAPSULE PO ×3 (08:28→16:58)
[2020-04-12] MEDS: INSULIN GLARGINE (*BKC) 100 UNITS/ML 20 UNITS SUB-Q (08:29)
[2020-04-12 11:55] LABS: Glucose Point of Care 175 (65-105)
[2020-04-12 14:00] VITALS: BP 143/59; PULSE 77; RESP 22; TEMP 36.6; O2SAT 100
[2020-04-12 14:10] VITALS: BMI 26.2
--- NOTE | 2020-04-12 17:04 | P.PNNP_ITS ---
Progress Note: A&P Assessment and Plan (1) Acute kidney injury: Code(s): N17.9 - Acute kidney failure, unspecified Status: Acute Assessment and Plan: * resolving * possible ATN versus allergic interstitial nephritis versus other? * s/p empiric steroids * continues to have good urine output with improvement in creatinine by labs - kidney recovery ongoing -- creatinine peaked/plateaued at 3.7mg/dl - s/p removal of temporary HD catheter * continue supportive therapy (2) Chronic kidney disease, stage 3: Code(s): N18.3 - Chronic kidney disease, stage 3 (moderate) Status: Chronic Assessment and Plan: * baseline creatinine runs ~ 1.2mg/dl * this is due to diabetes and hypertension (3) Hyponatremia: Code(s): E87.1 - Hypo-osmolality and hyponatremia Status: Acute Assessment and Plan: * improvement noted and seems stable now * partly due to #1 * noted to a chronic issue with sodium levels running ~ 125 - 132 since at least 2018 * follow repeat labs (4) Essential hypertension: Code(s): I10 - Essential (primary) hypertension Status: Chronic Assessment and Plan: * reasonable control at this time * follow trend of hemodynamics (5) Acute UTI: Code(s): N39.0 - Urinary tract infection, site not specified Status: Acute Assessment and Plan: * urine culture with Pseudomonas * on oral ciprofloxacin (6) Debility: Code(s): R53.81 - Other malaise Status: Acute Assessment and Plan: * due to prolonged inpatient stay * PT/OT/rehab Will continue to follow. Subjective Date/time seen: 04/12/20 17:04 Continue to make slow and steady progress with therapy; no apparent distress noted; overall, feels reasonably well with no acute issues or problems to report. Exam Narrative: Exam Narrative: General: WD/WN female in NAD Heart: normal S1 and S2; no rub Lungs: clear to auscultation Abdomen: soft, nontender, nondistended, positive bowel sounds Extremities: no cyanosis or clubbing; no edema Skin: no nodules Objective Data Vital Signs Vital Signs: Vital Signs Temp Pulse Resp BP Pulse Ox 04/12/20 14:00 36.6 C 77 22 H 143/59 H 100 04/12/20 08:24 62 04/12/20 06:00 36.6 C 67 18 140/60 100 04/11/20 22:00 36.8 C 84 16 149/100 H 98 04/11/20 20:43 82 Intake/Output Intake/Output: Intake & Output 04/09/20 04/10/20 04/11/20 04/12/20 23:59 23:59 23:59 23:59 Intake Total 1070 840 960 500 Output Total 7588 062 7233 Balance -280 40 -40 500 Meds/Results Medications: Active Medications Generic Name Dose Route Start Last Admin Trade Name Freq PRN Reason Stop Dose Admin Amlodipine Besylate 2.5 mg 04/09/20 09:00 04/12/20 08:23 Norvasc PO 2.5 mg DAILY JAMARI Administration Amlodipine Besylate 5 mg 04/09/20 09:00 04/12/20 08:23 Norvasc PO 5 mg DAILY JAMARI Administration Lipase/Protease/Amylase 2 cap 04/08/20 17:00 04/12/20 16:[address] 12,000 Units Capsule PO 2 cap TID JAMARI Administration Atorvastatin Calcium 40 mg 04/09/20 09:00 04/12/20 08:23 Lipitor PO 40 mg DAILY JAMARI Administration Cip
--- NOTE | 2020-04-12 17:04 | PM.PNNEP ---
Progress Note: A&P Assessment and Plan (1) Acute kidney injury: Code(s): N17.9 - Acute kidney failure, unspecified Status: Acute Assessment and Plan: resolving possible ATN versus allergic interstitial nephritis versus other? s/p empiric steroids continues to have good urine output with improvement in creatinine by labs - kidney recovery ongoing -- creatinine peaked/plateaued at 3.7mg/dl - s/p removal of temporary HD catheter continue supportive therapy (2) Chronic kidney disease, stage 3: Code(s): N18.3 - Chronic kidney disease, stage 3 (moderate) Status: Chronic Assessment and Plan: baseline creatinine runs ~ 1.2mg/dl this is due to diabetes and hypertension (3) Hyponatremia: Code(s): E87.1 - Hypo-osmolality and hyponatremia Status: Acute Assessment and Plan: improvement noted and seems stable now partly due to #1 noted to a chronic issue with sodium levels running ~ 125 - 132 since at least 2018 follow repeat labs (4) Essential hypertension: Code(s): I10 - Essential (primary) hypertension Status: Chronic Assessment and Plan: reasonable control at this time follow trend of hemodynamics (5) Acute UTI: Code(s): N39.0 - Urinary tract infection, site not specified Status: Acute Assessment and Plan: urine culture with Pseudomonas on oral ciprofloxacin (6) Debility: Code(s): R53.81 - Other malaise Status: Acute Assessment and Plan: due to prolonged inpatient stay PT/OT/rehab Will continue to follow. Subjective Date/time seen: 04/12/20 17:04 Continue to make slow and steady progress with therapy; no apparent distress noted; overall, feels reasonably well with no acute issues or problems to report. Exam Narrative: Exam Narrative: General: WD/WN female in NAD Heart: normal S1 and S2; no rub Lungs: clear to auscultation Abdomen: soft, nontender, nondistended, positive bowel sounds Extremities: no cyanosis or clubbing; no edema Skin: no nodules Objective Data Vital Signs Vital Signs: Vital Signs Temp Pulse Resp BP Pulse Ox 04/12/20 14:00 36.6 C 77 22 H 143/59 H 100 04/12/20 08:24 62 04/12/20 06:00 36.6 C 67 18 140/60 100 04/11/20 22:00 36.8 C 84 16 149/100 H 98 04/11/20 20:43 82 Intake/Output Intake/Output: Intake & Output 04/09/20 04/10/20 04/11/20 04/12/20 23:59 23:59 23:59 23:59 Intake Total 1070 840 960 500 Output Total 8884 673 2016 Balance -280 40 -40 500 Meds/Results Medications: Active Medications Generic Name Dose Route Start Last Admin Trade Name Freq PRN Reason Stop Dose Admin Amlodipine Besylate 2.5 mg 04/09/20 09:00 04/12/20 08:23 Norvasc PO 2.5 mg DAILY JAMARI Administration Amlodipine Besylate 5 mg 04/09/20 09:00 04/12/20 08:23 Norvasc PO 5 mg DAILY JAMARI Administration Lipase/Protease/Amylase 2 cap 04/08/20 17:00 04/12/20 16:[address] 12,000 Units Capsule PO 2 cap TID JAMARI Administration Atorvastatin Calcium 40 mg 04/09/20 09:00 04/12/20 08:23 Lipitor PO 40 mg DAILY JAMARI Administration Ciprofloxacin 250 mg 04/10/20 21:00 04/12/20 08:24 Cipro Po PO 04/15/20 09:01 250 mg Q12HR JAMARI Administration Dextrose 12.5 gm 04/08/20 17:03 Dextrose 50% Syringe IV PUSH PRN PRN Hypoglycemia Protocol Famotidine 40 mg 04/09/20 09:00 04/12/20 16:58 Pepcid PO 40 mg BID JAMARI Administration Furosemide 20 mg 04/09/20 09:00 04/12/20 08:25 Lasix Tablet PO 20 mg DAILY JAMARI Administration Gabapentin 100 mg 04/09/20 09:00 04/12/20 16:58 Neurontin PO 100 mg TID JAMARI Administration Glucagon 1 mg 04/08/20 17:03 Glucagon For Inj IM PRN PRN Hypoglycemia Protocol Glucose 15 gm 04/08/20 17:03 Glutose 15 PO PRN PRN Hypoglycemia Protocol Dextrose 1,000 mls @ 10
[2020-04-12 17:31] LABS: Glucose Point of Care 135 (65-105)
[2020-04-12] MEDS: INSULIN ASPART (*BKC) 100 UNITS/ML SUB-Q (18:35)
[2020-04-12 20:00] VITALS: PULSE 79; RESP 17; O2SAT 99
[2020-04-12 20:33] VITALS: PULSE 80
[2020-04-12 22:00] VITALS: BP 149/63; PULSE 79; RESP 17; TEMP 36.8; O2SAT 99
[2020-04-13 01:11] LABS: Glucose Point of Care 283 (65-105)
[2020-04-13 06:00] VITALS: BP 149/76; PULSE 76; RESP 17; TEMP 36.9; O2SAT 98
[2020-04-13 07:03] LABS: Glucose Point of Care 144 (65-105)
[2020-04-13] MEDS: INSULIN ASPART (*BKC) 100 UNITS/ML SUB-Q ×4 (07:45→17:20)
[2020-04-13] MEDS: FAMOTIDINE 20 MG TABLET 40 MG PO ×2 (07:45→17:10)
[2020-04-13 07:46] VITALS: PULSE 76
[2020-04-13] MEDS: AMLODIPINE BESYLATE 5 MG TABLET PO (07:46)
[2020-04-13] MEDS: METOPROLOL TARTRATE 50 MG TAB 100 MG PO ×2 (07:46→20:40)
[2020-04-13] MEDS: ATORVASTATIN 40 MG TABLET PO (07:46)
[2020-04-13] MEDS: CIPROFLOXACIN 250 MG TABLET PO ×2 (07:46→20:40)
[2020-04-13] MEDS: GABAPENTIN 100 MG CAPSULE PO ×3 (07:46→17:10)
[2020-04-13] MEDS: LOSARTAN POTASSIUM 100 MG TABLET PO (07:46)
[2020-04-13] MEDS: AMLODIPINE BESYLATE 2.5 MG TABLET PO (07:46)
[2020-04-13] MEDS: CHOLECALCIFEROL 1,000 UNIT TABLET 1000 UNITS PO (07:46)
[2020-04-13] MEDS: VITAMIN B COMPLEX CAPSULE 1 CAP PO (07:47)
[2020-04-13] MEDS: LIPASE/AMYLASE/PROTEASE 12,000 UNITS CAP 2 CAP PO ×3 (07:47→17:10)
[2020-04-13] MEDS: FUROSEMIDE 20 MG TABLET PO (07:47)
[2020-04-13 11:49] LABS: Glucose Point of Care 165 (65-105)
[2020-04-13 14:00] VITALS: BP 140/72; PULSE 84; RESP 18; TEMP 36.6; O2SAT 96
--- NOTE | 2020-04-13 15:01 | WPDNEURORHBP ---
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 the renal status is getting better and changes engage in therapy denies any headache nausea vomiting chest pain shortness of breath fever chills sore throat Review of Systems Review of Systems: All systems reviewed & are unremarkable except as noted in HPI and below Functional Status Ambulation Ability Ability to Ambulate 10 Feet: Independent Ability to Ambulate 50 Feet With 2 Turns: Independent Ability to Ambulate 150 Feet: Independent Ambulation Assistive Devices: Walker, Rollator Transfers Ability Ability to Transfer In/Out of Chair: Standby Assistance Exam Const: General: comfortable and no acute distress HENMT: General nose exam: Normal nares present Mouth: Yes moist mucous membranes Eyes: General: appearance normal, both eyes and all related structures Neck: Neck: supple and no JVD Resp: Effort & Inspection: normal respiratory effort Auscultation: clear to auscultation bilaterally Cardio: Rate: regular rate Rhythm: regular rhythm GI: GI Palp: Yes Soft to palpation Auscultation: normal bowel sounds Skin: General skin exam: normal color and no rashes or lesions noted Neuro: Other: patient is awake and alert well oriented without any lateralizing focal motor weakness she is walking fairly well has generalized weakness which is getting better overall Extrem: General: normal to inspection Psych: Mental Status: mental status grossly normal Objective Data Vital Signs Vital Signs: Vital Signs - 24 hr 04/12/20 20:00 04/12/20 20:33 04/12/20 22:00 Temperature 36.8 C Pulse Rate 79 80 79 Respiratory Rate 17 17 Blood Pressure 149/63 H Pulse Oximetry 99 99 04/13/20 06:00 04/13/20 07:46 04/13/20 14:00 Temperature 36.9 C 36.6 C Pulse Rate 76 76 84 Respiratory Rate 17 18 Blood Pressure 149/76 H 140/72 Pulse Oximetry 98 96 Intake/Output Intake/Output: Intake & Output 04/10/20 04/11/20 04/12/20 04/13/20 23:59 23:59 23:59 23:59 Intake Total 840 960 700 480 Output Total 800 1000 Balance 40 -40 700 480 Meds/Results Medications: Active Medications Generic Name Dose Route Start Last Admin Trade Name Freq PRN Reason Stop Dose Admin Amlodipine Besylate 2.5 mg 04/09/20 09:00 04/13/20 07:46 Norvasc PO 2.5 mg DAILY JAMARI Administration Amlodipine Besylate 5 mg 04/09/20 09:00 04/13/20 07:46 Norvasc PO 5 mg DAILY JAMARI Administration Lipase/Protease/Amylase 2 cap 04/08/20 17:00 04/13/20 11:[address] 12,000 Units Capsule PO 2 cap TID JAMARI Administration Atorvastatin Calcium 40 mg 04/09/20 09:00 04/13/20 07:46 Lipitor PO 40 mg DAILY JAMARI Administration Ciprofloxacin 250 mg 04/10/20 21:00 04/13/20 07:46 Cipro Po PO 04/15/20 09:01 250 mg Q12HR JAMARI Administration Dextrose 12.5 gm 04/08/20 17:03 Dextrose 50% Syringe IV PUSH PRN PRN Hypoglycemia Protocol Famotidine 40 mg 04/09/20 09:00 04/13/20 07:45 Pepcid PO 40 mg BID JAMARI Administration Furosemide 20 mg 04/09/20 09:00 04/13/20 07:47 Lasix Tablet PO 20 mg DAILY JAMARI Administration Gabapentin 100 mg 04/09/20 09:00 04/13/20 11:56 Neurontin PO 100 mg TID JAMARI Administration Glucagon 1 mg 04/08/20 17:03 Glucagon For Inj IM PRN PRN Hypoglycemia Protocol Glucose 15 gm 04/08/20 17:03 Glutose 15 PO PRN PRN Hypoglycemia Protocol Dextrose 1,000 mls @ 100 mls/hr 04/08/20 17:03 Dextrose 5% 1,000 Ml IVPB PRN PRN Hypoglycemia Protocol Insulin Aspart 5 units 04/12/20 17:00 04/13/20 12:00 Novolog SUB-Q 5 units TIDWM JAMARI Administration Insulin As
[2020-04-13 17:03] LABS: Glucose Point of Care 229 (65-105)
[2020-04-13] MEDS: PHARMACIST COMMUNICATION ORDER 1 EACH XX (19:53)
[2020-04-13 20:40] VITALS: PULSE 84
[2020-04-13] MEDS: INSULIN GLARGINE (*BKC) 100 UNITS/ML 15 UNITS SUB-Q (20:41)
[2020-04-13 21:00] LABS: Glucose Point of Care 298 (65-105)
[2020-04-13 22:00] VITALS: BP 150/54; PULSE 97; RESP 17; TEMP 36.1; O2SAT 76
[2020-04-14 05:04] LABS: Albumin Level 3.3 g/dL (3.5-5.1); Blood Urea Nitrogen 39 mg/dL (7-17); Calcium 8.9 mg/dL (8.4-10.2); Carbon Dioxide 26 mmol/L (22-30); Chloride 101 mmol/L (98-107); Estimated CRCL calculation 20 ml/min; Estimated Glomerular Filt Rate 29; Glucose 169 mg/dL (65-105); Phosphorus 3.6 mg/dL (2.5-4.5); Potassium 3.4 mmol/L (3.4-5.0); Sodium 136 mmol/L (137-145)
[2020-04-14 06:00] VITALS: BP 144/62; PULSE 70; RESP 18; TEMP 36.8; O2SAT 98
[2020-04-14 06:49] LABS: Glucose Point of Care 153 (65-105)
[2020-04-14] MEDS: INSULIN ASPART (*BKC) 100 UNITS/ML SUB-Q ×4 (09:08→16:58)
[2020-04-14] MEDS: AMLODIPINE BESYLATE 2.5 MG TABLET PO (09:13)
[2020-04-14] MEDS: AMLODIPINE BESYLATE 5 MG TABLET PO (09:14)
[2020-04-14] MEDS: ATORVASTATIN 40 MG TABLET PO (09:14)
[2020-04-14] MEDS: CIPROFLOXACIN 250 MG TABLET PO ×2 (09:14→20:17)
[2020-04-14] MEDS: CHOLECALCIFEROL 1,000 UNIT TABLET 1000 UNITS PO (09:14)
[2020-04-14] MEDS: LIPASE/AMYLASE/PROTEASE 12,000 UNITS CAP 2 CAP PO ×3 (09:15→17:00)
[2020-04-14] MEDS: FUROSEMIDE 20 MG TABLET PO (09:15)
[2020-04-14] MEDS: GABAPENTIN 100 MG CAPSULE PO ×3 (09:15→16:59)
[2020-04-14] MEDS: FAMOTIDINE 20 MG TABLET 40 MG PO ×2 (09:15→16:59)
[2020-04-14 09:16] VITALS: PULSE 70
[2020-04-14] MEDS: METOPROLOL TARTRATE 50 MG TAB 100 MG PO ×2 (09:16→20:18)
[2020-04-14] MEDS: VITAMIN B COMPLEX CAPSULE 1 CAP PO (09:16)
[2020-04-14] MEDS: LOSARTAN POTASSIUM 100 MG TABLET PO (09:16)
--- NOTE | 2020-04-14 11:26 | PCDIET ---
Nutrition Follow-Up Complete: No nutrition diagnosis at this time. Nutrition Diagnosis: Patient to consume 75% of meals or greater. Goal met. Average intake since 04/10/20 has been 87% of recorded meals on diabetic diet. Last recorded weight is 65 kg. Recommend obtaining new weight. Bowel Motility: Last BM on 04/12/20, per nursing flowsheet. Labs Reviewed: Glu (153), BUN (39), Cr (1.7), Na (136), Alb (3.3) Meds Noted: Creon, Cipro, Pepcid, Lasix, Vitamin D, Novolog, Lantus, Vitamin B Complex Additional Notes: No pressure ulcers documented. Will continue to monitor with same goal. Nutrition Monitoring and Evaluation: Follow up every 7 days.
[2020-04-14 11:57] LABS: Glucose Point of Care 189 (65-105)
--- NOTE | 2020-04-14 12:00 | PCCDE ---
diabetes education f/up: current insulin orders: 15 units Lantus HS, 5 units Novolog TID WM, low dose correction scale. Met with pt; pt sts her endo had her try Trulicity in Oct as alternative to taking mealtime insulin however pt has noted that it has been expensive for her and that her A1c has climbed. Discussed pros/cons of taking mealtime insulin. Pt is receptive and also aware she has endo f/up 05/13/20. Provided h/o Mealtime insulin management and reviewed: how to use insulin pen, when to take, types of insulin and when to take each, how to synchronize rapid acting insulin with the meal when eating at home or dining out. Encouraged pt to maintain consistent intake of carbs at meals until endo can titrate doses. Reviewed carb counting and recommended consistent intake of 30-60g CHO /meal. pt v/u.
--- NOTE | 2020-04-14 13:22 | WPDNEURORHBP ---
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 her renal function is getting better she denies any headache nausea vomiting chest pain shortness of breath and has good urinary output no fever no chills no sore throat she is planning to be discharged tomorrow Review of Systems Review of Systems: All systems reviewed & are unremarkable except as noted in HPI and below Functional Status Ambulation Ability Ability to Ambulate 10 Feet: Independent Ability to Ambulate 50 Feet With 2 Turns: Independent Ability to Ambulate 150 Feet: Independent Ambulation Assistive Devices: Walker, Rollator Transfers Ability Ability to Transfer In/Out of Chair: Independent Exam Const: General: comfortable and no acute distress HENMT: General nose exam: Normal nares present Mouth: Yes moist mucous membranes Eyes: General: appearance normal, both eyes and all related structures Neck: Neck: supple and no JVD Resp: Effort & Inspection: normal respiratory effort Auscultation: clear to auscultation bilaterally Cardio: Rate: regular rate Rhythm: regular rhythm GI: GI Palp: Yes Soft to palpation Auscultation: normal bowel sounds Skin: General skin exam: normal color and no rashes or lesions noted Neuro: Other: she is awake and alert well oriented to time place and person has normal speech infection and significant improvement in her generalized weakness debility and the fatigue Extrem: General: normal to inspection Psych: Mental Status: mental status grossly normal Objective Data Vital Signs Vital Signs: Vital Signs - 24 hr 04/13/20 14:00 04/13/20 20:40 04/13/20 22:00 Temperature 36.6 C 36.1 C L Pulse Rate 84 84 97 Respiratory Rate 18 17 Blood Pressure 140/72 150/54 H Pulse Oximetry 96 76 L 04/14/20 06:00 04/14/20 09:16 Temperature 36.8 C Pulse Rate 70 70 Respiratory Rate 18 Blood Pressure 144/62 H Pulse Oximetry 98 Intake/Output Intake/Output: Intake & Output 04/11/20 04/12/20 04/13/20 04/14/20 23:59 23:59 23:59 23:59 Intake Total 960 700 720 240 Output Total 1000 Balance -40 700 720 240 Meds/Results Medications: Active Medications Generic Name Dose Route Start Last Admin Trade Name Jalilq PRN Reason Stop Dose Admin Amlodipine Besylate 2.5 mg 04/09/20 09:00 04/14/20 09:13 Norvasc PO 2.5 mg DAILY JAMARI Administration Amlodipine Besylate 5 mg 04/09/20 09:00 04/14/20 09:14 Norvasc PO 5 mg DAILY JAMARI Administration Lipase/Protease/Amylase 2 cap 04/08/20 17:00 04/14/20 12:[address] 12,000 Units Capsule PO 2 cap TID JAMARI Administration Atorvastatin Calcium 40 mg 04/09/20 09:00 04/14/20 09:14 Lipitor PO 40 mg DAILY JAMARI Administration Ciprofloxacin 250 mg 04/10/20 21:00 04/14/20 09:14 Cipro Po PO 04/15/20 09:01 250 mg Q12HR JAMARI Administration Dextrose 12.5 gm 04/08/20 17:03 Dextrose 50% Syringe IV PUSH PRN PRN Hypoglycemia Protocol Famotidine 40 mg 04/09/20 09:00 04/14/20 09:15 Pepcid PO 40 mg BID JAMARI Administration Furosemide 20 mg 04/09/20 09:00 04/14/20 09:15 Lasix Tablet PO 20 mg DAILY JAMARI Administration Gabapentin 100 mg 04/09/20 09:00 04/14/20 12:41 Neurontin PO 100 mg TID JAMARI Administration Glucagon 1 mg 04/08/20 17:03 Glucagon For Inj IM PRN PRN Hypoglycemia Protocol Glucose 15 gm 04/08/20 17:03 Glutose 15 PO PRN PRN Hypoglycemia Protocol Dextrose 1,000 mls @ 100 mls/hr 04/08/20 17:03 Dextrose 5% 1,000 Ml IVPB PRN PRN Hypoglycemia Protocol Insulin Aspart 5 units 04/12/20 17:00 04/14/20 12:44 Novolog SUB-Q 5 units TIDWM JAMARI Administration Insulin Aspart 2 - 5 units 04/12/20 17:00 04/14/20 12:42 Novolog SUB-Q Not Given
[2020-04-14 14:00] VITALS: BP 147/71; PULSE 86; RESP 18; TEMP 36.3; O2SAT 98
[2020-04-14 17:11] LABS: Glucose Point of Care 266 (65-105)
--- NOTE | 2020-04-14 18:42 | PM.PNNEP ---
Progress Note: A&P Assessment and Plan (1) Acute kidney injury: Code(s): N17.9 - Acute kidney failure, unspecified Status: Acute Assessment and Plan: resolving possible ATN versus allergic interstitial nephritis versus other? s/p empiric steroids continues to have good urine output with improvement in creatinine by labs - kidney recovery ongoing -- creatinine peaked/plateaued at 3.7mg/dl - s/p removal of temporary HD catheter continue supportive therapy (2) Chronic kidney disease, stage 3: Code(s): N18.3 - Chronic kidney disease, stage 3 (moderate) Status: Chronic Assessment and Plan: baseline creatinine runs ~ 1.2mg/dl this is due to diabetes and hypertension (3) Hyponatremia: Code(s): E87.1 - Hypo-osmolality and hyponatremia Status: Acute Assessment and Plan: improvement noted and seems stable now partly due to #1 noted to a chronic issue with sodium levels running ~ 125 - 132 since at least 2018 follow repeat labs (4) Essential hypertension: Code(s): I10 - Essential (primary) hypertension Status: Chronic Assessment and Plan: reasonable control at this time follow trend of hemodynamics (5) Acute UTI: Code(s): N39.0 - Urinary tract infection, site not specified Status: Acute Assessment and Plan: urine culture with Pseudomonas on oral ciprofloxacin (6) Debility: Code(s): R53.81 - Other malaise Status: Acute Assessment and Plan: due to prolonged inpatient stay PT/OT/rehab Will continue to follow - not opposed to discharge from renal perspective. Subjective Date/time seen: 04/14/20 18:42 Patient is doing quite well at the time of my visit; PT/OT has helped improve her strength and mobility; noted plans for tentative discharge tomorrow; no distress voiced currently. Exam Narrative: Exam Narrative: General: WD/WN female in NAD Heart: normal S1 and S2; no rub Lungs: clear to auscultation Abdomen: soft, nontender, nondistended, positive bowel sounds Extremities: no cyanosis or clubbing; no edema Skin: warm and dry Objective Data Vital Signs Vital Signs: Vital Signs Temp Pulse Resp BP Pulse Ox 04/14/20 14:00 36.3 C L 86 18 147/71 H 98 04/14/20 09:16 70 04/14/20 06:00 36.8 C 70 18 144/62 H 98 04/13/20 22:00 36.1 C L 97 17 150/54 H 76 L 04/13/20 20:40 84 Intake/Output Intake/Output: Intake & Output 04/11/20 04/12/20 04/13/20 04/14/20 23:59 23:59 23:59 23:59 Intake Total 960 700 720 720 Output Total 1000 Balance -40 700 720 720 Meds/Results Medications: Active Medications Generic Name Dose Route Start Last Admin Trade Name Freq PRN Reason Stop Dose Admin Amlodipine Besylate 2.5 mg 04/09/20 09:00 04/14/20 09:13 Norvasc PO 2.5 mg DAILY JAMARI Administration Amlodipine Besylate 5 mg 04/09/20 09:00 04/14/20 09:14 Norvasc PO 5 mg DAILY JAMARI Administration Lipase/Protease/Amylase 2 cap 04/08/20 17:00 04/14/20 17:[address] 12,000 Units Capsule PO 2 cap TID JAMARI Administration Atorvastatin Calcium 40 mg 04/09/20 09:00 04/14/20 09:14 Lipitor PO 40 mg DAILY JAMARI Administration Ciprofloxacin 250 mg 04/10/20 21:00 04/14/20 09:14 Cipro Po PO 04/15/20 09:01 250 mg Q12HR JAMARI Administration Dextrose 12.5 gm 04/08/20 17:03 Dextrose 50% Syringe IV PUSH PRN PRN Hypoglycemia Protocol Famotidine 40 mg 04/09/20 09:00 04/14/20 16:59 Pepcid PO 40 mg BID JAMARI Administration Furosemide 20 mg 04/09/20 09:00 04/14/20 09:15 Lasix Tablet PO 20 mg DAILY JAMARI Administration Gabapentin 100 mg 04/09/20 09:00 04/14/20 16:59 Neurontin PO 100 mg TID JAMARI Administration Glucagon 1 mg 04/08/20 17:03 Glucagon For Inj IM PRN PRN Hypoglycemia Protocol Glucose 15 gm 04/08/20 17:03 Glutose 15 PO
[2020-04-14 20:18] VITALS: PULSE 89
[2020-04-14] MEDS: INSULIN GLARGINE (*BKC) 100 UNITS/ML 15 UNITS SUB-Q (20:24)
[2020-04-14 20:48] LABS: Glucose Point of Care 299 (65-105)
[2020-04-14 22:00] VITALS: BP 152/59; PULSE 78; RESP 17; TEMP 36.9; O2SAT 99
[2020-04-15 06:00] VITALS: BP 156/88; PULSE 75; RESP 18; TEMP 37.2; O2SAT 99
[2020-04-15 07:02] LABS: Glucose Point of Care 208 (65-105)
[2020-04-15] MEDS: INSULIN ASPART (*BKC) 100 UNITS/ML SUB-Q ×3 (07:23→12:42)
[2020-04-15] MEDS: LIPASE/AMYLASE/PROTEASE 12,000 UNITS CAP 2 CAP PO ×2 (08:39→12:44)
[2020-04-15] MEDS: AMLODIPINE BESYLATE 5 MG TABLET PO (08:40)
[2020-04-15] MEDS: AMLODIPINE BESYLATE 2.5 MG TABLET PO (08:40)
[2020-04-15] MEDS: CIPROFLOXACIN 250 MG TABLET PO (08:40)
[2020-04-15] MEDS: FAMOTIDINE 20 MG TABLET 40 MG PO (08:42)
[2020-04-15] MEDS: FUROSEMIDE 20 MG TABLET PO (08:42)
[2020-04-15] MEDS: CHOLECALCIFEROL 1,000 UNIT TABLET 1000 UNITS PO (08:42)
[2020-04-15 08:43] VITALS: PULSE 75
[2020-04-15] MEDS: METOPROLOL TARTRATE 50 MG TAB 100 MG PO (08:43)
[2020-04-15] MEDS: GABAPENTIN 100 MG CAPSULE PO ×2 (08:43→12:43)
[2020-04-15] MEDS: LOSARTAN POTASSIUM 100 MG TABLET PO (08:43)
[2020-04-15] MEDS: VITAMIN B COMPLEX CAPSULE 1 CAP PO (08:43)
[2020-04-15] MEDS: ATORVASTATIN 40 MG TABLET PO (08:55)
[2020-04-15 12:07] LABS: Glucose Point of Care 155 (65-105)
--- NOTE | 2020-04-15 16:18 | PCCCNOTE ---
On 04/15/20, the student, [Will Coppola ], provided care and completed [facility] documentation on this patient. I have reviewed the student's documentation and agree with the findings.
--- NOTE | 2020-04-25 16:29 | PM.DS ---
DS: Admitting Diagnosis Admitting Diagnosis Admitting Diagnosis: Acute kidney failure, unspecified DS: Discharge Diagnosis Discharge Diagnosis (1) Uncontrolled diabetes mellitus with diabetic neuropathy: Code(s): E11.40 - Type 2 diabetes mellitus with diabetic neuropathy, unspecified; E11.65 - Type 2 diabetes mellitus with hyperglycemia Status: Acute (2) Debility: Code(s): R53.81 - Other malaise Status: Acute (3) Chronic kidney disease, stage 3: Code(s): N18.3 - Chronic kidney disease, stage 3 (moderate) Status: Chronic (4) Pneumothorax, left: Code(s): J93.9 - Pneumothorax, unspecified Status: Acute (5) Anemia: Code(s): D64.9 - Anemia, unspecified Status: Acute (6) [id number] kidney injury: Code(s): N17.9 - Acute kidney failure, unspecified; N18.9 - Chronic kidney disease, unspecified Status: Acute (7) Acute kidney injury: Code(s): N17.9 - Acute kidney failure, unspecified Status: Acute (8) Acute renal failure (ARF): Code(s): N17.9 - Acute kidney failure, unspecified Status: Acute (9) Hyponatremia: Code(s): E87.1 - Hypo-osmolality and hyponatremia Status: Acute (10) Acute UTI: Code(s): N39.0 - Urinary tract infection, site not specified Status: Acute (11) Carpal tunnel syndrome: Qualifiers: Laterality: left Qualified Code(s): G56.02 - Carpal tunnel syndrome, left upper limb Code(s): G56.00 - Carpal tunnel syndrome, unspecified upper limb Status: Acute (12) 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 Qualified Code(s): H49.02 - Third [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, left eye Code(s): H49.00 - Third [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, unspecified eye Status: Acute (13) Venous insufficiency: Code(s): I87.2 - Venous insufficiency (chronic) (peripheral) Status: Acute (14) Type 2 diabetes mellitus with diabetic nephropathy, without long-term current use of insulin: Code(s): E11.21 - Type 2 diabetes mellitus with diabetic nephropathy Status: Acute (15) Spinal stenosis of lumbosacral region: Code(s): M48.07 - Spinal stenosis, lumbosacral region Status: Acute (16) Sarcoidosis of lung: Code(s): D86.0 - Sarcoidosis of lung Status: Acute (17) Pure hypercholesterolemia: Code(s): E78.00 - Pure hypercholesterolemia, unspecified Status: Acute (18) Pulmonary hypertension: Code(s): I27.20 - Pulmonary hypertension, unspecified Status: Acute (19) Moderate mitral regurgitation: Code(s): I34.0 - Nonrheumatic mitral (valve) insufficiency Status: Acute (20) Iron deficiency anemia: Code(s): D50.9 - Iron deficiency anemia, unspecified Status: Acute (21) Hyponatremia: Code(s): E87.1 - Hypo-osmolality and hyponatremia Status: Acute (22) Idiopathic chronic pancreatitis: Code(s): K86.1 - Other chronic pancreatitis Status: Acute (23) Hyperlipidemia associated with type 2 diabetes mellitus: Code(s): E11.69 - Type 2 diabetes mellitus with other specified complication; E78.5 - Hyperlipidemia, unspecified Status: Acute (24) Gastroesophageal reflux disease: Code(s): K21.9 - Gastro-esophageal reflux disease without esophagitis Status: Acute (25) Essential hypertension: Code(s): I10 - Essential (primary) hypertension Status: Chronic (26) Chronic bilateral low back pain without sciatica: Code(s): M54.5 - Low back pain; G89.29 - Other chronic pain Status: Acute (27) CKD (chronic kidney disease) stage 3, GFR 30-59 ml/min: Code(s): N18.3 - Chronic kidney disease, stage 3 (moderate) Status: Acute (28) Benign paroxysmal positional vertigo due to bilateral vestibular disorder: Code(s): H81.13 - Benign paroxysmal vertigo, bilateral Status: Acute (29) Diabetes:
== END 2020-04-15 13:00 | disposition home health service (06) | DRG 683 ==
PROVIDERS: Internal Medicine Nephrology; Admitting Provider Psychiatry & Neurology Neurology; PCP Internal Medicine; Visit Provider Psychiatry & Neurology Neurology
DX: N17.9 Acute kidney failure, unspecified (principal); E87.1 Hypo-osmolality and hyponatremia; K86.1 Other chronic pancreatitis; R53.1 Weakness; E11.42 Type 2 diabetes mellitus with diabetic polyneuropathy; K21.9 Gastro-esophageal reflux disease without esophagitis; D63.1 Anemia in chronic kidney disease; D86.0 Sarcoidosis of lung; D50.9 Iron deficiency anemia, unspecified; E78.5 Hyperlipidemia, unspecified; E11.22 Type 2 diabetes mellitus with diabetic chronic kidney disease; E11.65 Type 2 diabetes mellitus with hyperglycemia; G89.29 Other chronic pain; H81.13 Benign paroxysmal vertigo, bilateral; I34.0 Nonrheumatic mitral (valve) insufficiency; I27.20 Pulmonary hypertension, unspecified; I87.2 Venous insufficiency (chronic) (peripheral); I12.9 Hypertensive chronic kidney disease with stage 1 through stage 4 chronic kidney disease, or unspecified chronic kidney disease; M48.07 Spinal stenosis, lumbosacral region; N18.3 Chronic kidney disease, stage 3 (moderate); Z79.4 Long term (current) use of insulin; Z96.651 Presence of right artificial knee joint
CPT/HCPCS: 36415; 80048; 80069; 81001; 83036; 85025; 87077; 87086; 87088; 87186; 97110; 97116; 97161; 97165; 97530; 97535; A9270; J1815

== ENCOUNTER → 2020-06-16 11:17 | Outpatient (CLI) | payer MEDICARE, OTHER, SELFPAY ==
--- NOTE | ~2020-06-16 | MM_ITS ---
EXAMINATION: MM screening rose BI w emily HISTORY: Screening TECHNIQUE: Craniocaudal and mediolateral oblique 3-D tomosynthesis images were obtained and synthetic 2-D images were generated. CAD analysis was submitted and interpreted. COMPARISON: Comparison to multiple prior studies sequentially, with oldest reviewed study dated 09/15. BREAST PARENCHYMAL COMPOSITION: The breasts are extremely dense, which lowers the sensitivity of mamm ography. FINDINGS: There is developing asymmetry in the upper outer quadrant of the right breast, middle third . Left breast is stable without evidence for malignancy. IMPRESSION: 1. Developing right breast asymmetry, upper outer quadrant. 2. Additional mammographic views and possible breast ultrasound are recommended. BI-RADS Category 0: Incomplete: Needs additional imaging evaluation. Reviewed, dictated and finalized at location A. IMPRESSION: 1. Developing right breast asymmetry, upper outer quadrant. 2. Additional mammographic views and possible breast ultrasound are recommended . BI-RADS Category 0: Incomplete: Needs additional imaging evaluation.
== END ==
PROVIDERS: Visit Provider Obstetrics & Gynecology
DX: Z12.31 Encounter for screening mammogram for malignant neoplasm of breast (principal); R92.8 Other abnormal and inconclusive findings on diagnostic imaging of breast
CPT/HCPCS: 77063; 77067

== ENCOUNTER → 2020-06-29 09:29 | Outpatient (CLI) | payer MEDICARE, OTHER, SELFPAY ==
--- NOTE | ~2020-06-29 | MMUS_ITS ---
EXAMINATION: MM diagnostic mammo unilat RT, US breast RT complete HISTORY: Developing asymmetry in upper outer quadrant of right breast reported on screening mammogram of 06/16/2020 TECHNIQUE: Additional 3-D tomosynthesis images of the right breast were performed and synthetic 2-D i mages were generated. CAD analysis was submitted and interpreted. High resolution complete right kalli st ultrasound was performed. COMPARISON: 06/16/2020 bilateral digital screening mammogram FINDINGS: MAMMOGRAPHIC FINDINGS: 6.5 x 9.5 mm oval circumscribed opacity with central lucency is noted in the central left breast slig htly medial to the mid sagittal plane (craniocaudal Tomosynthesis image 15/35). This has the appearan ce of a possible lymph node mammographically. Heterogeneously dense stroma may obscure masses. There are numerous scattered benign calcifications as well as some arterial calcification. ULTRASOUND: 6:00 3 cm from nipple: 3.8 x 9 mm circumscribed parallel hypoechoic lesion with calcifications/associ ated shadowing, no internal vascularity. 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 6 month follow-up diagnostic right mammogram and ultrasound examination is recommended. 8:00 4 cm from nipple: Parallel circumscribed hypoechoic 3.7 x 5.5 x 5.4 mm lesion without internal v ascularity or suspicious shadowing 11:00 4 cm from nipple: Parallel circumscribed 4 x 6.7 x 8.9 mm hypoechoic area with calcification an d associated shadowing IMPRESSION: 1. Probable benign masses, including 2 with calcifications and associated shadowing 2. 6 month diagnostic right mammogram and right breast ultrasound follow-up are recommended. BI-RADS category 3, probably benign findings. Reviewed, dictated and finalized at location A. IMPRESSION: 1. Probable benign masses, including 2 with calcifications and associated shado wing 2. 6 month diagnostic right mammogram and right breast ultrasound follow-up are recommended. BI-RADS category 3, probably benign findings.
== END ==
PROVIDERS: PCP Internal Medicine; Visit Provider Obstetrics & Gynecology
DX: R92.8 Other abnormal and inconclusive findings on diagnostic imaging of breast (principal)
CPT/HCPCS: 76641; 77065

== ENCOUNTER 2020-07-15 13:11 | Outpatient (CLI) | payer MEDICARE, OTHER, SELFPAY ==
--- NOTE | 2020-07-15 15:00 | NEURO_ITS ---
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 # Bilateral Carpal Tunnel Syndrome. # No ulnar neuropathy. # Abnormal needle/EMG exam of left APB. # Clinical correlation recommended. Nerve Conduction Studies Anti Sensory Summary Table Stim Site NR Peak (ms) P-T Amp (?V) Site1 Site2 Delta-P (ms) Dist (cm) Yanick (m/s) Left Median Anti Sensory (2-3nd Digit) Wrist 4.7 14.9 Wrist 2-3nd Digit 4.7 14.0 30 Wrist 6.3 2.9 Wrist 2-3nd Digit 4.7 14.0 30 Right Median Anti Sensory (2-3nd Digit) Wrist 3.2 102.0 Wrist 2-3nd Digit 3.2 14.0 44 Wrist 3.5 6.3 Wrist 2-3nd Digit 3.2 14.0 44 Left Radial Anti Sensory (Base 1st Digit) Wrist 2.8 63.4 Wrist Base 1st Digit 2.8 0.0 Right Radial Anti Sensory (Base 1st Digit) Wrist 2.8 22.2 Wrist Base 1st Digit 2.8 0.0 Left Ulnar Anti Sensory (5th Digit) Wrist 3.1 81.1 Wrist 5th Digit 3.1 14.0 45 Right Ulnar Anti Sensory (5th Digit) Wrist 2.2 40.4 Wrist 5th Digit 2.2 14.0 64 Motor Summary Table Stim Site NR Onset (ms) O-P Amp (mV) Site1 Site2 Delta-0 (ms) Dist (cm) Yanick (m/s) Left Median Motor (Abd Poll Brev) Wrist 4.4 1.2 Elbow Wrist 5.1 28.0 55 Elbow 9.5 0.4 Right Median Motor (Abd Poll Brev) Wrist 4.0 1.2 Elbow Wrist 4.5 26.0 58 Elbow 8.5 1.8 Left Ulnar Motor (Abd Dig Minimi) Wrist 2.8 2.1 A Elbow Wrist 5.4 29.0 54 A Elbow 8.2 2.8 Right Ulnar Motor (Abd Dig Minimi) Wrist 2.7 3.9 A Elbow Wrist 4.8 26.0 54 A Elbow 7.5 3.0 F Wave Studies NR F-Lat (ms) L-R F-Lat (ms) Left Median (Mrkrs) (Abd Poll Brev) 27.80 0.00 Right Median (Mrkrs) (Abd Poll Brev) 27.80 0.00 Left Ulnar (Mrkrs) (Abd Dig Min) 32.42 2.11 Right Ulnar (Mrkrs) (Abd Dig Min) 30.31 2.11 EMG Side Muscle Nerve Root Ins Act Fibs Amp Dur Recrt Comment Right 1stDorInt Ulnar C8-T1 Nml Nml Nml Nml Nml Right Ext Indicis Radial (Post Int) C7-8 Nml Nml Nml Nml Nml Right Ext Digitorum Radial (Post Int) C7-8 Nml Nml Nml Nml Nml Right BrachioRad Radial C5-6 Nml Nml Nml Nml Nml Right PronatorTeres Median C6-7 Nml Nml Nml Nml Nml Right Abd Poll Brev Median C8-T1 Nml Nml Decr >12ms Reduced Left 1stDorInt Ulnar C8-T1 Nml Nml Nml Nml Nml Left Ext Indicis Radial (Post Int) C7-8 Nml Nml Nml Nml Nml Left Ext Digitorum Radial (Post Int) C7-8 Nml Nml Nml Nml Nml Left BrachioRad Radial C5-6 Nml Nml Nml Nml Nml Left PronatorTeres Median C6-7 Nml Nml Nml Nml Nml Left Abd Poll Brev Median C8-T1 Nml Nml Decr >12ms Reduced Right ABD Dig Min Ulnar C8-T1 Nml Nml Nml Nml Nml Right Anconeus Radial C7-8 Nml Nml Nml Nml Nml Right Brachialis Musculocut C5-6 Nml Nml Nml Nml Nml Left ABD Dig Min Ulnar C8-T1 Nml Nml Nml Nml Nml Left Anconeus Radial C7-8 Nml Nml Nml Nml Nml Left Brachialis Musculocut C5-6 Nml Nml Nml Nml Nml MTDD
== END 2020-07-15 13:12 | disposition home or self-care (01) ==
LOC: ANHNEURO 13:13
PROVIDERS: PCP Internal Medicine; Visit Provider Internal Medicine
DX: G56.03 Carpal tunnel syndrome, bilateral upper limbs (principal)
CPT/HCPCS: 95886; 95911

== ENCOUNTER 2020-08-16 11:03 | Outpatient (CLI) | payer MEDICARE, OTHER, SELFPAY ==
[2020-08-16 11:19] LABS: Basophils Percent Auto 0.4 % (0.2-1.2); Eosinophils Absolute Auto 0.1 K/mm3 (0-0.3); Hematocrit 36.5 % (37.0-47.0); Hemoglobin 11.9 g/dL (12.0-15.0); Immature Granulocyte Absolute 0.02 K/mm3 (0.00-0.031); Immature Granulocyte Percent A 0.3 % (0-0.5); Lymphocytes Absolute Auto 1.61 K/mm3 (0.9-3.2); Lymphocytes Percent Auto 23.5 % (18.3-44.2); Mean Corpuscular HGB Conc 32.6 g/dl (32-36); Mean Corpuscular Hemoglobin 30.1 pg (26-34); Mean Corpuscular Volume 92.2 fl (80-100); Mean Platelet Volume 8.7 fl (7.4-10.4); Monocytes Absolute Auto 0.7 K/mm3 (0.1-0.6); Monocytes Percent Auto 10.5 % (2.6-8.5); Neutrophils Absolute Auto 4.3 K/mm3 (1.3-6.7); Neutrophils Percent Auto 63.3 % (45.5-73.1); Platelet Count Result 273 k/mm3 (150-375); Red Blood Count 3.96 M/mm3 (4.2-5.4); Red Cell Distribution Width 13.2 % (11.5-14.5); White Blood Count 6.8 K/mm3 (4.5-10.0)
[2020-08-16 17:16] LABS: Iron 81 ug/dL (37-170)
[2020-08-16 17:17] LABS: Alanine Aminotransferase 16 U/L (4-35); Alkaline Phosphatase 93 U/L (38-126); Anion Gap 8 mmol/L (8-16); Aspartate Amino Transferase 21 U/L (14-36); Bilirubin,Total 0.4 mg/dL (0.2-1.3); Blood Urea Nitrogen 24 mg/dL (7-17); Calcium 9.4 mg/dL (8.4-10.2); Carbon Dioxide 30 mmol/L (22-30); Chloride 101 mmol/L (98-107); Estimated Glomerular Filt Rate 48; Glucose 116 mg/dL (65-105); Sodium 139 mmol/L (137-145)
[2020-08-16 17:26] LABS: Percent Iron Saturation 21 % (20-50)
[2020-08-18 13:28] LABS: Hemoglobin A1C 6.5 % (<5.7)
== END 2020-08-16 11:04 | disposition home or self-care (01) ==
LOC: ANHLAB 11:04
PROVIDERS: PCP Internal Medicine; Visit Provider Internal Medicine Hematology & Oncology
DX: D50.9 Iron deficiency anemia, unspecified (principal); E11.22 Type 2 diabetes mellitus with diabetic chronic kidney disease
CPT/HCPCS: 36415; 80053; 82728; 83036; 83540; 83550; 85025

== ENCOUNTER 2020-08-17 01:28 | Outpatient (CLI) | payer MEDICARE, OTHER, SELFPAY ==
[2020-08-17 20:51] LABS: SARS-CoV-2 RNA PCR Negative
== END 2020-08-17 01:29 | disposition home or self-care (01) ==
LOC: ANHCOVIDDT 01:28
PROVIDERS: PCP Internal Medicine; Visit Provider Plastic Surgery
DX: Z01.812 Encounter for preprocedural laboratory examination (principal); Z20.828 Contact with and (suspected) exposure to other viral communicable diseases
CPT/HCPCS: 87635; C9803; U0003

== ENCOUNTER 2020-08-19 01:01 | Day surgery (SDC) | payer MEDICARE, OTHER, SELFPAY ==
[2020-08-10 15:13] VITALS: BMI 24.3
[2020-08-19] VITALS (7 sets, daily range): BP systolic 148–187; BP diastolic 81–93; PULSE 81–87; RESP 16–18; TEMP 36.6; O2SAT 95–100
--- NOTE | 2020-08-19 07:11 | WPDHPUPDATE1 ---
History and Physical Update Update Date/Time: 08/19/20 07:11 History and Physical has been reviewed, including an updated exam of the patient. There are NO changes in the patient's condition. Risks, benefits, and alternatives have been discussed and questions answered. Patient agrees to proceed with procedure.
[2020-08-19] MEDS: LIDO 1%/EPINEPHRINE 1:100,000 20 ML VIAL 3 ML INFILTRATE (10:55)
--- NOTE | 2020-08-19 11:58 | PM.OP ---
Procedure Note - Brief Procedure Note - Brief Date of procedure: 08/19/20 Pre-op diagnosis: left carpal tunnel syndrome Post-op diagnosis: same Procedure performed: L OCTR Anesthesia: local Surgeon: Jv Rose MD Estimated blood loss (mL): 0 Tourniquet time (min): 0 Drains: No Packing: No Pathology: none sent Complications: No immediate complications Condition: stable Disposition: same day
--- NOTE | 2020-08-19 12:02 | PM.PROC ---
Procedure Note - Detailed Date of procedure: 08/19/20 Pre-op diagnosis: left carpal tunnel syndrome Post-op diagnosis: same Procedure performed: Left open carpal tunnel release Description of procedure: The appropriate carpal tunnel was marked in the holding area. The patient was taken to the operating room placed supine on the operating table. Time-out was held and confirmed. The extremity was prepped and draped in usual fashion. The site was marked once again and locally infiltrated with 1% lidocaine with epinephrine. The tourniquet was not utilized. The incision was made in the palm and dissection was carried through the subcutaneous tissue to the palmar fascia. This and the carpal ligament were incised with a 15. Blade. Under 3 point retraction the ligament was divided distally and proximally for complete release. No unusual anatomy was noted. The skin was closed with interrupted 5 0 nylon suture. The usual bandage was applied. Patient has tramadol at home and will be given no prescriptions. She has instructions in wound care and follow-up Surgeon: Jv Rose MD
[2020-08-19 12:19] LABS: Glucose Point of Care 85 (65-105)
== END 2020-08-19 12:32 | disposition home or self-care (01) ==
PROVIDERS: PCP Internal Medicine; Visit Provider Plastic Surgery
PROC: (CPT 64721; principal; 2020-08-19 11:30)
DX: G56.02 Carpal tunnel syndrome, left upper limb (principal)
CPT/HCPCS: 64721

== ENCOUNTER 2020-11-11 11:15 | Outpatient (CLI) | payer MEDICARE, OTHER, SELFPAY ==
[2020-11-11 11:37] LABS: Basophils Percent Auto 0.3 % (0.2-1.2); Eosinophils Absolute Auto 0.1 K/mm3 (0-0.3); Eosinophils Percent Auto 1.7 % (0-4.4); Hematocrit 36.6 % (37.0-47.0); Hemoglobin 11.8 g/dL (12.0-15.0); Immature Granulocyte Absolute 0.03 K/mm3 (0.00-0.031); Immature Granulocyte Percent A 0.4 % (0-0.5); Lymphocytes Absolute Auto 2.03 K/mm3 (0.9-3.2); Lymphocytes Percent Auto 29.1 % (18.3-44.2); Mean Corpuscular HGB Conc 32.2 g/dl (32-36); Mean Corpuscular Hemoglobin 30.4 pg (26-34); Mean Corpuscular Volume 94.3 fl (80-100); Mean Platelet Volume 8.9 fl (7.4-10.4); Monocytes Absolute Auto 0.6 K/mm3 (0.1-0.6); Neutrophils Absolute Auto 4.2 K/mm3 (1.3-6.7); Neutrophils Percent Auto 59.5 % (45.5-73.1); Platelet Count Result 257 k/mm3 (150-375); Red Blood Count 3.88 M/mm3 (4.2-5.4); Red Cell Distribution Width 13.2 % (11.5-14.5)
[2020-11-11 13:39] LABS: Alanine Aminotransferase 16 U/L (4-35); Albumin Level 3.7 g/dL (3.5-5.1); Alkaline Phosphatase 86 U/L (38-126); Anion Gap 5 mmol/L (8-16); Aspartate Amino Transferase 20 U/L (14-36); Bilirubin,Total 0.4 mg/dL (0.2-1.3); Blood Urea Nitrogen 26 mg/dL (7-17); Calcium 9.1 mg/dL (8.4-10.2); Carbon Dioxide 32 mmol/L (22-30); Chloride 98 mmol/L (98-107); Estimated Glomerular Filt Rate 48; Glucose 81 mg/dL (65-105); Potassium 4.1 mmol/L (3.4-5.0); Sodium 135 mmol/L (137-145)
[2020-11-11 13:40] LABS: Iron 88 ug/dL (37-170)
[2020-11-11 13:52] LABS: Percent Iron Saturation 25 % (20-50)
[2020-11-11 15:48] LABS: Folic Acid > 20.0 ng/mL (2.76->20)
== END 2020-11-11 11:16 | disposition home or self-care (01) ==
LOC: ANHLAB 11:17
PROVIDERS: PCP Internal Medicine; Visit Provider Internal Medicine Hematology & Oncology
DX: D50.9 Iron deficiency anemia, unspecified (principal)
CPT/HCPCS: 36415; 80053; 82607; 82728; 82746; 83540; 83550; 85025

== ENCOUNTER 2021-01-10 13:02 | Outpatient (CLI) | payer MEDICARE, OTHER, SELFPAY ==
--- NOTE | 2021-01-10 | ECHO_ITS ---
Patient Info Name: Danielle Thomason Age: 80 years : 1940 Gender: Female Ht: 63 in Wt: 138 lbs BSA: 1.68 m2 HR: 72 bpm BP: 152 / 79 mmHg Technical Quality: Good Exam Date: 01/10/2021 1:43 PM Exam Location: [facility] Patient Status: Outpatient Admit Date: 01/10/2021 Staff Ordering Physician: Yuri Prajapati MD Supervisor Shuttle Preparation: Danielle Valencia RDCS Attending Provider: Yuri Prajapati MD Exam Type: CA echo doppler color flow Study Info Indications - MITRAL VALVE INSUFFICIANCY Complete two-dimentional, color flow and Doppler transthoracic echocardiogram is performed with agitated saline and with contrast to opacify the left ventricle and to improve the delineation of the left ventricle endocardial borders. Summary 1. Left ventricular chamber dimension is normal. 2. Left ventricular systolic function is normal, estimated at 55-60%. 3. There is mildly increased left ventricular wall thickness. 4. Left ventricular septal wall motion is abnormal with septal motion related to bundle branch block. 5. The left ventricular diastolic function is grade II diastolic dysfunction. 6. E/e' 27 is elevated. 7. Left atrial chamber dimension is moderately enlarged. 8. Right atrial chamber dimension is mildly enlarged. 9. There is mild aortic valve sclerosis. 10. There is trace tricuspid valve regurgitation. 11. No pulmonary hypertension, estimated pulmonary arterial systolic pressure is 19 mmHg. Left Ventricle E/e' 27 is elevated. Left ventricular chamber dimension is normal. Left ventricular systolic function is normal, estimated at 55-60%. There is mildly increased left ventricular wall thickness. Left ventricular septal wall motion is abnormal with septal motion related to bundle branch block. The left ventricular diastolic function is grade II diastolic dysfunction. Right Ventricle Right ventricular chamber dimension is normal. Right ventricular systolic function is normal. Left Atria Left atrial chamber dimension is moderately enlarged. Right Atria Right atrial chamber dimension is mildly enlarged. Aortic Valve The aortic valve is trileaflet. There is mild aortic valve sclerosis. There is no aortic valve stenosis. There is no aortic valve regurgitation. Pulmonic Valve There is no pulmonic regurgitation. Mitral Valve There is no mitral valve stenosis. There is no mitral valve regurgitation. Tricuspid Valve There is trace tricuspid valve regurgitation. No pulmonary hypertension, estimated pulmonary arterial systolic pressure is 19 mmHg. Pericardium/Pleural There is no pericardial effusion. Inferior Vena Cava Normal inferior vena cava with >50% collapse upon inspiration consistent with normal right atrial pressure, 5 mmHg. Aorta The aortic root size at the sinus of Valsalva is normal. Left Ventricular Outflow Tract Name Value Normal LVOT 2D LVOT Diameter 2.0 cm LVOT Doppler LVOT Peak Gradient 4 mmHg LVOT Mean Gradient 3 mmHg LVOT VTI 21 cm LVOT VTI/AV VTI Ratio
== END 2021-01-10 13:03 | disposition home or self-care (01) ==
PROVIDERS: PCP Internal Medicine; Visit Provider Internal Medicine
DX: I34.0 Nonrheumatic mitral (valve) insufficiency (principal)
CPT/HCPCS: 93306

== ENCOUNTER 2021-03-11 11:33 | Outpatient (CLI) | payer MEDICARE, OTHER, SELFPAY ==
[2021-03-11 11:53] LABS: Basophils Absolute Auto 0.1 K/mm3 (0.0-0.1); Basophils Percent Auto 0.7 % (0.2-1.2); Eosinophils Absolute Auto 0.2 K/mm3 (0-0.3); Eosinophils Percent Auto 2.3 % (0-4.4); Hematocrit 36.6 % (37.0-47.0); Hemoglobin 12.1 g/dL (12.0-15.0); Immature Granulocyte Absolute 0.03 K/mm3 (0.00-0.031); Immature Granulocyte Percent A 0.4 % (0-0.5); Lymphocytes Absolute Auto 1.68 K/mm3 (0.9-3.2); Lymphocytes Percent Auto 22.9 % (18.3-44.2); Mean Corpuscular HGB Conc 33.1 g/dl (32-36); Mean Corpuscular Hemoglobin 30.6 pg (26-34); Mean Corpuscular Volume 92.7 fl (80-100); Mean Platelet Volume 8.8 fl (7.4-10.4); Monocytes Absolute Auto 0.8 K/mm3 (0.1-0.6); Monocytes Percent Auto 10.5 % (2.6-8.5); Neutrophils Absolute Auto 4.7 K/mm3 (1.3-6.7); Neutrophils Percent Auto 63.2 % (45.5-73.1); Platelet Count Result 306 k/mm3 (150-375); Red Blood Count 3.95 M/mm3 (4.2-5.4); White Blood Count 7.4 K/mm3 (4.5-10.0)
[2021-03-11 12:57] LABS: Iron 101 ug/dL (37-170)
[2021-03-11 12:59] LABS: Alanine Aminotransferase 12 U/L (4-35); Albumin Level 4.1 g/dL (3.5-5.1); Alkaline Phosphatase 98 U/L (38-126); Anion Gap 8 mmol/L (8-16); Aspartate Amino Transferase 18 U/L (14-36); Bilirubin,Total 0.5 mg/dL (0.2-1.3); Blood Urea Nitrogen 23 mg/dL (7-17); Calcium 9.8 mg/dL (8.4-10.2); Carbon Dioxide 30 mmol/L (22-30); Chloride 99 mmol/L (98-107); Estimated Glomerular Filt Rate 43; Glucose 112 mg/dL (65-105); Potassium 4.1 mmol/L (3.4-5.0); Sodium 137 mmol/L (137-145)
[2021-03-11 13:06] LABS: Percent Iron Saturation 31 % (20-50)
[2021-03-11 13:44] LABS: Folic Acid 18.3 ng/mL (2.76->20)
== END 2021-03-11 11:34 | disposition home or self-care (01) ==
LOC: ANHLAB 11:36
PROVIDERS: PCP Internal Medicine; Visit Provider Internal Medicine Hematology & Oncology
DX: D50.9 Iron deficiency anemia, unspecified (principal)
CPT/HCPCS: 36415; 80053; 82607; 82728; 82746; 83540; 83550; 85025

== ENCOUNTER 2021-09-19 16:00 | Outpatient (CLI) | payer MEDICARE, OTHER, SELFPAY ==
[2021-09-19 16:19] LABS: Basophils Percent Auto 0.4 % (0.2-1.2); Eosinophils Absolute Auto 0.1 K/mm3 (0-0.3); Eosinophils Percent Auto 1.3 % (0-4.4); Hematocrit 38.7 % (37.0-47.0); Hemoglobin 12.4 g/dL (12.0-15.0); Immature Granulocyte Absolute 0.03 K/mm3 (0.00-0.031); Immature Granulocyte Percent A 0.4 % (0-0.5); Lymphocytes Absolute Auto 1.59 K/mm3 (0.9-3.2); Lymphocytes Percent Auto 22.6 % (18.3-44.2); Mean Corpuscular Hemoglobin 30.9 pg (26-34); Mean Corpuscular Volume 96.5 fl (80-100); Mean Platelet Volume 8.8 fl (7.4-10.4); Monocytes Absolute Auto 0.7 K/mm3 (0.1-0.6); Monocytes Percent Auto 9.6 % (2.6-8.5); Neutrophils Absolute Auto 4.6 K/mm3 (1.3-6.7); Neutrophils Percent Auto 65.7 % (45.5-73.1); Platelet Count Result 272 k/mm3 (150-375); Red Blood Count 4.01 M/mm3 (4.2-5.4); Red Cell Distribution Width 13.2 % (11.5-14.5); White Blood Count 7.1 K/mm3 (4.5-10.0)
[2021-09-19 16:56] LABS: Anion Gap 10 mmol/L (8-16); Blood Urea Nitrogen 24 mg/dL (7-17); Calcium 9.2 mg/dL (8.4-10.2); Carbon Dioxide 28 mmol/L (22-30); Chloride 97 mmol/L (98-107); Estimated Glomerular Filt Rate 43; Glucose 252 mg/dL (65-110); Potassium 3.6 mmol/L (3.4-5.0); Sodium 135 mmol/L (137-145)
[2021-09-19 17:53] LABS: Iron 111 ug/dL (37-170)
[2021-09-19 17:56] LABS: Folic Acid 9.6 ng/mL (2.76->20); Vitamin B12 > 1000.0 pg/mL (239-931)
[2021-09-19 18:03] LABS: Percent Iron Saturation 34 % (20-50)
== END 2021-09-19 16:01 | disposition home or self-care (01) ==
PROVIDERS: PCP Internal Medicine; Visit Provider Internal Medicine Hematology & Oncology
DX: D50.9 Iron deficiency anemia, unspecified (principal)
CPT/HCPCS: 36415; 80048; 82607; 82728; 82746; 83540; 83550; 85025

== ENCOUNTER → 2022-01-23 09:40 | Outpatient (REF) | payer MEDICARE, OTHER, SELFPAY | LOC: ANHLAB 09:40 | PROVIDERS: PCP Internal Medicine; Visit Provider Nurse Practitioner | DX: C44.319 Basal cell carcinoma of skin of other parts of face (principal) | CPT/HCPCS: 88305; 88331 ==

== ENCOUNTER 2022-03-20 14:58 | Outpatient (CLI) | payer MEDICARE, OTHER, SELFPAY ==
[2022-03-20 15:26] LABS: Basophils Percent Auto 0.3 % (0.2-1.2); Eosinophils Absolute Auto 0.1 K/mm3 (0-0.3); Eosinophils Percent Auto 0.8 % (0-4.4); Hematocrit 40.8 % (37.0-47.0); Hemoglobin 13.4 g/dL (12.0-15.0); Immature Granulocyte Absolute 0.06 K/mm3 (0.00-0.031); Immature Granulocyte Percent A 0.6 % (0-0.5); Lymphocytes Absolute Auto 1.83 K/mm3 (0.9-3.2); Lymphocytes Percent Auto 17.2 % (18.3-44.2); Mean Corpuscular HGB Conc 32.8 g/dl (32-36); Mean Corpuscular Hemoglobin 31.2 pg (26-34); Mean Corpuscular Volume 94.9 fl (80-100); Mean Platelet Volume 9.2 fl (7.4-10.4); Monocytes Absolute Auto 0.8 K/mm3 (0.1-0.6); Monocytes Percent Auto 7.4 % (2.6-8.5); Neutrophils Absolute Auto 7.9 K/mm3 (1.3-6.7); Neutrophils Percent Auto 73.7 % (45.5-73.1); Platelet Count Result 262 k/mm3 (150-375); Red Cell Distribution Width 12.6 % (11.5-14.5); White Blood Count 10.7 K/mm3 (4.5-10.0)
[2022-03-20 16:44] LABS: Iron 121 ug/dL (37-170)
[2022-03-20 16:51] LABS: Anion Gap 7 mmol/L (8-16); Blood Urea Nitrogen 28 mg/dL (7-17); Calcium 8.9 mg/dL (8.4-10.2); Carbon Dioxide 29 mmol/L (22-30); Chloride 100 mmol/L (98-107); Estimated Glomerular Filt Rate 36; Glucose 123 mg/dL (65-110); Potassium 4.4 mmol/L (3.4-5.0); Sodium 136 mmol/L (137-145)
[2022-03-20 16:54] LABS: Percent Iron Saturation 36 % (20-50)
[2022-03-20 17:59] LABS: Folic Acid 11.4 ng/mL (2.76->20)
== END 2022-03-20 14:59 | disposition home or self-care (01) ==
LOC: ANHLAB 15:00
PROVIDERS: PCP Internal Medicine; Visit Provider Internal Medicine Hematology & Oncology
DX: D64.9 Anemia, unspecified (principal)
CPT/HCPCS: 36415; 80048; 82607; 82728; 82746; 83540; 83550; 85025

== ENCOUNTER 2022-03-22 09:41 | Inpatient (IN) | payer MEDICARE, OTHER, SELFPAY ==
[2022-03-22] VITALS (31 sets, daily range): BP systolic 92–153; BP diastolic 62–93; PULSE 71–97; RESP 11–22; TEMP 36.3–36.6; O2SAT 76–100; BMI 28.0
--- NOTE | 2022-03-22 | ECHO_ITS ---
Patient Info Name: Danielle Thomason Age: 81 years : 1940 Gender: Female Ht: 62 in Wt: 141 lbs BSA: 1.69 m2 HR: 103 bpm BP: 137 / 71 mmHg Heart Rhythm: Sinus Rhythm Technical Quality: Fair Exam Date: 03/22/2022 2:33 PM Exam Location: [facility] Pulmonary Patient Status: Inpatient Admit Date: 03/22/2022 Staff Ordering Physician: Brian Taylor MD Film Reproducer: Amber Forde RDCS Attending Provider: Adria Negron MD Exam Type: CA echo dop color flow w con Study Info Indications - stemi Complete two-dimensional, color flow and Doppler transthoracic echocardiogram is performed with contrast to opacify the left ventricle and to improve the deliniation of the left ventricle endocardial borders. Contrast/Agitated Saline Contrast/Ag. Saline: Definity Amount: 3.00 ml Administered By: Amber Forde RDCS Existing IV Access: Yes IV Access Condition: patent with no signs of infiltration Summary 1. Normal left ventricular size with mild concentric hypertrophy. Severe hypokinesis of the mid anteroseptal wood with akinesis of the distal anteroseptal wall and apex. The distal inferior and lateral wood also severely hypokinetic. The basal segments are hyperdynamic. Ejection fraction is estimated to be 25-30%. Grade 2 diastolic dysfunction is present. 2. Left atrial chamber dimension is mildly enlarged. 3. No pulmonary hypertension, estimated pulmonary arterial systolic pressure is 30 mmHg. 4. No significant valve regurgitation. 5. Mild aortic valve calcification without stenosis. 6. Probable underlying sinus rhythm. 7. Technically difficult study; definity echo contrast used. Left Ventricle Left ventricular chamber dimension is normal. Left ventricular systolic function is severely reduced, estimated at Empty. There is mildly increased left ventricular wall thickness. Left ventricular septal wall motion is normal. The left ventricular diastolic function is grade II diastolic dysfunction. Right Ventricle Right ventricular chamber dimension is normal. Right ventricular systolic function is normal. Left Atria Left atrial chamber dimension is mildly enlarged. Right Atria Right atrial chamber dimension is normal. Aortic Valve The aortic valve is trileaflet. There is no aortic valve sclerosis. There is no aortic valve stenosis. There is no aortic valve regurgitation. There is mild aortic valve calcification. Pulmonic Valve The pulmonic valve is normal. There is no pulmonic valve stenosis. There is no pulmonic regurgitation. Mitral Valve The mitral valve has thickened leaflets. There is no mitral valve stenosis. There is trace mitral valve regurgitation. Tricuspid Valve The tricuspid valve leaflets are normal. There is no significant tricuspid valve stenosis. There is trace tricuspid valve regurgitation. No pulmonary hypertension, estimated pulmonary arterial systolic pressure is 30 mmHg. Pericardium/Pleural The pericardium appears normal. There is no pericardial effusion. Inferior Vena Cava Normal inferior vena cava with >50% collapse upon inspiration consistent with Empty right atrial pressure, 10 mmHg. Aorta The aortic root size at the sinus of Valsalva is normal. The prox ascending aorta size is normal. Left Ventricular Outflow Tract Name Value Ronit
--- NOTE | ~2022-03-22 | XR_ITS ---
XR chest 1V portable 03/22/2022 13:05 Indication: Hypoxia Procedure: AP portable chest Comparison: 03/22/2022 Findings: Heart size is normal. There is diffuse bilateral interstitial infiltrates. No pleural effus ion or pneumothorax. No acute osseous abnormality. Impression: 1: Diffuse bilateral interstitial infiltrates may represent pneumonia or edema. Reviewed, dictated and finalized at location B. Impression: 1: Diffuse bilateral interstitial infiltrates may represent pneumonia or edema.
--- NOTE | ~2022-03-22 | XR_ITS ---
XR chest 1V portable DATE: 03/22/2022 10:12 INDICATION: Chest pain, chest pressure TECHNIQUE: Portable upright AP chest on 03/22/2022 at 0959 hours COMPARISON: 04/03/2020 portable AP chest FINDINGS: Heart size is within normal range. Is aortic arch calcification. No pulmonary infiltrate or consolidation, pleural effusion or pulmonary vascular congestion or pneumo thorax. Diffuse osteopenia. Several anchor devices of the proximal right humerus. IMPRESSION: No active cardiopulmonary disease Aortic calcification Osteopenia Reviewed, dictated and finalized at location A.
--- NOTE | 2022-03-22 09:45 | ECG_ITS ---
Measurements Intervals [place] Rate: 72 P: 12 SC: 183 QRS: -24 QRSD: 134 T: 97 QT: 413 QTc: 454 Interpretive Statements SINUS RHYTHM LEFT BUNDLE BRANCH BLOCK [120+ ms QRS DURATION, 80+ ms Q/S IN V1/V2, 85+ ms R IN I/aVL/V5/V6] COMPARED TO ECG 04/05/2020 01:21:01 SINUS RHYTHM NOW PRESENT Electronically Signed On 03-22-2022 22:10:27 CDT by Prudence Lan M.D.
[2022-03-22 09:58] LABS: Basophils Percent Auto 0.3 % (0.2-1.2); Eosinophils Absolute Auto 0.1 K/mm3 (0-0.3); Eosinophils Percent Auto 0.9 % (0-4.4); Hematocrit 38.3 % (37.0-47.0); Hemoglobin 12.6 g/dL (12.0-15.0); Immature Granulocyte Absolute 0.06 K/mm3 (0.00-0.031); Immature Granulocyte Percent A 0.5 % (0-0.5); Lymphocytes Absolute Auto 2.01 K/mm3 (0.9-3.2); Lymphocytes Percent Auto 17.2 % (18.3-44.2); Mean Corpuscular HGB Conc 32.9 g/dl (32-36); Mean Corpuscular Hemoglobin 31.5 pg (26-34); Mean Corpuscular Volume 95.8 fl (80-100); Monocytes Absolute Auto 0.9 K/mm3 (0.1-0.6); Neutrophils Absolute Auto 8.5 K/mm3 (1.3-6.7); Neutrophils Percent Auto 73.1 % (45.5-73.1); Platelet Count Result 254 k/mm3 (150-375); Red Cell Distribution Width 12.8 % (11.5-14.5); White Blood Count 11.7 K/mm3 (4.5-10.0)
[2022-03-22 10:00] LABS: Glucose Point of Care 156 mg/dl (65-105)
[2022-03-22] MEDS: SODIUM CHLORIDE 0.9% IV 500 ML 999 ML IV CONT (10:01)
--- NOTE | 2022-03-22 10:04 | PC.NURSE ---
Dr. Negron with Cardiology at bedside to assess pt.
[2022-03-22 10:12] LABS: Alanine Aminotransferase 16 U/L (6-35); Albumin Level 3.9 g/dL (3.5-5.1); Alkaline Phosphatase 81 U/L (38-126); Anion Gap 6 mmol/L (8-16); Aspartate Amino Transferase 20 U/L (14-36); Bilirubin,Total 0.6 mg/dL (0.2-1.3); Blood Urea Nitrogen 25 mg/dL (7-17); Calcium 9.2 mg/dL (8.4-10.2); Carbon Dioxide 28 mmol/L (22-30); Chloride 99 mmol/L (98-107); Estimated CRCL calculation 26 ml/min; Estimated Glomerular Filt Rate 43; Glucose 156 mg/dL (65-110); Potassium 3.8 mmol/L (3.4-5.0); Sodium 133 mmol/L (137-145)
--- NOTE | 2022-03-22 10:12 | ED.CHESTPAIN ---
HPI - Chest Pain General Chief Complaint: Chest Pain Stated Complaint: chest pain Time Seen by Provider: 03/22/22 09:43 Source: patient Mode of arrival: EMS Limitations: no limitations History of Present Illness HPI narrative: 81-year-old with a history of hypertension, diabetes, osteoarthritis of the right shoulder presents to the ER with complaints of active chest pain. Patient states that pain started yesterday got worse this morning, called 911. Patient did receive 1 sublingual nitro on arrival to the hospital which gave her significant relief upon arrival to the ER she started having pain in the left side of the chest . Pt also states she is diaphoretic .Denies any SOB ,nausea . MD complaint: chest pain Pertinent past history: other Onset (ago): day(s) (1) Timing of current episode: constant Onset: during rest Pain location: left chest Pain radiation: none Relieving factors: nitroglycerin Exacerbating factors: nothing Risk Factors Coronary artery disease risk factors: diabetes Related Data Home Medications Medication Instructions Recorded Confirmed cholecalciferol (vitamin D3) 25 1,000 unit PO DAILY 10/01/19 03/22/22 mcg (1,000 unit) capsule (Vitamin D3) famotidine 20 mg tablet (Pepcid) 20 mg PO DAILY 12/16/20 03/22/22 mecobalamin (vitamin B12) 1,000 500 mcg sublingual DAILY 12/16/20 03/22/22 mcg disintegrating tablet,sublingual furosemide 20 mg tablet 20 mg PO QAM 03/29/21 03/22/22 flash glucose scanning reader 04/20/21 03/22/22 (FreeStyle Hallie 14 Day Varnell) gabapentin 100 mg capsule 100 mg PO BID 03/20/22 03/22/22 insulin glargine 100 unit/mL (3 14 unit subcut HS 03/22/22 03/22/22 mL) subcutaneous pen (Basaglar KwikPen U-100 Insulin) losartan 100 mg tablet 100 mg PO HS 03/22/22 03/22/22 tramadol 50 mg tablet 100 mg PO DAILY PRN pain 03/22/22 03/22/22 Allergies Allergy/AdvReac Type Severity Reaction Status Date / Time acetaminophen Allergy Intermediate Rash Verified 03/22/22 13:57 amoxicillin Allergy Mild Other Verified 03/22/22 13:57 clavulanic acid AdvReac Unknown Other Verified 03/22/22 13:56 [From Augmentin] Review of Systems Constitutional: Constitutional: Reports no additional constitutional complaints Eyes: Eyes: Reports no additional eye complaints ENT: Reports system reviewed and no additional complaints, except as documented Cardiovascular: Cardiovascular: Reports as per HPI Respiratory: Respiratory: Reports no additional respiratory complaints Gastrointestinal: Gastrointestinal: Reports no additional gastrointestinal complaints Musculoskeletal: Musculoskeletal: Reports no additional musculoskeletal complaints Integumentary/Breasts: Skin/Breast: Reports system reviewed and no additional complaints, except as docu Neurologic: Reports system reviewed and no additional complaints, except as documented Psychiatric: Psychiatric: Reports no additional psychiatric complaints PMF Past Medical History Medical History Anemia With history of iron deficiency anemia requiring iron transfusions. Benign paroxysmal positional vertigo due to bilateral vestibular disorder Chronic bilateral low back pain without sciatica Chronic hyponatremia CKD (chronic kidney disease) stage 3, GFR 30-59 ml/min She is a patient of Dr. Robin Shoemaker. Colon polyp Diabetic peripheral neuropathy Essential hypertension Gastroesophageal reflux disease Hyperlipidemia associated with type 2 diabetes mellitus Hyponatremia Idiopathic chronic pancreatitis On long-term Creon. 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 Spinal stenosis of lumbosacral region Type 2 diabetes mellitus with diabetic nephropathy, without long-term current use of insulin Uncontrolled diabetes cristinai
--- NOTE | 2022-03-22 10:22 | PM.IMHP ---
H&P: HPI History of Present Illness Date/Time: 03/22/22 10:22 Chief Complaint: Chest pain Narrative: this is an 81-year-old woman I am seeing at the request of the ED staff to determine if she requires emergency angiography. She is unknown to me prior to this encounter. She began to experience pressure-like chest pain radiating into the mid interscapular region yesterday. The discomfort was moderate in intensity at home she did not consider this to be an urgent matter. She states that improved later in the day and she went to sleep. This morning the pain was still there but worse in intensity and so she elected to come into the emergency room to be evaluated. She was having moderate pain on arrival and was somewhat diaphoretic. Electrocardiogram shows sinus rhythm with left bundle branch block. On my direct inspection there is some ST segment elevation in lead V4 and V5 that was not present on her prior tracing. The left bundle branch block is chronic. She reports a history of hypertension diabetes dyslipidemia and stage 3 chronic kidney disease. She states her PCP is Dr. Prajapati. Review of Systems Review of Systems: ROS unobtainable: Yes unobtainable due to medical condition [facility] Past Medical History Medical History Anemia With history of iron deficiency anemia requiring iron transfusions. Benign paroxysmal positional vertigo due to bilateral vestibular disorder Chronic bilateral low back pain without sciatica Chronic hyponatremia CKD (chronic kidney disease) stage 3, GFR 30-59 ml/min She is a patient of Dr. Robin Shoemaker. Colon polyp Diabetic peripheral neuropathy Essential hypertension Gastroesophageal reflux disease Hyperlipidemia associated with type 2 diabetes mellitus Hyponatremia Idiopathic chronic pancreatitis On long-term Creon. 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 Spinal stenosis of lumbosacral region Type 2 diabetes mellitus with diabetic nephropathy, without long-term current use of insulin Uncontrolled diabetes mellitus with diabetic neuropathy Vaginal delivery x3 Venous insufficiency Surgical History Surgical History History of appendectomy History of breast biopsy History of cataract surgery History of hand surgery History of repair of left rotator cuff History of rotator cuff surgery right History of tonsillectomy History of total right knee replacement Family History Family History Father Hypertension Heart disease Acute myocardial infarction Mother Family history of lung cancer Family history of malignant neoplasm of breast in first degree relative Hypertension Sibling Breast cancer Acute myocardial infarction sister and brother Cerebrovascular accident sister Diabetes mellitus Heart disease Hypertension Other Breast cancer aunt Social History Social History Social History: The patient is and lives with her in [place]. 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 She is a lifelong nonsmoker and denies alcohol and illicit substance use. She designates her , Lionel, as her surrogate decision maker and she wishes to be a full code. Smoking status: Never smoker Second hand tobacco smoke exposure: No Alcohol intake: former Substance use: never Substance use type: does not use Spiritual care concerns: No Meds Home Medications and Allergies Home Medications Medication Instructions Recorded Confirmed Type cholecalciferol (vitamin D3) 25 1,000 unit PO DAILY 10/01/19 03/20/22 History mcg (1,000 unit) ca
[2022-03-22 10:23] LABS: INR 0.9; Prothrombin Time 12.2 Seconds (11.1-14.7)
[2022-03-22 10:25] LABS: NT Pro B Type Natriuretic Pept 3700 pg/mL (5-100)
[2022-03-22 10:27] LABS: Troponin I 0.146 ng/mL (0.000-0.034)
--- NOTE | 2022-03-22 12:11 | ECG_ITS ---
Measurements Intervals [place] Rate: 86 P: 45 UT: 186 QRS: -35 QRSD: 146 T: 107 QT: 459 QTc: 551 Interpretive Statements SINUS RHYTHM MARKED LEFT AXIS DEVIATION [QRS AXIS < -30] LEFT BUNDLE BRANCH BLOCK [120+ ms QRS DURATION, 80+ ms Q/S IN V1/V2, 85+ ms R IN I/aVL/V5/V6] ANTERIOR ST-ELEVATION WITH SOME RECIPROCAL DEPRESSION CONSISTENT WITH AN ACUTE ANTERIOR MYOCARDIAL INFARCTION COMPARED TO ECG 03/22/2022 09:42:[address] ELEVATION AND T-WAVE CHANGES ARE NEW Electronically Signed On 03-22-2022 22:14:20 CDT by Prudence Lan M.D.
--- NOTE | 2022-03-22 12:17 | WPDCARDPROC ---
Cardiac Cath Procedure Note Date of procedure:: 03/22/22 Performing physician:: Adria Negron MD Indication:: acute ST-elevation IA Brief clinical history:: this is an 81-year-old woman with a history of hypertension diabetes and dyslipidemia as well as chronic left bundle branch block. She presents with chest pain and ST elevation in leads V4 and V5 Procedure Procedure performed:: emergency coronary angiogram emergency PTCA of LAD Sedation/Medication given:: fentanyl 25 mg Versed 2 mg Access site:: right femoral artery Estimated blood loss:: 50 cc Procedure note:: patient was brought to the cardiac catheterization lab in the emergency setting described above. The right femoral triangle was prepared and draped in the usual fashion. Anesthesia was provided with 1% lidocaine infiltrated locally. Using the modified Seldinger technique a 6 English sheath was placed into the right femoral artery. I then used 5 English FL4 catheter to engage and inject the left coronary artery and then a 5 English JR4 catheter to engage and inject the right coronary artery. The electrical power in the cardiac catheterization lab transitioned to Emergency power at the beginning of the angiograms. For that reason cine angiographic quality was poor as well as the time that we would have electrical power even on backup mode was uncertain. The cineangiograms were reviewed and following this PCI of the mid LAD was recommended and carried out as detailed below. Prior to PCI the patient received 180 mg of Brilinta. She was given loading dose of aspirin in the emergency room. She was anticoagulated with a bolus and infusion of Angiomax for this intervention. Following PTCA of the target lesion in the LAD I elected to terminate the procedure as PTCA of the lesion was difficult and challenging and we had good flow restored down to the apex and uncertain Purcell fly in the laborer gold leaf to continue a likely difficult stent procedure. Following the intervention the patient's chest pain was much improved she was otherwise stable and was taken to ICU room 2. For recovery. Findings:: Hemodynamics: Central aortic pressure was 136/82. Left ventricle was not entered during this procedure the left coronary artery is moderately calcified. The left main coronary artery is short and has a somewhat superior takeoff it is free of disease. The left anterior descending appears to be a moderately caliber artery it is moderately calcified and is 100% occluded at the origin of the 1st septal perforating complex. This appears to be the culprit lesion for the patient's presentation. The circumflex is a moderate caliber artery giving rise to only 1 significant obtuse marginal branch the circumflex is free of significant disease. The right coronary artery is large in caliber also calcified and dominant to the posterior circulation. The right coronary artery trunk has no significant lesions. The RPDA appears to have mild diffuse disease. Once again quality of the angiograms was poor on emergency backup mode. Intervention: The left coronary artery was engaged using a 6 English CLS 3.5 guiding catheter. I had a very difficult time wiring the LAD is the guiding catheter was directing the wires into the circumflex. I was ultimately able to pass a loose wire into the LAD up to the lesion but would not cross the target lesion. I left this wire in position in the proximal septal up prior to the occlusion and then used a 0.014 towboat pilot 150 wire with some difficulty was able to cross the occlusion point in the LAD into the apical portion of the artery. I attempted to pre dilate the lesion using a 3 mm PTCA balloon which would not cross the lesion as it was heavily calcified. Similarly a 2 mm balloon would not cross then I was able to finally cross the lesion using a 1.25 mm associate professor of education balloon. This was inflated at 20 atmospheres several times. Then with some difficulty I was abl
--- NOTE | 2022-03-22 12:21 | WPDCNINT ---
Assessment and Plan Assessment and plan (1) STEMI (ST elevation myocardial infarction): Code(s): I21.3 - ST elevation (STEMI) myocardial infarction of unspecified site Status: Acute Assessment and Plan: Status post complicated PCI with balloon angioplasty of LAD lesion Continue aspirin, Brilinta, Lipitor, metoprolol, losartan Check echocardiogram ICU telemetry monitoring Patient will complete another dose of Angiomax Monitor for recurrence of chest pain (2) CKD stage 3 due to type 2 diabetes mellitus: Code(s): E11.22 - Type 2 diabetes mellitus with diabetic chronic kidney disease; N18.30 - Chronic kidney disease, stage 3 unspecified Status: Acute Assessment and Plan: Patient at risk of contrast induced acute kidney injury due to her risk factors IV fluids and Mucomyst Monitor urine output electrolytes and creatinine (3) Hypertension: Qualifiers: Hypertension type: primary hypertension Qualified Code(s): I10 - Essential (primary) hypertension Code(s): I10 - Essential (primary) hypertension Status: Acute Assessment and Plan: Continue beta-nash and amlodipine Hold losartan until renal function is stabilized (4) Type 2 diabetes mellitus with diabetic nephropathy, with long-term current use of insulin: Code(s): E11.21 - Type 2 diabetes mellitus with diabetic nephropathy; Z79.4 - [facility] (current) use of insulin Status: Acute Assessment and Plan: Sliding scale insulin, with meal insulin and bedtime Lantus (5) Hyperlipidemia LDL goal <100: Code(s): E78.5 - Hyperlipidemia, unspecified Status: Acute Assessment and Plan: Continue Lipitor (6) Neuropathy: Code(s): G62.9 - Polyneuropathy, unspecified Status: Acute Assessment and Plan: Continue Neurontin (7) Hypoxia: Code(s): R09.02 - Hypoxemia Status: Acute Assessment and Plan: Patient is on 4-5 L of oxygen this time. Crackles on right base on exam Cautious IV fluids for renal protection Check BNP, check echo, repeat portable chest x-ray now (8) Gastroesophageal reflux disease: Code(s): K21.9 - Gastro-esophageal reflux disease without esophagitis Status: Acute Assessment and Plan: Continue home Pepcid Additional Plan DVT prophylaxis -patient receiving Angiomax at this time. Will start Lovenox from tomorrow Nutrition -diabetic diet Code Status -patient requests to be full code and wants her to make decisions on her behalf if she is unable to do so. Activity Manager Consult Note Consult date: 03/22/22 Reason for consult: STEMI HPI: Danielle Thomason is a 81 year old female with past history of diabetes, hyperlipidemia on chronic kidney disease, hypertension but no documented history of coronary disease presented today to ER with chief complaint of chest pain. Chest pain started yesterday it was retrosternal and pressure-like quality. Pain was 9/10 severe, intermittent, radiated to her back and left arm. Pain was associated with mild shortness of breath and feeling of anxiety. Pain was intermittent and went away spontaneously. She did not seek any medical attention yesterday. She kept on having multiple episodes of pain which appeared resolved spontaneously. This morning on breakfast pain came back and was severe enough that she called EMS. Morning the pain started again and was as stated with diaphoresis as patient presented to ER. Patient states the pain In ED patient was found to be having left bundle branch block which was old on her EKG but ST segment elevation in anterior lateral leads. Patient was taken to cardiac catheterization lab and underwent angiogram. Patient was found to be having 100% occlusion of LAD with a complicated lesion. Balloon angioplasty of LAD lesion was done and MIGNON 3 flow was obtained. 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
--- NOTE | 2022-03-22 12:30 | PC.NURSE ---
This patient, Danielle Thomason, was admitted to Intensive Care Unit-2. Patient/family oriented to hospital policies and general routines including ID bracelet, bed and alarms, visiting hours, pain management, procedures, bathroom and other care routines, personal items, smoking policy, room service/diet, and visiting hours. Information on how to activate the Rapid Response Team has been discussed. Patient/Family are encouraged to report perceived risks to care and to ask questions if they do not understand what they are told or what they should do.
[2022-03-22 12:43] LABS: Glucose Point of Care 202 mg/dl (65-105)
[2022-03-22 13:19] LABS: Hemoglobin A1C 7.4 % (<5.7)
[2022-03-22] MEDS: SODIUM CHLORIDE 0.9% IV 1,000 ML 100 ML IV CONT (13:26)
[2022-03-22 13:39] LABS: NT Pro B Type Natriuretic Pept 3500 pg/mL (5-100); Troponin I 0.625 ng/mL (0.000-0.034)
[2022-03-22] MEDS: PERFLUTREN LIPID MICROSPHERES 1.5 ML VIAL DILUTED TO 10 ML TOTAL VOLUME IV PUSH (14:55)
--- NOTE | 2022-03-22 14:56 | IVDEFINITY ---
Prior to administration of IV Definity the patient was educated on the risks and benefits of the imaging enhancing agent including potential adverse side effects. The patient verbalized understanding. Allergies were verified. No exclusion criteria were identified and at least one of the following inclusion criteria were met: 1) physician request, 2) patient technically difficult to image (per the [place] [employer] guidelines of two or more segments not discernable within the apical view), or 3) questionable left ventricular function. ?
[2022-03-22 18:14] LABS: Glucose Point of Care 230 mg/dl (65-105)
[2022-03-22] MEDS: INSULIN ASPART (*BKC) 100 UNITS/ML SUB-Q ×2 (18:51)
[2022-03-22] MEDS: GABAPENTIN 100 MG CAPSULE PO (18:51)
[2022-03-22] MEDS: METOPROLOL TARTRATE 50 MG TAB PO (20:25)
[2022-03-22] MEDS: TICAGRELOR 90 MG TABLET PO (20:25)
[2022-03-22] MEDS: FAMOTIDINE 20 MG TABLET PO (20:25)
[2022-03-22] MEDS: INSULIN GLARGINE (*BKC) 100 UNITS/ML 14 UNITS SUB-Q (20:30)
[2022-03-22 20:32] LABS: Glucose Point of Care 245 mg/dl (65-105)
[2022-03-23] VITALS (16 sets, daily range): BP systolic 110–139; BP diastolic 55–84; PULSE 68–97; RESP 12–23; TEMP 36.3–36.6; O2SAT 95–100
[2022-03-23] MEDS: traMADol HCL (*CRX) 50 MG TABLET PO ×2 (02:35→08:34)
[2022-03-23 04:33] LABS: Mean Corpuscular HGB Conc 33.3 g/dl (32-36); Mean Corpuscular Hemoglobin 31.5 pg (26-34); Mean Corpuscular Volume 94.5 fl (80-100); Mean Platelet Volume 9.3 fl (7.4-10.4); Platelet Count Result 210 k/mm3 (150-375); Red Blood Count 3.81 M/mm3 (4.2-5.4); Red Cell Distribution Width 12.8 % (11.5-14.5); White Blood Count 12.5 K/mm3 (4.5-10.0)
[2022-03-23 04:47] LABS: Alanine Aminotransferase 16 U/L (6-35); Alkaline Phosphatase 85 U/L (38-126); Anion Gap 3 mmol/L (8-16); Aspartate Amino Transferase 49 U/L (14-36); Blood Urea Nitrogen 18 mg/dL (7-17); Calcium 8.2 mg/dL (8.4-10.2); Carbon Dioxide 25 mmol/L (22-30); Chloride 102 mmol/L (98-107); Estimated CRCL calculation 36 ml/min; Estimated Glomerular Filt Rate 53; Glucose 149 mg/dL (65-110); Magnesium 1.6 mg/dL (1.6-2.3); Potassium 3.9 mmol/L (3.4-5.0); Sodium 130 mmol/L (137-145)
--- NOTE | 2022-03-23 05:11 | ECG_ITS ---
Measurements Intervals [place] Rate: 73 P: 12 MO: 185 QRS: -33 QRSD: 142 T: 133 QT: 519 QTc: 576 Interpretive Statements SINUS RHYTHM MARKED LEFT AXIS DEVIATION [QRS AXIS < -30] LEFT BUNDLE BRANCH BLOCK [120+ ms QRS DURATION, 80+ ms Q/S IN V1/V2, 85+ ms R IN I/aVL/V5/V6] RECENT ANTERIOR CO COMPARED TO ECG 03/22/2022 12:36:20 NO SIGNIFICANT CHANGES Electronically Signed On 03-23-2022 20:34:13 CDT by Prudence Lan M.D.
[2022-03-23] MEDS: MAGNESIUM SULF 2 GM/WATER 50ML 2 GM/50 ML BAG IVPB (07:42)
[2022-03-23] MEDS: FUROSEMIDE INJ 40 MG/4 ML VIAL 20 MG IV PUSH (07:42)
[2022-03-23 08:12] LABS: Glucose Point of Care 145 mg/dl (65-105)
[2022-03-23] MEDS: TICAGRELOR 90 MG TABLET PO ×2 (08:35→20:12)
[2022-03-23] MEDS: ASPIRIN 81 MG CHEWABLE TABLET PO (08:35)
[2022-03-23] MEDS: METOPROLOL TARTRATE 50 MG TAB PO ×2 (08:35→20:12)
[2022-03-23] MEDS: LOSARTAN POTASSIUM 50 MG TABLET PO (08:35)
[2022-03-23] MEDS: FAMOTIDINE 20 MG TABLET PO ×2 (08:35→20:12)
[2022-03-23] MEDS: ATORVASTATIN 40 MG TABLET 80 MG PO (08:35)
[2022-03-23] MEDS: INSULIN ASPART (*BKC) 100 UNITS/ML SUB-Q ×5 (08:36→18:01)
[2022-03-23] MEDS: GABAPENTIN 100 MG CAPSULE PO ×2 (08:36→18:02)
[2022-03-23 10:03] LABS: Glucose Point of Care 153 mg/dl (65-105)
--- NOTE | 2022-03-23 10:07 | WPDINTPN ---
Progress Note: A&P Assessment and Plan (1) STEMI (ST elevation myocardial infarction): Code(s): I21.3 - ST elevation (STEMI) myocardial infarction of unspecified site Status: Acute Assessment and Plan: Status post complicated PCI with balloon angioplasty of LAD lesion Continue aspirin, Brilinta, Lipitor, metoprolol, losartan echocardiogram reviewed - see below patient currently chest pain-free (2) CKD stage 3 due to type 2 diabetes mellitus: Code(s): E11.22 - Type 2 diabetes mellitus with diabetic chronic kidney disease; N18.30 - Chronic kidney disease, stage 3 unspecified Status: Acute Assessment and Plan: Patient was at risk of contrast induced acute kidney injury due to her risk factors she was treated with cautious amount of IV fluids due to volume overload and pulmonary edema creatinine has remained stable Monitor urine output electrolytes and creatinine (3) Hypertension: Qualifiers: Hypertension type: primary hypertension Qualified Code(s): I10 - Essential (primary) hypertension Code(s): I10 - Essential (primary) hypertension Status: Acute Assessment and Plan: Continue beta-nash and losartan (4) Type 2 diabetes mellitus with diabetic nephropathy, with long-term current use of insulin: Code(s): E11.21 - Type 2 diabetes mellitus with diabetic nephropathy; Z79.4 - [facility] (current) use of insulin Status: Acute Assessment and Plan: Sliding scale insulin, with meal insulin and bedtime Lantus (5) Hyperlipidemia LDL goal <100: Code(s): E78.5 - Hyperlipidemia, unspecified Status: Acute Assessment and Plan: Continue Lipitor (6) Neuropathy: Code(s): G62.9 - Polyneuropathy, unspecified Status: Acute Assessment and Plan: Continue Neurontin (7) Hypoxia: Code(s): R09.02 - Hypoxemia Status: Acute Assessment and Plan: Patient is on 4-5 L of oxygen this time. Crackles on right base on exam chest x-ray shows pulmonary edema will give Lasix IV x1 (8) Gastroesophageal reflux disease: Code(s): K21.9 - Gastro-esophageal reflux disease without esophagitis Status: Acute Assessment and Plan: Continue home Pepcid (9) Ischemic cardiomyopathy: Code(s): I25.5 - Ischemic cardiomyopathy Status: Acute Assessment and Plan: echo Summary ? 1. Normal left ventricular size with mild concentric hypertrophy.? Severe hypokinesis of the mid anteroseptal wood with akinesis of the distal anteroseptal wall and apex.? The distal inferior and lateral wood also severely hypokinetic.? The basal segments are hyperdynamic.? ? Ejection fraction is estimated to be 25-30%.? Grade 2 diastolic dysfunction is present. ? 2. Left atrial chamber dimension is mildly enlarged. ? 3. No pulmonary hypertension, estimated pulmonary arterial systolic pressure is 30 mmHg. ? 4. No significant valve regurgitation. ? 5. Mild aortic valve calcification without stenosis. ? 6. Probable underlying sinus rhythm. ? 7. Technically difficult study; definity echo contrast used. Lasix IV x1 continue beta-nash and ARB may need anticoagulation due to low EF- Will defer to Cardiology Additional Plan DVT prophylaxis - Lovenox Nutrition -diabetic diet Code Status -patient requests to be full code and wants her to make decisions on her behalf if she is unable to do so. transfer out of ICU today Subjective Date/time seen: 03/23/22 10:07 patient denies any chest pain overnight or this morning. she also denies any shortness of breath. she complains of pain in her right leg which she blames on her sciatica has been worsened by laying flat in bed all day yesterday. She denies any cough fever nausea vomiting abdominal pain. All other systems were reviewed and were negative. Continues to require oxygen at 4 L by nasal cannula. Good urine output afebrile and tolera
--- NOTE | 2022-03-23 12:56 | PM.PNCARD ---
Progress Note: A&P Assessment and Plan (1) STEMI (ST elevation myocardial infarction): Code(s): I21.3 - ST elevation (STEMI) myocardial infarction of unspecified site Status: Acute Assessment and Plan: Late presentation of anterior STEMI. Mid Left anterior descending was angioplastied; no stent placed due to extensive calcification and characteristics of the lesion. Blood pressure stable, no arrhythmias. Continue aspirin, Brilinta, beta-nash Overall patient doing better than I expected, and troponin is surprisingly low considering her extensive left ventricular dysfunction by echo Counseled pt re: her PA, CM, CHF, tx, FU, activity Probably transfer to IMU tomorrow (2) Ischemic cardiomyopathy: Code(s): I25.5 - Ischemic cardiomyopathy Status: Acute Assessment and Plan: Ischemic cardiomyopathy EF 25-30%. Mild acute systolic and diastolic CHF Change losartan to Entresto Add spironolactone Titrate meds as blood pressure allows Resume home furosemide 20 mg qd. Intermittent IV furosemide prn. Discussed risk of cardiopulmonary risk and benefits of Life Vest. Patient will consider. (3) Acute combined systolic and diastolic congestive heart failure: Code(s): I50.41 - Acute combined systolic (congestive) and diastolic (congestive) heart failure Status: Acute Assessment and Plan: As above. (4) CKD stage 3 due to type 2 diabetes mellitus: Code(s): E11.22 - Type 2 diabetes mellitus with diabetic chronic kidney disease; N18.30 - Chronic kidney disease, stage 3 unspecified Status: Acute Assessment and Plan: Chronic kidney disease, GFR 36-43 mils per minute on admission BUN mildly elevated today Daily BMP (5) LBBB (left bundle branch block): Code(s): I44.7 - Left bundle-branch block, unspecified Status: Acute Assessment and Plan: Chronic. Subjective Date/time seen: Follow-up for Anterior STEMI 03/22/2022. Leg presentation. Cardiac catheterization by Dr. Saucedo showed occlusion of the mid Left anterior descending. The area is very calcified. He performed balloon angioplasty of the Left anterior descending lesion, without stenting due to the characteristics of the lesion. Difficult procedure. Echo shows severe hypokinesis to akinesis of the anteroseptal and apical areas, EF 25-30 %. Also has a history of hypertension, diabetes, dyslipidemia, LBBB and chronic kidney disease stage 3. 03/23/22 12:56 Did well overnight, no further chest pain, on 2 L of O2. Has some trouble with back pain and sciatic up. Appeared to be in mild failure this morning was given 1 dose of IV furosemide. Peak troponin yesterday was 2.5. Telemetry shows normal sinus rhythm, no ventricular tachycardia Review of Systems Constitutional: Constitutional: Reports fatigue Eyes: Eyes: Reports no additional eye complaints ENT: Denies epistaxis Cardiovascular: Cardiovascular: Denies chest pain, Denies leg edema and Denies lightheadedness Respiratory: Respiratory: Denies chest congestion and Denies dyspnea Gastrointestinal: Gastrointestinal: Denies abdominal pain Musculoskeletal: Musculoskeletal: Reports back pain and Reports stiffness Integumentary/Breasts: Skin/Breast: Denies rash Neurologic: Denies confusion Psychiatric: Psychiatric: Denies behavioral changes Exam Const: Other: Very pleasant and gracious lady who appears younger than her stated age, sitting up in eating breakfast, no distress HENMT: Mouth: Yes moist mucous membranes Eyes: EOM: EOMs intact bilaterally Neck: Neck: supple Resp: Effort & Inspection: normal respiratory effort Auscultation: rales (Rales in the right lower lobe) Cardio: Rate: regular rate Rhythm: regular rhythm Heart sounds: no murmurs GI: GI Palp: No Tenderness to palpation present (GI) Skin
[2022-03-23 13:10] LABS: Glucose Point of Care 216 mg/dl (65-105)
[2022-03-23 16:12] LABS: Glucose Point of Care 158 mg/dl (65-105)
[2022-03-23 17:24] LABS: Glucose Point of Care 219 mg/dl (65-105)
[2022-03-23] MEDS: INSULIN GLARGINE (*BKC) 100 UNITS/ML 14 UNITS SUB-Q (20:12)
[2022-03-23] MEDS: SACUBITRIL/VALSARTAN 24-26 MG TABLET 1 TAB PO (20:50)
[2022-03-23 21:32] LABS: Glucose Point of Care 300 mg/dl (65-105)
[2022-03-24] VITALS (14 sets, daily range): BP systolic 88–146; BP diastolic 52–72; PULSE 75–105; RESP 15–25; TEMP 35.9–37.1; O2SAT 95–100
[2022-03-24 04:57] LABS: Hematocrit 34.7 % (37.0-47.0); Hemoglobin 11.9 g/dL (12.0-15.0); Mean Corpuscular HGB Conc 34.3 g/dl (32-36); Mean Corpuscular Hemoglobin 31.7 pg (26-34); Mean Corpuscular Volume 92.5 fl (80-100); Mean Platelet Volume 9.3 fl (7.4-10.4); Platelet Count Result 203 k/mm3 (150-375); Red Blood Count 3.75 M/mm3 (4.2-5.4); Red Cell Distribution Width 12.9 % (11.5-14.5); White Blood Count 10.8 K/mm3 (4.5-10.0)
[2022-03-24 05:14] LABS: Alanine Aminotransferase 16 U/L (6-35); Albumin Level 3.3 g/dL (3.5-5.1); Alkaline Phosphatase 75 U/L (38-126); Anion Gap 5 mmol/L (8-16); Aspartate Amino Transferase 29 U/L (14-36); Bilirubin,Total 0.8 mg/dL (0.2-1.3); Blood Urea Nitrogen 27 mg/dL (7-17); Calcium 8.5 mg/dL (8.4-10.2); Carbon Dioxide 25 mmol/L (22-30); Chloride 101 mmol/L (98-107); Estimated CRCL calculation 31 ml/min; Estimated Glomerular Filt Rate 43; Glucose 173 mg/dL (65-110); Magnesium 2.1 mg/dL (1.6-2.3); Sodium 131 mmol/L (137-145)
[2022-03-24] MEDS: GABAPENTIN 100 MG CAPSULE PO ×2 (08:13→18:06)
[2022-03-24] MEDS: METOPROLOL TARTRATE 50 MG TAB PO (08:13)
[2022-03-24] MEDS: ASPIRIN 81 MG CHEWABLE TABLET PO (08:13)
[2022-03-24] MEDS: ENOXAPARIN 40 MG/0.4 ML SYRINGE SUB-Q (08:13)
[2022-03-24] MEDS: FAMOTIDINE 20 MG TABLET PO ×2 (08:13→20:37)
[2022-03-24] MEDS: ATORVASTATIN 40 MG TABLET 80 MG PO (08:13)
[2022-03-24] MEDS: TICAGRELOR 90 MG TABLET PO (08:14)
[2022-03-24 08:21] LABS: Glucose Point of Care 177 mg/dl (65-105)
[2022-03-24] MEDS: SACUBITRIL/VALSARTAN 24-26 MG TABLET 1 TAB PO ×2 (08:37→20:38)
[2022-03-24] MEDS: INSULIN ASPART (*BKC) 100 UNITS/ML SUB-Q ×5 (08:37→20:42)
[2022-03-24] MEDS: FUROSEMIDE 20 MG TABLET PO (08:37)
[2022-03-24] MEDS: CHOLECALCIFEROL 1,000 UNITS TABLET 1000 UNITS PO (08:37)
--- NOTE | 2022-03-24 08:48 | WPDINTPN ---
Progress Note: A&P Assessment and Plan (1) STEMI (ST elevation myocardial infarction): Code(s): I21.3 - ST elevation (STEMI) myocardial infarction of unspecified site Status: Acute Assessment and Plan: Status post complicated PCI with balloon angioplasty of LAD lesion Continue aspirin, Brilinta, Lipitor, metoprolol, Entresto echocardiogram reviewed - see below patient currently chest pain-free (2) CKD stage 3 due to type 2 diabetes mellitus: Code(s): E11.22 - Type 2 diabetes mellitus with diabetic chronic kidney disease; N18.30 - Chronic kidney disease, stage 3 unspecified Status: Acute Assessment and Plan: Patient was at risk of contrast induced acute kidney injury due to her risk factors she was treated with cautious amount of IV fluids due to volume overload and pulmonary edema creatinine has remained stable Monitor urine output electrolytes and creatinine (3) Hypertension: Qualifiers: Hypertension type: primary hypertension Qualified Code(s): I10 - Essential (primary) hypertension Code(s): I10 - Essential (primary) hypertension Status: Acute Assessment and Plan: Continue beta-nash and Entresto (4) Type 2 diabetes mellitus with diabetic nephropathy, with long-term current use of insulin: Code(s): E11.21 - Type 2 diabetes mellitus with diabetic nephropathy; Z79.4 - nursing home (current) use of insulin Status: Acute Assessment and Plan: Increase Sliding scale insulin to moderate Continue with meal insulin and bedtime Lantus (5) Hyperlipidemia LDL goal <100: Code(s): E78.5 - Hyperlipidemia, unspecified Status: Acute Assessment and Plan: Continue Lipitor (6) Neuropathy: Code(s): G62.9 - Polyneuropathy, unspecified Status: Acute Assessment and Plan: Continue Neurontin (7) Hypoxia: Code(s): R09.02 - Hypoxemia Status: Acute Assessment and Plan: Patient was on 4-5 L of oxygen this time. Crackles on right base on exam chest x-ray shows pulmonary edema Improved with Lasix and patient is now on room air Lasix IV x1 (8) Gastroesophageal reflux disease: Code(s): K21.9 - Gastro-esophageal reflux disease without esophagitis Status: Acute Assessment and Plan: Continue home Pepcid (9) Ischemic cardiomyopathy: Code(s): I25.5 - Ischemic cardiomyopathy Status: Acute Assessment and Plan: echo Summary ? 1. Normal left ventricular size with mild concentric hypertrophy.? Severe hypokinesis of the mid anteroseptal owod with akinesis of the distal anteroseptal wall and apex.? The distal inferior and lateral wood also severely hypokinetic.? The basal segments are hyperdynamic.? ? Ejection fraction is estimated to be 25-30%.? Grade 2 diastolic dysfunction is present. ? 2. Left atrial chamber dimension is mildly enlarged. ? 3. No pulmonary hypertension, estimated pulmonary arterial systolic pressure is 30 mmHg. ? 4. No significant valve regurgitation. ? 5. Mild aortic valve calcification without stenosis. ? 6. Probable underlying sinus rhythm. ? 7. Technically difficult study; definity echo contrast used. Continue gentle diuresis continue beta-nash, Aldactone and Entresto may need anticoagulation due to low EF- Will defer to Cardiology Additional Plan DVT prophylaxis - Lovenox Nutrition -diabetic diet Code Status -patient requests to be full code and wants her to make decisions on her behalf if she is unable to do so. transfer out of ICU today Subjective Date/time seen: 03/24/22 08:48 No new complaints. She slept well. She denies any pain in her leg today and states that pain has resolved. Denies any chest pain shortness of breath. All other systems were reviewed and were negative. She is on room air now stable vital signs. Review of Systems Review of Systems: All systems reviewed & are unremarkable except as noted i
--- NOTE | 2022-03-24 12:22 | PM.PNCARD ---
Progress Note: A&P Assessment and Plan (1) Ischemic cardiomyopathy: Code(s): I25.5 - Ischemic cardiomyopathy Status: Acute (2) STEMI (ST elevation myocardial infarction): Code(s): I21.3 - ST elevation (STEMI) myocardial infarction of unspecified site Status: Acute Plan 81-year-old lady with: Coronary artery disease presenting with acute anterior wall infarction. Late presentation with coming in close to 24 hours following symptom onset. PCI of the LAD was carried out with difficulty and success with dilatation. This was a heavily calcified lesion that was very difficult to treat with PTCA. 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 Should she experience artery stenosis we would probably recommend attempt at stenting this at a hospital that has Rotablator and or shockwave balloon for treating the calcium. I will change her Brilinta to Plavix for cost reasons it should not be Okay since she did not receive a stent to the LAD. anticipate discharge in the next 24-48 hours if she remains stable. Agree with the decision to transition her to Entresto because of her low ejection fraction. she was provided with life [employer] information and is thinking about that. Adria Negron MD [facility] Subjective Date/time seen: date of service:03/24/22 12:22 Interval history: Follow-up visit in this 81-year-old woman with: Coronary artery disease presenting with acute anterior wall infarction on 03/22/2022. Patient also has underlying chronic left bundle branch block and previous history of hypertension and diabetes. Patient is asymptomatic this morning feels well and has no significant complaints. She does not report any recurrences of chest pain or dyspnea. Details of catheterization and PCI procedure discussed with her in the reason for stopping the procedure prior to deploying a stent because of power outage/technical difficulty in the catheterization lab resulting in the decision to Terminate the procedure following PTCA. staffing coordinator tell me that she will not be able to afford Brilinta. Exam Const: General: comfortable and no acute distress Other: Very pleasant elderly lady sitting in the chair no distress HENMT: Mouth: Yes moist mucous membranes Eyes: Sclera: sclerae normal Pupils: Equal, round and reactive pupils present Neck: Neck: supple and no JVD Resp: Effort & Inspection: normal respiratory effort Auscultation: clear to auscultation bilaterally Cardio: Rate: regular rate Rhythm: regular rhythm GI: GI Palp: Yes Soft to palpation Auscultation: normal bowel sounds Skin: General skin exam: normal color Neuro: Other: normal cognition Extrem: Other: good perfusion, no edema Objective Data Vital Signs Vital Signs: Vital Signs - 24 hr 03/23/22 14:00 03/23/22 14:00 03/23/22 16:00 Temperature Pulse Rate 78 78 77 Respiratory Rate 12 Blood Pressure 110/68 Pulse Oximetry 97 Oxygen Delivery Oxygen Flow Rate 03/23/22 17:18 03/23/22 16:00 03/23/22 16:00 Temperature 36.5 C Pulse Rate 82 Respiratory Rate 13 Blood Pressure 115/61 Pulse Oximetry 97 96 Oxygen Delivery Nasal Cannula Room Air Oxygen Flow Rate 2 03/23/22 18:00 03/23/22 18:00 03/23/22 20:12 Temperature Pulse Rate 90 90 90 Respiratory Rate 14 Blood Pressure 118/55 L Pulse Oximetry 96 Oxygen Delivery Oxygen Flow Rate 03/23/22 20:00 03/23/22 20:00 03/23/22 20:00 Temperature 36.3 C L Pulse Rate 95 95 95 Respiratory Rate 15 15 Blood Pressure 139/84 Pulse Oximetry 96 96 Oxygen Delivery Room Air Oxygen Flow Rate 03/23/22 22:00 03/23/22 22:00 03/24/22 00:00 Temperature Pulse Rate 85 85 82 Respiratory Rate 18 Blood Pressure 114/65 Pulse Oximetry 98 Oxygen Delivery Oxygen
[2022-03-24 12:39] LABS: Glucose Point of Care 256 mg/dl (65-105)
--- NOTE | 2022-03-24 14:21 | PC.NURSE ---
[facility] flyer was given to patient.
[2022-03-24 18:57] LABS: Glucose Point of Care 140 mg/dl (65-105)
[2022-03-24] MEDS: TRIAMCINOLONE ACET 0.1% OINT 15 GM TUBE 1 APPLIC TOPICAL (20:37)
[2022-03-24 20:41] LABS: Glucose Point of Care 313 mg/dl (65-105)
[2022-03-24] MEDS: INSULIN GLARGINE (*BKC) 100 UNITS/ML 14 UNITS SUB-Q (20:43)
[2022-03-25] VITALS (13 sets, daily range): BP systolic 111–156; BP diastolic 60–98; PULSE 55–106; RESP 13–20; TEMP 36.5–36.9; O2SAT 95–100
[2022-03-25 00:01] LABS: Glucose Point of Care 225 mg/dl (65-105)
[2022-03-25 05:21] LABS: Hematocrit 38.3 % (37.0-47.0); Hemoglobin 12.5 g/dL (12.0-15.0); Mean Corpuscular HGB Conc 32.6 g/dl (32-36); Mean Platelet Volume 9.4 fl (7.4-10.4); Platelet Count Result 215 k/mm3 (150-375); Red Blood Count 4.03 M/mm3 (4.2-5.4); Red Cell Distribution Width 13.1 % (11.5-14.5); White Blood Count 10.9 K/mm3 (4.5-10.0)
[2022-03-25 05:34] LABS: Alanine Aminotransferase 15 U/L (6-35); Albumin Level 3.6 g/dL (3.5-5.1); Alkaline Phosphatase 89 U/L (38-126); Anion Gap 7 mmol/L (8-16); Aspartate Amino Transferase 23 U/L (14-36); Bilirubin,Total 0.7 mg/dL (0.2-1.3); Blood Urea Nitrogen 32 mg/dL (7-17); Calcium 8.5 mg/dL (8.4-10.2); Carbon Dioxide 22 mmol/L (22-30); Chloride 102 mmol/L (98-107); Estimated CRCL calculation 26 ml/min; Estimated Glomerular Filt Rate 36; Glucose 213 mg/dL (65-110); Potassium 4.3 mmol/L (3.4-5.0); Sodium 131 mmol/L (137-145)
[2022-03-25] MEDS: ASPIRIN 81 MG CHEWABLE TABLET PO (08:08)
[2022-03-25] MEDS: INSULIN ASPART (*BKC) 100 UNITS/ML SUB-Q ×5 (08:09→18:03)
[2022-03-25] MEDS: CLOPIDOGREL BISULFATE 75 MG TABLET PO (08:09)
[2022-03-25] MEDS: CHOLECALCIFEROL 1,000 UNITS TABLET 1000 UNITS PO (08:10)
[2022-03-25] MEDS: FUROSEMIDE 20 MG TABLET PO (08:10)
[2022-03-25] MEDS: FAMOTIDINE 20 MG TABLET PO ×2 (08:11→21:26)
[2022-03-25] MEDS: ENOXAPARIN 40 MG/0.4 ML SYRINGE SUB-Q (08:11)
[2022-03-25] MEDS: ATORVASTATIN 40 MG TABLET 80 MG PO (08:11)
[2022-03-25] MEDS: SACUBITRIL/VALSARTAN 24-26 MG TABLET 1 TAB PO ×2 (08:11→21:26)
[2022-03-25] MEDS: GABAPENTIN 100 MG CAPSULE PO ×2 (08:11→18:03)
[2022-03-25 08:20] LABS: Glucose Point of Care 222 mg/dl (65-105)
[2022-03-25 12:40] LABS: Glucose Point of Care 188 mg/dl (65-105)
--- NOTE | 2022-03-25 13:47 | PM.PNCARD ---
Progress Note: A&P Assessment and Plan (1) Ischemic cardiomyopathy: Code(s): I25.5 - Ischemic cardiomyopathy Status: Acute Assessment and Plan: EF 20 - 25% On Entresto, will need to be shifted to [facility] or [facility] at discharge Continue gentle diuresis She has decided to proceed with LifeVest, will place the order CHF counseling (2) STEMI (ST elevation myocardial infarction): Code(s): I21.3 - ST elevation (STEMI) myocardial infarction of unspecified site Status: Acute Assessment and Plan: Coronary artery disease presenting with acute anterior wall infarction. Late presentation with coming in close to 24 hours following symptom onset. S/p balloon angioplasty of LAD. Continue DAPT with ASA, Plavix Continue statin Risk factor modification for CAD Subjective Date/time seen: 03/25/22 13:47 Interval history: Follow-up visit in this 81-year-old woman with: Coronary artery disease presenting with acute anterior wall infarction on 03/22/2022. Patient also has underlying chronic left bundle branch block and previous history of hypertension and diabetes. Date of service 03/25/2022: Feels well today. Complains of poor sleep last night due to frequent urination. She has not had any recurrent chest pain. No shortness of breath or palpitations. She has decided to move forward with the LifeVest. Review of Systems Review of Systems: ROS unobtainable: Yes unobtainable due to medical condition Constitutional: Constitutional: Reports fatigue Eyes: Eyes: Reports no additional eye complaints ENT: Denies epistaxis Cardiovascular: Cardiovascular: Denies chest pain, Denies leg edema, Denies lightheadedness and Denies dyspnea Respiratory: Respiratory: Denies chest congestion and Denies dyspnea Gastrointestinal: Gastrointestinal: Denies abdominal pain Musculoskeletal: Musculoskeletal: Reports back pain and Reports stiffness Integumentary/Breasts: Skin/Breast: Denies rash Neurologic: Denies behavioral changes and Denies confusion Psychiatric: Psychiatric: Denies behavioral changes and Denies confusion Endocrine: Endocrine: Reports fatigue Exam Const: General: comfortable and no acute distress; No confusion Orientation/consciousness: No confusion Other: Very pleasant elderly lady sitting in the chair no distress. Son at bedside. HENMT: Head: normal to inspection Mouth: Yes moist mucous membranes Eyes: Sclera: sclerae normal Pupils: Equal, round and reactive pupils present EOM: EOMs intact bilaterally Neck: Neck: supple and no JVD Other: carotid pulses are intact bilaterally there are no audible bruits Resp: Effort & Inspection: normal respiratory effort Auscultation: clear to auscultation bilaterally and crackles (Bilat lower lobes) Cardio: Rate: regular rate Rhythm: regular rhythm Heart sounds: no murmurs GI: Auscultation: normal bowel sounds Skin: General skin exam: normal color and no rashes or lesions noted Neuro: General: No confusion Cranial nerves: Yes Equal, round and reactive pupils present Speech: normal speech Other: normal cognition Extrem: General: no edema Other: good perfusion, no edema Psych: Mental Status: mental status grossly normal Affect: normal affect Objective Data Vital Signs Vital Signs: Vital Signs - 24 hr 03/24/22 14:00 03/24/22 14:00 03/24/22 16:00 Temperature Pulse Rate 90 90 88 Respiratory Rate 16 15 Blood Pressure 108/62 Pulse Oximetry 97 98 Oxygen Delivery Room Air 03/24/22 16:00 03/24/22 16:00 03/24/22 18:00 Temperature Pulse Rate 88 88 97 Respiratory Rate 18 Blood Pressure 107/69 Pulse Oximetry 98 Oxygen Delivery 03/24/22 18:00 03/24/22 20:00 03/24/22 20:00 Temperature 37.1 C Pulse Rate 97 101 H 100 Respiratory Rate 16 17 Blood Pressure 126/71 118/63 Pulse Oximetry 98 100 Oxygen Delivery 03/24/22 20:00 03/24/22 22:00 03/24/22 22:00 Temperature
[2022-03-25 16:37] LABS: Glucose Point of Care 269 mg/dl (65-105)
[2022-03-25] MEDS: INSULIN GLARGINE (*BKC) 100 UNITS/ML 14 UNITS SUB-Q (21:26)
[2022-03-25 21:41] LABS: Glucose Point of Care 180 mg/dl (65-105)
[2022-03-26] VITALS (15 sets, daily range): BP systolic 112–146; BP diastolic 43–96; PULSE 77–102; RESP 13–24; TEMP 36.3–36.7; O2SAT 96–99
[2022-03-26 04:36] LABS: Hematocrit 31.3 % (37.0-47.0); Hemoglobin 10.3 g/dL (12.0-15.0); Mean Corpuscular HGB Conc 32.9 g/dl (32-36); Mean Corpuscular Hemoglobin 31.6 pg (26-34); Mean Platelet Volume 9.4 fl (7.4-10.4); Platelet Count Result 185 k/mm3 (150-375); Red Blood Count 3.26 M/mm3 (4.2-5.4); Red Cell Distribution Width 13.1 % (11.5-14.5); White Blood Count 7.9 K/mm3 (4.5-10.0)
[2022-03-26 04:47] LABS: Alanine Aminotransferase 13 U/L (6-35); Albumin Level 2.9 g/dL (3.5-5.1); Alkaline Phosphatase 70 U/L (38-126); Anion Gap 5 mmol/L (8-16); Aspartate Amino Transferase 19 U/L (14-36); Bilirubin,Total 0.5 mg/dL (0.2-1.3); Blood Urea Nitrogen 29 mg/dL (7-17); Carbon Dioxide 23 mmol/L (22-30); Chloride 103 mmol/L (98-107); Estimated CRCL calculation 28 ml/min; Estimated Glomerular Filt Rate 39; Glucose 168 mg/dL (65-110); Magnesium 1.8 mg/dL (1.6-2.3); Potassium 4.1 mmol/L (3.4-5.0); Sodium 131 mmol/L (137-145)
[2022-03-26] MEDS: ENOXAPARIN 40 MG/0.4 ML SYRINGE SUB-Q (08:16)
[2022-03-26] MEDS: ATORVASTATIN 40 MG TABLET 80 MG PO (08:17)
[2022-03-26] MEDS: GABAPENTIN 100 MG CAPSULE PO ×2 (08:17→17:45)
[2022-03-26] MEDS: ASPIRIN 81 MG CHEWABLE TABLET PO (08:17)
[2022-03-26] MEDS: FAMOTIDINE 20 MG TABLET PO ×2 (08:17→20:58)
[2022-03-26] MEDS: CHOLECALCIFEROL 1,000 UNITS TABLET 1000 UNITS PO (08:17)
[2022-03-26] MEDS: CLOPIDOGREL BISULFATE 75 MG TABLET PO (08:17)
[2022-03-26] MEDS: FUROSEMIDE 20 MG TABLET PO (08:17)
[2022-03-26] MEDS: INSULIN ASPART (*BKC) 100 UNITS/ML SUB-Q ×6 (08:18→20:58)
[2022-03-26] MEDS: SACUBITRIL/VALSARTAN 24-26 MG TABLET 1 TAB PO ×2 (08:18→20:58)
[2022-03-26 08:27] LABS: Glucose Point of Care 176 mg/dl (65-105)
--- NOTE | 2022-03-26 10:40 | PM.PNCARD ---
Progress Note: A&P Assessment and Plan (1) Ischemic cardiomyopathy: Code(s): I25.5 - Ischemic cardiomyopathy Status: Acute Assessment and Plan: EF 20 - 25% On Entresto, will need to be shifted to [facility] or [facility] at discharge Continue gentle diuresis She has decided to proceed with LifeVest CHF counseling (2) STEMI (ST elevation myocardial infarction): Code(s): I21.3 - ST elevation (STEMI) myocardial infarction of unspecified site Status: Acute Assessment and Plan: Coronary artery disease presenting with acute anterior wall infarction. Late presentation with coming in close to 24 hours following symptom onset. S/p balloon angioplasty of LAD. Continue DAPT with ASA, Plavix Continue statin Risk factor modification for CAD PT OT to see today. Encourage ambulation walking today. If stable, probably DC home tomorrow Subjective Date/time seen: 03/26/22 10:40 Interval history: Follow-up visit in this 81-year-old woman with: Coronary artery disease presenting with acute anterior wall infarction on 03/22/2022. Patient also has underlying chronic left bundle branch block and previous history of hypertension and diabetes. Date of service 03/25/2022: Feels well today. Complains of poor sleep last night due to frequent urination. She has not had any recurrent chest pain. No shortness of breath or palpitations. She has decided to move forward with the [facility]. Date of service 03/26/2022: No chest pain. Does have a little bit of swelling. No shortness of breath Review of Systems Review of Systems: ROS unobtainable: Yes unobtainable due to medical condition Constitutional: Constitutional: Reports fatigue Eyes: Eyes: Reports no additional eye complaints ENT: Denies epistaxis Cardiovascular: Cardiovascular: Denies chest pain, Denies leg edema, Denies lightheadedness and Denies dyspnea Respiratory: Respiratory: Denies chest congestion and Denies dyspnea Gastrointestinal: Gastrointestinal: Denies abdominal pain Musculoskeletal: Musculoskeletal: Reports back pain and Reports stiffness Integumentary/Breasts: Skin/Breast: Denies rash Neurologic: Denies behavioral changes and Denies confusion Psychiatric: Psychiatric: Denies behavioral changes and Denies confusion Endocrine: Endocrine: Reports fatigue Exam Const: General: comfortable, no acute distress and uncomfortable; No confusion Orientation/consciousness: No confusion Other: Very pleasant elderly lady sitting in the chair no distress. Son at bedside. HENMT: Head: normal to inspection Mouth: Yes moist mucous membranes Eyes: Sclera: sclerae normal Pupils: Equal, round and reactive pupils present EOM: EOMs intact bilaterally Neck: Neck: supple and no JVD Other: carotid pulses are intact bilaterally there are no audible bruits Resp: Effort & Inspection: normal respiratory effort Auscultation: clear to auscultation bilaterally, crackles (Bilat lower lobes) and rales (Rales in the right lower lobe) Cardio: Rate: regular rate Rhythm: regular rhythm Heart sounds: no murmurs Other: PMI difficult to palpate GI: Auscultation: normal bowel sounds Skin: General skin exam: normal color and no rashes or lesions noted Other: Right femoral area soft and nontender, no ecchymosis or hematoma. Dorsalis pedis pulses diminished but intact, foot warm Neuro: General: No confusion Cranial nerves: Yes Equal, round and reactive pupils present Speech: normal speech Other: normal cognition Extrem: General: no edema Other: good perfusion, no edema Psych: Mental Status: mental status grossly normal Affect: normal affect Objective Data Vital Signs Vital Signs: Vital Signs - 24 hr 03/25/22 12:00 03/25/22 12:00 03/25/22 12:00 Temperature 36.9 C Pulse Rate 95 95 95 Respiratory Rate 18 13 Blood Pressure 111/64 Pulse Oximetry 99 98 Oxygen Delivery Room Air Oxygen Flow Rate 03/25/22
[2022-03-26 11:56] LABS: Glucose Point of Care 285 mg/dl (65-105)
[2022-03-26 19:53] LABS: Glucose Point of Care 248 mg/dl (65-105)
[2022-03-26 20:53] LABS: Glucose Point of Care 249 mg/dl (65-105)
[2022-03-26] MEDS: INSULIN GLARGINE (*BKC) 100 UNITS/ML 14 UNITS SUB-Q (20:58)
[2022-03-27] VITALS (8 sets, daily range): BP systolic 133–150; BP diastolic 71–76; PULSE 75–97; RESP 12–20; TEMP 36.4–36.8; O2SAT 96–99
[2022-03-27 04:31] LABS: Hematocrit 30.8 % (37.0-47.0); Hemoglobin 10.4 g/dL (12.0-15.0); Mean Corpuscular HGB Conc 33.8 g/dl (32-36); Mean Corpuscular Hemoglobin 31.6 pg (26-34); Mean Corpuscular Volume 93.6 fl (80-100); Mean Platelet Volume 9.7 fl (7.4-10.4); Platelet Count Result 194 k/mm3 (150-375); Red Blood Count 3.29 M/mm3 (4.2-5.4); Red Cell Distribution Width 13.1 % (11.5-14.5); White Blood Count 7.1 K/mm3 (4.5-10.0)
[2022-03-27 04:55] LABS: Alanine Aminotransferase 14 U/L (6-35); Alkaline Phosphatase 73 U/L (38-126); Anion Gap 6 mmol/L (8-16); Aspartate Amino Transferase 17 U/L (14-36); Bilirubin,Total 0.5 mg/dL (0.2-1.3); Blood Urea Nitrogen 24 mg/dL (7-17); Calcium 8.2 mg/dL (8.4-10.2); Carbon Dioxide 22 mmol/L (22-30); Chloride 102 mmol/L (98-107); Estimated CRCL calculation 30 ml/min; Estimated Glomerular Filt Rate 43; Glucose 158 mg/dL (65-110); Magnesium 1.8 mg/dL (1.6-2.3); Potassium 3.9 mmol/L (3.4-5.0); Sodium 130 mmol/L (137-145)
[2022-03-27 07:32] LABS: Glucose Point of Care 156 mg/dl (65-105)
[2022-03-27] MEDS: ATORVASTATIN 40 MG TABLET 80 MG PO (08:56)
[2022-03-27] MEDS: ASPIRIN 81 MG CHEWABLE TABLET PO (08:56)
[2022-03-27] MEDS: SACUBITRIL/VALSARTAN 24-26 MG TABLET 1 TAB PO (08:57)
[2022-03-27] MEDS: FAMOTIDINE 20 MG TABLET PO (08:57)
[2022-03-27] MEDS: ENOXAPARIN 40 MG/0.4 ML SYRINGE SUB-Q (08:57)
[2022-03-27] MEDS: FUROSEMIDE 20 MG TABLET PO (08:57)
[2022-03-27] MEDS: GABAPENTIN 100 MG CAPSULE PO (08:57)
[2022-03-27] MEDS: CLOPIDOGREL BISULFATE 75 MG TABLET PO (08:57)
[2022-03-27] MEDS: CHOLECALCIFEROL 1,000 UNITS TABLET 1000 UNITS PO (08:57)
[2022-03-27] MEDS: INSULIN ASPART (*BKC) 100 UNITS/ML SUB-Q ×3 (09:03→13:08)
[2022-03-27 12:02] LABS: Glucose Point of Care 242 mg/dl (65-105)
--- NOTE | 2022-03-27 12:31 | PM.DS ---
DS: Admitting Diagnosis Discharge Date 03/27/2022 Admitting Diagnosis anterior wall SD DS: Discharge Diagnosis Discharge Diagnosis Plan anterior wall SD, chronic left bundle branch block insulin-requiring diabetes DS: Summary Hospital Course Reason for hospitalization: acute ST segment elevation SD Hospital Course: this is an 81-year-old woman with longstanding diabetes and hypertension who presented to the hospital with chest pain. The chest pain symptoms began about 24 hours prior to presentation. She had a chronic left bundle branch block but also some precordial ST segment elevation in leads V3 and V4 that was new compared to previous tracings. She was therefore declared STEMI and brought to the cardiac catheter builder emergently. She was found to have 100% occlusion of the mid LAD which was a heavily calcified vessel she had no significant left main circumflex or right coronary lesions. She underwent successful but difficult PCI involving balloon angioplasty of the occluded site of the LAD with a improved angiographic appearance and the latter day of MIGNON 3 flow in the vessel however there was no attempt to stent this lesion as there was complex, calcified and there was a power outage in the cardiac catheterization lab at the time of the procedure with the room operating on emergency backup our alone with very poor visualization and no ability to determine how long we would have any electric power at all. This was therefore accepted as a final result. None the less she did well clinically. Echocardiographically following the event she was found to have left ventricular enlargement with a low ejection fraction of about 25%. She none the less did well without any arrhythmias or overt congestive heart failure. She was placed on appropriate/guideline directed medical therapy for this the last 48 hours she has been ambulating without any problems and appears to be a good candidate for discharge. Status at Discharge Functional status at discharge: independent ambulation Overall status at discharge: patient is progressing back to baseline Time Spent with Patient Time attestation: Total time spent providing and/or coordinating discharge services: Time spent: Greater than 30 minutes Exam Const: General: comfortable and no acute distress Other: Pleasant elderly lady no distress Eyes: Sclera: sclerae normal Pupils: Equal, round and reactive pupils present Neck: Neck: supple and no JVD Other: no carotid bruits are audible Resp: Effort & Inspection: normal respiratory effort Auscultation: clear to auscultation bilaterally Cardio: Rate: regular rate Rhythm: regular rhythm Other: no audible gallop or murmur GI: GI Palp: Yes Soft to palpation Auscultation: normal bowel sounds Skin: General skin exam: normal color Extrem: General: normal to inspection DS: Data Data Completed and Pending Labs on day of discharge: Labs from last 24 hours 03/27/22 03/27/22 03/27/22 11:47 07:12 04:19 WBC RBC Hgb Hct MCV MCH MCHC RDW Plt Count MPV Sodium 130 L Potassium 3.9 Chloride 102 Carbon Dioxide 22 Anion Gap 6 L BUN 24 H Creatinine 1.20 H Estim Creat Clear Calc 30 Estimated GFR 43 L Glucose 158 H POC Capillary Glucose 242 H 156 H Calcium 8.2 L Magnesium 1.8 Total Bilirubin 0.5 AST 17 ALT 14 Alkaline Phosphatase 73 Total Protein 6.0 L Albumin 3.0 L 03/27/22 03/26/22 03/26/22 04:19 20:51 17:43 WBC 7.1 RBC 3.29 L Hgb 10.4 L Hct 30.8 L MCV 93.6 MCH 31.6 MCHC 33.8 RDW 13.1 Plt Count 194 MPV 9.7 Sodium Potassium Chloride Carbon Dioxide Anion Gap BUN Creatinine Estim Creat Clear Calc Estimated GFR Glucose POC Capillary Glucose 249 H 248 H Calcium Magnesium Total Bilirubin AST ALT Alkaline Phosphatase Total Protein A
== END 2022-03-27 14:30 | disposition home or self-care (01) | DRG 250 ==
LOC: ANHED 10:09 → ANHCATHLAB 10:20 → ANHICU 10:46
PROVIDERS: Internal Medicine; Admitting Provider Specialist; Emergency Provider Family Medicine; PCP Internal Medicine; Visit Provider Specialist
PROC: 4A023N7 Measurement of Cardiac Sampling and Pressure, Left Heart, Percutaneous Approach (ICD-10-PCS; CPT 93454; principal; 2022-03-22 10:25)
PROC: 4A023N7 Measurement of Cardiac Sampling and Pressure, Left Heart, Percutaneous Approach (ICD-10-PCS; CPT 92920; 2022-03-22 10:25)
DX: I21.3 ST elevation (STEMI) myocardial infarction of unspecified site (principal); I50.41 Acute combined systolic (congestive) and diastolic (congestive) heart failure; I13.0 Hypertensive heart and chronic kidney disease with heart failure and stage 1 through stage 4 chronic kidney disease, or unspecified chronic kidney disease; N18.30 Chronic kidney disease, stage 3 unspecified; K21.9 Gastro-esophageal reflux disease without esophagitis; E11.22 Type 2 diabetes mellitus with diabetic chronic kidney disease; E11.42 Type 2 diabetes mellitus with diabetic polyneuropathy; E78.00 Pure hypercholesterolemia, unspecified; I27.20 Pulmonary hypertension, unspecified; I87.2 Venous insufficiency (chronic) (peripheral); E11.21 Type 2 diabetes mellitus with diabetic nephropathy; R09.02 Hypoxemia; I25.5 Ischemic cardiomyopathy; Z79.899 Other long term (current) drug therapy; Z82.49 Family history of ischemic heart disease and other diseases of the circulatory system; Z80.3 Family history of malignant neoplasm of breast; Z82.3 Family history of stroke; Z79.4 Long term (current) use of insulin
CPT/HCPCS: 36415; 71045; 80048; 80053; 82607; 82728; 82746; 82948; 83036; 83540; 83550; 83735; 83880; 84484; 85025; 85027; 85610; 92920; 93005; 93454; 99285; A9270; C1725; C1769; C1887; C1894; C8929; J0461; J0583; J1644; J1650; J1815; J1940; J2250; J3010; J3475; J7030; J7040; Q9957

== ENCOUNTER 2022-06-15 11:00 | Outpatient (RCR) | payer MEDICARE, OTHER, SELFPAY ==
[2022-05-05 11:54] VITALS: PULSE 56
[2022-05-29 12:25] LABS: Glucose Point of Care 158 mg/dl (65-105)
== END 2022-06-28 12:11 | disposition home or self-care (01) ==
LOC: ANHCPREHAB 11:00
PROVIDERS: PCP Internal Medicine; Visit Provider Nurse Practitioner Adult Health
DX: Z95.5 Presence of coronary angioplasty implant and graft (principal)
CPT/HCPCS: 93798

== ENCOUNTER 2022-06-16 02:24 | Emergency (ER) | payer MEDICARE, OTHER, SELFPAY ==
[2022-06-16] VITALS (9 sets, daily range): BP systolic 183–208; BP diastolic 64–89; PULSE 50–76; RESP 10–17; TEMP 36.6; O2SAT 95–98
--- NOTE | ~2022-06-16 | CT_ITS ---
EXAMINATION: CT brain wo con DATE: 06/16/2022 03:28 INDICATION: Head injury. TECHNIQUE: Computed tomography (CT) of the head was performed without intravenous contrast. The mA wa s adjusted according to patient size. Iterative reconstruction technique was employed. The dose-lengt h product was 605.33 mGy-cm. COMPARISON: Head CT 03/26/2020 FINDINGS: There are scattered areas of low attenuation in the cerebral white matter, which is within normal limits for the patient's age. There is no intracranial hemorrhage, acute infarction, or abnorm al intracranial mass lesion. There is a small area of cystic encephalomalacia in the left frontal lob e deep white matter. There are likely changes of ocular lens replacement surgeries. There is mild muc osal thickening in the ethmoid sinuses. There are chronic bilateral mastoid effusions. IMPRESSION: 1. Small area of chronic cystic encephalomalacia in the left frontal lobe deep white matter. Reviewed, dictated and finalized at location A.
--- NOTE | ~2022-06-16 | XR_ITS ---
EXAMINATION: XR knee RT 3V DATE: 06/16/2022 03:17 INDICATION: Right knee pain. Fall. TECHNIQUE: 3 views of right knee were obtained. COMPARISON: None. FINDINGS: There is a total knee arthroplasty with patellar resurfacing in near-anatomic alignment. No fracture. No periprosthetic lucency to suggest loosening or infection. There is a small knee joint e ffusion. IMPRESSION: 1. Total right knee arthroplasty in near-anatomic alignment. 2. Small right knee joint effusion. Reviewed, dictated and finalized at location A.
--- NOTE | ~2022-06-16 | CT_ITS ---
EXAMINATION: CT cervical spine wo con DATE: 06/16/2022 03:30 INDICATION: Head injury. TECHNIQUE: Computed tomography (CT) of the cervical spine was performed without intravenous contrast. Automated exposure control and iterative reconstruction technique were employed. The dose-length pro duct was 169.72 mGy-cm. COMPARISON: None FINDINGS: There are nodules in the thyroid measuring up to 14 mm, likely not clinically significant. The lung apices demonstrate smooth septal thickening, likely mild pulmonary edema. There is a right m astoid effusion. There is a left otomastoid effusion. There is 3 degrees levocurvature of cervical sp ine. There is 2 mm retrolisthesis of C3 on C4 and 2 mm anterolisthesis of C7 on T1. Vertebral body he ights are normal. There is severely decreased disc height at C3-C4, C5-C6, and C6-C7 with interbody f usion at C5-C6. There is mildly decreased disc height at C4-C5. The following disc levels are specifi nichole discussed: C2-C3: There is severe right and mild left uncovertebral joint osteoarthritis. There is severe right and moderate left facet joint osteoarthritis. There is mild right neural foraminal stenosis. There is no central canal stenosis. C3-C4: There is severe bilateral uncovertebral joint osteoarthritis. There is moderate right and sarbjit re left facet joint osteoarthritis. There is mild bilateral neural foraminal stenosis. There is mild central canal stenosis. C4-C5: There is no uncovertebral joint osteoarthritis. There is mild bilateral facet joint osteoarthr itis. There is no neural foraminal stenosis. There is mild central canal stenosis. C5-C6: There is moderate bilateral uncovertebral joint hypertrophy. There is mild right and moderate left facet joint hypertrophy. There is mild left neural foraminal stenosis. There is mild central can al stenosis. C6-C7: There is bilateral uncovertebral joint osteoarthritis. There is moderate bilateral facet joint osteoarthritis. There is mild bilateral neural foraminal stenosis. There is mild central canal steno sis. C7-T1: There is no uncovertebral joint osteoarthritis. There is severe right and moderate left facet joint osteoarthritis. There is mild right neural foraminal stenosis. There is no central canal stenos is. IMPRESSION: 1. No fracture. 2. Severe cervical spondylosis. Reviewed, dictated and finalized at location A.
--- NOTE | ~2022-06-16 | XR_ITS ---
EXAMINATION: XR knee LT 3V DATE: 06/16/2022 03:17 INDICATION: Left knee pain. Fall. TECHNIQUE: 3 views of left knee were obtained. COMPARISON: None. FINDINGS: Bone alignment is normal. No fracture. There is mild tricompartmental osteoarthritis. There is a small knee joint effusion. There is pretibial soft tissue swelling. IMPRESSION: 1. Mild left knee osteoarthritis. 2. Small left knee joint effusion. Reviewed, dictated and finalized at location A.
--- NOTE | ~2022-06-16 | XR_ITS ---
EXAMINATION: XR tibia fibula LT 2V DATE: 06/16/2022 05:58 INDICATION: Left lower leg injury. TECHNIQUE: 2 views of left tibia and fibula were obtained. COMPARISON: None. FINDINGS: Bone alignment is normal. There are old healed fractures of distal tibial and fibular diaph yses. Osteopenia is noted. No acute fracture. There is mild osteoarthritis of the knee joint. There i s moderate tibiotalar joint osteoarthritis. There is mild osteoarthritis of some of the midfoot joint s. There is a small knee joint effusion. There is pretibial soft tissue swelling. IMPRESSION: 1. No acute fracture. 2. Polyarticular osteoarthritis. Reviewed, dictated and finalized at location A.
--- NOTE | 2022-06-16 02:45 | PC.NURSE ---
patient reports that she has been wearing a life vest at home up until yesterday when she decided to take it off before she was supposed to. patient reports that she was supposed to wear if for another week per paint mixer machine. states she does not completely remember the fall and can not really say if she passed out or tripped because I was still asleep .
[2022-06-16 04:00] LABS: Basophils Percent Auto 0.2 % (0.2-1.2); Eosinophils Percent Auto 0.3 % (0-4.4); Immature Granulocyte Absolute 0.03 K/mm3 (0.00-0.031); Immature Granulocyte Percent A 0.3 % (0-0.5); Lymphocytes Absolute Auto 1.65 K/mm3 (0.9-3.2); Lymphocytes Percent Auto 17.7 % (18.3-44.2); Mean Corpuscular HGB Conc 32.4 g/dl (32-36); Mean Corpuscular Hemoglobin 31.1 pg (26-34); Mean Corpuscular Volume 95.9 fl (80-100); Mean Platelet Volume 9.8 fl (7.4-10.4); Monocytes Absolute Auto 0.7 K/mm3 (0.1-0.6); Monocytes Percent Auto 7.8 % (2.6-8.5); Neutrophils Absolute Auto 6.9 K/mm3 (1.3-6.7); Neutrophils Percent Auto 73.7 % (45.5-73.1); Platelet Count Result 237 k/mm3 (150-375); Red Blood Count 3.86 M/mm3 (4.2-5.4); Red Cell Distribution Width 13.5 % (11.5-14.5); White Blood Count 9.3 K/mm3 (4.5-10.0)
[2022-06-16 04:12] LABS: Alanine Aminotransferase 17 U/L (6-35); Albumin Level 3.7 g/dL (3.5-5.1); Alkaline Phosphatase 82 U/L (38-126); Anion Gap 6 mmol/L (8-16); Aspartate Amino Transferase 35 U/L (14-36); Bilirubin,Total 0.6 mg/dL (0.2-1.3); Blood Urea Nitrogen 28 mg/dL (7-17); Calcium 8.9 mg/dL (8.4-10.2); Carbon Dioxide 26 mmol/L (22-30); Chloride 102 mmol/L (98-107); Estimated CRCL calculation 30 ml/min; Estimated Glomerular Filt Rate 43; Glucose 209 mg/dL (65-110); Lipase 215 U/L (23-300); Magnesium 1.8 mg/dL (1.6-2.3); Sodium 134 mmol/L (137-145)
[2022-06-16 04:14] LABS: Partial Thromboplastin Time 22.8 SECONDS (22.3-36.8); Prothrombin Time 12.9 Seconds (11.1-14.7)
--- NOTE | 2022-06-16 05:49 | ED.GENADULT ---
HPI - General Adult General Chief complaint: Fall Stated complaint: fall Time Seen by Provider: 06/16/22 02:44 History of Present Illness HPI narrative: Patient 81-year-old female that presents the emergency department with chief complaint of fall. Patient states she was getting up to go to the bathroom lost her footing and fell on her knees. The patient states she also struck her head reports she is on antiplatelet therapy is not sure whether she had loss of consciousness reports he is supposed to wear a LifeVest but does not usually wear it at night or at certain times because it is uncomfortable the patient states that she has history of a low ejection fraction and coronary artery disease. Patient states that she has swelling in her left lower extremity below the knee and also in the knee itself patient reports the pain is worse with movement and improved with rest. Related Data Home Medications Medication Instructions Recorded Confirmed mecobalamin (vitamin B12) 1,000 500 mcg sublingual DAILY 12/16/20 05/31/22 mcg disintegrating tablet,sublingual flash glucose scanning reader 04/20/21 05/31/22 (FreeStyle Hallie 14 Day Lando) gabapentin 100 mg capsule 100 mg PO BID 03/20/22 05/31/22 insulin glargine 100 unit/mL (3 14 unit subcut HS 03/22/22 05/31/22 mL) subcutaneous pen (Basaglar KwikPen U-100 Insulin) metoprolol tartrate 50 mg tablet 50 mg PO BID 05/31/22 05/31/22 Allergies Allergy/AdvReac Type Severity Reaction Status Date / Time acetaminophen Allergy Intermediate Rash Verified 06/16/22 02:30 amoxicillin Allergy Mild Other Verified 06/16/22 02:30 clavulanic acid AdvReac Unknown Other Verified 06/16/22 02:30 [From Augmentin] Review of Systems Review of Systems: A 10 system review of systems was completed on the patient and is negative except for what is stated in the HPI. Nursing and ancillary documentation was reviewed. [facility] Past Medical History Medical History Anemia With history of iron deficiency anemia requiring iron transfusions. Benign paroxysmal positional vertigo due to bilateral vestibular disorder Chronic bilateral low back pain without sciatica Chronic hyponatremia CKD (chronic kidney disease) stage 3, GFR 30-59 ml/min She is a patient of Dr. Robin Shoemaker. Colon polyp Diabetic peripheral neuropathy Essential hypertension Gastroesophageal reflux disease Heart attack Hyperlipidemia associated with type 2 diabetes mellitus Hyponatremia Idiopathic chronic pancreatitis On long-term Creon. LBBB (left bundle branch block) Moderate mitral regurgitation Neuropathy Overweight (BMI 25.0-29.9) Pancreatic insufficiency Polyneuropathy Pulmonary hypertension Pure hypercholesterolemia Rectal hemorrhage due to inflammatory polyps of colon Sarcoidosis of lung Diagnosed in the . Spinal stenosis of lumbosacral region Type 2 diabetes mellitus with diabetic nephropathy, without long-term current use of insulin Uncontrolled diabetes mellitus with diabetic neuropathy Vaginal delivery x3 Venous insufficiency Surgical History Surgical History History of appendectomy History of breast biopsy History of cataract surgery History of hand surgery History of repair of left rotator cuff History of rotator cuff surgery right History of tonsillectomy History of total right knee replacement Family History Family History Father Hypertension Heart disease Acute myocardial infarction Mother Family history of lung cancer Family history of malignant neoplasm of breast in first degree relative Hypertension Sibling Breast cancer Acute myocardial infarction sister and brother Cerebrovascular accident sister Diabetes mellitus Heart disease Hypertension Other Breast cancer a
== END 2022-06-16 06:20 | disposition home or self-care (01) ==
PROVIDERS: Emergency Provider Emergency Medicine; PCP Internal Medicine
DX: S09.90XA Unspecified injury of head, initial encounter (principal); S80.02XA Contusion of left knee, initial encounter; S80.01XA Contusion of right knee, initial encounter; E11.22 Type 2 diabetes mellitus with diabetic chronic kidney disease; I12.9 Hypertensive chronic kidney disease with stage 1 through stage 4 chronic kidney disease, or unspecified chronic kidney disease; N18.30 Chronic kidney disease, stage 3 unspecified; E11.42 Type 2 diabetes mellitus with diabetic polyneuropathy; E11.21 Type 2 diabetes mellitus with diabetic nephropathy; E78.00 Pure hypercholesterolemia, unspecified; E87.1 Hypo-osmolality and hyponatremia; I27.20 Pulmonary hypertension, unspecified; I34.0 Nonrheumatic mitral (valve) insufficiency; I87.2 Venous insufficiency (chronic) (peripheral); D50.9 Iron deficiency anemia, unspecified; D86.0 Sarcoidosis of lung; K21.9 Gastro-esophageal reflux disease without esophagitis; K86.1 Other chronic pancreatitis; M17.12 Unilateral primary osteoarthritis, left knee; H81.93 Unspecified disorder of vestibular function, bilateral; Z96.651 Presence of right artificial knee joint; Z86.010 Personal history of colon polyps; Z98.49 Cataract extraction status, unspecified eye; Z79.4 Long term (current) use of insulin; Z79.82 Long term (current) use of aspirin; Z79.02 Long term (current) use of antithrombotics/antiplatelets; M47.812 Spondylosis without myelopathy or radiculopathy, cervical region; W01.0XXA Fall on same level from slipping, tripping and stumbling without subsequent striking against object, initial encounter
CPT/HCPCS: 36415; 70450; 72125; 73562; 73590; 80053; 83605; 83690; 83735; 85025; 85610; 85730; 99284

== ENCOUNTER 2022-07-07 15:08 | Outpatient (CLI) | payer MEDICARE, OTHER, SELFPAY ==
--- NOTE | ~2022-07-07 | US_ITS ---
EXAMINATION: US venous doppler [facility] DATE: 07/07/2022 15:55 INDICATION: Left lower limb edema. TECHNIQUE: Grayscale ultrasound images without and with compression and Doppler ultrasound images of the left lower extremity veins were obtained. COMPARISON: None. FINDINGS: The visualized portions of left common femoral vein, profunda (deep) femoral vein, femoral vein, popl iteal vein, peroneal veins, posterior tibial veins, and greater saphenous vein outflow are patent. Th ere is a moderate-sized Mcfarland's cyst. IMPRESSION: 1. No deep venous thrombosis. 2. Moderate-sized Mcfarland's cyst. Reviewed, dictated and finalized at location A.
== END 2022-07-07 15:09 | disposition home or self-care (01) ==
PROVIDERS: PCP Internal Medicine; Visit Provider Orthopaedic Surgery
DX: R60.0 Localized edema (principal); M79.605 Pain in left leg; M71.22 Synovial cyst of popliteal space [Baker], left knee
CPT/HCPCS: 93971

== ENCOUNTER 2022-07-17 10:15 | Outpatient (CLI) | payer MEDICARE, OTHER, SELFPAY ==
--- NOTE | 2022-07-17 11:30 | NEURO_ITS ---
Impression: # Complains of right lower extremity numbness. Insulin dependent diabetic. # Neuropathy with more involvement of right peroneal nerve. # Needle/EMG abnormal with neurogenic changes. Nerve Conduction Studies Anti Sensory Summary Table Stim Site NR Peak (ms) P-T Amp (?V) Site1 Site2 Delta-P (ms) Dist (cm) Yanick (m/s) Right Sup Fibular Anti Sensory (Ant Lat Mall) 14 cm 4.1 10.8 14 cm Ant Lat Mall 4.1 16.0 39 Right Sural Anti Sensory (Lat Mall) NO RESPONSE Calf NR Calf Lat Mall 16.0 Motor Summary Table Stim Site NR Onset (ms) O-P Amp (mV) Site1 Site2 Delta-0 (ms) Dist (cm) Yanick (m/s) Right Peroneal Motor (Vastus Med) NO RESPONSE Ankle NR Popit Ankle 0.0 Popit NR Right Tibial Motor (Abd Ann Brev) Ankle 4.7 0.5 Knee Ankle 10.8 39.0 36 Knee 15.5 0.7 F Wave Studies NR F-Lat (ms) L-R F-Lat (ms) Right Peroneal (Mrkrs) (EDB) DISPERSED RESPONSE NR Right Tibial (Mrkrs) (Abd Hallucis) DISPERSED RESPONSE NR EMG Side Muscle Nerve Root Ins Act Fibs Amp Dur Recrt Comment Right AntTibialis Dp Br Fibular L4-5 Nml Nml Nml >12ms Reduced Right Gastroc Tibial S1-2 Nml Nml Nml >12ms Reduced Right Fibularis Long Sup Br Fibular L5-S1 Nml Nml Nml >12ms Reduced Right Flex Dig Long Tibial L5-S2 Nml Nml Nml >12ms Reduced Right Ext Dig Brev Dp Br Fibular L5, S1 Nml Nml Nml >12ms Reduced MTDD
== END 2022-07-17 10:16 | disposition home or self-care (01) ==
LOC: ANHNEURO 10:15
PROVIDERS: PCP Internal Medicine; Referring Provider Nurse Practitioner; Visit Provider Internal Medicine
DX: R20.0 Anesthesia of skin (principal)
CPT/HCPCS: 95886; 95908

== ENCOUNTER 2022-08-26 23:26 | Emergency (ER) | payer MEDICARE, OTHER, SELFPAY ==
[2022-08-26 23:29] VITALS: BP 203/63; PULSE 57; RESP 16; TEMP 36.3; O2SAT 99
[2022-08-26 23:35] VITALS: PULSE 64; RESP 22; O2SAT 100
[2022-08-26 23:37] VITALS: BP 185/71; PULSE 60; RESP 17; O2SAT 99
[2022-08-26 23:38] VITALS: BP 185/71; PULSE 57; RESP 15; O2SAT 98
[2022-08-26 23:45] VITALS: PULSE 54; RESP 14
--- NOTE | 2022-08-26 23:47 | ED.RECABL ---
HPI - Recheck/Abnormal Lab/Rx General Chief Complaint: Recheck/Abnormal Lab/Rx <Bel Du PA-C - Last Filed: 08/27/22 01:43> Stated Complaint: high blood pressure, 209/102 at home <Bel Du PA-C - Last Filed: 08/27/22 01:43> Time Seen by Provider: 08/26/22 23:35 <KAYLEY Silva Last Filed: 08/27/22 01:43> History of Present Illness HPI narrative: Patient is an 81-year-old female here for evaluation of bilateral lower extremity cramping. Patient states over the past 2 days, she has had nighttime muscle cramping in her proximal thigh region. States that the pain has been intermittent in nature, but over the past day has been relatively constant and worse. She denies any recent increased exertion, known trauma to the area, overlying rash. Attempted tramadol without relief of her symptoms. She does take a statin. patient presents to the emergency department tonight because her blood pressure was elevated at home and was concerned that this is connected to her leg cramping. Patient denies any chest pain, shortness of breath, nausea or vomiting, confusion. <KAYLEY Silva Last Filed: 08/27/22 01:43> Related Data Home Medications: Home Medications Medication Instructions Recorded Confirmed mecobalamin (vitamin B12) 1,000 500 mcg sublingual DAILY 12/16/20 06/29/22 mcg disintegrating tablet,sublingual flash glucose scanning reader 04/20/21 06/29/22 (FreeStyle Hallie [employer]) insulin glargine 100 unit/mL (3 14 unit subcut HS 03/22/22 06/29/22 mL) subcutaneous pen (Basaglar KwikPen U-100 Insulin) metoprolol tartrate 50 mg tablet 50 mg PO BID 05/31/22 06/29/22 mometasone 0.1 % topical ointment 1 applic topical DAILY PRN 06/29/22 06/29/22 <KAYLEY Silva Last Filed: 08/27/22 01:43> Allergies/Adverse Reactions: Allergies Allergy/AdvReac Type Severity Reaction Status Date / Time acetaminophen Allergy Intermediate Rash Verified 08/26/22 23:37 amoxicillin Allergy Mild Other Verified 08/26/22 23:37 clavulanic acid AdvReac Unknown Other Verified 08/26/22 23:37 [From Augmentin] <Bel Du PA-C - Last Filed: 08/27/22 01:43> Review of Systems Review of Systems: Gen: Denies fevers or chills Eyes: Denies eye pain or visual change ENT: Denies congestion Respiratory: Denies shortness of breath or cough CV: Denies chest pain or palpitations GI: Denies abdominal pain nausea, emesis or diarrhea denies burning, urgency, frequency or hematuria Musculoskeletal: Reports muscle cramping. Denies back pain or muscle pain Neuro: Denies numbness, tingling, weakness or focal weakness Skin: Denies rash Except as documented, all other systems reviewed and negative <Bel Du PA-C - Last Filed: 08/27/22 01:43> [facility] Past Medical History Medical History: Medical History Acute kidney injury Anemia With history of iron deficiency anemia requiring iron transfusions. Benign paroxysmal positional vertigo due to bilateral vestibular disorder Chronic bilateral low back pain without sciatica Chronic hyponatremia Colon polyp Diabetes Diabetic peripheral neuropathy Essential hypertension Gastroesophageal reflux disease Heart attack Hyperlipidemia associated with type 2 diabetes mellitus Hyponatremia Idiopathic chronic pancreatitis On long-term Creon. 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 Spinal stenosis of lumbosacral region Uncontrolled diabetes mellitus with diabetic neuropathy Vaginal delivery x3 Venous insufficiency <Bel Du PA-C - Last Filed: 08/27/22
[2022-08-26 23:57] VITALS: BP 144/83; PULSE 52; RESP 16; O2SAT 95
[2022-08-27] VITALS (11 sets, daily range): BP systolic 181–191; BP diastolic 62–77; PULSE 51–72; RESP 11–20; O2SAT 95–100
[2022-08-27 00:01] LABS: Basophils Percent Auto 0.5 % (0.2-1.2); Eosinophils Absolute Auto 0.3 K/mm3 (0-0.3); Eosinophils Percent Auto 4.8 % (0-4.4); Hematocrit 37.7 % (37.0-47.0); Hemoglobin 12.1 g/dL (12.0-15.0); Immature Granulocyte Absolute 0.02 K/mm3 (0.00-0.031); Immature Granulocyte Percent A 0.3 % (0-0.5); Lymphocytes Absolute Auto 1.42 K/mm3 (0.9-3.2); Lymphocytes Percent Auto 22.6 % (18.3-44.2); Mean Corpuscular HGB Conc 32.1 g/dl (32-36); Mean Corpuscular Hemoglobin 30.6 pg (26-34); Mean Corpuscular Volume 95.4 fl (80-100); Mean Platelet Volume 9.4 fl (7.4-10.4); Monocytes Absolute Auto 0.6 K/mm3 (0.1-0.6); Monocytes Percent Auto 9.9 % (2.6-8.5); Neutrophils Absolute Auto 3.9 K/mm3 (1.3-6.7); Neutrophils Percent Auto 61.9 % (45.5-73.1); Platelet Count Result 233 k/mm3 (150-375); Red Blood Count 3.95 M/mm3 (4.2-5.4); Red Cell Distribution Width 13.4 % (11.5-14.5); White Blood Count 6.3 K/mm3 (4.5-10.0)
[2022-08-27 00:11] LABS: Alanine Aminotransferase 21 U/L (6-35); Albumin Level 4.1 g/dL (3.5-5.1); Alkaline Phosphatase 109 U/L (38-126); Anion Gap 9 mmol/L (8-16); Aspartate Amino Transferase 26 U/L (14-36); Bilirubin,Total 0.5 mg/dL (0.2-1.3); Blood Urea Nitrogen 31 mg/dL (7-17); Calcium 8.8 mg/dL (8.4-10.2); Carbon Dioxide 27 mmol/L (22-30); Chloride 98 mmol/L (98-107); Creatine Kinase 43 U/L (30-135); Estimated CRCL calculation 25 ml/min; Estimated Glomerular Filt Rate 36; Glucose 179 mg/dL (65-110); Potassium 3.9 mmol/L (3.4-5.0); Sodium 134 mmol/L (137-145)
[2022-08-27 00:12] LABS: Magnesium 1.8 mg/dL (1.6-2.3); Phosphorus 4.4 mg/dL (2.5-4.5)
[2022-08-27] MEDS: TIZANIDINE HCL 2 MG TABLET PO (00:54)
== END 2022-08-27 01:43 | disposition home or self-care (01) ==
PROVIDERS: Physician Assistant; Emergency Provider Emergency Medicine; PCP Internal Medicine
DX: R25.2 Cramp and spasm (principal); I10 Essential (primary) hypertension; E11.9 Type 2 diabetes mellitus without complications; E78.5 Hyperlipidemia, unspecified; I25.2 Old myocardial infarction; Z79.4 Long term (current) use of insulin; Z79.899 Other long term (current) drug therapy
CPT/HCPCS: 36415; 80053; 82550; 83735; 84100; 85025; 99283; A9270; C1751

== ENCOUNTER 2022-08-30 12:08 | Inpatient (IN) | payer MEDICARE, OTHER, SELFPAY ==
[2022-08-30] VITALS (24 sets, daily range): BP systolic 123–192; BP diastolic 41–76; PULSE 62–100; RESP 16–30; TEMP 36.5–38.1; O2SAT 82–100; BMI 27.7
--- NOTE | ~2022-08-30 | US_ITS ---
EXAMINATION: US renal BI DATE: 09/02/2022 08:17 INDICATION: Acute on chronic renal insufficiency TECHNIQUE: Multiple ultrasound grayscale images of the kidneys were obtained. COMPARISON: None. FINDINGS: The right kidney measures 9.2 x 4.1 x 5.6 cm. The left kidney measures 10.6 x 5.1 x 5.6 cm. Bilateral mild diffuse increased renal cortical echogenicity. There is no hydronephrosis in either kidney. No stones identified. The bladder is nonvisualized, likely decompressed with a Marques catheter reportedl y in place. IMPRESSION: 1. Bilateral increased renal cortical echogenicity consistent with medical renal disease. No hydrone phrosis. Reviewed, dictated and finalized at location A. SHOW JUDGE IMPRESSION: 1. Bilateral increased renal cortical echogenicity consistent with medical regi al disease. No hydronephrosis.
--- NOTE | ~2022-08-30 | XR_ITS ---
EXAMINATION: XR chest 1V portable DATE: 08/30/2022 12:28 INDICATION: Fever. Cough. TECHNIQUE: A single frontal view of the chest was obtained. COMPARISON: Chest single view 03/22/2022, CT abdomen and pelvis 03/30/2020 FINDINGS: The lungs demonstrate interstitial pattern, consistent mild pulmonary edema. There are airs pace opacities in left mid and lower lung zones. No pneumothorax or pleural effusion. Cardiomegaly is noted. IMPRESSION: 1. Airspace opacities in left mid and lower lung zones, consistent with pneumonia. 2. Mild pulmonary edema. 3. Cardiomegaly. Reviewed, dictated and finalized at location A. ESSIONAL FIGHTER IMPRESSION: 1. Airspace opacities in left mid and lower lung zones, consistent with pneumon ia. 2. Mild pulmonary edema. 3. Cardiomegaly.
--- NOTE | 2022-08-30 12:11 | ECG_ITS ---
Measurements Intervals [place] Rate: 86 P: 16 IN: 163 QRS: -30 QRSD: 134 T: 113 QT: 411 QTc: 492 Interpretive Statements SINUS RHYTHM VENTRICULAR PREMATURE COMPLEXES POSSIBLE LEFT ATRIAL ENLARGEMENT LEFT BUNDLE BRANCH BLOCK BASELINE ARTIFACT- I, II, III, AVR, AVL, V1-V2 ABNORMAL ECG COMPARED TO ECG 03/23/2022 09:30:23 NO SIGNIFICANT CHANGES Electronically Signed On 08-30-2022 12:46:15 DIABETES NURSE by Jose Carty D.O.
[2022-08-30 12:28] LABS: Alveolar/Arterial O2 Gradient 180.2 mmHg; Carboxyhemoglobin 0.3 % THb (0-2.0); Fractional Inspired Oxygen 42 %; HCO3 ABG 20.9 mEq/l (22.0-26.0); Methemoglobin ABG 0.5 %THb (0-1.5); Oxygen Content ABG 19.1 %vol (16.0-22.0); Oxygen Saturation ABG 96.8 % (95.0-100.0); Oxyhemoglobin 95.5 % THb (90.0-100.0); PCO2 ABG 30.8 mmHg (35.0-45.0); Reduced Hemoglobin 3.7 %THb (0-5.0); Total Hemoglobin 14.2 g/dL (12.0-18.0); pH ABG 7.449 (7.350-7.450)
[2022-08-30 12:29] LABS: Device NASAL CANNULA; Modified Allen's Test Pass; Site Drawn RIGHT RADIAL
[2022-08-30 12:34] LABS: Basophils Absolute Auto 0.1 K/mm3 (0.0-0.1); Basophils Percent Auto 0.5 % (0.2-1.2); Eosinophils Percent Auto 0.1 % (0-4.4); Hematocrit 41.2 % (37.0-47.0); Hemoglobin 13.4 g/dL (12.0-15.0); Immature Granulocyte Absolute 0.05 K/mm3 (0.00-0.031); Immature Granulocyte Percent A 0.3 % (0-0.5); Lymphocytes Absolute Auto 0.71 K/mm3 (0.9-3.2); Lymphocytes Percent Auto 4.7 % (18.3-44.2); Mean Corpuscular HGB Conc 32.5 g/dl (32-36); Mean Corpuscular Hemoglobin 30.9 pg (26-34); Mean Corpuscular Volume 94.9 fl (80-100); Mean Platelet Volume 9.8 fl (7.4-10.4); Monocytes Absolute Auto 0.7 K/mm3 (0.1-0.6); Monocytes Percent Auto 4.7 % (2.6-8.5); Neutrophils Absolute Auto 13.5 K/mm3 (1.3-6.7); Neutrophils Percent Auto 89.7 % (45.5-73.1); Platelet Count Result 295 k/mm3 (150-375); Red Blood Count 4.34 M/mm3 (4.2-5.4); Red Cell Distribution Width 13.7 % (11.5-14.5)
[2022-08-30 12:46] LABS: INR 1.1; Prothrombin Time 13.4 Seconds (11.1-14.7)
[2022-08-30] MEDS: IPRATROPIUM BR 0.02% INH SOLN 0.5 MG/2.5 ML VIAL INHALATION ×2 (12:46→20:09)
[2022-08-30] MEDS: ALBUTEROL SULFATE NEB 2.5 MG/3 ML INH INHALATION (12:46)
[2022-08-30 12:47] LABS: Lactic Acid Reflex 2.4 mmol/L (0.7-2.0); Partial Thromboplastin Time 23.5 SECONDS (22.3-36.8)
[2022-08-30 12:49] LABS: Alanine Aminotransferase 19 U/L (6-35); Alkaline Phosphatase 122 U/L (38-126); Anion Gap 12 mmol/L (8-16); Aspartate Amino Transferase 24 U/L (14-36); Bilirubin,Total 1.1 mg/dL (0.2-1.3); Blood Urea Nitrogen 35 mg/dL (7-17); CRP 1.9 mg/dL (<1.0); Calcium 8.9 mg/dL (8.4-10.2); Carbon Dioxide 21 mmol/L (22-30); Chloride 102 mmol/L (98-107); Estimated CRCL calculation 25 ml/min; Estimated Glomerular Filt Rate 33; Glucose 229 mg/dL (65-110); Sodium 135 mmol/L (137-145)
[2022-08-30 13:09] LABS: Influenza A QL RT-PCR Negative (Negative); Influenza B QL RT-PCR Negative (Negative); SARS-CoV-2 RNA PCR Negative
[2022-08-30 13:09] LABS: NT Pro B Type Natriuretic Pept 2930 pg/mL (5-100); Troponin I 0.062 ng/mL (0.000-0.034)
[2022-08-30 13:37] LABS: Appearance Urine Clear (Clear); Bilirubin Urine Negative (Negative); Blood Urine Negative (Negative); Color Urine Yellow (Yellow); Glucose Urine UA Negative (Negative); Ketones Urine Trace mg/dL (Negative); Leukocyte Esterase Ur Negative LEU/UL (Negative); Nitrate Urine Negative (Negative); Protein Urine 3+ mg/dL (Negative); Urobilinogen Urine 0.2 mg/dL (<2.0)
[2022-08-30 14:08] LABS: Mucus Urine Rare /lpf; RBC Urine 0-2 /hpf (0-2); WBC Urine 0-3 /hpf
[2022-08-30 14:17] LABS: Add Urine Microscopic? YES
--- NOTE | 2022-08-30 14:30 | PM.IMHP ---
H&P: HPI History of Present Illness Date/Time: 08/30/22 14:30 Chief Complaint: Shortness of breath. Narrative: This is a very pleasant 81-year-old female with insulin-dependent type 2 diabetes mellitus, diabetic peripheral neuropathy, coronary artery disease with history of anterior wall NM status post balloon PTCA of the mid LAD, ischemic cardiomyopathy with an EF as low as 25-30% on echo in March 2022, combined systolic and diastolic congestive heart failure, hypertension, and GERD who presented to the emergency department for evaluation of shortness of breath. She was seen in the emergency department on 08/26/2022 with complaints of high blood pressure and bilateral lower extremity cramping for couple of days. Her workup was really unremarkable and she was discharged home and followed up with her primary care provider to days thereafter. At that time she continued to complain of pain in her legs and also mention that she was a bit short of breath but she went on to say that she had recently seen her bag filler and they told her was likely due to her cardiomyopathy. Her statin was discontinued and hydralazine was added to her regimen due to persistently elevated blood pressures. Since that time she has felt increasingly worse with fatigue, chills, shakes, poor appetite, nausea, shortness of breath, and cough that has been rarely productive of clear phlegm. This morning she felt much worse and even a bit confused and she was brought in for evaluation. Her SpO2 was 82% on room air on arrival to triage in her temperature was 100.6?. Blood pressures have been stable. Chest x-ray done on arrival showed airspace opacities in the left mid and lower lung zones consistent with pneumonia and she is being admitted in this setting. At the time my evaluation she is feeling better on oxygen. She has no known sick contacts. She denies headache and neck ache. She has not had any sore throat. Appetite has been poor but she denies nausea, vomiting, and diarrhea. She has not had chest pain or pleuritic pain. Review of Systems Review of Systems: Twelve systems were reviewed and are negative except for as per HPI. FORMERLY [facility] Past Medical History Medical History (Updated 08/30/22 @ 22:17 by Monique Fernandez PA-C) Acute kidney injury Anemia With history of iron deficiency anemia requiring iron transfusions. Benign paroxysmal positional vertigo due to bilateral vestibular disorder Chronic bilateral low back pain without sciatica Chronic hyponatremia Chronic kidney disease, stage 3 Colon polyp Combined systolic and diastolic cardiac dysfunction Coronary artery disease Diabetic peripheral neuropathy Essential hypertension Gastroesophageal reflux disease Heart attack Hyperlipidemia associated with type 2 diabetes mellitus Hyponatremia Idiopathic chronic pancreatitis On long-term Creon. Insulin dependent type 2 diabetes mellitus Ischemic cardiomyopathy LBBB (left bundle branch block) Moderate mitral regurgitation Neuropathy Pancreatic insufficiency Polyneuropathy Pulmonary hypertension Pure hypercholesterolemia Rectal hemorrhage due to inflammatory polyps of colon Sarcoidosis of lung Diagnosed in the . Spinal stenosis of lumbosacral region Venous insufficiency Surgical History Surgical History History of appendectomy History of breast biopsy History of cataract surgery History of hand surgery History of repair of left rotator cuff History of rotator cuff surgery right History of tonsillectomy History of total right knee replacement Family History Family History Father Hypertension Heart disease Acute myocardial infarction Mother Family history of lung cancer Family history of malignant neoplasm of breast in first degree relative Hypertension Sibling Breast cancer Acute myocardial infarction sister and brother
--- NOTE | 2022-08-30 14:38 | ED.SOB ---
HPI - SOB/Dyspnea General Chief Complaint: Shortness of Breath/Dyspnea Stated Complaint: SOB Time Seen by Provider: 08/30/22 12:30 History of Present Illness HPI Narrative: Pt presents with fever and SOB for the last few days. Pt says the SOB is getting worse. Pt denies chest pain. Pt has general weakness and has not been eating or drinking well. Related Data Home Medications Medication Instructions Recorded Confirmed flash glucose scanning reader 04/20/21 08/28/22 (FreeStyle Hallie 14 Day [place]) insulin glargine 100 unit/mL (3 14 unit subcut HS 03/22/22 08/28/22 mL) subcutaneous pen (Basaglar KwikPen U-100 Insulin) mometasone 0.1 % topical ointment 1 applic topical DAILY PRN Rash 06/29/22 08/30/22 aspirin 81 mg chewable tablet 81 mg PO DAILY 08/30/22 08/30/22 (Children's Aspirin) Allergies Allergy/AdvReac Type Severity Reaction Status Date / Time acetaminophen Allergy Intermediate Rash Verified 08/30/22 17:49 amoxicillin Allergy Mild Other Verified 08/30/22 17:49 clavulanic acid AdvReac Unknown Other Verified 08/30/22 17:49 [From Augmentin] Review of Systems Review of Systems: All systems reviewed & are unremarkable except as noted in HPI and below PMFSH Past Medical History Medical History Acute kidney injury Anemia With history of iron deficiency anemia requiring iron transfusions. Benign paroxysmal positional vertigo due to bilateral vestibular disorder Chronic bilateral low back pain without sciatica Chronic hyponatremia Colon polyp Diabetes Diabetic peripheral neuropathy Essential hypertension Gastroesophageal reflux disease Heart attack Hyperlipidemia associated with type 2 diabetes mellitus Hyponatremia Idiopathic chronic pancreatitis On long-term Creon. 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 Spinal stenosis of lumbosacral region Uncontrolled diabetes mellitus with diabetic neuropathy Vaginal delivery x3 Venous insufficiency Surgical History Surgical History History of appendectomy History of breast biopsy History of cataract surgery History of hand surgery History of repair of left rotator cuff History of rotator cuff surgery right History of tonsillectomy History of total right knee replacement Family History Family History Father Hypertension Heart disease Acute myocardial infarction Mother Family history of lung cancer Family history of malignant neoplasm of breast in first degree relative Hypertension Sibling Breast cancer Acute myocardial infarction sister and brother Cerebrovascular accident sister Diabetes mellitus Heart disease Hypertension Other Breast cancer aunt Social History Social History (Updated 08/28/22 @ 12:59 by Shaunna Rios [facility]) Social History: The patient is and lives with her in [place]. 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 She is a lifelong nonsmoker and denies alcohol and illicit substance use. She designates her , Lionel, as her surrogate decision maker and she wishes to be a full code. Smoking status: Never smoker Second hand tobacco smoke exposure: No Alcohol intake: never Substance use: never Substance use type: does not use Lack of Transportation: No Lack of Food: Never True Current Housing: I Have Housing Concerned About Future Housing: No Difficulty Paying Gas/Electric Bills: No Difficulty Paying for Meds: No Currently Unemployed: No Education: Associate Degree Difficulty w/ Childcare or Family Care: No Sp
[2022-08-30 15:31] LABS: Reflex Lactic Acid Yes or No Add Lactic
[2022-08-30 16:01] LABS: Lactic Acid 1.3 mmol/L (0.7-2.0)
--- NOTE | 2022-08-30 16:18 | PC.NURSE ---
O2 TITRATED DOWN FROM 6L TO 4L. NOW AT 2L. SATURATION IS 100%
--- NOTE | 2022-08-30 17:16 | ADMGEN ---
This patient, Danielle Thomason, was admitted to IMU Room 200-01at 1715. Patient/family oriented to hospital policies and general routines including ID bracelet, bed and alarms, visiting hours, pain management, procedures, bathroom and other care routines, personal items, smoking policy, room service/diet, and visiting hours. Information on how to activate the Rapid Response Team has been discussed. Patient/Family are encouraged to report perceived risks to care and to ask questions if they do not understand what they are told or what they should do.
[2022-08-30] MEDS: ALBUTEROL SULFATE NEB 2.5 MG/3 ML INH 5 MG INHALATION (20:08)
[2022-08-30 22:02] LABS: Glucose Point of Care 370 mg/dl (65-105)
[2022-08-30 22:52] LABS: Troponin I 0.319 ng/mL (0.000-0.034)
[2022-08-30] MEDS: INSULIN GLARGINE (*BKC) 100 UNITS/ML 14 UNITS SUB-Q (23:00)
[2022-08-30] MEDS: SACUBITRIL/VALSARTAN 49-51 MG TABLET 1 TABLET PO (23:10)
[2022-08-30] MEDS: hydrALAZINE HCL 50 MG TABLET PO (23:10)
[2022-08-30] MEDS: GABAPENTIN 100 MG CAPSULE PO (23:11)
[2022-08-30] MEDS: METOPROLOL TARTRATE 50 MG TAB 100 MG PO (23:11)
[2022-08-31] VITALS (20 sets, daily range): BP systolic 108–127; BP diastolic 34–45; PULSE 54–86; RESP 16–20; TEMP 36.3–37.2; O2SAT 92–98
[2022-08-31] MEDS: ALBUTEROL SULFATE NEB 2.5 MG/3 ML INH 5 MG INHALATION ×4 (02:01→20:13)
[2022-08-31] MEDS: IPRATROPIUM BR 0.02% INH SOLN 0.5 MG/2.5 ML VIAL INHALATION ×4 (02:02→20:13)
[2022-08-31 04:30] LABS: Hematocrit 31.9 % (37.0-47.0); Hemoglobin 10.3 g/dL (12.0-15.0); Mean Corpuscular HGB Conc 32.3 g/dl (32-36); Mean Corpuscular Hemoglobin 30.8 pg (26-34); Mean Corpuscular Volume 95.5 fl (80-100); Mean Platelet Volume 10.3 fl (7.4-10.4); Platelet Count Result 215 k/mm3 (150-375); Red Blood Count 3.34 M/mm3 (4.2-5.4); White Blood Count 19.7 K/mm3 (4.5-10.0)
[2022-08-31 04:40] LABS: Anion Gap 9 mmol/L (8-16); Blood Urea Nitrogen 47 mg/dL (7-17); Calcium 8.2 mg/dL (8.4-10.2); Carbon Dioxide 21 mmol/L (22-30); Chloride 96 mmol/L (98-107); Estimated CRCL calculation 19 ml/min; Estimated Glomerular Filt Rate 25; Glucose 337 mg/dL (65-110); Hemoglobin A1C 7.8 % (<5.7); Magnesium 1.7 mg/dL (1.6-2.3); Potassium 4.2 mmol/L (3.4-5.0); Sodium 126 mmol/L (137-145)
[2022-08-31 05:33] LABS: Thyroid Stimulating Hormone Reflex 0.543 uIU/mL (0.465-4.68)
[2022-08-31 08:32] LABS: Glucose Point of Care 362 mg/dl (65-105)
[2022-08-31] MEDS: INSULIN ASPART (*BKC) 100 UNITS/ML SUB-Q ×2 (09:31→16:39)
[2022-08-31] MEDS: ASPIRIN 81 MG CHEWABLE TABLET PO (09:34)
[2022-08-31] MEDS: VITAMIN B COMPLEX CAPSULE 1 CAP PO (09:34)
[2022-08-31] MEDS: FUROSEMIDE 20 MG TABLET PO (09:34)
[2022-08-31] MEDS: GABAPENTIN 100 MG CAPSULE PO ×2 (09:35→21:15)
[2022-08-31] MEDS: FAMOTIDINE 20 MG TABLET PO ×2 (09:35→21:15)
[2022-08-31] MEDS: METOPROLOL TARTRATE 50 MG TAB 100 MG PO ×2 (09:35→21:14)
[2022-08-31] MEDS: hydrALAZINE HCL 50 MG TABLET PO ×2 (09:35→21:15)
[2022-08-31] MEDS: CLOPIDOGREL BISULFATE 75 MG TABLET PO (09:35)
[2022-08-31] MEDS: SACUBITRIL/VALSARTAN 49-51 MG TABLET 1 TABLET PO ×2 (09:35→21:15)
--- NOTE | 2022-08-31 11:00 | PM.IMPN ---
Progress Note: A&P Assessment and Plan (1) Community acquired pneumonia: Code(s): J18.9 - Pneumonia, unspecified organism Status: Acute Assessment and Plan: Continue oxygen as needed. Continue IV antibiotics. (2) Acute respiratory failure with hypoxia: Code(s): J96.01 - Acute respiratory failure with hypoxia Status: Acute Assessment and Plan: Secondary to above. Improving. (3) Combined systolic and diastolic cardiac dysfunction: Code(s): I51.89 - Other ill-defined heart diseases Status: Acute (4) Ischemic cardiomyopathy: Code(s): I25.5 - Ischemic cardiomyopathy Status: Acute (5) Insulin dependent type 2 diabetes mellitus: Code(s): E11.9 - Type 2 diabetes mellitus without complications; Z79.4 - buttermaker continuous churn (current) use of insulin Status: Acute Assessment and Plan: Monitor blood sugars (6) Chronic kidney disease, stage 3: Code(s): N18.30 - Chronic kidney disease, stage 3 unspecified Status: Acute Assessment and Plan: creatinine 1.9. Baseline kidney functions are 1.5. (7) Elevated troponin: Code(s): R77.8 - Other specified abnormalities of plasma proteins Status: Acute Assessment and Plan: Likely type 2 SC. No chest pain. (8) Hyponatremia: Code(s): E87.1 - Hypo-osmolality and hyponatremia Status: Acute Assessment and Plan: asymptomatic. Workup pending. Encourage p.o. intake Subjective Date/time seen: 08/31/22 11:00 No complaints reports her breathing is improved. Exam Const: Other: Moderately ill-appearing elderly female sitting up in bed. Weight: 66.6 kilograms. BMI: 27.7. HENMT: Other: Normocephalic, atraumatic. Nares patent bilaterally. Tacky mucous membranes. Lips are dry. Eyes: Other: Pupils are reactive. Extraocular motions intact. Sclerae anicteric. Conjunctiva mildly injected. Neck: Other: Supple. No jugular venous distention or lymphadenopathy. Resp: Other: Respirations are nonlabored. She has got some crackles at both bases, left greater than right. Cardio: Other: Regular rate and rhythm with normal S1-S2. Soft murmur at the lower sternal border. GI: Other: Abdomen is soft, nontender, and nondistended with positive bowel sounds. Skin: Other: Warm and dry. Neuro: Other: Alert and oriented. Cranial nerves 2-12 are grossly intact. Generally weak without focal findings. Extrem: Other: No cyanosis or clubbing. Trace nathan ankle edema. Peripheral pulses intact. Psych: Other: I pleasant and cooperative with appropriate mood and affect. Slightly forgetful. Objective Data Vital Signs Vital Signs: Vital Signs - 24 hr 08/30/22 12:00 08/30/22 12:24 08/30/22 12:47 Temperature 100.6 F H Pulse Rate 100 72 Respiratory Rate 30 H 26 H Blood Pressure 192/76 H 134/56 L Pulse Oximetry 82 L 91 98 Oxygen Delivery Room Air Nasal Cannula Oxygen Flow Rate 6 08/30/22 13:01 08/30/22 13:16 08/30/22 13:31 Temperature Pulse Rate 73 83 70 Respiratory Rate 23 H 21 H 20 Blood Pressure 134/57 L 130/61 134/54 L Pulse Oximetry 96 96 98 Oxygen Delivery Oxygen Flow Rate 08/30/22 13:46 08/30/22 14:01 08/30/22 14:16 Temperature Pulse Rate 66 68 68 Respiratory Rate 17 17 17 Blood Pressure 123/59 L 139/58 L 141/58 H Pulse Oximetry 99 98 99 Oxygen Delivery Oxygen Flow Rate 08/30/22 14:31 08/30/22 14:46 08/30/22 15:01 Temperature Pulse Rate 78 64 62 Respiratory Rate 17 16 16 Blood Pressure 142/61 H 137/51 L 123/51 L Pulse Oximetry 98 100 100 Oxygen Delivery Oxygen Flow Rate 08/30/22 15:16 08/30/22 16:19 08/30/22 15:31 Temperature Pulse Rate 70 62 Respiratory Rate 19 19 Blood Pressure 143/57 H 136/57 L Pulse Oximetry 100 100 100 Oxygen Delivery Nasal Cannula Oxygen Flow Rate 2 08/30/22 17:10 08/30/22 18:00 08/30/22 18:50 Temperature 97.8 F Pulse Rate
[2022-08-31 12:25] LABS: Glucose Point of Care 434 mg/dl (65-105)
[2022-08-31] MEDS: INSULIN ASPART (*BKC) 100 UNITS/ML 8 UNITS SUB-Q (12:49)
[2022-08-31 16:30] LABS: Glucose Point of Care 286 mg/dl (65-105)
[2022-08-31] MEDS: traMADol HCL (*CRX) 50 MG TABLET PO (17:26)
[2022-08-31 20:50] LABS: Glucose Point of Care 342 mg/dl (65-105)
[2022-08-31] MEDS: INSULIN GLARGINE (*BKC) 100 UNITS/ML 14 UNITS SUB-Q (21:15)
[2022-08-31 22:52] LABS: Glucose Point of Care 345 mg/dl (65-105)
[2022-09-01] VITALS (16 sets, daily range): BP systolic 122–136; BP diastolic 39–70; PULSE 59–75; RESP 14–20; TEMP 36.1–37.4; O2SAT 94–98
[2022-09-01] MEDS: INSULIN ASPART (*BKC) 100 UNITS/ML SUB-Q ×4 (00:07→17:26)
[2022-09-01 00:13] LABS: Glucose Point of Care 291 mg/dl (65-105)
[2022-09-01] MEDS: ALBUTEROL SULFATE NEB 2.5 MG/3 ML INH 5 MG INHALATION ×4 (02:19→21:48)
[2022-09-01] MEDS: IPRATROPIUM BR 0.02% INH SOLN 0.5 MG/2.5 ML VIAL INHALATION ×4 (02:19→21:49)
[2022-09-01 05:39] LABS: Basophils Percent Auto 0.3 % (0.2-1.2); Eosinophils Absolute Auto 0.1 K/mm3 (0-0.3); Eosinophils Percent Auto 0.9 % (0-4.4); Hematocrit 29.3 % (37.0-47.0); Hemoglobin 9.8 g/dL (12.0-15.0); Immature Granulocyte Absolute 0.05 K/mm3 (0.00-0.031); Immature Granulocyte Percent A 0.4 % (0-0.5); Lymphocytes Absolute Auto 1.24 K/mm3 (0.9-3.2); Lymphocytes Percent Auto 10.3 % (18.3-44.2); Mean Corpuscular HGB Conc 33.4 g/dl (32-36); Mean Corpuscular Hemoglobin 31.6 pg (26-34); Mean Corpuscular Volume 94.5 fl (80-100); Mean Platelet Volume 10.4 fl (7.4-10.4); Monocytes Absolute Auto 1.2 K/mm3 (0.1-0.6); Monocytes Percent Auto 9.6 % (2.6-8.5); Neutrophils Absolute Auto 9.4 K/mm3 (1.3-6.7); Neutrophils Percent Auto 78.5 % (45.5-73.1); Platelet Count Result 204 k/mm3 (150-375); Red Cell Distribution Width 14.1 % (11.5-14.5)
[2022-09-01 06:51] LABS: Anion Gap 10 mmol/L (8-16); Blood Urea Nitrogen 63 mg/dL (7-17); Calcium 8.3 mg/dL (8.4-10.2); Carbon Dioxide 21 mmol/L (22-30); Chloride 94 mmol/L (98-107); Estimated CRCL calculation 17 ml/min; Estimated Glomerular Filt Rate 21; Glucose 226 mg/dL (65-110); Sodium 125 mmol/L (137-145)
[2022-09-01 07:52] LABS: Glucose Point of Care 218 mg/dl (65-105)
[2022-09-01] MEDS: hydrALAZINE HCL 50 MG TABLET PO ×2 (08:54→20:47)
[2022-09-01] MEDS: METOPROLOL TARTRATE 50 MG TAB 100 MG PO ×2 (08:54→20:47)
[2022-09-01] MEDS: VITAMIN B COMPLEX CAPSULE 1 CAP PO (08:54)
[2022-09-01] MEDS: ASPIRIN 81 MG CHEWABLE TABLET PO (08:54)
[2022-09-01] MEDS: SACUBITRIL/VALSARTAN 49-51 MG TABLET 1 TABLET PO (08:54)
[2022-09-01] MEDS: FUROSEMIDE 20 MG TABLET PO (08:55)
[2022-09-01] MEDS: GABAPENTIN 100 MG CAPSULE PO ×2 (08:55→20:47)
[2022-09-01] MEDS: FAMOTIDINE 20 MG TABLET PO ×2 (08:55→20:47)
[2022-09-01] MEDS: CLOPIDOGREL BISULFATE 75 MG TABLET PO (08:55)
[2022-09-01 11:57] LABS: Glucose Point of Care 246 mg/dl (65-105)
--- NOTE | 2022-09-01 12:13 | PM.IMPN ---
Progress Note: A&P Assessment and Plan (1) Community acquired pneumonia: Code(s): J18.9 - Pneumonia, unspecified organism Status: Acute Assessment and Plan: Continue oxygen as needed. Continue IV antibiotics. (2) Acute respiratory failure with hypoxia: Code(s): J96.01 - Acute respiratory failure with hypoxia Status: Acute Assessment and Plan: Respiratory status is improved. (3) Combined systolic and diastolic cardiac dysfunction: Code(s): I51.89 - Other ill-defined heart diseases Status: Acute (4) Ischemic cardiomyopathy: Code(s): I25.5 - Ischemic cardiomyopathy Status: Acute (5) Insulin dependent type 2 diabetes mellitus: Code(s): E11.9 - Type 2 diabetes mellitus without complications; Z79.4 - middle or intermediate school principal (current) use of insulin Status: Acute Assessment and Plan: Monitor blood sugars (6) Chronic kidney disease, stage 3: Code(s): N18.30 - Chronic kidney disease, stage 3 unspecified Status: Acute Assessment and Plan: creatinine 1.9. Baseline kidney functions are 1.5. (7) Elevated troponin: Code(s): R77.8 - Other specified abnormalities of plasma proteins Status: Acute Assessment and Plan: Likely type 2 PA. No chest pain. (8) Hyponatremia: Code(s): E87.1 - Hypo-osmolality and hyponatremia Status: Acute Assessment and Plan: Workup still pending. Likely related to Lasix and dehydration. Given creatinine increased. Will have Nephrology see the patient give some fluids and stop Lasix. she does appear volume depleted on exam (9) CKD stage 3 due to type 2 diabetes mellitus: Code(s): E11.22 - Type 2 diabetes mellitus with diabetic chronic kidney disease; N18.30 - Chronic kidney disease, stage 3 unspecified Status: Acute Assessment and Plan: patient does appear to be a little volume depleted. Small bump in creatinine. Nephrology consult. IV fluids. Subjective Date/time seen: 09/01/22 12:13 patient feels little more fatigued today. No specific pain complaints. Exam Const: Other: Moderately ill-appearing elderly female sitting up in bed. Weight: 66.6 kilograms. BMI: 27.7. HENMT: Other: Normocephalic, atraumatic. Nares patent bilaterally. Tacky mucous membranes. Lips are dry. Eyes: Other: Pupils are reactive. Extraocular motions intact. Sclerae anicteric. Conjunctiva mildly injected. Neck: Other: Supple. No jugular venous distention or lymphadenopathy. Resp: Other: Respirations are nonlabored. She has got some crackles at both bases, left greater than right. Cardio: Other: Regular rate and rhythm with normal S1-S2. Soft murmur at the lower sternal border. GI: Other: Abdomen is soft, nontender, and nondistended with positive bowel sounds. Skin: Other: Warm and dry. Neuro: Other: Alert and oriented. Cranial nerves 2-12 are grossly intact. Generally weak without focal findings. Extrem: Other: No cyanosis or clubbing. Trace nathan ankle edema. Peripheral pulses intact. Psych: Other: I pleasant and cooperative with appropriate mood and affect. Slightly forgetful. Objective Data Vital Signs Vital Signs: Vital Signs - 24 hr 08/31/22 13:40 08/31/22 13:48 08/31/22 16:00 Temperature Pulse Rate 69 65 68 Respiratory Rate 16 16 Blood Pressure Pulse Oximetry Oxygen Delivery 08/31/22 16:00 08/31/22 20:16 08/31/22 20:24 Temperature 97.8 F Pulse Rate 71 71 Respiratory Rate 18 16 Blood Pressure 127/42 L Pulse Oximetry 95 95 Oxygen Delivery Room Air 08/31/22 20:27 08/31/22 21:14 08/31/22 20:00 Temperature Pulse Rate 70 73 70 Respiratory Rate 16 Blood Pressure Pulse Oximetry Oxygen Delivery 08/31/22 20:00 09/01/22 00:00 09/01/22 00:00 Temperature 99.4 F Pulse Rate 63 63 Respiratory Rate 16 Blood Pressure 122/47 L Pulse Oximetry 97 Oxygen Delivery R
--- NOTE | 2022-09-01 12:49 | PM.CNNEP ---
Assessment and Plan Assessment and plan (1) JIM (acute kidney injury): Code(s): N17.9 - Acute kidney failure, unspecified Status: Acute Assessment and Plan: possibly due to infection and prerenal factors this may have been exacerbated by diuretics therapy and use of entresto (both on hold now) follow-up on urine electrolytes/studies check renal ultrasound seems reasonable for trial of IVFs follow trend of repeat labs and UOP (2) Stage 3b chronic kidney disease: Code(s): N18.32 - Chronic kidney disease, stage 3b Status: Chronic Assessment and Plan: baseline creatinine runs ~ 1.1 - 1.40mg/dl in the last year or so due to biopsy proven diabetes, hypertension, and vascular disease (3) Hyponatremia: Code(s): E87.1 - Hypo-osmolality and hyponatremia Status: Chronic Assessment and Plan: chronic issue at baseline (present since 2017) suspect exacerbation due to JIM, diuretics, and pneumonia (i.e. acute lung issue) follow trend of sodium levels (4) Acute respiratory failure with hypoxia: Code(s): J96.01 - Acute respiratory failure with hypoxia Status: Acute Assessment and Plan: due to combo of pneumonia and heart failure treatment as outlined by #5 and #6 (5) Community acquired pneumonia: Code(s): J18.9 - Pneumonia, unspecified organism Status: Acute Assessment and Plan: on IV antibiotics follow culture data (6) Combined systolic and diastolic cardiac dysfunction: Code(s): I51.89 - Other ill-defined heart diseases Status: Chronic Assessment and Plan: appears compensated at this time holding diuretics (7) Essential hypertension: Code(s): I10 - Essential (primary) hypertension Status: Chronic Assessment and Plan: reasonable control follow trend of hemodynamics (8) Type 2 diabetes mellitus with diabetic nephropathy, with long-term current use of insulin: Code(s): E11.21 - Type 2 diabetes mellitus with diabetic nephropathy; Z79.4 - detention (current) use of insulin Status: Chronic Assessment and Plan: follow accuchecks glycemic control Will continue to follow. History of Present Illness Reason for Consult Consult date: 09/01/22 Reason for consult: acute renal failure (on chronic kidney disease) and hyponatremia Chief Complaint Chief complaint: Pneumonia History of Present Illness Narrative: The patient is 81-year-old female with a past medical history as outlined below who presented to [facility] Emergency room for further evaluation of shortness of breath The patient has had issues/problems with her shortness of breath for the last few days. She recently saw her diver assistant who felt that her shortness of breath was probably related to her significant cardiomyopathy and on that visit her medications were adjusted Dr. kramer specifically, her statin was discontinued as she was having complaints of lower extremity cramping and hydralazine was added as her blood pressure was quite elevated on that office visit. She reports that since that time, she has felt increasingly worse with her shortness of breath in association with fatigue, chills, poor appetite, nausea, and a nonproductive cough. On the day of admission, she felt much worse with regard to these symptoms and apparently was slightly confused and hence was brought to the emergency room for further assessment. Workup and evaluation emergency room demonstrated the patient to be hypoxic with O2 oxygen saturations of 82% on room air as well as with a low-grade fever of 100.6?. Her blood pressure was otherwise stable. Further testing including a chest x-ray demonstrated airspace opacities in the left mid and lower lung zones consistent with pneumonia. Routine blood test demonstrated a unremarkable CBC and her chemistry showed labs consistent with her known history of chronic kidn
--- NOTE | 2022-09-01 12:49 | P.CONNP_ITS ---
Assessment and Plan Assessment and plan (1) JIM (acute kidney injury): Code(s): N17.9 - Acute kidney failure, unspecified Status: Acute Assessment and Plan: * possibly due to infection and prerenal factors * this may have been exacerbated by diuretics therapy and use of entresto (both on hold now) * follow-up on urine electrolytes/studies * check renal ultrasound * seems reasonable for trial of IVFs * follow trend of repeat labs and UOP (2) Stage 3b chronic kidney disease: Code(s): N18.32 - Chronic kidney disease, stage 3b Status: Chronic Assessment and Plan: * baseline creatinine runs ~ 1.1 - 1.40mg/dl in the last year or so * due to biopsy proven diabetes, hypertension, and vascular disease (3) Hyponatremia: Code(s): E87.1 - Hypo-osmolality and hyponatremia Status: Chronic Assessment and Plan: * chronic issue at baseline (present since 2018) * suspect exacerbation due to JIM, diuretics, and pneumonia (i.e. acute lung issue) * follow trend of sodium levels (4) Acute respiratory failure with hypoxia: Code(s): J96.01 - Acute respiratory failure with hypoxia Status: Acute Assessment and Plan: * due to combo of pneumonia and heart failure * treatment as outlined by #5 and #6 (5) Community acquired pneumonia: Code(s): J18.9 - Pneumonia, unspecified organism Status: Acute Assessment and Plan: * on IV antibiotics * follow culture data (6) Combined systolic and diastolic cardiac dysfunction: Code(s): I51.89 - Other ill-defined heart diseases Status: Chronic Assessment and Plan: * appears compensated at this time * holding diuretics (7) Essential hypertension: Code(s): I10 - Essential (primary) hypertension Status: Chronic Assessment and Plan: * reasonable control * follow trend of hemodynamics (8) Type 2 diabetes mellitus with diabetic nephropathy, with long-term current use of insulin: Code(s): E11.21 - Type 2 diabetes mellitus with diabetic nephropathy; Z79.4 - termite inspector (current) use of insulin Status: Chronic Assessment and Plan: * follow accuchecks * glycemic control Will continue to follow. History of Present Illness Reason for Consult Consult date: 09/01/22 Reason for consult: acute renal failure (on chronic kidney disease) and hyponatremia Chief Complaint Chief complaint: Pneumonia History of Present Illness Narrative: The patient is 81-year-old female with a past medical history as outlined below who presented to [facility] Emergency room for further evaluation of shortness of breath The patient has had issues/problems with her shortness of breath for the last few days. She recently saw her histotechnologist who felt that her shortness of breath was probably related to her significant cardiomyopathy and on that visit her medications were adjusted Dr. kramer specifically, her statin was discontinued as she was having complaints of lower extremity cramping and hydralazine was added as her blood pressure was quite elevated on that office visit. She reports that since that time, she has felt increasingly worse with her shortness of breath in association with fatigue, chills, poor appetite, nausea, and a nonproductive cough. On the day of admission, she felt much worse with regard to these symptoms and apparently was slightly confused and hence was brought to the emergency room for further assessment. Workup and evaluation emergency room demonstr
[2022-09-01] MEDS: SODIUM CHLORIDE 0.9% IV 1,000 ML 50 ML IV CONT (15:17)
[2022-09-01 17:24] LABS: Glucose Point of Care 278 mg/dl (65-105)
--- NOTE | 2022-09-01 18:19 | PC.NURSE ---
This patient, Danielle Thomason, was received from [ [id number]] on 09/01/22 at 1802. Patient/family oriented to unit policies and routines
[2022-09-01 18:31] LABS: Total Protein Urine Random 32 mg/dL; Ur Ttl Prot Creatinine Ratio 0.36 mg/mg (0-0.20); Urea Random Urine 605 MG/DL
--- NOTE | 2022-09-01 18:33 | PC.NURSE ---
This patient, Danielle Thomason, was transferred to [facility] on 09/01/22 at 1802. Personal belongings sent with patient. Report given to Mahsa VELAZQUEZ. Appropriate documentation sent with patient.
[2022-09-01 18:34] LABS: Sodium Urine Random 12 meq/L
[2022-09-01 18:46] LABS: Creatinine Urine 89.7 mg/dL
[2022-09-01 19:27] LABS: Eosinophil Urine None Seen % (None Seen)
[2022-09-01] MEDS: INSULIN GLARGINE (*BKC) 100 UNITS/ML 14 UNITS SUB-Q (20:49)
[2022-09-01 21:05] LABS: Glucose Point of Care 320 mg/dl (65-105)
[2022-09-01 21:23] LABS: Anion Gap 13 mmol/L (8-16); Blood Urea Nitrogen 63 mg/dL (7-17); Calcium 8.3 mg/dL (8.4-10.2); Carbon Dioxide 20 mmol/L (22-30); Chloride 91 mmol/L (98-107); Estimated CRCL calculation 18 ml/min; Estimated Glomerular Filt Rate 23; Glucose 300 mg/dL (65-110); Potassium 4.2 mmol/L (3.4-5.0); Sodium 124 mmol/L (137-145)
[2022-09-02] VITALS (16 sets, daily range): BP systolic 139–157; BP diastolic 48–76; PULSE 62–100; RESP 16–20; TEMP 36.8–37.2; O2SAT 94–100
[2022-09-02 06:56] LABS: Basophils Percent Auto 0.1 % (0.2-1.2); Eosinophils Absolute Auto 0.2 K/mm3 (0-0.3); Eosinophils Percent Auto 1.9 % (0-4.4); Hematocrit 27.7 % (37.0-47.0); Hemoglobin 9.2 g/dL (12.0-15.0); Immature Granulocyte Absolute 0.05 K/mm3 (0.00-0.031); Immature Granulocyte Percent A 0.6 % (0-0.5); Lymphocytes Absolute Auto 1.12 K/mm3 (0.9-3.2); Lymphocytes Percent Auto 13.3 % (18.3-44.2); Mean Corpuscular HGB Conc 33.2 g/dl (32-36); Mean Corpuscular Hemoglobin 30.3 pg (26-34); Mean Corpuscular Volume 91.1 fl (80-100); Mean Platelet Volume 10.3 fl (7.4-10.4); Monocytes Absolute Auto 0.8 K/mm3 (0.1-0.6); Monocytes Percent Auto 9.8 % (2.6-8.5); Neutrophils Absolute Auto 6.3 K/mm3 (1.3-6.7); Neutrophils Percent Auto 74.3 % (45.5-73.1); Platelet Count Result 218 k/mm3 (150-375); Red Blood Count 3.04 M/mm3 (4.2-5.4); Red Cell Distribution Width 13.7 % (11.5-14.5); White Blood Count 8.5 K/mm3 (4.5-10.0)
[2022-09-02 07:06] LABS: Anion Gap 8 mmol/L (8-16); Blood Urea Nitrogen 61 mg/dL (7-17); Calcium 8.1 mg/dL (8.4-10.2); Carbon Dioxide 20 mmol/L (22-30); Chloride 97 mmol/L (98-107); Creatine Kinase 122 U/L (30-135); Estimated CRCL calculation 22 ml/min; Estimated Glomerular Filt Rate 29; Glucose 255 mg/dL (65-110); Potassium 4.3 mmol/L (3.4-5.0); Sodium 125 mmol/L (137-145)
[2022-09-02 07:46] LABS: Cortisol Random 9.42 ug/dL
[2022-09-02] MEDS: FAMOTIDINE 20 MG TABLET PO ×2 (08:05→21:17)
[2022-09-02] MEDS: METOPROLOL TARTRATE 50 MG TAB 100 MG PO ×2 (08:05→21:18)
[2022-09-02] MEDS: GABAPENTIN 100 MG CAPSULE PO ×2 (08:05→21:17)
[2022-09-02] MEDS: hydrALAZINE HCL 50 MG TABLET PO ×2 (08:05→21:17)
[2022-09-02] MEDS: CLOPIDOGREL BISULFATE 75 MG TABLET PO (08:05)
[2022-09-02] MEDS: ASPIRIN 81 MG CHEWABLE TABLET PO (08:06)
[2022-09-02] MEDS: VITAMIN B COMPLEX CAPSULE 1 CAP PO (08:06)
[2022-09-02] MEDS: INSULIN ASPART (*BKC) 100 UNITS/ML SUB-Q ×3 (08:07→16:20)
[2022-09-02 08:13] LABS: Glucose Point of Care 260 mg/dl (65-105)
[2022-09-02] MEDS: ALBUTEROL SULFATE NEB 2.5 MG/3 ML INH 5 MG INHALATION ×3 (08:13→19:50)
[2022-09-02] MEDS: IPRATROPIUM BR 0.02% INH SOLN 0.5 MG/2.5 ML VIAL INHALATION ×3 (08:15→19:50)
--- NOTE | 2022-09-02 11:08 | PM.IMPN ---
Progress Note: A&P Assessment and Plan (1) Community acquired pneumonia: Code(s): J18.9 - Pneumonia, unspecified organism Status: Acute Assessment and Plan: Continue oxygen as needed. Continue IV antibiotics. (2) Acute respiratory failure with hypoxia: Code(s): J96.01 - Acute respiratory failure with hypoxia Status: Acute Assessment and Plan: Respiratory status is improved. (3) Combined systolic and diastolic cardiac dysfunction: Code(s): I51.89 - Other ill-defined heart diseases Status: Chronic (4) Ischemic cardiomyopathy: Code(s): I25.5 - Ischemic cardiomyopathy Status: Acute (5) Insulin dependent type 2 diabetes mellitus: Code(s): E11.9 - Type 2 diabetes mellitus without complications; Z79.4 - snf (current) use of insulin Status: Acute Assessment and Plan: Monitor blood sugars (6) Chronic kidney disease, stage 3: Code(s): N18.30 - Chronic kidney disease, stage 3 unspecified Status: Acute Assessment and Plan: Kidney function is improving (7) Elevated troponin: Code(s): R77.8 - Other specified abnormalities of plasma proteins Status: Acute Assessment and Plan: Likely type 2 NE. No chest pain. (8) Hyponatremia: Code(s): E87.1 - Hypo-osmolality and hyponatremia Status: Acute Assessment and Plan: Workup still pending. Likely related to Lasix and dehydration. Given creatinine increased. Will have Nephrology see the patient give some fluids and stop Lasix. she does appear volume depleted on exam (9) CKD stage 3 due to type 2 diabetes mellitus: Code(s): E11.22 - Type 2 diabetes mellitus with diabetic chronic kidney disease; N18.30 - Chronic kidney disease, stage 3 unspecified Status: Acute Assessment and Plan: patient does appear to be a little volume depleted. Small bump in creatinine. Nephrology consult. IV fluids. Subjective Date/time seen: 09/02/22 11:08 Feeling better. Exam Const: Other: Moderately ill-appearing elderly female sitting up in bed. Weight: 66.6 kilograms. BMI: 27.7. HENMT: Other: Normocephalic, atraumatic. Nares patent bilaterally. Tacky mucous membranes. Lips are dry. Eyes: Other: Pupils are reactive. Extraocular motions intact. Sclerae anicteric. Conjunctiva mildly injected. Neck: Other: Supple. No jugular venous distention or lymphadenopathy. Resp: Other: Respirations are nonlabored. She has got some crackles at both bases, left greater than right. Cardio: Other: Regular rate and rhythm with normal S1-S2. Soft murmur at the lower sternal border. GI: Other: Abdomen is soft, nontender, and nondistended with positive bowel sounds. Skin: Other: Warm and dry. Neuro: Other: Alert and oriented. Cranial nerves 2-12 are grossly intact. Generally weak without focal findings. Extrem: Other: No cyanosis or clubbing. Trace nathan ankle edema. Peripheral pulses intact. Psych: Other: I pleasant and cooperative with appropriate mood and affect. Slightly forgetful. Objective Data Vital Signs Vital Signs: Vital Signs - 24 hr 09/01/22 12:00 09/01/22 13:41 09/01/22 14:00 Temperature 97.6 F Pulse Rate 62 61 68 Respiratory Rate 18 18 18 Blood Pressure 122/39 L Pulse Oximetry 98 Oxygen Delivery 09/01/22 12:00 09/01/22 16:00 09/01/22 16:00 Temperature 98.5 F Pulse Rate 63 75 70 Respiratory Rate 20 Blood Pressure 132/57 L Pulse Oximetry 97 Oxygen Delivery 09/01/22 18:28 09/01/22 20:47 09/01/22 21:49 Temperature 98.1 F Pulse Rate 71 74 72 Respiratory Rate 20 14 Blood Pressure 136/70 Pulse Oximetry 96 Oxygen Delivery 09/01/22 20:00 09/02/22 00:00 09/02/22 00:00 Temperature 99.0 F Pulse Rate 72 75 75 Respiratory Rate 19 Blood Pressure 139/76 Pulse Oximetry 94 Oxygen Delivery 09/02/22 04:00 09/02/22 08:05 09/02/22 08:16
[2022-09-02] MEDS: SODIUM CHLORIDE 0.9% IV 1,000 ML 50 ML IV CONT (11:20)
[2022-09-02 11:44] LABS: Glucose Point of Care 225 mg/dl (65-105)
--- NOTE | 2022-09-02 12:26 | PM.PNNEP ---
Progress Note: A&P Assessment and Plan (1) JIM (acute kidney injury): Code(s): N17.9 - Acute kidney failure, unspecified Status: Acute Assessment and Plan: improving possibly due to infection and prerenal factors this may have been exacerbated by diuretics therapy and use of entresto (both on hold now) evaluation to date: renal ultrasound c/w CKD urine electrolytes are prerenal (volume depletion or secondary to her cardiomyopathy?) urine esoniophils negative CPK normal continue trial of gentle IVFs follow trend of repeat labs and UOP (2) Stage 3b chronic kidney disease: Code(s): N18.32 - Chronic kidney disease, stage 3b Status: Chronic Assessment and Plan: baseline creatinine runs ~ 1.1 - 1.40mg/dl in the last year or so due to biopsy proven diabetes, hypertension, and vascular disease (3) Hyponatremia: Code(s): E87.1 - Hypo-osmolality and hyponatremia Status: Chronic Assessment and Plan: chronic issue at baseline (present since 2018) suspect exacerbation due to JIM, diuretics, and pneumonia (i.e. acute lung issue) follow-up on cortisol, SPEP, and UPEP start fluid restriction change carrier fluids of IV meds/IVPBs to normal saline follow trend of sodium levels (4) Acute respiratory failure with hypoxia: Code(s): J96.01 - Acute respiratory failure with hypoxia Status: Acute Assessment and Plan: due to combo of pneumonia and possibly heart failure clinic improvement noted treatment as outlined by #5 and #6 (5) Community acquired pneumonia: Code(s): J18.9 - Pneumonia, unspecified organism Status: Acute Assessment and Plan: on IV antibiotics follow culture data (6) Combined systolic and diastolic cardiac dysfunction: Code(s): I51.89 - Other ill-defined heart diseases Status: Chronic Assessment and Plan: appears compensated at this time holding diuretics (7) Essential hypertension: Code(s): I10 - Essential (primary) hypertension Status: Chronic Assessment and Plan: reasonable control follow trend of hemodynamics (8) Type 2 diabetes mellitus with diabetic nephropathy, with long-term current use of insulin: Code(s): E11.21 - Type 2 diabetes mellitus with diabetic nephropathy; Z79.4 - terminal makeup operator (current) use of insulin Status: Chronic Assessment and Plan: follow accuchecks glycemic control Will continue to follow. Subjective Date/time seen: 09/02/22 12:26 States she seems to he feeling better in general; breathing/respiratory status stable if not better; renal function and sodium appears to be improving with current interventions as well; no issues/events overnight or earlier this AM. Exam Narrative: General: Elderly female in NAD Heart: normal S1 and S2; no rub Lungs: clear anteriorly Abdomen: soft, nontender, nondistended, positive bowel sounds Extremities: no cyanosis or clubbing; no edema Skin: warm and dry Objective Data Vital Signs Vital Signs: Vital Signs Temp Pulse Resp BP Pulse Ox O2 Del Method 09/02/22 12:00 70 09/02/22 08:00 68 09/02/22 08:15 Room Air 09/02/22 08:16 62 20 09/02/22 08:05 78 09/02/22 04:00 68 09/02/22 00:00 75 09/02/22 00:00 37.2 C 75 19 139/76 94 09/01/22 20:00 72 09/01/22 21:49 72 14 09/01/22 20:47 74 09/01/22 18:28 36.7 C 71 20 136/70 96 Intake/Output Intake/Output: Intake & Output 08/30/22 08/31/22 09/01/22 09/02/22 23:59 23:59 23:59 23:59 Intake Total 590 2120 1690 1480 Output Total 950 550 600 Balance 590 1170 1140 880 Meds/Results Medications: Active Medications Generic Name Dose Route Start Last Admin Trade Name Freq PRN Reason Stop Dose Admin Albuterol 5 mg 08/30/22 20:00 09/02/22 14:28 Albuterol Sulfate Neb 2.5 Mg/3 Ml Inh INHALATION
--- NOTE | 2022-09-02 12:26 | P.PNNP_ITS ---
Progress Note: A&P Assessment and Plan (1) JIM (acute kidney injury): Code(s): N17.9 - Acute kidney failure, unspecified Status: Acute Assessment and Plan: * improving * possibly due to infection and prerenal factors * this may have been exacerbated by diuretics therapy and use of entresto (both on hold now) * evaluation to date: * renal ultrasound c/w CKD * urine electrolytes are prerenal (volume depletion or secondary to her cardiomyopathy?) * urine esoniophils negative * CPK normal * continue trial of gentle IVFs * follow trend of repeat labs and UOP (2) Stage 3b chronic kidney disease: Code(s): N18.32 - Chronic kidney disease, stage 3b Status: Chronic Assessment and Plan: * baseline creatinine runs ~ 1.1 - 1.40mg/dl in the last year or so * due to biopsy proven diabetes, hypertension, and vascular disease (3) Hyponatremia: Code(s): E87.1 - Hypo-osmolality and hyponatremia Status: Chronic Assessment and Plan: * chronic issue at baseline (present since 2018) * suspect exacerbation due to JIM, diuretics, and pneumonia (i.e. acute lung issue) * follow-up on cortisol, SPEP, and UPEP * start fluid restriction * change carrier fluids of IV meds/IVPBs to normal saline * follow trend of sodium levels (4) Acute respiratory failure with hypoxia: Code(s): J96.01 - Acute respiratory failure with hypoxia Status: Acute Assessment and Plan: * due to combo of pneumonia and possibly heart failure * clinic improvement noted * treatment as outlined by #5 and #6 (5) Community acquired pneumonia: Code(s): J18.9 - Pneumonia, unspecified organism Status: Acute Assessment and Plan: * on IV antibiotics * follow culture data (6) Combined systolic and diastolic cardiac dysfunction: Code(s): I51.89 - Other ill-defined heart diseases Status: Chronic Assessment and Plan: * appears compensated at this time * holding diuretics (7) Essential hypertension: Code(s): I10 - Essential (primary) hypertension Status: Chronic Assessment and Plan: * reasonable control * follow trend of hemodynamics (8) Type 2 diabetes mellitus with diabetic nephropathy, with long-term current use of insulin: Code(s): E11.21 - Type 2 diabetes mellitus with diabetic nephropathy; Z79.4 - buttermaker helper (current) use of insulin Status: Chronic Assessment and Plan: * follow accuchecks * glycemic control Will continue to follow. Subjective Date/time seen: 09/02/22 12:26 States she seems to he feeling better in general; breathing/respiratory status stable if not better; renal function and sodium appears to be improving with current interventions as well; no issues/events overnight or earlier this AM. Exam Narrative: General: Elderly female in NAD Heart: normal S1 and S2; no rub Lungs: clear anteriorly Abdomen: soft, nontender, nondistended, positive bowel sounds Extremities: no cyanosis or clubbing; no edema Skin: warm and dry Objective Data Vital Signs Vital Signs: Vital Signs Temp Pulse Resp BP Pulse Ox O2 Del Method 09/02/22 12:00 70 09/02/22 08:00 68 09/02/22 08:15 Room Air 09/02/22 08:16 62 20 09/02/22 08:05 78 09/02/22 0
[2022-09-02] MEDS: traMADol HCL (*CRX) 50 MG TABLET PO (13:29)
[2022-09-02 16:21] LABS: Glucose Point of Care 230 mg/dl (65-105)
[2022-09-02] MEDS: INSULIN GLARGINE (*BKC) 100 UNITS/ML 14 UNITS SUB-Q (21:19)
[2022-09-02 22:09] LABS: Glucose Point of Care 391 mg/dl (65-105)
[2022-09-03] VITALS (20 sets, daily range): BP systolic 140–155; BP diastolic 52–63; PULSE 64–102; RESP 16–20; TEMP 36.8; O2SAT 94–97
[2022-09-03] MEDS: IPRATROPIUM BR 0.02% INH SOLN 0.5 MG/2.5 ML VIAL INHALATION ×4 (01:17→20:08)
[2022-09-03] MEDS: ALBUTEROL SULFATE NEB 2.5 MG/3 ML INH 5 MG INHALATION ×4 (01:17→20:08)
[2022-09-03 05:05] LABS: Basophils Percent Auto 0.3 % (0.2-1.2); Eosinophils Absolute Auto 0.2 K/mm3 (0-0.3); Eosinophils Percent Auto 3.4 % (0-4.4); Hematocrit 28.4 % (37.0-47.0); Hemoglobin 9.2 g/dL (12.0-15.0); Immature Granulocyte Absolute 0.07 K/mm3 (0.00-0.031); Immature Platelet Fraction Pct 4.3 % (0.9-11.2); Lymphocytes Absolute Auto 0.83 K/mm3 (0.9-3.2); Lymphocytes Percent Auto 11.8 % (18.3-44.2); Mean Corpuscular HGB Conc 32.4 g/dl (32-36); Mean Corpuscular Hemoglobin 30.8 pg (26-34); Mean Platelet Volume 10.5 fl (7.4-10.4); Monocytes Absolute Auto 0.8 K/mm3 (0.1-0.6); Monocytes Percent Auto 11.2 % (2.6-8.5); Neutrophils Absolute Auto 5.1 K/mm3 (1.3-6.7); Neutrophils Percent Auto 72.3 % (45.5-73.1); Platelet Count Result 222 k/mm3 (150-375); Red Blood Count 2.99 M/mm3 (4.2-5.4); Red Cell Distribution Width 13.9 % (11.5-14.5)
[2022-09-03 05:16] LABS: Anion Gap 8 mmol/L (8-16); Blood Urea Nitrogen 56 mg/dL (7-17); Calcium 8.1 mg/dL (8.4-10.2); Carbon Dioxide 20 mmol/L (22-30); Chloride 99 mmol/L (98-107); Estimated CRCL calculation 25 ml/min; Estimated Glomerular Filt Rate 33; Glucose 286 mg/dL (65-110); Potassium 4.7 mmol/L (3.4-5.0); Sodium 127 mmol/L (137-145)
[2022-09-03 06:50] LABS: Platelet Estimate Adequate (Adequate)
[2022-09-03 06:51] LABS: Acanthocytes 1+ (NORMAL); Ovalocytes 1+ (NORMAL); Poikilocytosis 1+ (NORMAL); Schistocytes None Seen (NORMAL)
[2022-09-03] MEDS: CLOPIDOGREL BISULFATE 75 MG TABLET PO (08:22)
[2022-09-03] MEDS: METOPROLOL TARTRATE 50 MG TAB 100 MG PO ×2 (08:22→21:17)
[2022-09-03] MEDS: ASPIRIN 81 MG CHEWABLE TABLET PO (08:22)
[2022-09-03] MEDS: SODIUM CHLORIDE 0.9% IV 1,000 ML 50 ML IV CONT (08:22)
[2022-09-03] MEDS: VITAMIN B COMPLEX CAPSULE 1 CAP PO (08:22)
[2022-09-03] MEDS: INSULIN ASPART (*BKC) 100 UNITS/ML SUB-Q ×2 (08:23→11:58)
[2022-09-03] MEDS: GABAPENTIN 100 MG CAPSULE PO ×2 (08:23→21:16)
[2022-09-03] MEDS: hydrALAZINE HCL 50 MG TABLET PO ×2 (08:23→21:16)
[2022-09-03] MEDS: FAMOTIDINE 20 MG TABLET PO ×2 (08:23→21:16)
[2022-09-03 08:37] LABS: Glucose Point of Care 247 mg/dl (65-105)
--- NOTE | 2022-09-03 10:31 | PM.IMPN ---
Progress Note: A&P Assessment and Plan (1) Community acquired pneumonia: Code(s): J18.9 - Pneumonia, unspecified organism Status: Acute Assessment and Plan: Continue oxygen as needed. Continue IV antibiotics. (2) Acute respiratory failure with hypoxia: Code(s): J96.01 - Acute respiratory failure with hypoxia Status: Acute Assessment and Plan: Respiratory status is improved. (3) Combined systolic and diastolic cardiac dysfunction: Code(s): I51.89 - Other ill-defined heart diseases Status: Chronic (4) Ischemic cardiomyopathy: Code(s): I25.5 - Ischemic cardiomyopathy Status: Acute (5) Insulin dependent type 2 diabetes mellitus: Code(s): E11.9 - Type 2 diabetes mellitus without complications; Z79.4 - MCFP (current) use of insulin Status: Acute Assessment and Plan: Monitor blood sugars (6) Chronic kidney disease, stage 3: Code(s): N18.30 - Chronic kidney disease, stage 3 unspecified Status: Acute Assessment and Plan: Kidney function is improving (7) Elevated troponin: Code(s): R77.8 - Other specified abnormalities of plasma proteins Status: Acute Assessment and Plan: Likely type 2 MA. No chest pain. (8) Hyponatremia: Code(s): E87.1 - Hypo-osmolality and hyponatremia Status: Acute Assessment and Plan: Workup still pending. Likely related to Lasix and dehydration. Given creatinine increased. Will have Nephrology see the patient give some fluids and stop Lasix. she does appear volume depleted on exam (9) CKD stage 3 due to type 2 diabetes mellitus: Code(s): E11.22 - Type 2 diabetes mellitus with diabetic chronic kidney disease; N18.30 - Chronic kidney disease, stage 3 unspecified Status: Acute Assessment and Plan: patient does appear to be a little volume depleted. Small bump in creatinine. Nephrology consult. IV fluids. (10) Dysphagia: Code(s): R13.10 - Dysphagia, unspecified Status: Acute Assessment and Plan: trouble swallowing solids. GI consult Subjective Date/time seen: 09/03/22 10:31 new complaint of dysphagia and trouble swallowing her food today. She does report a chronic issue regarding this. Exam Const: Other: Moderately ill-appearing elderly female sitting up in bed. Weight: 66.6 kilograms. BMI: 27.7. HENMT: Other: Normocephalic, atraumatic. Nares patent bilaterally. Tacky mucous membranes. Lips are dry. Eyes: Other: Pupils are reactive. Extraocular motions intact. Sclerae anicteric. Conjunctiva mildly injected. Neck: Other: Supple. No jugular venous distention or lymphadenopathy. Resp: Other: Respirations are nonlabored. She has got some crackles at both bases, left greater than right. Cardio: Other: Regular rate and rhythm with normal S1-S2. Soft murmur at the lower sternal border. GI: Other: Abdomen is soft, nontender, and nondistended with positive bowel sounds. Skin: Other: Warm and dry. Neuro: Other: Alert and oriented. Cranial nerves 2-12 are grossly intact. Generally weak without focal findings. Extrem: Other: No cyanosis or clubbing. Trace nathan ankle edema. Peripheral pulses intact. Psych: Other: I pleasant and cooperative with appropriate mood and affect. Slightly forgetful. Objective Data Vital Signs Vital Signs: Vital Signs - 24 hr 09/02/22 14:28 09/02/22 14:44 09/02/22 14:00 Temperature 98.2 F Pulse Rate 62 68 90 Respiratory Rate 20 20 16 Blood Pressure 148/54 H Pulse Oximetry 95 Oxygen Delivery 09/02/22 12:00 09/02/22 16:00 09/02/22 19:51 Temperature Pulse Rate 70 90 69 Respiratory Rate 18 Blood Pressure Pulse Oximetry 96 Oxygen Delivery Room Air 09/02/22 19:51 09/02/22 20:17 09/02/22 21:18 Temperature Pulse Rate 69 71 100 Respiratory Rate 18 18 Blood Pressure Pulse Oximetry Oxygen Delivery
--- NOTE | 2022-09-03 11:23 | P.PNNP_ITS ---
Progress Note: A&P Assessment and Plan (1) JIM (acute kidney injury): Code(s): N17.9 - Acute kidney failure, unspecified Status: Acute Assessment and Plan: * improving * possibly due to infection and prerenal factors * this may have been exacerbated by diuretics therapy and use of entresto (both on hold now) * evaluation to date: * renal ultrasound c/w CKD * urine electrolytes are prerenal (volume depletion or secondary to her cardiomyopathy?) * urine esoniophils negative * CPK normal * continue trial of gentle IVFs * will cut rate to KVO but continue given #8 * follow trend of repeat labs and UOP (2) Stage 3b chronic kidney disease: Code(s): N18.32 - Chronic kidney disease, stage 3b Status: Chronic Assessment and Plan: * baseline creatinine runs ~ 1.1 - 1.40mg/dl in the last year or so * due to biopsy proven diabetes, hypertension, and vascular disease (3) Hyponatremia: Code(s): E87.1 - Hypo-osmolality and hyponatremia Status: Chronic Assessment and Plan: * chronic issue at baseline (present since 2018) * suspect exacerbation due to JIM, diuretics, and pneumonia (i.e. acute lung issue) * follow-up on cortisol, SPEP, and UPEP * start fluid restriction * change carrier fluids of IV meds/IVPBs to normal saline * follow trend of sodium levels (4) Acute respiratory failure with hypoxia: Code(s): J96.01 - Acute respiratory failure with hypoxia Status: Acute Assessment and Plan: * due to combo of pneumonia and possibly heart failure * clinic improvement noted * treatment as outlined by #5 and #6 (5) Community acquired pneumonia: Code(s): J18.9 - Pneumonia, unspecified organism Status: Acute Assessment and Plan: * on IV antibiotics * follow culture data (6) Combined systolic and diastolic cardiac dysfunction: Code(s): I51.89 - Other ill-defined heart diseases Status: Chronic Assessment and Plan: * appears compensated at this time * holding diuretics (7) Essential hypertension: Code(s): I10 - Essential (primary) hypertension Status: Chronic Assessment and Plan: * reasonable control * follow trend of hemodynamics (8) Dysphagia: Code(s): R13.10 - Dysphagia, unspecified Status: Acute Assessment and Plan: * acute worsening of a chronic issue * Gastroenterology consult (9) Type 2 diabetes mellitus with diabetic nephropathy, with long-term current use of insulin: Code(s): E11.21 - Type 2 diabetes mellitus with diabetic nephropathy; Z79.4 - flag signaler (current) use of insulin Status: Chronic Assessment and Plan: * follow accuchecks * glycemic control Will continue to follow. Subjective Date/time seen: 09/03/22 11:23 Breathing/respirator status continues to improve/stabilize; new complaint of difficulty swallowing but she states she has had this issue in the past before; no other concerns noted; renal function and sodium improving with current interventions. Exam Narrative: General: Elderly female in NAD Heart: normal S1 and S2; no rub Lungs: clear anteriorly Abdomen: soft, nontender, nondistended, positive bowel sounds Extremities: no cyanosis or clubbing; no edema Skin: warm and dry Objective Data Vital Signs Vital Signs: Vital Signs
--- NOTE | 2022-09-03 11:23 | PM.PNNEP ---
Progress Note: A&P Assessment and Plan (1) JIM (acute kidney injury): Code(s): N17.9 - Acute kidney failure, unspecified Status: Acute Assessment and Plan: improving possibly due to infection and prerenal factors this may have been exacerbated by diuretics therapy and use of entresto (both on hold now) evaluation to date: renal ultrasound c/w CKD urine electrolytes are prerenal (volume depletion or secondary to her cardiomyopathy?) urine esoniophils negative CPK normal continue trial of gentle IVFs will cut rate to KVO but continue given #8 follow trend of repeat labs and UOP (2) Stage 3b chronic kidney disease: Code(s): N18.32 - Chronic kidney disease, stage 3b Status: Chronic Assessment and Plan: baseline creatinine runs ~ 1.1 - 1.40mg/dl in the last year or so due to biopsy proven diabetes, hypertension, and vascular disease (3) Hyponatremia: Code(s): E87.1 - Hypo-osmolality and hyponatremia Status: Chronic Assessment and Plan: chronic issue at baseline (present since 2018) suspect exacerbation due to JIM, diuretics, and pneumonia (i.e. acute lung issue) follow-up on cortisol, SPEP, and UPEP start fluid restriction change carrier fluids of IV meds/IVPBs to normal saline follow trend of sodium levels (4) Acute respiratory failure with hypoxia: Code(s): J96.01 - Acute respiratory failure with hypoxia Status: Acute Assessment and Plan: due to combo of pneumonia and possibly heart failure clinic improvement noted treatment as outlined by #5 and #6 (5) Community acquired pneumonia: Code(s): J18.9 - Pneumonia, unspecified organism Status: Acute Assessment and Plan: on IV antibiotics follow culture data (6) Combined systolic and diastolic cardiac dysfunction: Code(s): I51.89 - Other ill-defined heart diseases Status: Chronic Assessment and Plan: appears compensated at this time holding diuretics (7) Essential hypertension: Code(s): I10 - Essential (primary) hypertension Status: Chronic Assessment and Plan: reasonable control follow trend of hemodynamics (8) Dysphagia: Code(s): R13.10 - Dysphagia, unspecified Status: Acute Assessment and Plan: acute worsening of a chronic issue Gastroenterology consult (9) Type 2 diabetes mellitus with diabetic nephropathy, with long-term current use of insulin: Code(s): E11.21 - Type 2 diabetes mellitus with diabetic nephropathy; Z79.4 - senior care (current) use of insulin Status: Chronic Assessment and Plan: follow accuchecks glycemic control Will continue to follow. Subjective Date/time seen: 09/03/22 11:23 Breathing/respirator status continues to improve/stabilize; new complaint of difficulty swallowing but she states she has had this issue in the past before; no other concerns noted; renal function and sodium improving with current interventions. Exam Narrative: General: Elderly female in NAD Heart: normal S1 and S2; no rub Lungs: clear anteriorly Abdomen: soft, nontender, nondistended, positive bowel sounds Extremities: no cyanosis or clubbing; no edema Skin: warm and dry Objective Data Vital Signs Vital Signs: Vital Signs Temp Pulse Resp BP Pulse Ox O2 Del Method 09/03/22 08:00 69 09/03/22 10:01 78 16 09/03/22 09:52 95 Room Air 09/03/22 09:47 74 18 09/03/22 08:30 Room Air 09/03/22 08:22 90 09/03/22 06:00 36.8 C 71 16 140/52 L 96 09/03/22 04:00 71 09/03/22 00:00 64 09/03/22 01:34 79 18 09/03/22 01:18 73 18 09/03/22 01:18 73 18 94 Room Air 09/02/22 22:00 36.8 C 93 16 157/48 H 100 09/02/22 20:00 Room Air 09/02/22 20:00 75 09/02/22 21:18 100 09/02/22 20:17 71 18 09/02/22 19:51 69 18
[2022-09-03 11:58] LABS: Glucose Point of Care 214 mg/dl (65-105)
[2022-09-03 16:54] LABS: Glucose Point of Care 196 mg/dl (65-105)
--- NOTE | 2022-09-03 21:12 | ECG_ITS ---
Measurements Intervals [place] Cbc Base Rate: 97 P: 124 [place]: 177 QRS: 202 QRSD: 134 T: 61 QT: 392 QTc: 498 Interpretive Statements SINUS RHYTHM ARM LEADS REVERSED LEFT BUNDLE BRANCH BLOCK BASELINE ARTIFACT- V1-V2, V6 ABNORMAL ECG COMPARED TO ECG 08/30/2022 12:16:13 NO SIGNIFICANT CHANGES Electronically Signed On 09-04-2022 6:42:12 CONVEYOR WORKER by Jose Carty D.O.
[2022-09-03 22:18] LABS: Troponin I 0.194 ng/mL (0.000-0.034)
[2022-09-03] MEDS: INSULIN GLARGINE (*BKC) 100 UNITS/ML 14 UNITS SUB-Q (22:22)
[2022-09-03] MEDS: BENZONATATE 100 MG CAPSULE 200 MG PO (22:22)
[2022-09-04] VITALS (10 sets, daily range): BP systolic 143; BP diastolic 58; PULSE 63–71; RESP 16–18; TEMP 36.8; O2SAT 96–97
[2022-09-04] MEDS: guaiFENesin 600 MG/DEXTROMETHORPHAN 30 MG SR TAB 12 HR 1 TAB PO ×2 (00:55→09:25)
[2022-09-04 00:58] LABS: Troponin I 0.195 ng/mL (0.000-0.034)
[2022-09-04] MEDS: IPRATROPIUM BR 0.02% INH SOLN 0.5 MG/2.5 ML VIAL INHALATION ×2 (01:38→06:37)
[2022-09-04] MEDS: ALBUTEROL SULFATE NEB 2.5 MG/3 ML INH 5 MG INHALATION ×2 (01:38→06:37)
[2022-09-04 04:18] LABS: Troponin I 0.225 ng/mL (0.000-0.034)
[2022-09-04 07:19] LABS: Glucose Point of Care 365 mg/dl (65-105)
[2022-09-04 08:08] LABS: Anion Gap 7 mmol/L (8-16); Blood Urea Nitrogen 47 mg/dL (7-17); Calcium 8.2 mg/dL (8.4-10.2); Carbon Dioxide 20 mmol/L (22-30); Chloride 101 mmol/L (98-107); Estimated CRCL calculation 26 ml/min; Estimated Glomerular Filt Rate 36; Glucose 239 mg/dL (65-110); Potassium 4.4 mmol/L (3.4-5.0); Sodium 128 mmol/L (137-145)
[2022-09-04 08:27] LABS: Glucose Point of Care 215 mg/dl (65-105)
[2022-09-04] MEDS: GABAPENTIN 100 MG CAPSULE PO (09:25)
[2022-09-04] MEDS: VITAMIN B COMPLEX CAPSULE 1 CAP PO (09:25)
[2022-09-04] MEDS: FAMOTIDINE 20 MG TABLET PO (09:25)
[2022-09-04] MEDS: METOPROLOL TARTRATE 50 MG TAB 100 MG PO (09:25)
[2022-09-04] MEDS: hydrALAZINE HCL 50 MG TABLET PO (09:25)
[2022-09-04] MEDS: ASPIRIN 81 MG CHEWABLE TABLET PO (09:26)
[2022-09-04] MEDS: BENZONATATE 100 MG CAPSULE 200 MG PO (09:26)
[2022-09-04] MEDS: CLOPIDOGREL BISULFATE 75 MG TABLET PO (09:26)
[2022-09-04] MEDS: INSULIN ASPART (*BKC) 100 UNITS/ML SUB-Q ×2 (09:27→12:55)
--- NOTE | 2022-09-04 09:40 | PM.DS ---
DS: Admitting Diagnosis Discharge Date September 04, 2022 Admitting Diagnosis pneumonia, dehydration DS: Discharge Diagnosis Discharge Diagnosis (1) Community acquired pneumonia: Code(s): J18.9 - Pneumonia, unspecified organism Status: Acute Assessment and Plan: antibiotics on discharge (2) Acute respiratory failure with hypoxia: Code(s): J96.01 - Acute respiratory failure with hypoxia Status: Acute Assessment and Plan: Respiratory status is improved. (3) Combined systolic and diastolic cardiac dysfunction: Code(s): I51.89 - Other ill-defined heart diseases Status: Chronic (4) Ischemic cardiomyopathy: Code(s): I25.5 - Ischemic cardiomyopathy Status: Acute (5) Insulin dependent type 2 diabetes mellitus: Code(s): E11.9 - Type 2 diabetes mellitus without complications; Z79.4 - terminal operator (current) use of insulin Status: Acute Assessment and Plan: Monitor blood sugars (6) Chronic kidney disease, stage 3: Code(s): N18.30 - Chronic kidney disease, stage 3 unspecified Status: Acute Assessment and Plan: Kidney function is improving (7) Elevated troponin: Code(s): R77.8 - Other specified abnormalities of plasma proteins Status: Acute Assessment and Plan: Likely type 2 NE. No chest pain. (8) Hyponatremia: Code(s): E87.1 - Hypo-osmolality and hyponatremia Status: Acute Assessment and Plan: Workup still pending. Likely related to Lasix and dehydration. Given creatinine increased. Will have Nephrology see the patient give some fluids and stop Lasix. she does appear volume depleted on exam (9) CKD stage 3 due to type 2 diabetes mellitus: Code(s): E11.22 - Type 2 diabetes mellitus with diabetic chronic kidney disease; N18.30 - Chronic kidney disease, stage 3 unspecified Status: Acute Assessment and Plan: patient does appear to be a little volume depleted. Small bump in creatinine. Nephrology consult. IV fluids. (10) Dysphagia: Code(s): R13.10 - Dysphagia, unspecified Status: Acute Assessment and Plan: trouble swallowing solids. GI consult DS: Summary Hospital Course Hospital Course: patient is an 81-year-old female who came in with pneumonia. She did require oxygen initially. She was given IV antibiotics and did exceptionally well from respiratory standpoint. To note she did get dehydrated have hyponatremia in for this her Lasix will be held for a week on discharge. She will need to follow her primary care physician. Ana on discharge Time Spent with Patient Time attestation: Total time spent providing and/or coordinating discharge services: Exam Const: Other: Moderately ill-appearing elderly female sitting up in bed. Weight: 66.6 kilograms. BMI: 27.7. HENMT: Other: Normocephalic, atraumatic. Nares patent bilaterally. Tacky mucous membranes. Lips are dry. Eyes: Other: Pupils are reactive. Extraocular motions intact. Sclerae anicteric. Conjunctiva mildly injected. Neck: Other: Supple. No jugular venous distention or lymphadenopathy. Resp: Other: Respirations are nonlabored. She has got some crackles at both bases, left greater than right. Cardio: Other: Regular rate and rhythm with normal S1-S2. Soft murmur at the lower sternal border. GI: Other: Abdomen is soft, nontender, and nondistended with positive bowel sounds. Skin: Other: Warm and dry. Neuro: Other: Alert and oriented. Cranial nerves 2-12 are grossly intact. Generally weak without focal findings. Extrem: Other: No cyanosis or clubbing. Trace nathan ankle edema. Peripheral pulses intact. Psych: Other: I pleasant and cooperative with appropriate mood and affect. Slightly forgetful. DS: Data Data Completed and Pending Labs on day of discharge: Labs from last 24 hours 09/04/22 09/04/22 09/04/22 07:57 03:36 03:34 Sod
--- NOTE | 2022-09-04 09:46 | PCSTNOTE ---
Please refer to the Bedside Swallow Evaluation in the EMR. Please note, silent aspiration cannot be ruled out at bedside.
[2022-09-04 12:06] LABS: Glucose Point of Care 275 mg/dl (65-105)
--- NOTE | 2022-09-04 13:01 | WPDGICN ---
Assessment and Plan Assessment and plan (1) Community acquired pneumonia: Code(s): J18.9 - Pneumonia, unspecified organism Status: Acute Assessment and Plan: treated and improving will complete treatment after leaving the hospital (2) Combined systolic and diastolic cardiac dysfunction: Code(s): I51.89 - Other ill-defined heart diseases Status: Chronic Assessment and Plan: on treatment (3) Chronic kidney disease, stage 3: Code(s): N18.30 - Chronic kidney disease, stage 3 unspecified Status: Acute (4) Dysphagia: Code(s): R13.10 - Dysphagia, unspecified Status: Acute Assessment and Plan: resolved, now she is eating as usual if similar problem again then she was instructed to call office GI Consult Note Consult date/time: 09/04/22 13:01 Reason for consult: dysphagia HPI: Danielle Thomason is a 81 year old female with history of insulin-dependent type 2 diabetes mellitus, diabetic peripheral neuropathy, coronary artery disease status post balloon PTCA of the mid LAD, ischemic cardiomyopathy with an EF as low as 25-30% on echo in March 2022, hypertension, and GERD who was admitted to the hospital with shortness of breath then developed fatigue, chills, shakes, poor appetite, nausea, and cough. Finally she returned to the hospital, also had low SpO2 82% on room air on arrival and low grade fever temperature was 100.6?. Chest x-ray done on arrival showed airspace opacities in the left mid and lower lung zones consistent with pneumonia. She was admitted and has been getting antibiotics, now doing better and going home. She mentioned that had difficulty swallowing since admission but resolved now, she thinks was related to cold food and just feeling sick in general. Now she is eating a sandwich without problem. Had EGD but several years ago. Review of Systems Constitutional: Constitutional: Reports chills and Reports fatigue Eyes: Eyes: Denies blurry vision ENT: Reports Normal hearing present, Denies headache(s) and Denies neck pain Cardiovascular: Cardiovascular: Denies lightheadedness Respiratory: Respiratory: Reports cough Gastrointestinal: Gastrointestinal: Reports no additional gastrointestinal complaints Genitourinary: Genitourinary: Denies dysuria Musculoskeletal: Musculoskeletal: Denies neck pain Integumentary/Breasts: Skin/Breast: Denies dry skin Neurologic: Reports Normal hearing present, Denies headache(s) and Denies weakness Psychiatric: Psychiatric: Denies anxiety Endocrine: Endocrine: Denies change in body appearance Hematologic/Lymphatic: Hematologic/Lymphatic: Denies easy bleeding Allergic/Immunologic: Allergic/Immunologic: Denies urticaria PMFSH Past Medical History Medical History (Updated 09/03/22 @ 10:33 by Adria Lott MD) Acute kidney injury Anemia With history of iron deficiency anemia requiring iron transfusions. Benign paroxysmal positional vertigo due to bilateral vestibular disorder Chronic bilateral low back pain without sciatica Chronic hyponatremia Chronic kidney disease, stage 3 Colon polyp Combined systolic and diastolic cardiac dysfunction Coronary artery disease Diabetic peripheral neuropathy Essential hypertension Gastroesophageal reflux disease Heart attack Hyperlipidemia associated with type 2 diabetes mellitus Hyponatremia Idiopathic chronic pancreatitis On long-term Creon. Insulin dependent type 2 diabetes mellitus Ischemic cardiomyopathy LBBB (left bundle branch block) Moderate mitral regurgitation Neuropathy Pancreatic insufficiency Polyneuropathy Pulmonary hypertension Pure hypercholesterolemia Rectal hemorrhage due to inflammatory polyps of colon Sarcoidosis of lung Diagnosed in the . Spinal stenosis of lumbosacral region Venous insufficiency Surgical History Surgical History History of appendectomy History of b
[2022-09-05 16:46] LABS: Albumin 2.5 g/dL (3.8-4.8); Alpha 1 Globulin 0.5 g/dL (0.2-0.3); Alpha 2 Globulin 0.9 g/dL (0.5-0.9); Beta 1 Globulin 0.4 g/dL (0.4-0.6); Gamma Globulin 0.5 g/dL (0.8-1.7); Protein, Total 4.9 g/dL (6.1-8.1)
[2022-09-05 20:50] LABS: Mycoplasma IgM Antibody Titer 35 U/mL (<770)
[2022-09-06 09:08] LABS: Kappa\\Lambda Light Chains 1.25 (0.26-1.65); Lambda Light Chain 31.1 mg/L (5.7-26.3)
[2022-09-06 14:12] LABS: Pneumococcal Antigen Urine Not Detected (Not Detected)
[2022-09-09 18:28] LABS: Legionella pneumophila Ag Ur Not Detected (Not Detected)
== END 2022-09-04 14:00 | disposition home or self-care (01) | DRG 193 ==
LOC: ANHED 14:42 → ANHIMU 17:13 → ANH3MEDSUR 09-01 18:17
PROVIDERS: Emergency Medicine; Internal Medicine Nephrology; Nurse Practitioner; Physician Assistant; Student in an Organized Health Care Education/Training Program; Admitting Provider Chiropractor; Emergency Provider Emergency Medicine; PCP Internal Medicine; Visit Provider Chiropractor
DX: J18.9 Pneumonia, unspecified organism (principal); I21.A1 Myocardial infarction type 2; J96.01 Acute respiratory failure with hypoxia; I13.0 Hypertensive heart and chronic kidney disease with heart failure and stage 1 through stage 4 chronic kidney disease, or unspecified chronic kidney disease; I50.42 Chronic combined systolic (congestive) and diastolic (congestive) heart failure; K86.1 Other chronic pancreatitis; E87.1 Hypo-osmolality and hyponatremia; N17.9 Acute kidney failure, unspecified; I25.5 Ischemic cardiomyopathy; E11.22 Type 2 diabetes mellitus with diabetic chronic kidney disease; Z79.4 Long term (current) use of insulin; N18.32 Chronic kidney disease, stage 3b; E11.42 Type 2 diabetes mellitus with diabetic polyneuropathy; I27.20 Pulmonary hypertension, unspecified; I25.10 Atherosclerotic heart disease of native coronary artery without angina pectoris; R13.10 Dysphagia, unspecified; T50.1X5A Adverse effect of loop [high-ceiling] diuretics, initial encounter; Z20.822 Contact with and (suspected) exposure to COVID-19; Z82.49 Family history of ischemic heart disease and other diseases of the circulatory system; Z83.3 Family history of diabetes mellitus; Z80.3 Family history of malignant neoplasm of breast; Z79.899 Other long term (current) drug therapy; Z88.1 Allergy status to other antibiotic agents; Y92.230 Patient room in hospital as the place of occurrence of the external cause; Z96.651 Presence of right artificial knee joint
CPT/HCPCS: 36415; 36600; 51701; 71045; 76775; 80048; 80053; 81001; 81050; 82375; 82436; 82533; 82550; 82570; 82805; 82948; 83036; 83050; 83605; 83735; 83880; 83883; 83930; 83935; 84155; 84156; 84165; 84166; 84300; 84443; 84484; 84540; 85025; 85027; 85055; 85610; 85730; 85999; 86140; 86738; 87040; 87449; 87636; 87899; 92610; 93005; 94640; 99285; A9270; J0456; J0696; J1815; J7030

== ENCOUNTER 2022-09-04 21:49 | Emergency (ER) | payer MEDICARE, OTHER, SELFPAY ==
--- NOTE | 2022-08-30 12:15 | ECG_ITS ---
Measurements Intervals [place] Rate: 84 P: 7 SD: 159 QRS: -30 QRSD: 134 T: 112 QT: 415 QTc: 493 Interpretive Statements SINUS RHYTHM VENTRICULAR PREMATURE COMPLEX POSSIBLE LEFT ATRIAL ENLARGEMENT LEFT BUNDLE BRANCH BLOCK BASELINE ARTIFACT- I, II, III, AVR, AVL, V1-V2 ABNORMAL ECG COMPARED TO ECG 03/23/2022 09:30:23 NO SIGNIFICANT CHANGES Electronically Signed On 09-05-2022 13:51:03 SEDIMENT REMEDIATION CONSULTANT by Jose Carty D.O.
[2022-09-04 21:51] VITALS: BP 154/67; PULSE 66; RESP 20; TEMP 36.6; O2SAT 98
[2022-09-04 23:03] LABS: Appearance Urine Clear (Clear); Bilirubin Urine Negative (Negative); Blood Urine Negative (Negative); Color Urine Yellow (Yellow); Glucose Urine UA Negative (Negative); Ketones Urine Trace mg/dL (Negative); Leukocyte Esterase Ur Negative LEU/UL (Negative); Nitrate Urine Negative (Negative); Protein Urine 2+ mg/dL (Negative); Specific Grav Ur 1.015 (1.001-1.035); Urobilinogen Urine 0.2 mg/dL (<2.0)
[2022-09-04 23:08] LABS: Bacteria Urine Trace /hpf; Mucus Urine Rare /lpf; RBC Urine 0-2 /hpf (0-2)
[2022-09-04 23:10] LABS: Add Urine Microscopic? YES
--- NOTE | 2022-09-04 23:15 | ED.FEMALEGU ---
HPI - Female Genitourinary General Chief complaint: Urogenital-Female Stated complaint: cant urinate after dc from hospital Time Seen by Provider: 09/04/22 22:05 History of Present Illness HPI Narrative: Patient was recently being treated for pneumonia, had a urinary Marques and was discharged this morning, and is back because she has not been able to urinate on her own. Initially had some suprapubic discomfort. Related Data Home Medications Medication Instructions Recorded Confirmed flash glucose scanning reader 04/20/21 08/30/22 ([employer] Hallie 14 Day [place]) insulin glargine 100 unit/mL (3 14 unit subcut HS 03/22/22 08/30/22 mL) subcutaneous pen (Basaglar KwikPen U-100 Insulin) aspirin 81 mg chewable tablet 81 mg PO DAILY 08/30/22 08/30/22 (Children's Aspirin) gabapentin 100 mg capsule 100 mg PO Q12H 08/30/22 08/30/22 hydralazine 50 mg tablet 50 mg PO Q12H 08/30/22 08/30/22 metoprolol tartrate 100 mg tablet 100 mg PO Q12H 08/30/22 08/30/22 sacubitril 49 mg-valsartan 51 mg 1 tablet PO Q12H 08/30/22 08/30/22 tablet (Entresto) vitamin B complex (B 1 tablet PO DAILY 08/30/22 08/30/22 Complex-Vitamin B12 tablet) Allergies Allergy/AdvReac Type Severity Reaction Status Date / Time acetaminophen Allergy Intermediate Rash Verified 09/04/22 22:04 amoxicillin Allergy Mild Other Verified 09/04/22 22:04 clavulanic acid AdvReac Unknown Other Verified 09/04/22 22:04 [From Augmentin] Review of Systems Review of Systems: CONST: No fever. HEENT: No sore throat C/V: No chest pain RESP: No cough GI: Mild suprapubic discomfort : Urinary retention M/S: No joint pain. SKIN: No rash. NEURO: [No headache or focal numbness or weakness] PSYCH: [No depression] [facility] Past Medical History Medical History Acute kidney injury Anemia With history of iron deficiency anemia requiring iron transfusions. Benign paroxysmal positional vertigo due to bilateral vestibular disorder Chronic bilateral low back pain without sciatica Chronic hyponatremia Chronic kidney disease, stage 3 Colon polyp Combined systolic and diastolic cardiac dysfunction Coronary artery disease Diabetic peripheral neuropathy Essential hypertension Gastroesophageal reflux disease Heart attack Hyperlipidemia associated with type 2 diabetes mellitus Hyponatremia Idiopathic chronic pancreatitis On long-term Creon. Insulin dependent type 2 diabetes mellitus Ischemic cardiomyopathy LBBB (left bundle branch block) Moderate mitral regurgitation Neuropathy Pancreatic insufficiency Polyneuropathy Pulmonary hypertension Pure hypercholesterolemia Rectal hemorrhage due to inflammatory polyps of colon Sarcoidosis of lung Diagnosed in the . Spinal stenosis of lumbosacral region Venous insufficiency Surgical History Surgical History History of appendectomy History of breast biopsy History of cataract surgery History of hand surgery History of repair of left rotator cuff History of rotator cuff surgery right History of tonsillectomy History of total right knee replacement Family History Family History Father Hypertension Heart disease Acute myocardial infarction Mother Family history of lung cancer Family history of malignant neoplasm of breast in first degree relative Hypertension Sibling Breast cancer Acute myocardial infarction sister and brother Cerebrovascular accident sister Diabetes mellitus Heart disease Hypertension Other Breast cancer aunt Social History Social History Social History: The patient is and lives with her in [place]. 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 She is a lifelong nonsmoker and denies alcohol and illicit substance use. She designates her , Jeanne
--- NOTE | 2022-09-04 23:51 | PC.NURSE ---
Pt refused abx. Pt reports she already on abx and does not want to take another one. Dr. White spoke with pt and is aware pt does not want to take another abx. Dr. White reported she sent Rx to pharmacy for pt if she decides she wants to take med. Pt and her son voiced positive understanding
[2022-09-04 23:55] VITALS: BP 114/78; PULSE 102; RESP 16; TEMP 36.8; O2SAT 96
== END 2022-09-04 23:57 | disposition home or self-care (01) ==
LOC: ANHED 22:49
PROVIDERS: Emergency Provider Emergency Medicine; PCP Internal Medicine
DX: R33.9 Retention of urine, unspecified (principal); E11.22 Type 2 diabetes mellitus with diabetic chronic kidney disease; N18.30 Chronic kidney disease, stage 3 unspecified; I13.0 Hypertensive heart and chronic kidney disease with heart failure and stage 1 through stage 4 chronic kidney disease, or unspecified chronic kidney disease; I50.40 Unspecified combined systolic (congestive) and diastolic (congestive) heart failure; E11.42 Type 2 diabetes mellitus with diabetic polyneuropathy; E11.69 Type 2 diabetes mellitus with other specified complication; E78.5 Hyperlipidemia, unspecified; E87.1 Hypo-osmolality and hyponatremia; I25.2 Old myocardial infarction; I25.10 Atherosclerotic heart disease of native coronary artery without angina pectoris; I25.5 Ischemic cardiomyopathy; I34.0 Nonrheumatic mitral (valve) insufficiency; I27.20 Pulmonary hypertension, unspecified; I87.2 Venous insufficiency (chronic) (peripheral); D86.0 Sarcoidosis of lung; H81.13 Benign paroxysmal vertigo, bilateral; K86.1 Other chronic pancreatitis; K21.9 Gastro-esophageal reflux disease without esophagitis; Z87.01 Personal history of pneumonia (recurrent); Z98.49 Cataract extraction status, unspecified eye; Z96.651 Presence of right artificial knee joint; Z79.82 Long term (current) use of aspirin; Z79.4 Long term (current) use of insulin; I49.3 Ventricular premature depolarization; R94.31 Abnormal electrocardiogram [ECG] [EKG]; I44.7 Left bundle-branch block, unspecified
CPT/HCPCS: 51702; 81001; 93005; 99283

== ENCOUNTER 2022-09-06 15:09 | Emergency (ER) | payer MEDICARE, OTHER, SELFPAY ==
[2022-09-06 15:15] VITALS: BP 130/53; PULSE 65; RESP 16; TEMP 36.8; O2SAT 100
--- NOTE | 2022-09-06 16:56 | ED.GENADULT ---
HPI - General Adult General Chief complaint: Unspecified Stated complaint: wants to have catheter removed Time Seen by Provider: 09/06/22 16:35 History of Present Illness HPI narrative: Patient is an 81-year-old female presenting with Marques catheter problems. Patient states that she was recently hospitalized for pneumonia. She was discharged but then was unable to urinate so she came back to the ER 2 days ago. She had a Marques catheter placed at that time with a plan for her to follow-up with urology. Patient called urology and is unable to get in until mid September. Patient would like the Marques catheter removed. States she does not want it in until mid September. States she does not feel that she needs it. She denies any pain whatsoever. No fevers or chills. No headache, chest pain, shortness of breath, abdominal pain, nausea or vomiting, diarrhea, leg swelling. Related Data Home Medications Medication Instructions Recorded Confirmed flash glucose scanning reader 04/20/21 08/30/22 ([employer] Hallie 14 Day [place]) insulin glargine 100 unit/mL (3 14 unit subcut HS 03/22/22 08/30/22 mL) subcutaneous pen (Basaglar KwikPen U-100 Insulin) aspirin 81 mg chewable tablet 81 mg PO DAILY 08/30/22 08/30/22 (Children's Aspirin) gabapentin 100 mg capsule 100 mg PO Q12H 08/30/22 08/30/22 hydralazine 50 mg tablet 50 mg PO Q12H 08/30/22 08/30/22 metoprolol tartrate 100 mg tablet 100 mg PO Q12H 08/30/22 08/30/22 sacubitril 49 mg-valsartan 51 mg 1 tablet PO Q12H 08/30/22 08/30/22 tablet (Entresto) vitamin B complex (B 1 tablet PO DAILY 08/30/22 08/30/22 Complex-Vitamin B12 tablet) Allergies Allergy/AdvReac Type Severity Reaction Status Date / Time acetaminophen Allergy Intermediate Rash Verified 09/06/22 16:10 amoxicillin Allergy Mild Other Verified 09/06/22 16:10 clavulanic acid AdvReac Unknown Other Verified 09/06/22 16:10 [From Augmentin] Review of Systems Review of Systems: All systems reviewed & are unremarkable except as noted in HPI and below PMFSH Past Medical History Medical History Acute kidney injury Anemia With history of iron deficiency anemia requiring iron transfusions. Benign paroxysmal positional vertigo due to bilateral vestibular disorder Chronic bilateral low back pain without sciatica Chronic hyponatremia Chronic kidney disease, stage 3 Colon polyp Combined systolic and diastolic cardiac dysfunction Coronary artery disease Diabetic peripheral neuropathy Essential hypertension Gastroesophageal reflux disease Heart attack Hyperlipidemia associated with type 2 diabetes mellitus Hyponatremia Idiopathic chronic pancreatitis On long-term Creon. Insulin dependent type 2 diabetes mellitus Ischemic cardiomyopathy LBBB (left bundle branch block) Moderate mitral regurgitation Neuropathy Pancreatic insufficiency Polyneuropathy Pulmonary hypertension Pure hypercholesterolemia Rectal hemorrhage due to inflammatory polyps of colon Sarcoidosis of lung Diagnosed in the . Spinal stenosis of lumbosacral region Venous insufficiency Surgical History Surgical History History of appendectomy History of breast biopsy History of cataract surgery History of hand surgery History of repair of left rotator cuff History of rotator cuff surgery right History of tonsillectomy History of total right knee replacement Family History Family History Father Hypertension Heart disease Acute myocardial infarction Mother Family history of lung cancer Family history of malignant neoplasm of breast in first degree relative Hypertension Sibling Breast cancer Acute myocardial infarction sister and brother Cerebrovascular accident sister Diabetes mellitus Heart disease Hypertension Other Breast cancer a
[2022-09-06 20:10] VITALS: RESP 17
== END 2022-09-06 20:10 | disposition home or self-care (01) ==
PROVIDERS: Emergency Provider Emergency Medicine; PCP Internal Medicine
DX: Z46.6 Encounter for fitting and adjustment of urinary device (principal); E11.22 Type 2 diabetes mellitus with diabetic chronic kidney disease; I13.0 Hypertensive heart and chronic kidney disease with heart failure and stage 1 through stage 4 chronic kidney disease, or unspecified chronic kidney disease; N18.30 Chronic kidney disease, stage 3 unspecified; E11.42 Type 2 diabetes mellitus with diabetic polyneuropathy; E11.69 Type 2 diabetes mellitus with other specified complication; E78.5 Hyperlipidemia, unspecified; I50.40 Unspecified combined systolic (congestive) and diastolic (congestive) heart failure; I27.20 Pulmonary hypertension, unspecified; E87.1 Hypo-osmolality and hyponatremia; I25.10 Atherosclerotic heart disease of native coronary artery without angina pectoris; K21.9 Gastro-esophageal reflux disease without esophagitis; K86.1 Other chronic pancreatitis; I25.5 Ischemic cardiomyopathy; I34.0 Nonrheumatic mitral (valve) insufficiency; D86.0 Sarcoidosis of lung; I87.2 Venous insufficiency (chronic) (peripheral); Z86.2 Personal history of diseases of the blood and blood-forming organs and certain disorders involving the immune mechanism; Z86.010 Personal history of colon polyps; Z79.4 Long term (current) use of insulin; Z98.49 Cataract extraction status, unspecified eye; Z96.651 Presence of right artificial knee joint
CPT/HCPCS: 99281

== ENCOUNTER 2022-09-14 10:13 | Inpatient (IN) | payer MEDICARE, OTHER, SELFPAY ==
[2022-09-14] VITALS (40 sets, daily range): BP systolic 143–183; BP diastolic 50–82; PULSE 56–145; RESP 13–29; TEMP 36.3–36.6; O2SAT 82–97; BMI 33.9
--- NOTE | ~2022-09-14 | US_ITS ---
EXAMINATION:US venous doppler LE BI INDICATION:Leg edema TECHNIQUE: Multiple grayscale, color flow and Doppler images of the right and left lower extremity de ep venous systems were obtained and reviewed. COMPARISON:No prior studies for comparison. FINDINGS: The common femoral, superficial femoral and popliteal veins demonstrate normal respiratory variation, augmentation and compressibility. Color flow is also seen within the posterior tibial, pe roneal, greater saphenous and profunda veins. IMPRESSION: 1: No lower extremity deep venous thrombosis. Reviewed, dictated and finalized at location A. RACTIVE MEDIA DESIGNER
--- NOTE | ~2022-09-14 | XR_ITS ---
EXAMINATION: XR chest 2V DATE: 09/14/2022 10:39 INDICATION: Shortness of breath. Congestive heart failure. TECHNIQUE: Frontal and lateral views of the chest were obtained. COMPARISON: Chest single view 08/30/2022 FINDINGS: There is a diffuse interstitial pattern in the lungs. There are airspace opacities in right lower lung zone and left mid and lower lung zones. There are small pleural effusions. No pneumothora x. The heart size is normal. There are suture anchors in right humeral head. IMPRESSION: 1. Diffuse lung disease with mild improvement on the left, likely a combination of pneumonia and pulm onary edema. 2. Small pleural effusions. Reviewed, dictated and finalized at location A. RACTIVE ACCOUNT MANAGER IMPRESSION: 1. Diffuse lung disease with mild improvement on the left, likely a combination of pneumonia and pulmonary edema. 2. Small pleural effusions.
--- NOTE | 2022-09-14 10:22 | ECG_ITS ---
Measurements Intervals [place] Rate: 66 P: 8 [place]: 167 QRS: -7 QRSD: 129 T: 99 QT: 459 QTc: 482 Interpretive Statements SINUS RHYTHM LEFT BUNDLE BRANCH BLOCK [120+ ms QRS DURATION, 80+ ms Q/S IN V1/V2, 85+ ms R IN I/aVL/V5/V6] ABNORMAL ECG COMPARED TO ECG 09/03/2022 21:30:12 NO SIGNIFICANT CHANGES Electronically Signed On 09-14-2022 11:28:37 DATACAP DEVELOPER by Kenneth Morris M.D.
[2022-09-14 11:09] LABS: Basophils Absolute Auto 0.1 K/mm3 (0.0-0.1); Basophils Percent Auto 0.6 % (0.2-1.2); Eosinophils Absolute Auto 0.2 K/mm3 (0-0.3); Eosinophils Percent Auto 1.8 % (0-4.4); Hematocrit 33.1 % (37.0-47.0); Hemoglobin 10.6 g/dL (12.0-15.0); Immature Granulocyte Absolute 0.04 K/mm3 (0.00-0.031); Immature Granulocyte Percent A 0.4 % (0-0.5); Lymphocytes Absolute Auto 0.89 K/mm3 (0.9-3.2); Lymphocytes Percent Auto 9.5 % (18.3-44.2); Mean Corpuscular Hemoglobin 30.8 pg (26-34); Mean Corpuscular Volume 96.2 fl (80-100); Mean Platelet Volume 8.6 fl (7.4-10.4); Monocytes Percent Auto 10.4 % (2.6-8.5); Neutrophils Absolute Auto 7.2 K/mm3 (1.3-6.7); Neutrophils Percent Auto 77.3 % (45.5-73.1); Platelet Count Result 509 k/mm3 (150-375); Red Blood Count 3.44 M/mm3 (4.2-5.4); Red Cell Distribution Width 14.2 % (11.5-14.5); White Blood Count 9.4 K/mm3 (4.5-10.0)
[2022-09-14 11:16] LABS: Alanine Aminotransferase 15 U/L (6-35); Albumin Level 3.5 g/dL (3.5-5.1); Alkaline Phosphatase 97 U/L (38-126); Anion Gap 8 mmol/L (8-16); Aspartate Amino Transferase 21 U/L (14-36); Bilirubin,Total 0.4 mg/dL (0.2-1.3); Blood Urea Nitrogen 20 mg/dL (7-17); Calcium 8.5 mg/dL (8.4-10.2); Carbon Dioxide 22 mmol/L (22-30); Chloride 103 mmol/L (98-107); Estimated CRCL calculation 30 ml/min; Estimated Glomerular Filt Rate 39; Glucose 156 mg/dL (65-110); Potassium 4.4 mmol/L (3.4-5.0); Sodium 133 mmol/L (137-145)
[2022-09-14 11:22] LABS: INR 1.1; Prothrombin Time 13.5 Seconds (11.1-14.7)
[2022-09-14 11:23] LABS: Partial Thromboplastin Time 26.7 SECONDS (22.3-36.8)
[2022-09-14 11:28] LABS: NT Pro B Type Natriuretic Pept 9970 pg/mL (5-100); Troponin I 0.018 ng/mL (0.000-0.034)
--- NOTE | 2022-09-14 13:15 | PC.NURSE ---
pt ambulated with wheeled walker. pt c/o increased sob though pulse ox stayed 92-93%. upon returning to bed pulse ox increased to 94%.
--- NOTE | 2022-09-14 13:27 | ED.SOB ---
HPI - SOB/Dyspnea General Chief Complaint: Shortness of Breath/Dyspnea Stated Complaint: sob x 2 weeks, abx for pna, new afib Time Seen by Provider: 09/14/22 10:13 History of Present Illness HPI Narrative: Patient is an 81-year-old female who presents ER with shortness of breath. Recently treated for pneumonia. Feels like she has been persistently weak. No exertional component declined but has had increased shortness of breath with exertion. She has had increased lower extremity edema. She has no orthopnea. Her Lasix was recently discontinued. No chest pain or chest pressure. No new fevers or chills or sweats. Related Data Home Medications Medication Instructions Recorded Confirmed flash glucose scanning reader 04/20/21 08/30/22 ([employer] Hallie 14 Day [place]) insulin glargine 100 unit/mL (3 14 unit subcut HS 03/22/22 08/30/22 mL) subcutaneous pen (Basaglar KwikPen U-100 Insulin) aspirin 81 mg chewable tablet 81 mg PO DAILY 08/30/22 08/30/22 (Children's Aspirin) gabapentin 100 mg capsule 100 mg PO Q12H 08/30/22 08/30/22 metoprolol tartrate 100 mg tablet 100 mg PO Q12H 08/30/22 08/30/22 sacubitril 49 mg-valsartan 51 mg 1 tablet PO Q12H 08/30/22 08/30/22 tablet (Entresto) vitamin B complex (B 1 tablet PO DAILY 08/30/22 08/30/22 Complex-Vitamin B12 tablet) Allergies Allergy/AdvReac Type Severity Reaction Status Date / Time acetaminophen Allergy Intermediate Rash Verified 09/06/22 16:10 amoxicillin Allergy Mild Other Verified 09/06/22 16:10 clavulanic acid AdvReac Unknown Other Verified 09/06/22 16:10 [From Augmentin] Review of Systems Review of Systems: All systems reviewed & are unremarkable except as noted in HPI and below Constitutional: Constitutional: Denies chills, Reports fatigue and Denies fever(s) Cardiovascular: Cardiovascular: Denies chest pain, Denies radiating jaw, neck or arm pain and Denies slow heart rate Respiratory: Respiratory: Reports cough, Reports dyspnea and Denies wheezing Gastrointestinal: Gastrointestinal: Denies abdominal pain, Denies nausea and Denies vomiting Musculoskeletal: Musculoskeletal: Denies arthralgias and Denies joint swelling Comments: Lower extremity edema Neurologic: Denies headache(s) and Denies focal weakness [facility] Past Medical History Medical History Acute kidney injury Anemia With history of iron deficiency anemia requiring iron transfusions. Benign paroxysmal positional vertigo due to bilateral vestibular disorder Chronic bilateral low back pain without sciatica Chronic hyponatremia Chronic kidney disease, stage 3 Colon polyp Combined systolic and diastolic cardiac dysfunction Coronary artery disease Diabetic peripheral neuropathy Essential hypertension Gastroesophageal reflux disease Heart attack Hyperlipidemia associated with type 2 diabetes mellitus Hyponatremia Idiopathic chronic pancreatitis On long-term Creon. Insulin dependent type 2 diabetes mellitus Ischemic cardiomyopathy LBBB (left bundle branch block) Moderate mitral regurgitation Neuropathy Pancreatic insufficiency Polyneuropathy Pulmonary hypertension Pure hypercholesterolemia Rectal hemorrhage due to inflammatory polyps of colon Sarcoidosis of lung Diagnosed in the . Spinal stenosis of lumbosacral region Venous insufficiency Surgical History Surgical History History of appendectomy History of breast biopsy History of cataract surgery History of hand surgery History of repair of left rotator cuff History of rotator cuff surgery right History of tonsillectomy History of total right knee replacement Family History Family History Father Hypertension Heart disease Acute myocardial infarction Mother Family history of lung cancer Family history of malignant neoplasm of breast in
[2022-09-14] MEDS: FUROSEMIDE INJ 40 MG/4 ML VIAL IV PUSH (13:39)
--- NOTE | 2022-09-14 15:00 | PC.NURSE ---
dietary contacted for dinner tray
--- NOTE | 2022-09-14 15:05 | PM.IMHP ---
H&P: HPI History of Present Illness Date/Time: 09/14/22 15:05 Chief Complaint: Shortness of breath. Narrative: This is a very pleasant 81-year-old female with insulin-dependent type 2 diabetes mellitus, diabetic peripheral neuropathy, coronary artery disease with history of anterior wall ID status post balloon PTCA of the mid LAD, ischemic cardiomyopathy with an EF as low as 25-30% on echo in March 2022, combined systolic and diastolic congestive heart failure, hypertension, and GERD who presented to the emergency department for evaluation of shortness of breath. She was seen in the emergency department on 08/26/2022 with complaints of high blood pressure and bilateral lower extremity cramping for couple of days. Her workup was really unremarkable and she was discharged home and followed up with her primary care provider to days thereafter. At that time she continued to complain of pain in her legs and also mention that she was a bit short of breath but she went on to say that she had recently seen her dealer accounts investigator and they told her was likely due to her cardiomyopathy. Her statin was discontinued and hydralazine was added to her regimen due to persistently elevated blood pressures. She was admitted to the hospital on 08/30/2022 with pneumonia and acute on chronic congestive heart failure exacerbation. It looks like she got a bit over diuresed and she was told to hold her Lasix for a week following discharge on 09/04/2022. The following day she was seen in the ER with difficulties urinating and a Marques catheter was inserted due to retention and 2 days later she returned to the ER to have it removed as it was causing her irritation and she seems to have been urinating fine since then. Over the last couple of days she has been increasingly short of breath with lesser and lesser exertion with orthopnea and increasing edema in all extremities. In the ED she was found to have findings pulmonary edema and small pleural effusions on chest x-ray in addition to a proBNP which has nearly tripled from previous hospitalization and she is being admitted in this setting for diuresis. She denies fever, chills, sweats, chest pain, pleuritic pain, palpitations, sensations of racing heart, nausea, vomiting, diarrhea, dysuria, and difficulties urinating. Review of Systems Review of Systems: Twelve systems were reviewed and are negative except for as per HPI. [facility] Past Medical History Medical History (Updated 09/14/22 @ 19:56 by Monique Fernandez PA-C) Anemia With history of iron deficiency anemia requiring iron transfusions. Benign paroxysmal positional vertigo due to bilateral vestibular disorder Chronic bilateral low back pain without sciatica Chronic hyponatremia Chronic kidney disease, stage 3 Colon polyp Combined systolic and diastolic cardiac dysfunction Coronary artery disease Diabetic peripheral neuropathy Essential hypertension Gastroesophageal reflux disease Heart attack Hyperlipidemia associated with type 2 diabetes mellitus Idiopathic chronic pancreatitis On long-term Creon. Insulin dependent type 2 diabetes mellitus Ischemic cardiomyopathy LBBB (left bundle branch block) Moderate mitral regurgitation Pancreatic insufficiency Pulmonary hypertension Pure hypercholesterolemia Rectal hemorrhage due to inflammatory polyps of colon Sarcoidosis of lung Diagnosed in the . Spinal stenosis of lumbosacral region Venous insufficiency Surgical History Surgical History History of appendectomy History of breast biopsy History of cataract surgery History of hand surgery History of repair of left rotator cuff History of rotator cuff surgery right History of tonsillectomy History of total right knee replacement Family History Family History Father Hypertension Heart disease Acute myocardial infarction Mother Family history
[2022-09-14 15:15] LABS: Influenza A QL RT-PCR Negative (Negative); Influenza B QL RT-PCR Negative (Negative); SARS-CoV-2 RNA PCR Negative
[2022-09-14 15:22] LABS: Glucose Point of Care 147 mg/dl (65-105)
--- NOTE | 2022-09-14 18:48 | ADMGEN ---
This patient, Danielle Thomason, was admitted to 3 [facility] Surg Room 309-01 at 1715. Patient/family oriented to hospital policies and general routines including ID bracelet, bed and alarms, visiting hours, pain management, procedures, bathroom and other care routines, personal items, smoking policy, room service/diet, and visiting hours. Information on how to activate the Rapid Response Team has been discussed. Patient/Family are encouraged to report perceived risks to care and to ask questions if they do not understand what they are told or what they should do.
[2022-09-14 20:37] LABS: Glucose Point of Care 254 mg/dl (65-105)
[2022-09-14] MEDS: INSULIN GLARGINE (*BKC) 100 UNITS/ML 14 UNITS SUB-Q (22:01)
[2022-09-14] MEDS: FUROSEMIDE INJ 40 MG/4 ML VIAL 20 MG IV PUSH (23:36)
[2022-09-14] MEDS: hydrALAZINE HCL 50 MG TABLET 100 MG PO (23:37)
[2022-09-14] MEDS: FAMOTIDINE 20 MG TABLET PO (23:37)
[2022-09-14] MEDS: GABAPENTIN 100 MG CAPSULE PO (23:38)
[2022-09-14] MEDS: METOPROLOL TARTRATE 50 MG TAB 100 MG PO (23:38)
[2022-09-14] MEDS: SACUBITRIL/VALSARTAN 49-51 MG TABLET 1 TABLET PO (23:38)
[2022-09-15 06:13] VITALS: BP 160/60; PULSE 66; RESP 16; TEMP 36.4; O2SAT 97
[2022-09-15 06:37] LABS: Hematocrit 28.8 % (37.0-47.0); Hemoglobin 9.2 g/dL (12.0-15.0); Mean Corpuscular HGB Conc 31.9 g/dl (32-36); Mean Corpuscular Hemoglobin 29.7 pg (26-34); Mean Corpuscular Volume 92.9 fl (80-100); Mean Platelet Volume 8.6 fl (7.4-10.4); Platelet Count Result 457 k/mm3 (150-375); Red Cell Distribution Width 14.2 % (11.5-14.5); White Blood Count 7.1 K/mm3 (4.5-10.0)
[2022-09-15 06:48] LABS: Alanine Aminotransferase 14 U/L (6-35); Albumin Level 3.1 g/dL (3.5-5.1); Alkaline Phosphatase 89 U/L (38-126); Anion Gap 8 mmol/L (8-16); Aspartate Amino Transferase 21 U/L (14-36); Bilirubin,Total 0.6 mg/dL (0.2-1.3); Blood Urea Nitrogen 22 mg/dL (7-17); Calcium 8.4 mg/dL (8.4-10.2); Carbon Dioxide 24 mmol/L (22-30); Chloride 103 mmol/L (98-107); Estimated CRCL calculation 30 ml/min; Estimated Glomerular Filt Rate 39; Glucose 110 mg/dL (65-110); Magnesium 1.6 mg/dL (1.6-2.3); Potassium 3.7 mmol/L (3.4-5.0); Sodium 135 mmol/L (137-145)
[2022-09-15 08:11] LABS: Glucose Point of Care 90 mg/dl (65-105)
[2022-09-15] MEDS: FAMOTIDINE 20 MG TABLET PO ×2 (09:03→21:04)
[2022-09-15] MEDS: ASPIRIN 81 MG CHEWABLE TABLET PO (09:03)
[2022-09-15] MEDS: SACUBITRIL/VALSARTAN 49-51 MG TABLET 1 TABLET PO ×2 (09:03→21:04)
[2022-09-15] MEDS: CLOPIDOGREL BISULFATE 75 MG TABLET PO (09:03)
[2022-09-15] MEDS: ENOXAPARIN 40 MG/0.4 ML SYRINGE SUB-Q (09:03)
[2022-09-15 09:04] VITALS: PULSE 62
[2022-09-15] MEDS: METOPROLOL TARTRATE 50 MG TAB 100 MG PO ×2 (09:04→21:04)
[2022-09-15] MEDS: hydrALAZINE HCL 50 MG TABLET 100 MG PO ×2 (09:05→17:06)
[2022-09-15] MEDS: GABAPENTIN 100 MG CAPSULE PO ×2 (09:05→21:04)
[2022-09-15] MEDS: VITAMIN B COMPLEX CAPSULE 1 CAP PO (09:05)
[2022-09-15] MEDS: FUROSEMIDE INJ 40 MG/4 ML VIAL 20 MG IV PUSH ×2 (09:05→17:06)
--- NOTE | 2022-09-15 11:44 | PM.IMPN ---
Progress Note: A&P Assessment and Plan (1) CHF exacerbation: Code(s): I50.9 - Heart failure, unspecified Status: Acute Assessment and Plan: acute on chronic systolic. Continue diuresis. Shortness of breath improved (2) Essential hypertension: Code(s): I10 - Essential (primary) hypertension Status: Chronic Assessment and Plan: monitor (3) Chronic kidney disease, stage 3: Code(s): N18.3 - Chronic kidney disease, stage 3 (moderate) Status: Chronic Assessment and Plan: monitor (4) Chronic hyponatremia: Code(s): E87.1 - Hypo-osmolality and hyponatremia Status: Acute Assessment and Plan: this is chronic (5) Insulin dependent type 2 diabetes mellitus: Code(s): E11.9 - Type 2 diabetes mellitus without complications; Z79.4 - [facility] (current) use of insulin Status: Acute Subjective Date/time seen: 09/15/22 11:44 shortness of breath is improved Exam Const: Other: Nontoxic-appearing female sitting up in bed. Weight: 81.5 kilograms. BMI: 33.9. HENMT: Other: Normocephalic, atraumatic. Nares are patent bilaterally. Moist mucous membranes. Eyes: Other: Pupils are reactive. Extraocular motions intact. Sclerae anicteric. Neck: Other: Supple. Mild jugular venous distension. Resp: Other: Respirations are nonlabored while sitting down however when I helped the patient to the commode and back to bed she was pretty significantly winded and it took her several minutes to catch her breath. Lung sounds are a bit diminished at the bases with scattered crackles. Cardio: Other: Regular rate and rhythm with normal S1-S2. She has a soft systolic murmur heard at the lower sternal border. GI: Other: Abdomen is soft, nontender, and nondistended with positive bowel sounds. Skin: Other: Warm and dry. Neuro: Other: Alert. Cranial nerves 2-12 are grossly intact. No gross focal deficits to casual conversation. Extrem: Other: No cyanosis or clubbing. Bilateral lower extremity pitting edema with some edema of the upper arms and hands as well. Peripheral pulses intact. Psych: Other: Pleasant and cooperative with appropriate mood and affect. Objective Data Vital Signs Vital Signs: Vital Signs - 24 hr 09/14/22 11:45 09/14/22 12:00 09/14/22 12:02 Temperature Pulse Rate 113 H 123 H 102 H Respiratory Rate 25 H 24 H 25 H Blood Pressure 174/64 H Pulse Oximetry 95 93 93 Oxygen Delivery 09/14/22 12:03 09/14/22 12:31 09/14/22 13:18 Temperature Pulse Rate 105 H Respiratory Rate 19 Blood Pressure 164/68 H Pulse Oximetry 97 93 Oxygen Delivery 09/14/22 13:33 09/14/22 13:45 09/14/22 13:47 Temperature Pulse Rate 68 63 56 L Respiratory Rate 25 H 29 H 17 Blood Pressure 172/56 H Pulse Oximetry 93 95 94 Oxygen Delivery 09/14/22 13:48 09/14/22 14:00 09/14/22 14:01 Temperature Pulse Rate 77 65 66 Respiratory Rate 16 29 H 23 H Blood Pressure 171/64 H Pulse Oximetry 97 96 94 Oxygen Delivery 09/14/22 14:15 09/14/22 14:30 09/14/22 14:31 Temperature Pulse Rate 63 66 79 Respiratory Rate 17 21 H 20 Blood Pressure 175/69 H Pulse Oximetry 94 95 93 Oxygen Delivery 09/14/22 14:45 09/14/22 15:04 09/14/22 15:06 Temperature Pulse Rate 71 145 H 71 Respiratory Rate 21 H 14 19 Blood Pressure 143/50 H Pulse Oximetry 96 94 82 L Oxygen Delivery 09/14/22 15:15 09/14/22 15:30 09/14/22 15:31 Temperature Pulse Rate 82 89 80 Respiratory Rate 26 H 23 H 23 H Blood Pressure 174/82 H Pulse Oximetry 96 95 Oxygen Delivery 09/14/22 16:21 09/14/22 16:30 09/14/22 16:32 Temperature Pulse Rate 70 105 H 111 H Respiratory Rate 16 17 14 Blood Pressure 156/61 H Pulse Oximetry 96 94 94 Oxygen Delivery 09/14/22 16:45 09/14/22 17:18 09/14/22 19:25 Temperature Pulse Rate 111 H 57 L Respiratory Rate 14 20 Blood Pressure
[2022-09-15 11:46] LABS: Glucose Point of Care 174 mg/dl (65-105)
[2022-09-15 14:00] VITALS: BP 147/60; PULSE 66; RESP 16; TEMP 36.7; O2SAT 95
[2022-09-15 16:34] LABS: Glucose Point of Care 238 mg/dl (65-105)
[2022-09-15] MEDS: INSULIN ASPART (*BKC) 100 UNITS/ML SUB-Q (17:06)
[2022-09-15 20:00] VITALS: BP 156/62; PULSE 65; PULSE 66; RESP 16; RESP 17; TEMP 36.5; O2SAT 95
[2022-09-15 21:04] VITALS: PULSE 66
[2022-09-15] MEDS: INSULIN GLARGINE (*BKC) 100 UNITS/ML 14 UNITS SUB-Q (21:04)
[2022-09-15 21:27] LABS: Glucose Point of Care 194 mg/dl (65-105)
[2022-09-15 22:00] VITALS: BP 156/62; PULSE 65; RESP 17; TEMP 36.5; O2SAT 95
[2022-09-16 06:00] VITALS: BP 136/50; PULSE 65; RESP 17; TEMP 36.5; O2SAT 91
[2022-09-16 08:36] LABS: Glucose Point of Care 127 mg/dl (65-105)
[2022-09-16] MEDS: ASPIRIN 81 MG CHEWABLE TABLET PO (09:23)
[2022-09-16] MEDS: METOPROLOL TARTRATE 50 MG TAB 100 MG PO ×2 (09:23→20:37)
[2022-09-16] MEDS: CLOPIDOGREL BISULFATE 75 MG TABLET PO (09:23)
[2022-09-16] MEDS: GABAPENTIN 100 MG CAPSULE PO ×2 (09:23→20:36)
[2022-09-16] MEDS: ENOXAPARIN 40 MG/0.4 ML SYRINGE SUB-Q (09:23)
[2022-09-16] MEDS: FUROSEMIDE INJ 40 MG/4 ML VIAL 20 MG IV PUSH ×2 (09:24→17:41)
[2022-09-16] MEDS: FAMOTIDINE 20 MG TABLET PO ×2 (09:24→20:36)
[2022-09-16] MEDS: hydrALAZINE HCL 50 MG TABLET 100 MG PO ×2 (09:24→17:42)
[2022-09-16] MEDS: VITAMIN B COMPLEX CAPSULE 1 CAP PO (09:24)
[2022-09-16] MEDS: SACUBITRIL/VALSARTAN 49-51 MG TABLET 1 TABLET PO ×2 (09:24→20:36)
[2022-09-16 09:46] LABS: Anion Gap 7 mmol/L (8-16); Blood Urea Nitrogen 23 mg/dL (7-17); Calcium 8.2 mg/dL (8.4-10.2); Carbon Dioxide 25 mmol/L (22-30); Chloride 101 mmol/L (98-107); Estimated CRCL calculation 28 ml/min; Estimated Glomerular Filt Rate 36; Glucose 131 mg/dL (65-110); Potassium 3.8 mmol/L (3.4-5.0); Sodium 133 mmol/L (137-145)
[2022-09-16 09:55] LABS: NT Pro B Type Natriuretic Pept 6550 pg/mL (5-100)
--- NOTE | 2022-09-16 10:06 | PM.IMPN ---
Progress Note: A&P Assessment and Plan (1) CHF exacerbation: Code(s): I50.9 - Heart failure, unspecified Status: Acute Assessment and Plan: acute on chronic systolic. Continue diuresis. Shortness of breath improved (2) Essential hypertension: Code(s): I10 - Essential (primary) hypertension Status: Chronic Assessment and Plan: monitor (3) Chronic kidney disease, stage 3: Code(s): N18.3 - Chronic kidney disease, stage 3 (moderate) Status: Chronic Assessment and Plan: monitor (4) Chronic hyponatremia: Code(s): E87.1 - Hypo-osmolality and hyponatremia Status: Acute Assessment and Plan: this is chronic (5) Insulin dependent type 2 diabetes mellitus: Code(s): E11.9 - Type 2 diabetes mellitus without complications; Z79.4 - assisted (current) use of insulin Status: Acute Subjective Date/time seen: 09/16/22 10:06 Exam Const: Other: Nontoxic-appearing female sitting up in bed. Weight: 81.5 kilograms. BMI: 33.9. HENMT: Other: Normocephalic, atraumatic. Nares are patent bilaterally. Moist mucous membranes. Eyes: Other: Pupils are reactive. Extraocular motions intact. Sclerae anicteric. Neck: Other: Supple. Mild jugular venous distension. Resp: Other: Respirations are nonlabored while sitting down however when I helped the patient to the commode and back to bed she was pretty significantly winded and it took her several minutes to catch her breath. Lung sounds are a bit diminished at the bases with scattered crackles. Cardio: Other: Regular rate and rhythm with normal S1-S2. She has a soft systolic murmur heard at the lower sternal border. GI: Other: Abdomen is soft, nontender, and nondistended with positive bowel sounds. Skin: Other: Warm and dry. Neuro: Other: Alert. Cranial nerves 2-12 are grossly intact. No gross focal deficits to casual conversation. Extrem: Other: No cyanosis or clubbing. Bilateral lower extremity pitting edema with some edema of the upper arms and hands as well. Peripheral pulses intact. Psych: Other: Pleasant and cooperative with appropriate mood and affect. Objective Data Vital Signs Vital Signs: Vital Signs - 24 hr 09/15/22 14:00 09/15/22 20:00 09/15/22 21:04 Temperature 98.1 F Pulse Rate 66 66 66 Respiratory Rate 16 16 Blood Pressure 147/60 H Pulse Oximetry 95 95 Oxygen Delivery Room Air 09/15/22 20:00 09/15/22 22:00 09/16/22 06:00 Temperature 97.7 F 97.7 F 97.7 F Pulse Rate 65 65 65 Respiratory Rate 17 17 17 Blood Pressure 156/62 H 156/62 H 136/50 L Pulse Oximetry 95 95 91 Oxygen Delivery Intake/Output Intake/Output: Intake & Output 09/13/22 09/14/22 09/15/22 09/16/22 23:59 23:59 23:59 23:59 Intake Total 240 1962 Output Total 7364 376 Balance 107 -096 -134 Meds/Results Medications: Active Medications Generic Name Dose Route Start Last Admin Trade Name Freq PRN Reason Stop Dose Admin Acetaminophen 650 mg 09/14/22 15:07 Acetaminophen 325 Mg Tablet PO Q4H PRN Mild Pain (1-3) or Fever Aspirin 81 mg 09/15/22 09:00 09/16/22 09:23 Aspirin 81 Mg Chewable Tablet PO 81 mg DAILY JAMARI Administration Clopidogrel Bisulfate 75 mg 09/15/22 09:00 09/16/22 09:23 Clopidogrel Bisulfate 75 Mg Tablet PO 75 mg QAM JAMARI Administration Dextrose 12.5 gm 09/14/22 20:02 Dextrose 50% 25 Gm/50 Ml Syringe IV PUSH PRN PRN Hypoglycemia Protocol Enoxaparin Sodium 40 mg 09/15/22 09:00 09/16/22 09:23 Enoxaparin 40 Mg/0.4 Ml Syringe SUB-Q 40 mg DAILY JAMARI Administration Famotidine 20 mg 09/14/22 21:00 09/16/22 09:24 Famotidine 20 Mg Tablet PO 20 mg Q12HR JAMARI Administration Furosemide 20 mg 09/14/22 20:01 09/16/22 09:24 Furosemide Inj 40 Mg/4 Ml Vial IV PUSH 20 mg BID JAMARI Administration Gabapentin 100 mg 09/14/22 21:00 09/16/22 09:23
[2022-09-16 10:10] LABS: Hematocrit 30.5 % (37.0-47.0); Hemoglobin 9.9 g/dL (12.0-15.0); Mean Corpuscular HGB Conc 32.5 g/dl (32-36); Mean Corpuscular Hemoglobin 30.7 pg (26-34); Mean Corpuscular Volume 94.7 fl (80-100); Platelet Count Result 463 k/mm3 (150-375); Red Blood Count 3.22 M/mm3 (4.2-5.4); White Blood Count 6.1 K/mm3 (4.5-10.0)
[2022-09-16 11:25] LABS: Alveolar/Arterial O2 Gradient 26.8 mmHg; Base Excess ABG 1.9 mEq/l (+/-2.0); Fractional Inspired Oxygen 21 %; HCO3 ABG 25.3 mEq/l (22.0-26.0); Modified Allen's Test Pass; Oxygen Content ABG 16.3 %vol (16.0-22.0); Oxygen Saturation ABG 96.6 % (95.0-100.0); Oxyhemoglobin 94.7 % THb (90.0-100.0); PCO2 ABG 35.4 mmHg (35.0-45.0); PO2 ABG 80.5 mmHg (80.0-100.0); PO2 FiO2 Ratio Arterial Blood 3.83 %; Site Drawn LEFT RADIAL; Total Hemoglobin 12.2 g/dL (12.0-18.0); pH ABG 7.472 (7.350-7.450)
[2022-09-16 12:04] LABS: Glucose Point of Care 251 mg/dl (65-105)
[2022-09-16] MEDS: INSULIN ASPART (*BKC) 100 UNITS/ML SUB-Q ×2 (12:22→17:42)
[2022-09-16 14:00] VITALS: BP 158/60; PULSE 53; RESP 20; TEMP 36.8; O2SAT 97
[2022-09-16 16:59] LABS: Glucose Point of Care 231 mg/dl (65-105)
[2022-09-16 19:55] LABS: Glucose Point of Care 254 mg/dl (65-105)
[2022-09-16 20:37] VITALS: PULSE 70
[2022-09-16] MEDS: INSULIN GLARGINE (*BKC) 100 UNITS/ML 14 UNITS SUB-Q (20:40)
[2022-09-16 22:00] VITALS: BP 139/46; PULSE 65; RESP 16; TEMP 36.7; O2SAT 96
[2022-09-17 06:00] VITALS: BP 157/57; PULSE 62; RESP 17; TEMP 36.7; O2SAT 100
[2022-09-17 08:10] LABS: Glucose Point of Care 148 mg/dl (65-105)
[2022-09-17 08:30] VITALS: PULSE 66
[2022-09-17] MEDS: hydrALAZINE HCL 50 MG TABLET 100 MG PO (08:30)
[2022-09-17] MEDS: SACUBITRIL/VALSARTAN 49-51 MG TABLET 1 TABLET PO (08:30)
[2022-09-17] MEDS: METOPROLOL TARTRATE 50 MG TAB 100 MG PO (08:30)
[2022-09-17] MEDS: VITAMIN B COMPLEX CAPSULE 1 CAP PO (08:30)
[2022-09-17] MEDS: FAMOTIDINE 20 MG TABLET PO (08:30)
[2022-09-17] MEDS: ENOXAPARIN 40 MG/0.4 ML SYRINGE SUB-Q (08:31)
[2022-09-17] MEDS: FUROSEMIDE INJ 40 MG/4 ML VIAL 20 MG IV PUSH (08:31)
[2022-09-17] MEDS: ASPIRIN 81 MG CHEWABLE TABLET PO (08:32)
[2022-09-17] MEDS: CLOPIDOGREL BISULFATE 75 MG TABLET PO (08:32)
[2022-09-17] MEDS: GABAPENTIN 100 MG CAPSULE PO (08:32)
--- NOTE | 2022-09-17 11:39 | PM.DS ---
DS: Admitting Diagnosis Discharge Date September 17, 2022 Admitting Diagnosis CHF exacerbation acute on chronic systolic DS: Discharge Diagnosis Discharge Diagnosis (1) CHF exacerbation: Code(s): I50.9 - Heart failure, unspecified Status: Acute Assessment and Plan: acute on chronic systolic. Continue diuresis. Shortness of breath improved (2) Essential hypertension: Code(s): I10 - Essential (primary) hypertension Status: Chronic Assessment and Plan: monitor (3) Chronic kidney disease, stage 3: Code(s): N18.3 - Chronic kidney disease, stage 3 (moderate) Status: Chronic Assessment and Plan: monitor (4) Chronic hyponatremia: Code(s): E87.1 - Hypo-osmolality and hyponatremia Status: Acute Assessment and Plan: this is chronic (5) Insulin dependent type 2 diabetes mellitus: Code(s): E11.9 - Type 2 diabetes mellitus without complications; Z79.4 - skilled nursing (current) use of insulin Status: Acute DS: Summary Hospital Course Hospital Course: patient was admitted for CHF exacerbation. Her last admission was a couple weeks ago and her diuretic was stopped due to dehydration. Patient clearly needs to be on some form diuretic on discharge. She has no chest pain no other complaints. Her diuretic was resumed and she is doing much better. Patient can be discharged home follow Cardiology Time Spent with Patient Time attestation: Total time spent providing and/or coordinating discharge services: Exam Const: Other: Nontoxic-appearing female sitting up in bed. Weight: 81.5 kilograms. BMI: 33.9. HENMT: Other: Normocephalic, atraumatic. Nares are patent bilaterally. Moist mucous membranes. Eyes: Other: Pupils are reactive. Extraocular motions intact. Sclerae anicteric. Neck: Other: Supple. Mild jugular venous distension. Resp: Other: Respirations are nonlabored while sitting down however when I helped the patient to the commode and back to bed she was pretty significantly winded and it took her several minutes to catch her breath. Lung sounds are a bit diminished at the bases with scattered crackles. Cardio: Other: Regular rate and rhythm with normal S1-S2. She has a soft systolic murmur heard at the lower sternal border. GI: Other: Abdomen is soft, nontender, and nondistended with positive bowel sounds. Skin: Other: Warm and dry. Neuro: Other: Alert. Cranial nerves 2-12 are grossly intact. No gross focal deficits to casual conversation. Extrem: Other: No cyanosis or clubbing. Bilateral lower extremity pitting edema with some edema of the upper arms and hands as well. Peripheral pulses intact. Psych: Other: Pleasant and cooperative with appropriate mood and affect. DS: Data Data Completed and Pending Labs on day of discharge: Labs from last 24 hours 09/17/22 09/16/22 09/16/22 07:46 19:41 16:12 POC Capillary Glucose 148 H 254 H 231 H 09/16/22 11:15 POC Capillary Glucose 251 H Discharge Plan Discharge Attending physician on discharge: Adria Lott Discharging Clinician: Adria Lott Patient Disposition: Home, Self-Care Activity: no preference Diet: as tolerated Patient Instructions: Antibiotic Form, Pain Management in Older Adults (DC) Stand Alone Forms: General Discharge Information Follow-up/Referrals: Antonio Patel DO [Primary Care Provider] - Discharge Medications: Continued (DME) [employer] [facility]ie 14 Day [place] Misc See Rx Instructions .Route Rx Instructions: As directed aspirin [Children's Aspirin] 81 mg tablet,chewable 81 mg PO DAILY vitamin B complex [B Complex-Vitamin B12] Tablet 1 tablet PO DAILY Entresto 49-51 mg tablet 1 tablet PO Q12H metoprolol tartrate 100 mg tablet 100 mg PO Q12H gabapentin 100 mg capsule 100 mg PO Q12H insulin glargine [Basaglar K
[2022-09-17 12:12] LABS: Glucose Point of Care 269 mg/dl (65-105)
[2022-09-17] MEDS: INSULIN ASPART (*BKC) 100 UNITS/ML SUB-Q (12:31)
== END 2022-09-17 13:00 | disposition home health service (06) | DRG 291 ==
LOC: ANHED 10:59 → ANH3MEDSUR 16:56
PROVIDERS: Physician Assistant; Admitting Provider Internal Medicine; Emergency Provider Emergency Medicine; PCP Internal Medicine; Visit Provider Chiropractor
DX: I13.0 Hypertensive heart and chronic kidney disease with heart failure and stage 1 through stage 4 chronic kidney disease, or unspecified chronic kidney disease (principal); I50.23 Acute on chronic systolic (congestive) heart failure; E87.1 Hypo-osmolality and hyponatremia; N18.30 Chronic kidney disease, stage 3 unspecified; E11.22 Type 2 diabetes mellitus with diabetic chronic kidney disease; I25.10 Atherosclerotic heart disease of native coronary artery without angina pectoris; E11.42 Type 2 diabetes mellitus with diabetic polyneuropathy; Z20.822 Contact with and (suspected) exposure to COVID-19; K21.9 Gastro-esophageal reflux disease without esophagitis; I44.7 Left bundle-branch block, unspecified; M48.07 Spinal stenosis, lumbosacral region; I87.2 Venous insufficiency (chronic) (peripheral); E78.00 Pure hypercholesterolemia, unspecified; I25.5 Ischemic cardiomyopathy; Z96.651 Presence of right artificial knee joint; Z79.4 Long term (current) use of insulin; Z90.49 Acquired absence of other specified parts of digestive tract; I25.2 Old myocardial infarction; Z95.5 Presence of coronary angioplasty implant and graft
CPT/HCPCS: 36415; 36600; 71046; 80048; 80053; 82805; 82948; 83735; 83880; 84484; 85025; 85027; 85610; 85730; 87636; 93005; 93970; 96372; 96374; 96376; 97161; 97165; 99285; A9270; G0378; J1650; J1815; J1940

== ENCOUNTER 2022-10-27 13:31 | Outpatient (CLI) | payer MEDICARE, OTHER, SELFPAY ==
[2022-10-27 13:43] LABS: Basophils Percent Auto 0.4 % (0.2-1.2); Eosinophils Absolute Auto 0.3 K/mm3 (0-0.3); Eosinophils Percent Auto 4.7 % (0-4.4); Hematocrit 36.1 % (37.0-47.0); Hemoglobin 11.4 g/dL (12.0-15.0); Immature Granulocyte Absolute 0.01 K/mm3 (0.00-0.031); Immature Granulocyte Percent A 0.2 % (0-0.5); Lymphocytes Absolute Auto 1.25 K/mm3 (0.9-3.2); Lymphocytes Percent Auto 23.3 % (18.3-44.2); Mean Corpuscular HGB Conc 31.6 g/dl (32-36); Mean Corpuscular Hemoglobin 30.2 pg (26-34); Mean Corpuscular Volume 95.5 fl (80-100); Mean Platelet Volume 9.3 fl (7.4-10.4); Monocytes Absolute Auto 0.6 K/mm3 (0.1-0.6); Monocytes Percent Auto 10.8 % (2.6-8.5); Neutrophils Absolute Auto 3.3 K/mm3 (1.3-6.7); Neutrophils Percent Auto 60.6 % (45.5-73.1); Platelet Count Result 237 k/mm3 (150-375); Red Blood Count 3.78 M/mm3 (4.2-5.4); Red Cell Distribution Width 13.6 % (11.5-14.5); White Blood Count 5.4 K/mm3 (4.5-10.0)
[2022-10-27 15:45] LABS: Iron 75 ug/dL (37-170)
[2022-10-27 15:48] LABS: Alanine Aminotransferase 17 U/L (6-35); Albumin Level 3.8 g/dL (3.5-5.1); Alkaline Phosphatase 91 U/L (38-126); Anion Gap 6 mmol/L (8-16); Aspartate Amino Transferase 21 U/L (14-36); Bilirubin,Total 0.3 mg/dL (0.2-1.3); Blood Urea Nitrogen 31 mg/dL (7-17); Calcium 8.7 mg/dL (8.4-10.2); Carbon Dioxide 30 mmol/L (22-30); Chloride 103 mmol/L (98-107); Estimated Glomerular Filt Rate 33; Glucose 129 mg/dL (65-110); Potassium 4.3 mmol/L (3.4-5.0); Sodium 139 mmol/L (137-145)
[2022-10-27 15:56] LABS: Percent Iron Saturation 20 % (20-50)
[2022-10-27 17:16] LABS: Folic Acid 8.2 ng/mL (2.76->20)
== END 2022-10-27 13:32 | disposition home or self-care (01) ==
LOC: ANHLAB 13:32
PROVIDERS: PCP Internal Medicine; Visit Provider Internal Medicine Hematology & Oncology
DX: D64.9 Anemia, unspecified (principal)
CPT/HCPCS: 36415; 80053; 82607; 82728; 82746; 83540; 83550; 85025

== ENCOUNTER 2022-12-08 10:35 | Emergency (ER) | payer MEDICARE, OTHER, SELFPAY ==
[2022-12-08 10:38] VITALS: BP 183/88; PULSE 55; RESP 18; TEMP 36.6; O2SAT 100
[2022-12-08 11:31] VITALS: BP 186/76; PULSE 52; RESP 15; TEMP 36.5; O2SAT 99
[2022-12-08 11:56] VITALS: BP 180/80
[2022-12-08] MEDS: TETANUS,DIPHTHERIA,AC PERTUSSIS ADULT (0.5 ML) BOOSTRIX IM (12:40)
--- NOTE | 2022-12-08 12:47 | ED.FALL ---
HPI - Fall General Chief Complaint: Fall Stated Complaint: fall, elbow injury Time Seen by Provider: 12/08/22 12:11 History of Present Illness HPI Narrative: Patient is an 82-year-old female who presents ER with arm abrasion. She had a trip and fall 2 days ago. She skinned her right elbow. Its been oozing blood at times since then. She is on Plavix. No trauma to the head. No fevers or chills or sweats. She is unsure when her last tetanus shot was. Related Data Home Medications Medication Instructions Recorded Confirmed flash glucose scanning reader 04/20/21 10/02/22 (CreateTripsStyle Hallie 14 Day [place]) aspirin 81 mg chewable tablet 81 mg PO DAILY 08/30/22 10/02/22 (Children's Aspirin) gabapentin 100 mg capsule 100 mg PO Q12H 08/30/22 10/02/22 sacubitril 49 mg-valsartan 51 mg 1 tablet PO Q12H 08/30/22 10/02/22 tablet (Entresto) vitamin B complex (B 1 tablet PO DAILY 08/30/22 10/02/22 Complex-Vitamin B12 tablet) insulin glargine 100 unit/mL (3 12 unit subcut HS 11/14/22 mL) subcutaneous pen (Basaglar KwikPen U-100 Insulin) Allergies Allergy/AdvReac Type Severity Reaction Status Date / Time acetaminophen Allergy Intermediate Rash Verified 11/14/22 10:27 amoxicillin Allergy Mild Other Verified 11/14/22 10:27 clavulanic acid AdvReac Unknown Other Verified 11/14/22 10:27 [From Augmentin] Review of Systems Musculoskeletal: Musculoskeletal: Denies back pain, Denies arthralgias and Denies joint swelling Integumentary/Breasts: Skin/Breast: Denies erythema and Denies rash Comments: Skin tear right Neurologic: Denies syncope and Denies headache(s) [facility] Past Medical History Medical History Anemia With history of iron deficiency anemia requiring iron transfusions. Benign paroxysmal positional vertigo due to bilateral vestibular disorder Chronic bilateral low back pain without sciatica Chronic hyponatremia Chronic kidney disease, stage 3 Colon polyp Combined systolic and diastolic cardiac dysfunction Coronary artery disease Diabetic peripheral neuropathy Essential hypertension Gastroesophageal reflux disease Heart attack Hyperlipidemia associated with type 2 diabetes mellitus Idiopathic chronic pancreatitis On long-term Creon. Insulin dependent type 2 diabetes mellitus Ischemic cardiomyopathy LBBB (left bundle branch block) Moderate mitral regurgitation Pancreatic insufficiency Pulmonary hypertension Pure hypercholesterolemia Rectal hemorrhage due to inflammatory polyps of colon Sarcoidosis of lung Diagnosed in the . Spinal stenosis of lumbosacral region Venous insufficiency Surgical History Surgical History History of appendectomy History of breast biopsy History of cataract surgery History of hand surgery History of repair of left rotator cuff History of rotator cuff surgery right History of tonsillectomy History of total right knee replacement Family History Family History Father Hypertension Heart disease Acute myocardial infarction Mother Family history of lung cancer Family history of malignant neoplasm of breast in first degree relative Hypertension Sibling Breast cancer Acute myocardial infarction sister and brother Cerebrovascular accident sister Diabetes mellitus Heart disease Hypertension Other Breast cancer aunt Social History Social History Social History: The patient is and lives with her in [place]. 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 She is a lifelong nonsmoker and denies alcohol and illicit substance use. She designates her , Lionel, as her surrogate decision maker and she wishes to be a full code. Smoking status: Never smoker Second hand tobacco smoke exposure: No Alcohol in
[2022-12-08 12:57] VITALS: BP 152/56; PULSE 58; RESP 18; O2SAT 99
== END 2022-12-08 12:59 | disposition home or self-care (01) ==
PROVIDERS: Emergency Provider Emergency Medicine; PCP Pediatrics Neonatal-Perinatal Medicine
DX: S51.011A Laceration without foreign body of right elbow, initial encounter (principal); Z23 Encounter for immunization; E11.22 Type 2 diabetes mellitus with diabetic chronic kidney disease; I13.0 Hypertensive heart and chronic kidney disease with heart failure and stage 1 through stage 4 chronic kidney disease, or unspecified chronic kidney disease; N18.30 Chronic kidney disease, stage 3 unspecified; I50.42 Chronic combined systolic (congestive) and diastolic (congestive) heart failure; E11.42 Type 2 diabetes mellitus with diabetic polyneuropathy; E11.69 Type 2 diabetes mellitus with other specified complication; E78.49 Other hyperlipidemia; I25.2 Old myocardial infarction; I25.10 Atherosclerotic heart disease of native coronary artery without angina pectoris; I25.5 Ischemic cardiomyopathy; I34.0 Nonrheumatic mitral (valve) insufficiency; I27.20 Pulmonary hypertension, unspecified; I87.2 Venous insufficiency (chronic) (peripheral); D50.9 Iron deficiency anemia, unspecified; D86.0 Sarcoidosis of lung; E87.1 Hypo-osmolality and hyponatremia; K21.9 Gastro-esophageal reflux disease without esophagitis; Z86.010 Personal history of colon polyps; Z98.49 Cataract extraction status, unspecified eye; Z96.651 Presence of right artificial knee joint; Z79.4 Long term (current) use of insulin; Z79.02 Long term (current) use of antithrombotics/antiplatelets; Z79.82 Long term (current) use of aspirin; W01.0XXA Fall on same level from slipping, tripping and stumbling without subsequent striking against object, initial encounter
CPT/HCPCS: 90471; 90715; 99282

== ENCOUNTER 2023-03-21 13:15 | Outpatient (NON) | payer MEDICARE, OTHER, SELFPAY ==
[2023-03-21 13:51] LABS: Anion Gap 10 mmol/L (8-16); Blood Urea Nitrogen 45 mg/dL (7-17); Calcium 8.8 mg/dL (8.4-10.2); Carbon Dioxide 28 mmol/L (22-30); Chloride 89 mmol/L (98-107); Estimated Glomerular Filt Rate 23; Glucose 169 mg/dL (65-110); Potassium 4.1 mmol/L (3.4-5.0); Sodium 127 mmol/L (137-145)
== END 2023-03-21 13:16 | disposition home or self-care (01) ==
LOC: HOME HLTH 13:19
PROVIDERS: PCP Family Medicine; Visit Provider Internal Medicine Nephrology
DX: I25.10 Atherosclerotic heart disease of native coronary artery without angina pectoris (principal); I13.0 Hypertensive heart and chronic kidney disease with heart failure and stage 1 through stage 4 chronic kidney disease, or unspecified chronic kidney disease; I50.32 Chronic diastolic (congestive) heart failure; Z48.812 Encounter for surgical aftercare following surgery on the circulatory system
CPT/HCPCS: 80048

== ENCOUNTER 2023-03-26 12:59 | Outpatient (NON) | payer MEDICARE, OTHER, SELFPAY ==
[2023-03-26 20:07] LABS: Anion Gap 11 mmol/L (8-16); Blood Urea Nitrogen 46 mg/dL (7-17); Calcium 8.6 mg/dL (8.4-10.2); Carbon Dioxide 23 mmol/L (22-30); Chloride 87 mmol/L (98-107); Estimated Glomerular Filt Rate 24; Glucose 245 mg/dL (65-110); Potassium 4.4 mmol/L (3.4-5.0); Sodium 121 mmol/L (137-145)
[2023-03-26 21:04] LABS: Appearance Urine Clear (Clear); Bacteria Urine None Seen /hpf; Bilirubin Urine Negative (Negative); Blood Urine Negative (Negative); Color Urine Yellow (Yellow); Glucose Urine UA Negative (Negative); Ketones Urine Negative (Negative); Leukocyte Esterase Ur 1+ LEU/UL (Negative); Nitrate Urine Negative (Negative); Non Pathogenic Casts 0-2; Protein Urine 2+ mg/dL (Negative); RBC Urine 0-2 /hpf (0-2); Specific Grav Ur 1.013 (1.001-1.035); Squamous Epithelial Cell Urine Occasional /hpf (Few); Urobilinogen Urine 0.2 mg/dL (<2.0); WBC Urine 21-50 /hpf; pH Urine 5.5 (5.0-9.0)
[2023-03-26 21:08] LABS: Add Urine Microscopic? YES
== END 2023-03-26 13:00 | disposition home or self-care (01) ==
LOC: ANHBWCLAB 13:02 → HOME HLTH 13:03
PROVIDERS: PCP Family Medicine; Visit Provider Internal Medicine Nephrology
DX: N17.9 Acute kidney failure, unspecified (principal); I13.0 Hypertensive heart and chronic kidney disease with heart failure and stage 1 through stage 4 chronic kidney disease, or unspecified chronic kidney disease; I50.32 Chronic diastolic (congestive) heart failure; I25.10 Atherosclerotic heart disease of native coronary artery without angina pectoris; Z48.812 Encounter for surgical aftercare following surgery on the circulatory system
CPT/HCPCS: 80048; 81001; 87086; 87088

== ENCOUNTER 2023-04-10 11:14 | Outpatient (NON) | payer MEDICARE, OTHER, SELFPAY ==
[2023-04-10 12:24] LABS: Anion Gap 5 mmol/L (8-16); Blood Urea Nitrogen 27 mg/dL (7-17); Calcium 10.9 mg/dL (8.4-10.2); Carbon Dioxide 26 mmol/L (22-30); Chloride 101 mmol/L (98-107); Estimated Glomerular Filt Rate 33; Glucose 156 mg/dL (65-110); Sodium 132 mmol/L (137-145)
== END 2023-04-10 11:15 | disposition home or self-care (01) ==
PROVIDERS: PCP Family Medicine
DX: I50.32 Chronic diastolic (congestive) heart failure (principal); I13.0 Hypertensive heart and chronic kidney disease with heart failure and stage 1 through stage 4 chronic kidney disease, or unspecified chronic kidney disease; I25.10 Atherosclerotic heart disease of native coronary artery without angina pectoris; Z48.812 Encounter for surgical aftercare following surgery on the circulatory system
CPT/HCPCS: 80048

== ENCOUNTER 2023-04-25 12:16 | Outpatient (NON) | payer MEDICARE, OTHER, SELFPAY ==
[2023-04-25 13:23] LABS: Basophils Percent Auto 0.7 % (0.2-1.2); Eosinophils Absolute Auto 0.3 K/mm3 (0-0.3); Eosinophils Percent Auto 5.2 % (0-4.4); Hematocrit 37.7 % (37.0-47.0); Hemoglobin 11.8 g/dL (12.0-15.0); Immature Granulocyte Absolute 0.02 K/mm3 (0.00-0.031); Immature Granulocyte Percent A 0.3 % (0-0.5); Lymphocytes Absolute Auto 1.11 K/mm3 (0.9-3.2); Lymphocytes Percent Auto 19.3 % (18.3-44.2); Mean Corpuscular HGB Conc 31.3 g/dl (32-36); Mean Corpuscular Hemoglobin 30.5 pg (26-34); Mean Corpuscular Volume 97.4 fl (80-100); Mean Platelet Volume 9.6 fl (7.4-10.4); Monocytes Absolute Auto 0.6 K/mm3 (0.1-0.6); Monocytes Percent Auto 10.1 % (2.6-8.5); Neutrophils Absolute Auto 3.7 K/mm3 (1.3-6.7); Neutrophils Percent Auto 64.4 % (45.5-73.1); Platelet Count Result 271 k/mm3 (150-375); Red Blood Count 3.87 M/mm3 (4.2-5.4); White Blood Count 5.8 K/mm3 (4.5-10.0)
[2023-04-25 13:29] LABS: Sodium Urine Random 29 meq/L
[2023-04-25 13:31] LABS: Appearance Urine Cloudy (Clear); Bacteria Urine None Seen /hpf; Bilirubin Urine Negative (Negative); Blood Urine Negative (Negative); Color Urine Yellow (Yellow); Glucose Urine UA Negative (Negative); Ketones Urine Negative (Negative); Leukocyte Esterase Ur 2+ LEU/UL (NEGATIVE); Nitrate Urine Negative (Negative); Non Pathogenic Casts 0-2; Protein Urine 2+ mg/dL (Negative); RBC Urine 0-2 /hpf (0-2); Specific Grav Ur 1.013 (1.001-1.035); Squamous Epithelial Cell Urine Occasional /hpf (Few); Urobilinogen Urine 0.2 mg/dL (<2.0); WBC Urine 21-50 /hpf (0-3); pH Urine 5.5 (5.0-9.0)
[2023-04-25 13:32] LABS: Add Urine Microscopic? YES
[2023-04-25 13:33] LABS: Alanine Aminotransferase 22 U/L (6-35); Albumin Level 3.9 g/dL (3.5-5.1); Alkaline Phosphatase 117 U/L (38-126); Anion Gap 8 mmol/L (8-16); Aspartate Amino Transferase 27 U/L (14-36); Bilirubin,Total 0.4 mg/dL (0.2-1.3); Blood Urea Nitrogen 25 mg/dL (7-17); Calcium 9.2 mg/dL (8.4-10.2); Carbon Dioxide 26 mmol/L (22-30); Chloride 100 mmol/L (98-107); Estimated Glomerular Filt Rate 31; Glucose 133 mg/dL (65-110); Sodium 134 mmol/L (137-145)
[2023-04-25 13:41] LABS: NT Pro B Type Natriuretic Pept 7430 pg/mL (19.9-100)
== END 2023-04-25 12:17 | disposition home or self-care (01) ==
LOC: ANHLAB 12:20
PROVIDERS: PCP Family Medicine; Visit Provider Internal Medicine Nephrology
DX: N18.9 Chronic kidney disease, unspecified (principal); D64.9 Anemia, unspecified; E87.1 Hypo-osmolality and hyponatremia; I13.0 Hypertensive heart and chronic kidney disease with heart failure and stage 1 through stage 4 chronic kidney disease, or unspecified chronic kidney disease; I50.32 Chronic diastolic (congestive) heart failure; I25.10 Atherosclerotic heart disease of native coronary artery without angina pectoris; Z48.812 Encounter for surgical aftercare following surgery on the circulatory system
CPT/HCPCS: 36415; 80053; 81001; 83880; 84300; 85025

== ENCOUNTER 2023-06-07 14:51 | Outpatient (CLI) | payer MEDICARE, OTHER, SELFPAY ==
[2023-06-07 15:13] LABS: Basophils Percent Auto 0.3 % (0.2-1.2); Eosinophils Absolute Auto 0.2 K/mm3 (0-0.3); Eosinophils Percent Auto 2.2 % (0-4.4); Hematocrit 37.6 % (37.0-47.0); Hemoglobin 12.1 g/dL (12.0-15.0); Immature Granulocyte Absolute 0.06 K/mm3 (0.00-0.031); Immature Granulocyte Percent A 0.7 % (0-0.5); Lymphocytes Absolute Auto 1.33 K/mm3 (0.9-3.2); Lymphocytes Percent Auto 15.3 % (18.3-44.2); Mean Corpuscular HGB Conc 32.2 g/dl (32-36); Mean Corpuscular Hemoglobin 30.9 pg (26-34); Mean Corpuscular Volume 95.9 fl (80-100); Mean Platelet Volume 9.1 fl (7.4-10.4); Monocytes Absolute Auto 0.8 K/mm3 (0.1-0.6); Monocytes Percent Auto 8.6 % (2.6-8.5); Neutrophils Absolute Auto 6.3 K/mm3 (1.3-6.7); Neutrophils Percent Auto 72.9 % (45.5-73.1); Platelet Count Result 256 k/mm3 (150-375); Red Blood Count 3.92 M/mm3 (4.2-5.4); Red Cell Distribution Width 16.1 % (11.5-14.5); White Blood Count 8.7 K/mm3 (4.5-10.0)
[2023-06-07 16:25] LABS: Iron 58 ug/dL (37-170)
[2023-06-07 16:27] LABS: Anion Gap 8 mmol/L (8-16); Blood Urea Nitrogen 30 mg/dL (7-17); Calcium 8.7 mg/dL (8.4-10.2); Carbon Dioxide 28 mmol/L (22-30); Chloride 98 mmol/L (98-107); Estimated Glomerular Filt Rate 31; Glucose 128 mg/dL (65-110); Sodium 134 mmol/L (137-145)
[2023-06-07 16:35] LABS: Percent Iron Saturation 18 % (20-50)
[2023-06-07 17:33] LABS: Folic Acid 12.6 ng/mL (2.76->20)
== END 2023-06-07 14:52 | disposition home or self-care (01) ==
LOC: ANHLAB 14:54
PROVIDERS: PCP Family Medicine; Visit Provider Internal Medicine Hematology & Oncology
DX: D64.9 Anemia, unspecified (principal)
CPT/HCPCS: 36415; 80048; 82607; 82728; 82746; 83540; 83550; 85025

== ENCOUNTER 2023-08-20 13:30 | Outpatient (RCR) | payer MEDICARE, OTHER, SELFPAY ==
[2023-05-21 14:18] LABS: Glucose Point of Care 90 mg/dl (65-105)
[2023-05-31 14:36] LABS: Glucose Point of Care 243 mg/dl (65-105)
[2023-06-06 14:27] LABS: Glucose Point of Care 156 mg/dl (65-105)
[2023-06-07 15:05] LABS: Glucose Point of Care 67 mg/dl (65-105)
[2023-06-07 15:05] LABS: Glucose Point of Care 124 mg/dl (65-105)
[2023-06-11 14:36] LABS: Glucose Point of Care 113 mg/dl (65-105)
[2023-08-08 14:49] LABS: Glucose Point of Care 74 mg/dl (65-105)
== END 2023-08-20 14:05 | disposition home or self-care (01) ==
LOC: ANHCPREHAB 13:30
PROVIDERS: PCP Family Medicine
DX: Z95.1 Presence of aortocoronary bypass graft (principal)
CPT/HCPCS: 93798

== ENCOUNTER 2023-10-06 10:40 | Outpatient (CLI) | payer MEDICARE, OTHER, SELFPAY ==
--- NOTE | ~2023-10-06 | DEXA_ITS ---
Bone Density Report Name: DARRICK MELCHOR Age: 82 Sex: Female Ethnicity: White Date of : 1940 Indication: postmenopausal; screening for osteoporosis; height loss; Referring Provider: HINA GARCIA Study: Bone densitometry was performed. Exam Date: October 06, 2023 Accession number: [id number] Bone Density: Region BMD T-score Z-score Classification AP Spine(L1, L2) 1.098 1.1 3.7 Normal Femoral Neck (Left) 0.725 -1.1 1.3 Osteopenia Total Hip (Left) 0.780 -1.3 0.8 Osteopenia Femoral Neck (Right) 0.790 -0.5 1.9 Normal Total Hip (Right) 0.833 -0.9 1.3 Normal Total Hip Mean 0.807 -1.1 1.1 Osteopenia World Health Organization criteria for BMD impression classify patients as: Normal (T-score at or above -1.0), Osteopenia (T-score between -1.0 and -2.5), or Osteoporosis (T-score at or below -2.5). 10-year Fracture Risk(1): Major Osteoporotic Fracture 12% Hip Fracture 2.6% Reported Risk Factors: [place] (), Neck BMD=0.725, BMI=28.0 (1) FRAX(R) Version 3.08. Fracture probability calculated for an untreated patient. Fracture probability may be lower if the patient has received treatment. Previous Exams: Region Exam Age BMD T-score BMD Change BMD Change Date g/cm2 vs Baseline vs Previous AP Spine (L1-L2) 10/06/2023 82 1.098 1.1 -0.049 (-4.3%) -0.049 (-4.3%) 11/19/2018 78 1.147 1.5 Total Hip(Left) 10/06/2023 82 0.780 -1.3 -0.246 (-24.0% -0.246 (-24.0% 11/19/2018 78 1.026 0.7 Total Hip(Right) 10/06/2023 82 0.833 -0.9 -0.286 (-25.5% -0.286 (-25.5% 11/19/2018 78 1.119 1.5 *Denotes significance at 95% confidence level, LSC for AP Spine = 0.022 g/cm2, LSC for Total Hip = 0.027 g/cm2 Clinical Information Provided by Patient: Patient maximum height was 63.5 Menopause Age: 51 No regular weight bearing exercise Onset of menses at age 12 Number of children 3 Impression: The patient has low bone mass, based on the Left Total Hip T-score. The patient has an estimated ten-year risk of hip fracture of 2.6% and an estimated ten-year risk of major fracture of 12%, based on the WHO FRAX algorithm. The BMD for the AP Spine (L1-L2) decreased, changing by -4.3% since the last DXA exam. The BMD for the Total Hip(Left) decreased, changing by -24.0% since the last DXA exam. The BMD for the Total Hip(Right) decreased, changing by -25.5% since the last DXA exam. Discussion: BONE DENSITY IS LOW AT
== END 2023-10-06 10:41 | disposition home or self-care (01) ==
LOC: ANHIMG 10:42
PROVIDERS: PCP Family Medicine; Visit Provider Family Medicine
DX: Z78.0 Asymptomatic menopausal state (principal); M85.89 Other specified disorders of bone density and structure, multiple sites
CPT/HCPCS: 77080

== ENCOUNTER 2023-11-20 23:53 | Inpatient (IN) | payer MEDICARE, OTHER, SELFPAY ==
--- NOTE | ~2023-11-20 | XR_ITS ---
Portable chest x-ray Comparison: 09/14/2022 Clinical History: Shortness of breath Findings: There is mild bibasilar haziness. No definite pleural effusions. Cardiomediastinal silhou ette is stable. Bones and soft tissues are unremarkable. Impression: Mild bibasilar pulmonary edema/atelectasis. Reviewed, dictated and finalized at [facility]. ATOLOGY TEACHER Impression: Mild bibasilar pulmonary edema/atelectasis.
[2023-11-20 23:55] VITALS: BP 167/72; PULSE 97; RESP 14; TEMP 36.8; O2SAT 98
[2023-11-21] VITALS (27 sets, daily range): BP systolic 154–186; BP diastolic 65–96; PULSE 84–117; RESP 13–25; TEMP 36.2–37.1; O2SAT 82–100; BMI 28.8
--- NOTE | 2023-11-21 | ECHO_ITS ---
Patient Info Name: Danielle Thomason Age: 83 years : 1940 Gender: Female Ht: 61 in Wt: 150 lbs BSA: 1.73 m2 HR: 106 bpm BP: 186 / 87 mmHg Heart Rhythm: Sinus Rhythm Technical Quality: Good Exam Date: 11/21/2023 2:01 PM Exam Location: Echo Lab Patient Status: Outpatient Admit Date: 11/21/2023 Staff Ordering Physician: Maryanne Rosa APRN [employer] Supervisor: Ml Lynn RDCS Attending Provider: Luis Norman MD Referring Physician: Moe THOMAS; Exam Type: CA echo doppler color flow Study Info Indications - chf Complete two-dimensional, color flow and Doppler transthoracic echocardiogram is performed. Summary 1. Complete two-dimensional, color flow and Doppler transthoracic echocardiogram is performed. 2. Normal left ventricular size with mild concentric hypertrophy and sigmoid septal hypertrophy. There is moderate global hypokinesis, worse in the inferior wall. Although the calculated ejection fraction is 62% visually this appears to be 40-45%. Grade 2 diastolic dysfunction is present. 3. There is moderate aortic valve calcification without stenosis. 4. There is moderate to moderately severe mitral valve regurgitation. 5. There is moderate tricuspid valve regurgitation. 6. Moderate pulmonary hypertension, estimated pulmonary arterial systolic pressure is 58 mmHg. 7. Left atrial chamber dimension is moderately enlarged. 8. Probable underlying sinus rhythm. Left Ventricle Left ventricular chamber dimension is normal. Left ventricular systolic function is normal, estimated at 40-45%. There is mildly increased left ventricular wall thickness. Left ventricular septal wall motion is normal. The left ventricular diastolic function is grade II diastolic dysfunction. Right Ventricle Right ventricular chamber dimension is normal. Right ventricular systolic function is normal. Left Atria Left atrial chamber dimension is moderately enlarged. Right Atria Right atrial chamber dimension is normal. Aortic Valve The aortic valve is trileaflet. There is no aortic valve sclerosis. There is no aortic valve stenosis. There is no aortic valve regurgitation. There is moderate aortic valve calcification without stenosis. Pulmonic Valve The pulmonic valve is normal. There is no pulmonic valve stenosis. There is trace pulmonic regurgitation. Mitral Valve The mitral valve has normal leaflets. There is no mitral valve stenosis. There is moderate to moderately severe mitral valve regurgitation. Tricuspid Valve The tricuspid valve leaflets are normal. There is no significant tricuspid valve stenosis. There is moderate tricuspid valve regurgitation. Moderate pulmonary hypertension, estimated pulmonary arterial systolic pressure is 58 mmHg. Pericardium/Pleural The pericardium appears normal. There is no pericardial effusion. Inferior Vena Cava Normal inferior vena cava with >50% collapse upon inspiration consistent with Empty right atrial pressure, 10 mmHg. Aorta The aortic root size at the sinus of Valsalva is normal. The prox ascending aorta size is normal. Left Ventricular Outflow Tract Name Value Normal LVOT 2D LVOT Diameter 2.2 cm LVOT Doppler LVOT Peak Gradient 4
[2023-11-21 00:56] LABS: Basophils Percent Auto 0.1 % (0.2-1.2); Hematocrit 38.5 % (37.0-47.0); Hemoglobin 12.4 g/dL (12.0-15.0); Immature Granulocyte Absolute 0.05 K/mm3 (0.00-0.031); Immature Granulocyte Percent A 0.7 % (0-0.5); Lymphocytes Absolute Auto 0.65 K/mm3 (0.9-3.2); Lymphocytes Percent Auto 9.3 % (18.3-44.2); Mean Corpuscular HGB Conc 32.2 g/dl (32-36); Mean Corpuscular Hemoglobin 30.6 pg (26-34); Mean Corpuscular Volume 95.1 fl (80-100); Mean Platelet Volume 9.6 fl (7.4-10.4); Monocytes Absolute Auto 0.1 K/mm3 (0.1-0.6); Monocytes Percent Auto 0.7 % (2.6-8.5); Neutrophils Absolute Auto 6.2 K/mm3 (1.3-6.7); Neutrophils Percent Auto 89.2 % (45.5-73.1); Platelet Count Result 319 k/mm3 (150-375); Red Blood Count 4.05 M/mm3 (4.2-5.4); Red Cell Distribution Width 12.6 % (11.5-14.5)
[2023-11-21 01:19] LABS: Glucose Point of Care 467 mg/dl (65-105)
[2023-11-21 01:30] LABS: Alanine Aminotransferase 19 U/L (6-35); Albumin Level 4.4 g/dL (3.5-5.1); Alkaline Phosphatase 133 U/L (38-126); Anion Gap 13 mmol/L (8-16); Aspartate Amino Transferase 24 U/L (14-36); Bilirubin,Total 0.6 mg/dL (0.2-1.3); Blood Urea Nitrogen 39 mg/dL (7-17); Calcium 9.6 mg/dL (8.4-10.2); Carbon Dioxide 23 mmol/L (22-30); Chloride 98 mmol/L (98-107); Estimated CRCL calculation 20 ml/min; Estimated Glomerular Filt Rate 29; Potassium 4.3 mmol/L (3.4-5.0); Sodium 134 mmol/L (137-145)
[2023-11-21 01:32] LABS: Glucose 504 mg/dL (65-110)
[2023-11-21 01:57] LABS: Glucose Point of Care 477 mg/dl (65-105)
[2023-11-21 02:01] LABS: Beta-Hydroxybutyrate/Acetoacetate 0.18 mmol/L (0.02-0.27)
[2023-11-21] MEDS: SODIUM CHLORIDE 0.9% IV 1,000 ML 999 ML IV CONT ×2 (03:48→05:43)
[2023-11-21 04:56] LABS: Appearance Urine Clear (Clear); Bacteria Urine None Seen /hpf; Bilirubin Urine Negative (Negative); Color Urine Yellow (Yellow); Glucose Urine UA 3+ mg/dL (Negative); Ketones Urine Negative (Negative); Leukocyte Esterase Ur Negative LEU/UL (Negative); Nitrate Urine Negative (Negative); Non Pathogenic Casts 0-2; Protein Urine 3+ mg/dL (Negative); RBC Urine 0-2 /hpf (0-2); Specific Grav Ur 1.021 (1.001-1.035); Squamous Epithelial Cell Urine None seen /hpf (Few); Urobilinogen Urine 0.2 mg/dL (<2.0); WBC Urine 0-5 /hpf
[2023-11-21 05:02] LABS: Add Urine Microscopic? YES
[2023-11-21 05:14] LABS: Glucose Point of Care 445 mg/dl (65-105)
[2023-11-21] MEDS: INSULIN HUMAN REGULAR (*BKC) 100 UNITS/ML IV PUSH (05:44)
--- NOTE | 2023-11-21 06:06 | ED.GENADULT ---
HPI - General Adult General Chief complaint: Recheck/Abnormal Lab/Rx Stated complaint: hyperglycemia, >500 Time Seen by Provider: 11/21/23 04:08 History of Present Illness HPI narrative: patient 81-year-old female who presents emergency department with chief complaint of hyperglycemia. Patient reports that she has had some recent changes in her diabetic regimen due to some episodes of hypoglycemia but then subsequently saw her orthopedic surgeon due to right shoulder pain and had a steroid injection her right shoulder. The patient reports that her blood sugars reading over 500 and her eye glue, her only goes up to 350 on her continuous glucose monitor. The patient reports that she did not take any additional insulin at home but does use a sliding scale at home. Related Data Home Medications Medication Instructions Recorded Confirmed aspirin 81 mg chewable tablet 81 mg PO DAILY 08/30/22 11/15/23 (Children's Aspirin) gabapentin 100 mg capsule 100 mg PO Q12H 08/30/22 11/15/23 vitamin B complex (B 1 tablet PO DAILY 08/30/22 11/15/23 Complex-Vitamin B12 tablet) atorvastatin 20 mg tablet 20 mg PO DAILY 12/21/22 11/15/23 flash glucose scanning reader 05/02/23 11/15/23 (FreeStyle Hallie 2 [place]) flash glucose sensor (FreeStyle 05/02/23 11/15/23 Hallie 2 Sensor kit) metoprolol tartrate 100 mg tablet 50 mg PO Q12H 05/02/23 11/15/23 clonidine HCl 0.1 mg tablet 0.1 mg PO DAILY 05/11/23 11/15/23 amlodipine 5 mg tablet 5 mg PO DAILY 08/09/23 11/15/23 insulin glargine 100 unit/mL (3 8 unit subcut DAILY 11/15/23 11/15/23 mL) subcutaneous pen (Basaglar KwikPen U-100 Insulin) Allergies Allergy/AdvReac Type Severity Reaction Status Date / Time acetaminophen Allergy Intermediate Rash Verified 10/31/23 13:21 amoxicillin Allergy Mild Other Verified 10/31/23 13:21 clavulanic acid AdvReac Unknown Other Verified 10/31/23 13:21 [From Augmentin] Review of Systems Review of Systems: A 10 system review of systems was completed on the patient and is negative except for what is stated in the HPI. Nursing and ancillary documentation was reviewed. [facility] Past Medical History Medical History Anemia With history of iron deficiency anemia requiring iron transfusions. Benign paroxysmal positional vertigo due to bilateral vestibular disorder Chronic bilateral low back pain without sciatica Chronic hyponatremia Chronic kidney disease, stage 3 Colon polyp Combined systolic and diastolic cardiac dysfunction Coronary artery disease Diabetic peripheral neuropathy Essential hypertension Gastroesophageal reflux disease Heart attack Hyperlipidemia associated with type 2 diabetes mellitus Idiopathic chronic pancreatitis On long-term Creon. Insulin dependent type 2 diabetes mellitus Ischemic cardiomyopathy LBBB (left bundle branch block) Lichen sclerosus of vulva Moderate mitral regurgitation Pancreatic insufficiency Pulmonary hypertension Pure hypercholesterolemia Rectal hemorrhage due to inflammatory polyps of colon Sarcoidosis of lung Diagnosed in the . Spinal stenosis of lumbosacral region Venous insufficiency Surgical History Surgical History History of appendectomy History of breast biopsy History of cataract surgery History of hand surgery History of quadruple bypass 02/2023, artery removed from left arm and right leg and placed in heart History of repair of left rotator cuff History of rotator cuff surgery right History of tonsillectomy History of total right knee replacement Family History Family History Father Hypertension Heart disease Acute myocardial infarction Mother Family history of lung cancer Family history of malignant neoplasm of breast in first degree relative Hypertension Sibling Breast cancer
[2023-11-21] MEDS: NITROGLYCERIN SL 0.4 MG TABLET SUBLINGUAL (06:15)
[2023-11-21] MEDS: FUROSEMIDE INJ 40 MG/4 ML VIAL 20 MG IV PUSH ×4 (06:16→15:58)
[2023-11-21 06:17] LABS: Glucose Point of Care 408 mg/dl (65-105)
--- NOTE | 2023-11-21 06:17 | PC.NURSE ---
Patient received first nitro at 0615: Patient's blood pressure was 182/96. Patient c/o SOB and states CP: 12/22 Patient received second nitro at 0620: Patient's blood pressure was 161/71. Patient states SOB letting up mildly and CP: 10/24 Patient received third nitro at 0625: Patient's blood pressure was 145/73. Patients SOB getting better and CP 2/10. After third nitro at 0630 patient's blood pressure was 162/83. Patient SOB still getting better and CP 10/24.
--- NOTE | 2023-11-21 06:52 | ECG_ITS ---
Measurements Intervals [place] Rate: 106 P: 41 WA: 176 QRS: -29 QRSD: 142 T: 124 QT: 397 QTc: 528 Interpretive Statements SINUS TACHYCARDIA LEFT BUNDLE BRANCH BLOCK [120+ ms QRS DURATION, 80+ ms Q/S IN V1/V2, 85+ ms R IN I/aVL/V5/V6] COMPARED TO ECG 09/14/2022 10:20:59 SINUS TACHYCARDIA NOW PRESENT Electronically Signed On 11-21-2023 15:23:18 PRICING SPECIALIST by Shan Huffman M.D.
[2023-11-21 07:21] LABS: NT Pro B Type Natriuretic Pept 6620 pg/mL (19.9-100); Troponin I < 0.012 ng/mL (0.000-0.034)
[2023-11-21 09:42] LABS: Cholesterol 166 mg/dL (0-200); HDL Direct 55 mg/dL; Triglycerides 58 mg/dL (<150)
[2023-11-21 09:48] LABS: LDL Cholesterol Direct 68 mg/dL
[2023-11-21 09:58] LABS: Glucose Point of Care 456 mg/dl (65-105)
[2023-11-21 10:50] LABS: Hemoglobin A1C 7.3 % (<5.7)
[2023-11-21] MEDS: PANTOPRAZOLE 40 MG TABLET PO (11:50)
[2023-11-21] MEDS: INSULIN GLARGINE (*BKC) 100 UNITS/ML 35 UNITS SUB-Q (12:06)
[2023-11-21 13:50] LABS: Glucose Point of Care 451 mg/dl (65-105)
--- NOTE | 2023-11-21 13:57 | PC.NURSE ---
Pt arrived to unit via bed. Alert and oriented, feeling slightly short of breath with activity. No chest pain at this time. Blood sugar 451. Results called to NIDHI Ramirez. Also reported pt had a previous episode of chest pain in ED, no troponins were drawn. No furthur orders received
[2023-11-21] MEDS: ATORVASTATIN 20 MG TABLET PO (15:06)
[2023-11-21] MEDS: carvediloL 6.25 MG TABLET PO ×2 (15:06→22:01)
[2023-11-21] MEDS: amLODIPine BESYLATE 5 MG TABLET PO (15:06)
[2023-11-21] MEDS: GABAPENTIN 100 MG CAPSULE PO ×2 (15:08→22:01)
[2023-11-21] MEDS: INSULIN HUMAN REGULAR (*BKC) 100 UNITS/ML 6 UNITS SUB-Q (15:14)
--- NOTE | 2023-11-21 15:34 | ECG_ITS ---
Measurements Intervals [place] Rate: 124 P: DE: 0 QRS: -18 QRSD: 145 T: 139 QT: 351 QTc: 506 Interpretive Statements ATRIAL FIBRILLATION WITH RAPID VENTRICULAR RESPONSE LEFT BUNDLE BRANCH BLOCK [120+ ms QRS DURATION, 80+ ms Q/S IN V1/V2, 85+ ms R IN I/aVL/V5/V6] COMPARED TO ECG 11/21/2023 06:58:16 ATRIAL FIBRILLATION NOW PRESENT Electronically Signed On 11-21-2023 19:03:28 [employer] by Prudence Lan M.D.
--- NOTE | 2023-11-21 15:41 | PC.NURSE ---
Pt complaining of shortness of breath and chest pain. O2 82% on 2L. Increased o2 to 6L. Notified NIDHI Madden. Order received for stat EKG, troponin, and Lasix.
[2023-11-21] MEDS: METOPROLOL TARTRATE INJ 5 MG/5 ML VIAL IV PUSH (15:55)
--- NOTE | 2023-11-21 17:01 | PM.IMHP ---
H&P: HPI History of Present Illness Date/Time: 11/21/23 17:01 Chief Complaint: High blood sugar Narrative: Patient is a 83-year old female who presented to the emergency department due to high blood sugars at home. Patient reported her glucometer just read high, she did her sliding scale with no improvement and came to the ED for evaluation. 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 Patient has a past medical history of CAD with CABG 02/2023, CHF, CKD, and diabetes II. Initial BS 504 otherwise labs unremarkable. Patient was given bolus of IV fluids and insulin. Patient then became SOB with chest pain and CXR was showing chest congestion and elevated BNP. Upon assessment patient was resting comfortably at this time. After admission to IMU patient became tachycardiac with crackles heard throughout HR rate 120's. Lasix 40mg IVP and metoprolol 5mg IV push with resolution. Patient also informed that her ship fitter changed her BB from Metoprolol to carvedilol. TTE ordered and cardiology consulted Review of Systems Review of Systems: All systems reviewed & are unremarkable except as noted in HPI and below PMFSH Past Medical History Medical History Anemia With history of iron deficiency anemia requiring iron transfusions. Benign paroxysmal positional vertigo due to bilateral vestibular disorder Chronic bilateral low back pain without sciatica Chronic hyponatremia Chronic kidney disease, stage 3 Colon polyp Combined systolic and diastolic cardiac dysfunction Coronary artery disease Diabetic peripheral neuropathy Essential hypertension Gastroesophageal reflux disease Heart attack Hyperlipidemia associated with type 2 diabetes mellitus Idiopathic chronic pancreatitis On long-term Creon. Insulin dependent type 2 diabetes mellitus Ischemic cardiomyopathy LBBB (left bundle branch block) Lichen sclerosus of vulva Moderate mitral regurgitation Pancreatic insufficiency Pulmonary hypertension Pure hypercholesterolemia Rectal hemorrhage due to inflammatory polyps of colon Sarcoidosis of lung Diagnosed in the . Spinal stenosis of lumbosacral region Venous insufficiency Surgical History Surgical History History of appendectomy History of breast biopsy History of cataract surgery History of hand surgery History of quadruple bypass 02/2023, artery removed from left arm and right leg and placed in heart History of repair of left rotator cuff History of rotator cuff surgery right History of tonsillectomy History of total right knee replacement Family History Family History Father Hypertension Heart disease Acute myocardial infarction Mother Family history of lung cancer Family history of malignant neoplasm of breast in first degree relative Hypertension Sibling Breast cancer Acute myocardial infarction sister and brother Cerebrovascular accident sister Diabetes mellitus Heart disease Hypertension Other Breast cancer aunt Social History Social History Social History: The patient is and lives with her in [place]. 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 She is a lifelong nonsmoker and denies alcohol and illicit substance use. She designates her , Lionel, as her surrogate decision maker and she wishes to be a full code. Smoking status: Never smoker Second hand tobacco smoke exposure: No Alcohol intake: never Substance use: never Substance use type: does not use Do You Feel Safe in your Home?: Yes Lack of Transportation: No L
[2023-11-21 17:09] LABS: Troponin I 0.175 ng/mL (0.000-0.034)
[2023-11-21 17:23] LABS: Glucose Point of Care 439 mg/dl (65-105)
[2023-11-21] MEDS: INSULIN ASPART (*BKC) 100 UNITS/ML 10 UNITS SUB-Q (17:50)
[2023-11-21] MEDS: FUROSEMIDE INJ 40 MG/4 ML VIAL IV PUSH (19:19)
[2023-11-21 20:48] LABS: Troponin I 0.411 ng/mL (0.000-0.034)
[2023-11-21] MEDS: METOPROLOL TARTRATE 25 MG TABLET PO (22:00)
[2023-11-21] MEDS: FAMOTIDINE 20 MG TABLET PO (22:01)
[2023-11-21] MEDS: INSULIN ASPART (*BKC) 100 UNITS/ML SUB-Q (22:02)
[2023-11-21] MEDS: INSULIN GLARGINE (*BKC) 100 UNITS/ML 8 UNITS SUB-Q (22:03)
[2023-11-21 22:13] LABS: Glucose Point of Care 299 mg/dl (65-105)
[2023-11-22] VITALS (8 sets, daily range): BP systolic 145–165; BP diastolic 62–68; PULSE 71–96; RESP 12–24; TEMP 36.2–36.7; O2SAT 93–100
[2023-11-22 06:06] LABS: Hematocrit 34.9 % (37.0-47.0); Mean Corpuscular HGB Conc 31.5 g/dl (32-36); Mean Corpuscular Hemoglobin 30.5 pg (26-34); Mean Corpuscular Volume 96.7 fl (80-100); Mean Platelet Volume 9.6 fl (7.4-10.4); Platelet Count Result 301 k/mm3 (150-375); Red Blood Count 3.61 M/mm3 (4.2-5.4); White Blood Count 13.9 K/mm3 (4.5-10.0)
[2023-11-22 06:17] LABS: Alanine Aminotransferase 19 U/L (6-35); Albumin Level 3.7 g/dL (3.5-5.1); Alkaline Phosphatase 96 U/L (38-126); Anion Gap 9 mmol/L (8-16); Aspartate Amino Transferase 24 U/L (14-36); Bilirubin,Total 0.5 mg/dL (0.2-1.3); Blood Urea Nitrogen 46 mg/dL (7-17); Calcium 9.4 mg/dL (8.4-10.2); Carbon Dioxide 25 mmol/L (22-30); Chloride 103 mmol/L (98-107); Estimated CRCL calculation 20 ml/min; Estimated Glomerular Filt Rate 29; Glucose 267 mg/dL (65-110); Potassium 3.8 mmol/L (3.4-5.0); Sodium 137 mmol/L (137-145)
[2023-11-22] MEDS: FUROSEMIDE INJ 40 MG/4 ML VIAL IV PUSH (06:35)
[2023-11-22 08:03] LABS: Glucose Point of Care 240 mg/dl (65-105)
[2023-11-22] MEDS: INSULIN ASPART (*BKC) 100 UNITS/ML SUB-Q ×2 (08:36→12:43)
[2023-11-22] MEDS: ASPIRIN 81 MG CHEWABLE TABLET PO (08:37)
[2023-11-22] MEDS: VITAMIN B COMPLEX CAPSULE 1 CAP PO (08:37)
[2023-11-22] MEDS: amLODIPine BESYLATE 5 MG TABLET PO (08:37)
[2023-11-22] MEDS: LORATADINE 10 MG TABLET PO (08:37)
[2023-11-22] MEDS: ATORVASTATIN 20 MG TABLET PO (08:38)
[2023-11-22] MEDS: ENOXAPARIN 30 MG/0.3 ML SYRINGE SUB-Q (08:38)
[2023-11-22] MEDS: GABAPENTIN 100 MG CAPSULE PO (08:38)
[2023-11-22] MEDS: METOPROLOL TARTRATE 25 MG TABLET PO (08:38)
[2023-11-22] MEDS: FAMOTIDINE 20 MG TABLET PO (08:38)
--- NOTE | 2023-11-22 10:29 | PM.CNCAR ---
Assessment and Plan Assessment and plan (1) Acute hyperglycemia: Code(s): R73.9 - Hyperglycemia, unspecified Status: Acute Assessment and Plan: Management as per primary team. (2) Acute combined systolic and diastolic congestive heart failure: Code(s): I50.41 - Acute combined systolic (congestive) and diastolic (congestive) heart failure Status: Acute Assessment and Plan: Echocardiogram done here 11/21 shows LVEF 40-45%, moderate-severe MR, moderate TR, moderate PHTN. She has a history of low ejection fraction of 25-30%, which had normalized after her cardiac surgery. She was given IV Lasix on admission, but now appears euvolemic, therefore, will stop IV Lasix and resume her PO Lasix. Patient was recently changed from Metoprolol to Coreg, however, she prefers to stay on Metoprolol for now and wants to follow up with her primary software engineer backend regarding beta nash, therefore, continue Metoprolol for now. (3) LBBB (left bundle branch block): Code(s): I44.7 - Left bundle-branch block, unspecified Status: Acute Assessment and Plan: Chronic (4) Atrial fibrillation with RVR: Code(s): I48.91 - Unspecified atrial fibrillation Status: Acute Assessment and Plan: She did have brief episode of AFIB with RVR yesterday lasting for about 10-15 minutes. Currently in sinus rhythm. Continue beta nash. Discussed anticoagulation with her, however, she prefers to defer this to her primary software engineer backend as an outpatient. (5) Coronary artery disease: Code(s): I25.10 - Atherosclerotic heart disease of [place] coronary artery without angina pectoris Status: Acute Assessment and Plan: Stable. Continue ASA and statin. (6) Hyperlipidemia associated with type 2 diabetes mellitus: Code(s): E11.69 - Type 2 diabetes mellitus with other specified complication; E78.5 - Hyperlipidemia, unspecified Status: Acute Assessment and Plan: Continue statin (7) Essential hypertension: Code(s): I10 - Essential (primary) hypertension Status: Chronic Assessment and Plan: Continue home antihypertensive medications. Plan Okay for discharge from my standpoint. Patient states she will call her primary software engineer backend's office and arrange for close follow up with them. History of Present Illness History of Present Illness Consult date/time: 11/22/23 10:29 Requesting physician: Maryanne Rosa, KAMALA Consult reason: congestive heart failure Reason For Visit: chf exacerabation,hyperglycemia Narrative: We are consulted for congestive heart failure. This is an 83 year old female with CAD s/p CABG (THOMSON to LAD, radial graft to OM, SVG to the diagonal, SVG to RPDA) 02/14/2023 with left atrial appendage clipping, heart failure with improved LVEF, paroxysmal atrial fibrillation, CKD, hypertension, hyperlipidemia. Patient presented to [facility] for high blood sugars at home. In the ER, initial blood sugar was 504. Patient given IVFs and insulin. She then was noted to be short of breath. CXR was obtained which showed mild pulmonary edema. She was given IV Lasix. She reports that she is feeling much better this morning. No chest pain, shortness of breath or orthopnea. Patient reports that she was taking Metoprolol at home and was recently changed to Coreg by her Wind Farm Designer. She did have brief episode of AFIB with RVR yesterday lasting for about 10-15 minutes. Currently in sinus rhythm. Echocardiogram done here 11/21 shows LVEF 40-45%, moderate-severe MR, moderate TR, moderate PHTN. Review of Systems Review of Systems: All systems reviewed & are unremarkable except as noted in HPI and below (HPI) [facility] Past Medical History Medical History Anemia With history of iron deficiency anemia requiring iron transfusions. Benign paroxysmal positional vertigo due to bilateral vestibular disor
[2023-11-22 11:56] LABS: Glucose Point of Care 291 mg/dl (65-105)
--- NOTE | 2023-11-22 13:36 | PM.DS ---
DS: Admitting Diagnosis Discharge Date 11/22/2023 Admitting Diagnosis Hyperglycemia/Acute Pulmonary edema (CHF) DS: Discharge Diagnosis Discharge Diagnosis (1) Acute hyperglycemia: Code(s): R73.9 - Hyperglycemia, unspecified Status: Acute (2) Acute on chronic diastolic (congestive) heart failure: Code(s): I50.33 - Acute on chronic diastolic (congestive) heart failure Status: Acute (3) Coronary artery disease: Qualifiers: Coronary Disease-Associated Artery/Lesion type: bypass graft [place] vs. transplanted heart: [place] heart Associated angina: without angina Qualified Code(s): I25.810 - Atherosclerosis of coronary artery bypass graft(s) without angina pectoris Code(s): I25.10 - Atherosclerotic heart disease of [place] coronary artery without angina pectoris Status: Acute (4) Pulmonary edema: Qualifiers: Chronicity: acute Qualified Code(s): J81.0 - Acute pulmonary edema Code(s): J81.1 - Chronic pulmonary edema Status: Acute (5) Stage 3b chronic kidney disease: Code(s): N18.32 - Chronic kidney disease, stage 3b Status: Chronic Plan Diabetes discharge -educated patient on the need for blood sugar control -Hemoglobin A1c goal less than 7 pending -lipid panels -Renal function liver panel every 3 months. . -Optimize Lobo inhibitors and statins. -Watch for hypoglycemia/hypoglycemic -BMI goals less than 25. -Yearly eye exam and foot exam. -Exercise, diet low-salt low carb. Weight loss. -Primary care physician ip network architect as an outpatient. Acute on chronic diastolic heart failure -PO Lasix -reason metoprolol discontinue carvedilol -monitor renal function continue to follow-up with nephrology -weekly weight. -elevate/Lobo wrap legs if needed -Antiplatelet therapy, statin therapy, loop diuretics as indicated,. Resume ASA -Optimize blood pressure less than 130/80. -Fall risk assessment. -F/U with [facility] as scheduled CAD -previous CABG 02/2023 -resume home BB, statin, ASA Neuropathy -resume home gabapentin CKD Acute on chronic renal failure -Avoid nephrotoxic drugs. -Monitor antihypertensive drug therapy. -Avoid NSAIDs. -Routine CMP monitoring GFR. -Monitor electrolytes especially potassium. -Antibiotic doses depending on creatinine clearance. -Pharmacy does medications. -Routine follow-up with Nephrology as an outpatient. DS: Summary Hospital Course Reason for hospitalization: Hyperglycemia/Pulmonary Edema/acute exacerbation diastolic heart failure Hospital Course: Chief Complaint: High blood sugar Narrative: Patient is a 83-year old female who presented to the emergency department due to high blood sugars at home.? Patient reported her glucometer just read high, she did her sliding scale with no improvement and came to the ED for evaluation.? 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 shot since then her sugars have ran high at home.? Patient has a past medical history of CAD with CABG 02/2023, CHF, CKD, and diabetes II.? Initial BS 504 otherwise labs unremarkable.? Patient was given bolus of IV fluids and insulin.? Patient then became SOB with chest pain and CXR was showing chest congestion and elevated BNP.? Upon assessment patient was resting comfortably at this time. After admission to IMU patient became tachycardiac with crackles heard throughout HR rate 120's.? Lasix 40mg IVP and metoprolol 5mg IV push with resolution.? Patient also informed that her fur scraper changed her BB from Metoprolol to carvedilol. TTE ordered and cardiology consulted. Patient seen and assessed the following day in no acute distress, Patient had been weaned off oxygen and reported no further events over night. Patient remained in SR with a controlled rate
== END 2023-11-22 14:05 | disposition home or self-care (01) | DRG 637 ==
LOC: ANHED 11-21 07:05 → ANHIMU 11-21 07:53
PROVIDERS: Admitting Provider Internal Medicine; Emergency Provider Emergency Medicine; PCP Family Medicine; Visit Provider Nurse Practitioner Family
DX: E11.65 Type 2 diabetes mellitus with hyperglycemia (principal); I13.0 Hypertensive heart and chronic kidney disease with heart failure and stage 1 through stage 4 chronic kidney disease, or unspecified chronic kidney disease; I50.33 Acute on chronic diastolic (congestive) heart failure; K86.1 Other chronic pancreatitis; I43 Cardiomyopathy in diseases classified elsewhere; D63.1 Anemia in chronic kidney disease; E11.42 Type 2 diabetes mellitus with diabetic polyneuropathy; E11.22 Type 2 diabetes mellitus with diabetic chronic kidney disease; E78.5 Hyperlipidemia, unspecified; I25.10 Atherosclerotic heart disease of native coronary artery without angina pectoris; I44.7 Left bundle-branch block, unspecified; K21.9 Gastro-esophageal reflux disease without esophagitis; M19.011 Primary osteoarthritis, right shoulder; N18.32 Chronic kidney disease, stage 3b; Z79.4 Long term (current) use of insulin; Z90.49 Acquired absence of other specified parts of digestive tract; Z96.651 Presence of right artificial knee joint; Z95.1 Presence of aortocoronary bypass graft; Z79.82 Long term (current) use of aspirin
CPT/HCPCS: 36415; 71045; 80053; 80061; 81001; 82010; 82948; 83036; 83735; 83880; 84100; 84484; 85025; 85027; 93005; 93306; 96361; 96372; 96374; 96375; 96376; 99285; A9270; G0378; J1650; J1815; J1940; J7030

== ENCOUNTER 2023-12-11 13:42 | Outpatient (CLI) | payer MEDICARE, OTHER, SELFPAY ==
[2023-12-11 14:10] LABS: Basophils Percent Auto 0.3 % (0.2-1.2); Eosinophils Absolute Auto 0.2 K/mm3 (0-0.3); Eosinophils Percent Auto 3.3 % (0-4.4); Hematocrit 35.8 % (37.0-47.0); Hemoglobin 11.5 g/dL (12.0-15.0); Immature Granulocyte Absolute 0.01 K/mm3 (0.00-0.031); Immature Granulocyte Percent A 0.2 % (0-0.5); Lymphocytes Absolute Auto 1.49 K/mm3 (0.9-3.2); Lymphocytes Percent Auto 23.7 % (18.3-44.2); Mean Corpuscular HGB Conc 32.1 g/dl (32-36); Mean Corpuscular Hemoglobin 31.3 pg (26-34); Mean Corpuscular Volume 97.5 fl (80-100); Mean Platelet Volume 9.5 fl (7.4-10.4); Monocytes Absolute Auto 0.6 K/mm3 (0.1-0.6); Monocytes Percent Auto 10.2 % (2.6-8.5); Neutrophils Absolute Auto 3.9 K/mm3 (1.3-6.7); Neutrophils Percent Auto 62.3 % (45.5-73.1); Platelet Count Result 217 k/mm3 (150-375); Red Blood Count 3.67 M/mm3 (4.2-5.4); White Blood Count 6.3 K/mm3 (4.5-10.0)
[2023-12-11 16:31] LABS: Iron 108 ug/dL (37-170)
[2023-12-11 16:32] LABS: Anion Gap 7 mmol/L (8-16); Blood Urea Nitrogen 35 mg/dL (7-17); Calcium 9.3 mg/dL (8.4-10.2); Carbon Dioxide 28 mmol/L (22-30); Chloride 101 mmol/L (98-107); Estimated Glomerular Filt Rate 33; Glucose 81 mg/dL (65-110); Potassium 4.2 mmol/L (3.4-5.0); Sodium 136 mmol/L (137-145)
[2023-12-11 16:41] LABS: Percent Iron Saturation 39 % (20-50)
== END 2023-12-11 13:43 | disposition home or self-care (01) ==
LOC: ANHLAB 13:45
PROVIDERS: PCP Family Medicine; Visit Provider Internal Medicine Hematology & Oncology
DX: D64.9 Anemia, unspecified (principal)
CPT/HCPCS: 36415; 80048; 82607; 82728; 82746; 83540; 83550; 85025

== ENCOUNTER 2024-04-30 09:30 | Outpatient (CLI) | payer MEDICARE, OTHER, SELFPAY ==
--- NOTE | 2024-04-30 11:30 | NEURO_ITS ---
Impression: # Known diabetic complains of numbness of feet and foot drop. # Severe motor/sensory axonal neuropathy. # Neurogenic needle/EMG exam without active fibrillations. Nerve Conduction Studies Anti Sensory Summary Table Stim Site NR Peak (ms) P-T Amp (?V) Site1 Site2 Delta-P (ms) Dist (cm) Yanick (m/s) Left Sup Fibular Anti Sensory (Ant Lat Mall) NO RESPONSE 14 cm NR 14 cm Ant Lat Mall 16.0 Right Sup Fibular Anti Sensory (Ant Lat Mall) 14 cm 3.3 10.7 14 cm Ant Lat Mall 3.3 16.0 48 Left Sural Anti Sensory (Lat Mall) NO RESPONSE Calf NR Calf Lat Mall 16.0 Right Sural Anti Sensory (Lat Mall) NO RESPONSE Calf NR Calf Lat Mall 16.0 Motor Summary Table Stim Site NR Onset (ms) O-P Amp (mV) Site1 Site2 Delta-0 (ms) Dist (cm) Yanick (m/s) Left Peroneal Motor (Vastus Med) NO RESPONSE Ankle NR Popit Ankle 0.0 Popit NR Right Peroneal Motor (Vastus Med) NO RESPONSE Ankle NR Popit Ankle 0.0 Popit NR Left Tibial Motor (Abd Ann Brev) NO RESPONSE Ankle NR Knee Ankle 0.0 Knee NR Right Tibial Motor (Abd Ann Brev) Ankle 4.1 0.6 Knee Ankle 11.4 41.0 36 Knee 15.5 0.5 F Wave Studies NR F-Lat (ms) L-R F-Lat (ms) Left Peroneal (Mrkrs) (EDB) NO RESPONSE NR Right Peroneal (Mrkrs) (EDB) NO RESPONSE NR Left Tibial (Mrkrs) (Abd Hallucis) NO RESPONSE NR Right Tibial (Mrkrs) (Abd Hallucis) NO RESPONSE NR EMG Side Muscle Nerve Root Ins Act Fibs Amp Dur Recrt Comment Right AntTibialis Dp Br Fibular L4-5 Nml Nml Nml >12ms +4 Right Gastroc Tibial S1-2 Nml Nml Nml >12ms +4 Right Fibularis Long Sup Br Fibular L5-S1 Nml Nml Nml >12ms +4 Right Flex Dig Long Tibial L5-S2 Nml Nml Nml >12ms +4 Right Ext Dig Brev Dp Br Fibular L5, S1 Nml Nml Nml >12ms +4 Right QuadratusFem QuadFemoris L4-5, S1 Nml Nml Nml >12ms +4 Left AntTibialis Dp Br Fibular L4-5 Nml Nml Nml >12ms +3 Left Gastroc Tibial S1-2 Nml Nml Nml >12ms +3 Left Fibularis Long Sup Br Fibular L5-S1 Nml Nml Nml >12ms +3 Left Flex Dig Long Tibial L5-S2 Nml Nml Nml >12ms +3 Left Ext Dig Brev Dp Br Fibular L5, S1 Nml Nml Nml >12ms +3 Left QuadratusFem QuadFemoris L4-5, S1 Nml Nml Nml >12ms +3 MTDD
== END 2024-04-30 09:31 | disposition home or self-care (01) ==
LOC: ANHNEURO 09:32
PROVIDERS: PCP Family Medicine; Visit Provider Family Medicine
DX: G62.9 Polyneuropathy, unspecified (principal)
CPT/HCPCS: 95886; 95910

== ENCOUNTER 2024-06-02 11:29 | Outpatient (CLI) | payer MEDICARE, OTHER, SELFPAY ==
--- NOTE | ~2024-06-02 | XR_ITS ---
XR abdomen/kub 1V Ordering provider: Tamia Magaña APRN History: . constipation for 6 weeks . Comparison: None. FINDINGS: BOWEL: Fecal material in the colon suggestive of constipation. Nonobstructive bowel gas pattern. ORGANOMEGALY: None. SIGNIFICANT PATHOLOGIC CALCIFICATIONS: Calcific shadow seen in the right paravertebral area near to t he lumbosacral joint. Stone is a possibility. OTHER: Uterine calcifications most likely in fibroids. No free air is seen under the diaphragm. Degen erative changes. Levoscoliosis. Bilateral hip osteoarthritic changes. IMPRESSION: NO ACUTE ABDOMINAL FINDINGS. Constipation. Calcific shadow near to the lumbosacral area on the right side. Clinical correlation advised. Reviewed, dictated and finalized at location A. IMPRESSION: NO ACUTE ABDOMINAL FINDINGS. Constipation. Calcific shadow near to the lumbosacral area on the right side. Clinical correl ation advised.
== END 2024-06-02 11:30 ==
LOC: MICIMG 11:30
PROVIDERS: PCP Family Medicine; Visit Provider Nurse Practitioner Family
DX: K59.00 Constipation, unspecified (principal)
CPT/HCPCS: 74018

== ENCOUNTER 2024-06-18 13:30 | Outpatient (CLI) | payer MEDICARE, OTHER, SELFPAY ==
--- NOTE | ~2024-06-18 | CT_ITS ---
Non-contrast CT scan of the Abdomen and Pelvis Clinical indication: Calcific shadow right paravertebral area Technique: 2.5 mm axial scans were obtained through the abdomen and pelvis without intravenous or or al contrast. Dose reduction technique was used on this scan by utilizing automated exposure control a nd iterative reconstruction technique. The dose-length product (DLP) was 442.64 mGy-cm. Correlation made with abdominal radiograph dated 06/02/2024 Findings: Images through the lung bases reveal no abnormalities. There is no evidence of renal or ureteral calculi. The kidneys and the ureters are nondilated. The liver, spleen, pancreas, gallbladder, and adrenals appear normal. There are atherosclerotic calci fications of the aorta. There is no evidence of bowel obstruction. Calcified phlebolith noted in the right mid abdomen, corre sponding to the prior radiograph finding. Images through the pelvis were performed. There is no evidence of ascites or lymphadenopathy. Large c alcified fibroid present. Urinary bladder unremarkable. No ascites. Impression: No renal or ureteral stone. Large calcified fibroid. Reviewed, dictated and finalized at location M. Impression: No renal or ureteral stone. Large calcified fibroid.
== END 2024-06-18 13:31 | disposition home or self-care (01) ==
PROVIDERS: PCP Family Medicine; Visit Provider Nurse Practitioner Family
DX: N20.0 Calculus of kidney (principal); R93.89 Abnormal findings on diagnostic imaging of other specified body structures
CPT/HCPCS: 36415; 74176; 80048; 82607; 82728; 82746; 83540; 83550; 85025

== ENCOUNTER 2024-06-18 14:07 | Outpatient (CLI) | payer MEDICARE, OTHER, SELFPAY ==
[2024-06-18 14:31] LABS: Basophils Percent Auto 0.3 % (0.2-1.2); Eosinophils Absolute Auto 0.2 K/mm3 (0-0.3); Eosinophils Percent Auto 2.7 % (0-4.4); Hematocrit 35.7 % (37.0-47.0); Hemoglobin 11.5 g/dL (12.0-15.0); Immature Granulocyte Absolute 0.01 K/mm3 (0.00-0.031); Immature Granulocyte Percent A 0.2 % (0-0.5); Lymphocytes Absolute Auto 1.65 K/mm3 (0.9-3.2); Lymphocytes Percent Auto 25.8 % (18.3-44.2); Mean Corpuscular HGB Conc 32.2 g/dl (32-36); Mean Corpuscular Volume 96.2 fl (80-100); Mean Platelet Volume 9.4 fl (7.4-10.4); Monocytes Absolute Auto 0.7 K/mm3 (0.1-0.6); Monocytes Percent Auto 10.8 % (2.6-8.5); Neutrophils Absolute Auto 3.9 K/mm3 (1.3-6.7); Neutrophils Percent Auto 60.2 % (45.5-73.1); Platelet Count Result 207 k/mm3 (150-375); Red Blood Count 3.71 M/mm3 (4.2-5.4); Red Cell Distribution Width 12.9 % (11.5-14.5); White Blood Count 6.4 K/mm3 (4.5-10.0)
[2024-06-18 16:23] LABS: Iron 104 ug/dL (37-170)
[2024-06-18 16:25] LABS: Anion Gap 12 mmol/L (4-12); Blood Urea Nitrogen 43 mg/dL (7-17); Calcium 8.9 mg/dL (8.4-10.2); Carbon Dioxide 28 mmol/L (22-30); Chloride 97 mmol/L (98-107); Estimated Glomerular Filt Rate 31; Glucose 97 mg/dL (65-110); Potassium 3.7 mmol/L (3.4-5.0); Sodium 137 mmol/L (137-145)
[2024-06-18 16:32] LABS: Percent Iron Saturation 36 % (20-50)
== END 2024-06-18 14:08 | disposition home or self-care (01) ==
LOC: ANHLAB 14:10
PROVIDERS: Nurse Practitioner Family; PCP Family Medicine; Visit Provider Internal Medicine Hematology & Oncology
DX: D64.9 Anemia, unspecified (principal)
CPT/HCPCS: 36415; 80048; 82607; 82728; 82746; 83540; 83550; 85025

== ENCOUNTER 2025-01-06 11:06 | Outpatient (CLI) | payer MEDICARE, OTHER, SELFPAY ==
[2025-01-06 11:28] LABS: Basophils Percent Auto 0.7 % (0.2-1.2); Eosinophils Absolute Auto 0.1 K/mm3 (0-0.3); Eosinophils Percent Auto 2.4 % (0-4.4); Hematocrit 39.3 % (37.0-47.0); Hemoglobin 12.9 g/dL (12.0-15.0); Immature Granulocyte Absolute 0.02 K/mm3 (0.00-0.031); Immature Granulocyte Percent A 0.3 % (0-0.5); Lymphocytes Absolute Auto 1.37 K/mm3 (0.9-3.2); Lymphocytes Percent Auto 23.7 % (18.3-44.2); Mean Corpuscular HGB Conc 32.8 g/dl (32-36); Mean Corpuscular Hemoglobin 31.2 pg (26-34); Mean Corpuscular Volume 94.9 fl (80-100); Mean Platelet Volume 9.1 fl (7.4-10.4); Monocytes Absolute Auto 0.7 K/mm3 (0.1-0.6); Monocytes Percent Auto 11.8 % (2.6-8.5); Neutrophils Absolute Auto 3.5 K/mm3 (1.3-6.7); Neutrophils Percent Auto 61.1 % (45.5-73.1); Platelet Count Result 187 k/mm3 (150-375); Red Blood Count 4.14 M/mm3 (4.2-5.4); Red Cell Distribution Width 13.5 % (11.5-14.5); White Blood Count 5.8 K/mm3 (4.5-10.0)
[2025-01-06 12:04] LABS: Iron 83 ug/dL (37-170)
[2025-01-06 12:08] LABS: Anion Gap 8 mmol/L (4-12); Blood Urea Nitrogen 36 mg/dL (7-17); Calcium 9.1 mg/dL (8.4-10.2); Carbon Dioxide 30 mmol/L (22-30); Chloride 102 mmol/L (98-107); Estimated Glomerular Filt Rate 29; Glucose 142 mg/dL (65-110); Sodium 140 mmol/L (137-145)
[2025-01-06 12:14] LABS: Percent Iron Saturation 28 % (20-50)
[2025-01-06 13:09] LABS: Folic Acid 10.5 ng/mL (2.76->20)
--- OUTSIDE RECORDS SUMMARY | 2025-01-06 13:17 | XMS_ITS | Clinical Summary ---
Author Organization [facility] Address [address] [place] [phone] Phone Care Team Providers Care Furniture And Bedding Inspector Name Role Phone Yuri Prajapati MD Primary Care Provider [phone] Allergies Active Allergy Reactions Criticality Noted Date Comments Acetaminophen Hives,Rash Medium 11/14/2017 Shaking was hospitalized Shaking was hospitalized Shaking was hospitalized Amoxicillin-Pot Clavulanate Other (see comments) High 08/18/2020 Other reaction(s): Renal Dysfunctions, Renal Injury Hospitalized Hospitalized Hospitalized Hospitalized Hospitalized Hospitalized Pollen Extract Itching 02/01/2004 Tramadol High 04/03/2016 Other reaction(s): Mental Status Changes/Sedation Medications Medication Sig Dispensed Refills Start Date End Date Status nateglinide (STARLIX) 120 MG tablet 1 tid ac 0 11/30/2017 Active cholecalciferol (VITAMIN D-[address]) 1000 units tablet Take 1,000 Units by mouth daily. Active gabapentin (NEURONTIN) 100 MG capsule Take 100 mg by mouth 3 (three) times a day 2 06/24/2019 Active TRULICITY 0.75 MG/0.5ML solution pen-injector INJECT 1 SUBCUTANEOUSLY ONCE A WEEK 02/23/2020 Active metoprolol tartrate (LOPRESSOR) 100 MG tablet Take 100 mg by mouth every 12 (twelve) hours 02/23/2020 Active chlorthalidone (HYGROTON) 25 MG tablet TAKE 1 2 (ONE HALF) TABLET BY MOUTH ONCE DAILY 12/31/2019 Active BD PEN NEEDLE JOCELIN U/F 32G X 4 MM misc USE WITH INSULIN INJECTIONS ONCE DAILY 03/13/2020 Active ACCU-CHEK MK PLUS test strip USE 1 STRIP TO CHECK GLUCOSE TWICE DAILY 03/29/2020 Active CREON 02207-64431 units capsule TAKE 1 CAPSULE BY MOUTH THREE TIMES DAILY WITH MEALS 03/29/2020 Active Blood Glucose Calibration (Accu-Chek SmartView Control) liquid USE TO CHECK GLUCOSE 4 TIMES DAILY 11/23/2019 Active HumaLOG KWIKPEN 100 UNIT/ML solution pen-injector INJECT 10 UNITS SUBCUTANEOUSLY THREE TIMES DAILY 07/19/2020 Active Accu-Chek FastClix Lancets misc USE 1 PEN NEEDLE TO CHECK GLUCOSE TWICE DAILY 07/08/2020 Active traMADol (ULTRAM) 50 MG tablet TAKE 1 TABLET BY MOUTH ONCE DAILY NEEDED FOR PAIN 07/08/2020 Active albuterol HFA (PROVENTIL HFA) 108 (90 Base) MCG/ACT inhaler INHALE 1 PUFF BY MOUTH EVERY 4 HOURS NEEDED FOR SHORTNESS OF BREATH FOR WHEEZING 01/11/2021 Active Azelastine HCl 137 MCG/SPRAY solution USE 1 SPRAY(S) IN EACH NOSTRIL EVERY 12 HOURS 12/29/2020 Active metFORMIN (GLUCOPHAGE) 500 MG tablet Take by mouth 11/22/2017 Active famotidine (PEPCID) 20 MG tablet Take 20 mg by mouth Activ e mometasone (ELOCON) 0.1 % ointment 06/27/2021 Active Lantus SoloStar 100 UNIT/ML injection 06/15/2021 Active cyanocobalamin (VITAMIN B-12) 100 MCG tablet Take 5 tablets (500 mcg total) by mouth 02/01/2022 Active furosemide (LASIX) 20 MG tablet Take 1 tablet by mouth once daily 90 tablet 08/05/2022 Active NIFEdipine CC (ADALAT CC) 30 MG 24 hr tablet Take 30 mg by mouth 1 (one) time each day 09/21/2022 Active atorvastatin (LIPITOR) 80 MG tablet Take 80 mg by mouth 1 (one) time each day 07/04/2022 Active clopidogrel (PLAVIX) 75 MG tablet TAKE 1 TABLET BY MOUTH ONCE DAILY IN THE MORNING 09/25/2022 Active Entresto 49-51 MG per tablet Take 1 tablet by mouth in the morning and 1 tablet before bedtime. 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 12/05/2017 Polyneuropathy 12/05/2017 Low back pain 12/05/2017 Essential (primary) hypertension 12/05/2017 Gastric ulcer 03/21/2011 Overview (01/26/2022): and erosive gastritis assd with nsaid AND H PYLORI If patient takes nsaids or asa it should be coupled with a PPI in the future Resolved Problems Problem Noted Date Diagnosed Date Resolved Date Stage 3a chronic kidney disease 12/05/2017 08/03/2021 Immunizations Name Administration Dates Next Due Fluzone High-Dose 07/21/2020 Influenza Split High Dose Preservative Free IM 08/21/2016,08/11/2015 Influenza TIV (IM) 07/29/2022,07/18/2021 Influenza, Unspecified 07/29/2013,2011,06/30/2011,2009,08/06/2009 Pneumococcal Conjugate 06/15/2009,2006 Pneumococcal Conjugate 13-Valent 06/14/2015 Pneumococcal, Unspecified 03/21/2012,06/25/2006 TD Preservative Free 08/30/2015 Td, Unspecified 06/13/2000 Zoster 01/27/2008 Family History Medical History Relation Comments Heart disease Father Malignant neoplastic disease Mother Heart disease Sibling Kidney disease Sibling Relation Status Comments Father Mother Sibling Social History Tobacco Use Types Packs/Day Years Used Date Smoking Tobacco: Never Smokeless Tobacco: Never Alcohol Use Standard Drinks/Week Comments Not Currently 0 (1 standard drink = 0.6 oz pur e alcohol) Sex and Gender Information Value Date Recorded Sex Assigned at Not on file Gender Identity Not on file Sexual Orientation Not on file Last Filed Vital Signs Vital Sign Reading Time Taken Comments Blood Pressure 126/64 02/01/2022 11:28 AM CDT Pulse 72 02/01/2022 11:28 AM CDT Temperature 36.1 C (96.9 F) 02/01/2022 11:28 AM CDT Respiratory Rate - - Oxygen Saturation - - Inhaled Oxygen Concentration - - Weight 68 kg (150 lb) 02/01/2022 11:28 AM CDT Height 160 cm (5' 3 ) 02/01/2022 11:28 AM CDT Body Mass Index 26.57 02/01/2022 11:28 AM CDT Plan of Treatment Health Maintenance Due Date Last Done Comments Diabetic Foot Exam 1950 Pneumococcal PPSV23/PCV13 65 + Years / High and Highest Risk (2 of 4 - PPSV23 or PCV20) 08/09/2015 06/14/2015 Ophthalmology Exam 10/28/2016 10/28/2015, 0 02/11/2015, 10/27/2013, Additional history exists Influenza Vaccine (#1) 2024 2, 07/18/2021, 07/29/2013, Additional history exists Care Teams Furniture And Bedding Inspector Relationship Specialty Start Date End Date Yuri Prajapati MD [address] [place] [phone] PCP - General 01/01/19
--- OUTSIDE RECORDS SUMMARY | 2025-01-06 13:17 | XMS_ITS | Encounter Summary ---
Author Organization [facility] Address [address] [facility] [place] [address] Care Team Providers Care Learning Support Resource Room Teacher Name Role Phone Yuri Prajapati MD Primary Care Provider [phone] Encounter Details Date Type Department Care Team (Late st Contact Info) Description 06/12/2022 Lab Requisition [facility] [address] [facility] [place] [id number] Shady Hopkins MD [address] [facility] [place] [address] Social History Tobacco Use Types Packs/Day Years Used Date Smoking Tobacco: Never Smokeless Tobacco: Never Alcohol Use Standard Drinks/Week Comments Not Currently 0 (1 standard drink = 0.6 oz pur e alcohol) Sex and Gender Information Value Date Recorded Sex Assigned at Not on file Gender Identity Not on file Sexual Orientation Not on file documented as of this encounter Plan of Treatment Not on file documented as of this encounter Procedures Procedure Name Priority Date/Time Associated Diagnosis Comments DERMATOPATHOLOGY Routine 06/09/2022 12:0 0 AM CDT documented in this encounter Results * DERMATOPATHOLOGY (06/09/2022 12:00 AM CDT) Case Report Dermatopathology Report Case: [id number] Authorizing Provider: Shady Hopkins MD Collected: 06/09/2022 12:00 AM Ordering Location: [facility] Received: 06/12/2022 04:50 PM Pathologist: Ailyn Nesbitt MD Specimen: Skin, left ear lobe 08/31/202 2 4:37 PM CDT DERMATOPATHOLOGY LABORATORY Final Diagnosis Specimen A. 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 BCC vs. Other. Path# [id number] 2 4:37 PM CDT DERMATOPATHOLOGY LABORATORY Gross Description Specimen A: Received is one formalin filled container labeled with the patient's name and designated left ear lobe. The specimen consists of a shave biopsy measuring [id number] and another piece of tissue measuring [id number]. Jar 0. 4:37 PM CDT DERMATOPATHOLOGY LABORATORY Microscopic Description Specimen A. 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 The aggregates are composed of squamoid cells showing variable glycogen vacuolation (pale-staining cytoplasm). CD34 stains the proliferation. 4:37 PM CDT DERMATOPATHOLOGY LABORATORY Disclaimer An external and internal positive and negative controls are appropriate for the histochemical, immunohistochemical and immunofluorescence stain(s) in this case (if any), except where stated explicitly. The performance characteristics of the stain(s) cited in this report were developed and its performance characteristic determined by the Dermatopathology Laboratory at [facility], directed by Dr. Rayna Turk. These tests need not be, and therefore are not, approved by the [place] Food and Drug Administration. The tests are used for clinical purposes. Billing Codes Specimen Charges Stain Charges 36867 1 33240 1 2 4:37 PM CDT DERMATOPATHOLOGY LABORATORY Embedded Images 2 4:37 PM CDT DERMATOPATHOLOGY LABORATORY Pathology/Cytolog y TISSUE SPECIMEN FROM SKIN / Unknown 06/09/2022 06/12/2022 4:50 PM CDT Shady Hopkins MD LAB - PATHOLOGY/CYTO LOGY ORDERABLES DERMATOPATHOLOGY LABORATORY [facility] - Department of Dermatology [address] [phone] documented in this encounter Visit Diagnoses Not on filedocumented in this encounter Care Teams Learning Support Resource Room Teacher Relationship Specialty Start Date End Date Yuri Prajapati MD [address] [place] [phone] PCP - General 01/25/22 documented as of this encounter
--- OUTSIDE RECORDS SUMMARY | 2025-01-06 13:17 | XMS_ITS ---
Author Name Jac Ray Address [address] [place] [address] Phone [phone] [facility] ice Address [address] [facility] [place] [address] Phone [phone] Care Team Providers Care Magento Developer Name Role Phone Jac Ray Unavailable Adria Bolanos Unavailable Functional Status No Results Mental Status No Results Allergies and Intolerances Name Onset Date Reaction Severity amoxicillin (Allergy) SunFebruary 26 16:25:00 EDT 20 23 Tylenol (Allergy) SunFebruary 26 16:24:00 EDT 2022 Medications Medication Directions Start Date End Date magnesium 250 mg tablet 1 tablet TABLET Oral 1 Time Daily Indication: Supplement SunMarch 13 16:00:00 EDT 2022Mar 18 01:00:00 EDT 2022 metoprolol tartrate 50 mg tablet 1 tablet TABLET Oral 2 Times Daily Indication: HTN SunMarch 13 18:00:00 EDT 2022Mar 18 01:00:00 EDT 2022 Novofine Autocover 30 gauge x 1/3 needle 1 NEEDLE, DISPOSABLE Subcutaneous PRN Indication: Diabetes SunMarch 11 22:30:00 EDT 2022Mar 18 01:00:00 EDT 2022 metoprolol tartrate 37.5 mg tablet 1 tablet TABLET Oral 2 Times Daily Indication: HTN SunMarch 09 17:00:00 EDT 2022March 13 18:35:00 EDT 2022 metOLazone 2.5 mg tablet 1 tablet TABLET Oral 2 Times Weekly Indication: Edema SunMarch 09 17:00:00 EDT 2022Mar 16 20:10:00 EDT 2022 spironolactone 25 mg tablet 1 tablet TAB LET Oral 1 Time Daily Indication: Edema SunMarch 09 17:00:00 EDT 2022Mar 18:00:00 EDT 2022 cloNIDine HCL 0.1 mg tablet 1 tablet TAB LET Oral PRN Indication: HTNGIVE IF SBP IS GREATER THAN 170 SunMarch 09 17:00:00 EDT 2022Mar 18 01:00:00 EDT 2022 FeroSuL 325 mg (65 mg iron) tablet 1 tablet TABLET Oral 1 Time Daily Indication: Anemia SunMarch 09 14:00:00 EDT 2022Mar 18 01:00:00 EDT 2022 Zulay Darden U-100 Insulin 100 unit/mL (3 mL) subcutaneous 12 Units INSULIN PEN (ML) Subcutaneous Hour Of Sleep Indication: DMII SunMarch 02 13:52:00 EDT 2022Mar 18 01:00:00 EDT 2022 Novofine Autocover 30 gauge x 1/3 needle 1 NEEDLE, DISPOSABLE Subcutaneous PRN Indication: DM SunFebruary 28 07:00:00 EDT 2022March 11 22:30:00 EDT 2022 ergocalciferol (vitamin D2) 1,250 mcg (50,000 unit) capsule 1 cap CAPSULE Oral 1 Time Weekly Indication: vit D deficiency SunFebruary 28 15:25:00 EDT 2022Mar 18 01:00:00 EDT 2022 Acetaminophen Extra Strength 500 mg tablet 2 tabs TABLET Oral PRN Every 6 Hours Indication: pain SunFebruary 26 13:00:00 EDT 2022February 26 13:30:00 EDT 2022 amiodarone 200 mg tablet 1 TAB TABLET Or al 1 Time Daily Indication: A-FIB SunFebruary 25 18:00:00 EDT 2022Mar 18 01:00:00 EDT 2022 bumetanide 2 mg tablet 1 TAB TABLET Oral 2 Times Daily Indication: FLUID RETENTION SunFebruary 25 18:00:00 EDT 2022February 25 20:15:00 EDT 2022 polyethylene glycoL 3350 17 gram/dose oral powder 17GM POWDER (GRAM) Oral PRN 1 Time Daily Indication: CONSTIPATION DISSOLVE 1 PACKET IN 4-8OZ OF LIQUID SunFebruary 25 18:00:00 EDT 2022Mar 18 01:00:00 EDT 2022 potassium chloride ER 10 mEq tablet,extended release 2 TABS TABLET, EXTENDED RELEASE Oral 1 Time Daily Indication: HYPOKALEMIA 2 TABS=20MEQ WITH BREAKFAST SunFebruary 25 18:00:00 EDT 2022March 09 17:22:00 EDT 2022 thiamine HCl (vitamin B1) 100 mg tablet 1 TAB TABLET Oral 1 Time Daily Indication: SUPPLEMENT SunFebruary 25 18:00:00 EDT 2022Mar 18 01:00:00 EDT 2022 traMADoL 50 mg tablet 1 TAB TABLET Oral PRN Every 6 Hours Indication: PAIN, SEVERE SunFebruary 25 18:00:00 EDT 2022Mar 18 01:00:00 EDT 2022 metoprolol tartrate 25 mg tablet 1 TAB TABLET Oral Every 12 Hours Indication: HYPERTENSION SunFebruary 25 18:00:00 EDT 2022March 09 17:20:00 EDT 2022 aspirin 81 mg tablet,delayed release 1 TAB TABLET, DELAYED RELEASE (ENTERIC COATED) Oral 1 Time Daily Indication: STROKE/ CLOT PREVENTION SunFebruary 25 18:00:00 EDT 2022Mar 18 01:00:00 EDT 2022 atorvastatin 20 mg tablet 1 TAB TABLET O ral 1 Time Daily Indication: HIGH CHOLESTEROL SunFebruary 25 18:00:00 EDT 2022Mar 18 01:00:00 EDT 2022 cyanocobalamin (vit B-12) 500 mcg tablet 1 TAB TABLET Oral 1 Time Daily Indication: SUPPLEMENT SunFebruary 25 18:00:00 EDT 2022Mar 18 01:00:00 EDT 2022 famotidine 20 mg tablet 1 TAB TABLET Ora l 2 Times Daily Indication: HEARTBURN SunFebruary 25 18:00:00 EDT 2022Mar 18 01:00:00 EDT 2022 gabapentin 100 mg capsule 1 CAP CAPSULE Oral 2 Times Daily Indication: NEUROPATHY SunFebruary 25 18:00:00 EDT 2022Mar 18 01:00:00 EDT 2022 Basaglar KwikPen U-100 Insulin 100 unit/mL (3 mL) subcutaneous 10 UNITS INSULIN PEN (ML) Subcutaneous Hour Of Sleep Indication: DMII SunFebruary 25 18:00:00 EDT 2022March 02 13:53:00 EDT 2022 multivitamin tablet 1 tablet TABLET Oral 1 Time Daily Indication: supplement SunFebruary 26 07:00:00 EDT 2022Mar 18 01:00:00 EDT 2022 HumaLOG KwikPen (U-100) Insulin 100 unit/mL subcutaneous as directed INSULIN PEN (ML) Subcutaneous 3 Times Daily Indication: dm Sliding Scale Insulin: Insulin Ovvez88-853, 0 Units;151-200, 3 Units;201-251, 6 Units;252-300, 9 Units;301-351, 12 Units;352-400, 15 Units;. SunFebruary 25 18:00:00 EDT 2022Mar 18 01:00:00 EDT 2022 TUBErsoL 5 tub. unit/0.1 mL intradermal injection solution 0.1 ml VIAL (ML) Intradermal 1 Time Weekly for 2 Weeks Indication: admit 1st injection on admission, then one week after. Read between 48 and 72 hours SunFebruary 26 15:00:00 EDT 2022March 12 14:59:00 EDT 2022 TUBErsoL 5 tub. unit/0.1 mL intradermal injection solution Read Results VIAL (ML) Other 1 Time Weekly for 2 Weeks Indication: admit Read results between 48-72 hours after 1st and 2nd (1 week apart). If positive do chest x-ray. SunFebruary 28 15:00:00 EDT 2022March 14 14:59:00 EDT 2022 bumetanide 2 mg tablet 1 TAB TABLET Oral 1 Time Daily for 1 Day Indication: FLUID RETENTION SunFebruary 25 21:00:00 EDT 2022February 26 20:59:00 EDT 2022 bumetanide 2 mg tablet 1 TAB TABLET Oral 2 Times Daily Indication: FLUID RETENTION SunFebruary 26 07:00:00 EDT 2022Mar 18 01:00:00 EDT 2022 Problems Active Concerns * Encounter for surgical aftercare following surgery on the circulatory system* Code: * Start Date: SunFebruary 25 00:00:00 EDT 2022 * End Date: * Text: * Presence of aortocoronary bypass graft* Code: * Start Date: SunFebruary 25 00:00:00 EDT 2022 * End Date: * Text: * Atherosclerotic heart disease of [place] coronary artery without angina pectoris* Code: * Start Date: SunFebruary 25 00:00:00 EDT 2022 * End Date: * Text: * Hypertensive heart and chronic kidney disease with heart failure and stage 1 through stage 4 chronic kidney disease, or unspecified chronic kidney disease * Code: * Start Date: SunFebruary 25 00:00:00 EDT 2022 * End Date: * Text: * Chronic diastolic (congestive) heart failure* Code: * Start Date: SunFebruary 25 00:00:00 EDT 2022 * End Date: * Text: * Chronic kidney disease, stage 3 unspecified* Code: * Start Date: SunFebruary 25 00:00:00 EDT 2022 * End Date: * Text: * Type 2 diabetes mellitus with diabetic chronic kidney disease* Code: * Start Date: SunFebruary 25 00:00:00 EDT 2022 * End Date: * Text: * Type 2 diabetes mellitus with diabetic polyneuropathy* Code: * Start Date: SunFebruary 25 00:00:00 EDT 2022 * End Date: * Text: * Gastro-esophageal reflux disease without esophagitis* Code: * Start Date: SunFebruary 25 00:00:00 EDT 2022 * End Date: * Text: * Slow transit constipation* Code: * Start Date: SunFebruary 25 00:00:00 EDT 2022 * End Date: * Text: * Unspecified osteoarthritis, unspecified site* Code: * Start Date: SunFebruary 25 00:00:00 EDT 2022 * End Date: * Text: * Unspecified hearing loss, bilateral* Code: * Start Date: SunFebruary 25 00:00:00 EDT 2022 * End Date: * Text: * nursing home (current) use of aspirin* Code: * Start Date: SunFebruary 25 00:00:00 EDT 2022 * End Date: * Text: * salvage determiner (current) use of insulin* Code: * Start Date: SunFebruary 25 00:00:00 EDT 2022 * End Date: * Text: * Old myocardial infarction* Code: * Start Date: SunFebruary 25 00:00:00 EDT 2022 * End Date: * Text: Reason for Referral Past Medical History
--- OUTSIDE RECORDS SUMMARY | 2025-01-06 13:17 | XMS_ITS | Clinical Summary ---
Author Organization [facility] Address [address] [facility] [place] [address] Care Team Providers Care Mapping Editor Name Role Phone Yuri Prajapati MD Primary Care Provider [phone] Source Comments [facility],non-owned Affiliates and Associated Physician Practices is amultiple site organization consisting of ambulatory clinics and hospital sitesin [place], [place], [place] and [place]. This disclosure is being madepursuant to the Care Everywhere program and may not contain all information available regarding this patient. Last updated 18.[facility] Allergies Active Allergy Reactions Criticality Noted Date Comments Acetaminophen Urticaria,Rash Medium 11/14/2017 Shaking was hospitalized Shaking was hospitalized Shaking was hospitalized Shaking was hospitalized Shaking was hospitalized Amoxicillin-Pot Clavulanate Renal Injury High 08/18/2020 Hospitalized Bee Pollen Itching Low 02/01/2004 Pollen Extract Itching 02/01/2004 Tramadol Psychiatric High 04/03/2016 Other reaction(s): Mental Status Changes/Sedation Medications * Be aware that medications may not be up to date on this document. Alwaysverify current medications with the patient. Medication Sig Dispensed Refills Start Date End Date Status blood glucose calibration liquid (ACCU-CHEK SMARTVIEW CONTROL) liquid USE TO CHECK GLUCOSE 4 TIMES DAILY 11/23/2019 Active clotrimazole 1% cream - hydrocortisone 1 % Cream 50:50 CREA APPLY TOPICALLY THREE TIMES DAILY NEEDED 08/25/2019 Active atorvastatin (LIPITOR) 40 MG tablet 11/30/2017 Active dulaglutide (TRULICITY) 0.75 MG/0.5ML injection INJECT 1 SUBCUTANEOUSLY ONCE A WEEK 11/27/2019 Active famotidine (PEPCID) 20 MG tablet Take 1 (one) tablet by mouth 2 times daily Active furosemide (LASIX) 20 MG tablet TAKE 1 TABLET BY MOUTH ONCE DAILY 08/09/2019 Active gabapentin (NEURONTIN) 100 MG capsule TAKE 1 CAPSULE BY MOUTH THREE TIMES DAILY 06/24/2019 Active blood glucose (ACCU-CHEK MK PLUS) test strip USE 1 STRIP TO CHECK GLUCOSE TWICE DAILY 03/29/2020 Active insulin glargine (Lantus/Semglee) 100 units/ml injection 02/25/2018 Active Insulin Lispro (HUMALOG KWIKPEN) 100 UNIT/ML 05/13/2020 Active losartan (COZAAR) 100 MG tablet 11/30/2017 Active metFORMIN ER 24hr (GLUCOPHAGE XR) 500 MG tablet TAKE 2 TABLETS BY MOUTH IN THE MORNING AND 1 WITH LUNCH AND 1 WITH SUPPER 08/27/2019 Active metoprolol tartrate (LOPRESSOR) 50 MG tablet Take 2 (two) tablets by mouth 2 times daily Active pancrelipase (CREON) 34739-53441 units capsule TAKE 1 CAPSULE BY MOUTH THREE TIMES DAILY WITH MEALS 03/29/2020 Active pantoprazole EC (PROTONIX) 40 MG tablet Take 1 (one) tablet by mouth once daily Active traMADol (ULTRAM) 50 MG tablet 07/08/2020 Active albuterol HFA (PROVENTIL;VENTOLIN; PROAIR) 108 (90 Base) MCG/ACT inhaler INHALE 1 PUFF BY MOUTH EVERY 4 HOURS NEEDED FOR SHORTNESS OF BREATH FOR WHEEZING 01/11/2021 Active amLODIPine (NORVASC) 5 MG tablet 11/03/2020 Active Azelastine HCl 137 MCG/SPRAY SOLN USE 1 SPRAY(S) IN EACH NOSTRIL EVERY 12 HOURS 12/29/2020 Active hydrocortisone (HYTONE) 1 % cream Active Accu-Chek FastClix Lancets USE TO CHECK BLOOD SUGAR 4 TIMES DAILY 12/29/2020 Active mometasone (ELOCON) 0.1 % ointment APPLY TOPICALLY TO THE AFFECTED AREA(S) 3 TIMES WEEKLY 08/31/2021 Active amLODIPine (NORVASC) 2.5 MG tablet TAKE 1 TABLET BY MOUTH ONCE DAILY TO MAKE 7.5 MG TOTAL 10/06/2021 Active cyanocobalamin 100 MCG tablet Take 5 (five) tablets by mouth 02/01/2022 Active tobramycin-dexAMETHa sone (Tobradex) 0.3-0.1 % ophthalmic suspension INSTILL 1 DROP INTO AFFECTED EYE 4 TIMES DAILY 04/07/2022 Active sacubitril-valsartan (Entresto) 24-26 MG tablet Take 1 (one) tablet by mouth every 12 hours 03/27/2022 Active sacubitril-valsartan (Entresto) 49-51 MG tablet Take 1 (one) tablet by mouth 2 times daily 05/12/2022 Active nitroGLYCERIN (Nitrostat) 0.4 MG tablet Dissolve 1 (one) tablet under the tongue 04/13/2022 Active clopidogrel (plaVIX) 75 MG tablet 03/27/2022 Active Cyanocobalamin 1000 MCG Take 1 (one) tablet by mouth once daily Active atorvastatin (Lipitor) 40 MG tablet Take 2 (two) tablets by mouth at bedtime Active aspirin EC (Ecotrin) 81 MG tablet Take 1 (one) tablet by mouth once daily Active Active Problems Problem Noted Date Diagnosed Date Acute kidney failure 04/22/2020 Hyponatremia 01/01/2019 Lumbar radiculopathy 02/27/2018 Overview (07/14/2020): Added automatically from request for surgery [id number] Essential (primary) hypertension 12/05/2017 Low back pain 12/05/2017 Polyneuropathy 12/05/2017 Type 2 diabetes mellitus wit h unspecified diabetic retinopathy without macular edema 12/05/2017 Iron deficiency anemia 11/14/2017 Encounters Date Type Department Care Team Description 11/19/2024 11:50 AM COLLEGE OR UNIVERSITY REGISTRAR Ancillary Procedure [facility] - Radiology [address] [place] [id number] Hallie Hawk PA-C Chronic left shoulder pain 11/19/2024 11:30 AM COLLEGE OR UNIVERSITY REGISTRAR Office Visit [facility] [address] [place] [address], [address] [place] [address] Hallie Hawk PA-C Chronic left shoulder pain (Primary Dx); Nontraumatic tear of left rotator cuff, unspecified tear extent from Last 3 Months Social History Tobacco Use Types Packs/Day Years [...] Sign Reading Time Taken Comments Blood Pressure - - Pulse - - Temperature - - Respiratory Rate - - Oxygen Saturation - - Inhaled Oxygen Concentration - - Weight 61.2 kg (135 lb) 03/07/2022 2:49 PM CDT Height 157.5 cm (5' 2 ) 03/07/2022 2:49 PM CDT Body Mass Index 24.69 03/07/2022 2:49 PM CDT Plan of Treatment Health Maintenance Due Date Last Done Comments BONE DENSITY TESTING 1940 MEDICARE AWV 12 MONTHS 1940 DIABETES-SERUM CREATININE 1959 DTAP/TDAP/TD VACCINES (1 - Tdap) 1960 PNEUMOCOCCAL VACCINE 50+ (1 of 2 - PCV) 1960 ZOSTER VACCINE (1 of 2) 1991 Respiratory Syncytial Virus (RSV) Vaccine Pt: or over 60 yrs (1 - 1-dose 75+ series) 2016 DIABETES RETINOPATHY SCREENING 07/14/2020 10/28/2015, 02/11/2015, 10/27/2013, Additional history exists DIABETES-FOOT EXAM WITH MONOFILAMENT 07/14/2020 DIABETES-HGB A1C 07/14/2020 COVID-19 VACCINE ( - 2023- season) 2024 INFLUENZA VACCINE (#1) 2024 2, 07/18/2021, 08/21/2016, Additional history exists DEPRESSION SCREENING 10/15/2024 DIABETES - URINE PROTEIN SCREENING 10/15/2024 HEPATITIS B VACCINE Aged Out No longe r eligible based on patient's age to complete this topic HIB VACCINE Aged Out No longer eligi ble based on patient's age to complete this topic HPV VACCINE Aged Out No longer eligi ble based on patient's age to complete this topic MENINGOCOCCAL (Group B) VACCINE SHARED DECISION-MAKING Aged Out No longer eligible based on patient's age to complete this topic MENINGOCOCCAL GROUPS A/C/Y/W VACCINE Aged Out No longer eligible based on patient's age to complete this topic Procedures Procedure Name Priority Date/Time Associated Diagnosis Comments XR SHOULDER LEFT 2VW OR MORE Routine 11/19/2024 11:51 AM COLLEGE OR UNIVERSITY REGISTRAR Chronic left shoulder pain from Last 3 Months Results * XR Shoulder Left 2Vw or More (11/19/2024 11:51 AM COLLEGE OR UNIVERSITY REGISTRAR) Narrative [facility] [address] - 11/19/2024 11:51 AM COLLEGE OR UNIVERSITY REGISTRAR Please see progress note in Epic for results. Hallie Hawk PA-C DIAGNOSTIC IMAGING O RDERABLES [facility] [place] [address] from Last 3 Months Care Teams Mapping Editor Relationship Specialty Start Date End Date Yuri Prajapati MD [address] [place] [address] PCP - General 01/25/22
--- OUTSIDE RECORDS SUMMARY | 2025-01-06 13:17 | XMS_ITS | CONTINUITY OF CARE DOCUMENT ---
Author Name edward euntony Address Unknown Organization [facility] Address [address] [place] [address] [address] [place] [address] Phone [phone] Care Team Providers Care Family Educator Name Role Phone Connor Zelaya MD Unavailable Connor Zelaya MD Unavailable Alo TAVERA, [facility] Unavailable PROBLEMS Condition Status Date Provider Notes Family History of Hypertension: active ? Amanda Santos POWER HOUSE CONTROL ROOM OPERATOR HTN active Sherrie Santos POWER HOUSE CONTROL ROOM OPERATOR CHF active Sherrie Santos POWER HOUSE CONTROL ROOM OPERATOR Shortness of breath active Sherrie Santos POWER HOUSE CONTROL ROOM OPERATOR Hyperlipidemia active Sherrie Santos POWER HOUSE CONTROL ROOM OPERATOR Diabetes mellitus, type 2 active Sherrie kelley POWER HOUSE CONTROL ROOM OPERATOR ENCOUNTERS Date Type Provider Location Encounter Diag nosis - In-person encounter Office Visit Connor Zelaya MD [place] Family History of Hypertension:HTNCHFShortness of breathHyperlipidemiaDiabetes mellitus, type 2 VITAL SIGNS Date Observation Value Provider Body Mass Index (Ratio) 26.75 kg/m2 Cornelius Zelaya MD blood pressure, diastolic 70 mm[Hg] Da anupama Socorro blood pressure, systolic 132 mm[Hg] Dac ia Socorro oxygen saturation, oximetry 96 % Sarah Socorro respiratory rate E&M 16 /min Sarah V oss pulse rate 80 /min Sarah Socorro weight E&M 151 [lb_av] Sarah Socorro height E&M 63 [in_i] Sarah Quintanilla ALLERGIES Allergy Name Onset Date Reaction Criticality Status TYLENOL High Criticality active HISTORY OF MEDICATION USE Medication Status Instructions Dates Provider Indications Com ments METANX CAPSULE active take 2 daily 9 Sarah Quintanilla ACCU-CHEK MK IN VITRO STRIP active test twice dialy 9 Sarah Quintanilla VITAMIN D 1000 UNIT ORAL TABLET active take one tablet daily 9 Sarah Quintanilla [address]LEVE 220 MG ORAL CAPSULE active take 2 daily as needed 9 Sarah Carbajalss ATORVASTATIN CALCIUM 40 MG ORAL TABLET active take one tablet daily 9 Sarah Quintanilla CYCLOBENZAPRINE HCL 5 MG ORAL TABLET active take one tablet three times daily as needed 9 Sarah Quintanilla CHLORTHALIDONE 25 MG ORAL TABLET active take one tablet daily 9 Sarah Quintanilla PANTOPRAZOLE SODIUM 40 MG INTRAVENOUS SOLUTION RECONSTITUTED active take one tablet daily 9 Sarah Quintanilla FUROSEMIDE 20 MG ORAL TABLET active take one tablet daily 9 Sarah Quintanilla COZAAR 100 MG ORAL TABLET active take one daily 9 Sarah Quintanilla METOPROLOL TARTRATE 50 MG ORAL TABLET active take 2 every am and 2 every evening 9 Sarah Quintanilla CREON [id number] UNIT ORAL CAPSULE DELAYED RELEASE PARTICLES active take one with each meal 9 Sarah Quintanilla TRADJENTA 5 MG ORAL TABLET active take one tablet daily 9 Sarah Quintanilla ACTOS 15 MG ORAL TABLET active take one tablet daily 9 Sarah Carbajalss NATEGLINIDE 120 MG ORAL TABLET active take one daily 9 Sarahmelony Quintanilla METFORMIN HCL 500 MG ORAL TABLET active take 2 after breakfast, 1 after lunch and 1 at dinner 9 Sarah Socorro SOCIAL HISTORY Date Observation Value Provider number of grandchildren Connor Garcia Santos NP social history reviewed E&M reviewed - no changes required Sherrie Santos NP social history E&M S moking History: P jimena has never smoked. Sherrie Santos NP alcohol use no Sarah Socorro smoking status Never smoker Sarah Quintanilla FAMILY HISTORY Family Member Condition Full Sister Family History of Co ngestive Heart Failure: Full Sister Family History of Co ronary Artery Disease: Father Family History of Co ngestive Heart Failure: Father Family History of Co ronary Artery Disease: Full Brother Family History of Hy pertension: Full Sister Family History of Co ngestive Heart Failure: Father Family History of Co ngestive Heart Failure: INSURANCE PROVIDERS Payer name Policy type / Coverage type [place] [employer] party ID [place] [employer] Medicare [id number] [facility] [employer] [id number] ADVANCE DIRECTIVES Name Date DISCUSSED - NO DECISION MADE TREATMENT PLAN Date Name Performer Cardiology [facility] follow up:Lipid levels followed by PCP. Her updated medication list for this problem includes: Atorvastatin Calcium 40 Mg Oral Tablet (Atorvastatin calcium) ..... Take one tablet daily Sherrie Santos NP Cardiology hospital follow up: B P today: 132/70 Sherrie Santos NP [facility] follow up: H er updated medication list for this problem includes: Chlorthalidone 25 Mg Oral Tablet (Chlorthalidone) ..... Take one tablet daily Furosemide 20 Mg Oral Tablet (Furosemide) ..... Take one tablet daily Cozaar 100 Mg Oral Tablet (Losartan potassium) ..... Take one daily Metoprolol Tartrate 50 Mg Oral Tablet (Metoprolol tartrate) ..... Take 2 every am and 2 every evening Sherrie Santos NP Cardiology hospital follow up:Improved on Lasix. B eing followed by sandwich artist plans to have PFTs, 6 min walk test, home sleep study, and nuclear medicine lung VQ perfusion studies with pulmonary in the near future. Sherrie Santos NP HISTORY OF PROCEDURES Procedure Date Procedure Name Provider Procedure Notes S tatus EKG Connor Zelaya MD completed SNOMED-CT: [id number] Current Medications Documented Connor Zelaya MD completed
--- OUTSIDE RECORDS SUMMARY | 2025-01-06 13:17 | XMS_ITS ---
Author Name Jac Ray Address [address] [place] [address] Phone [phone] [facility] Address [address] [place] [address] Phone [phone] Care Team Providers Care Container Coordinator Name Role Phone Jac Ray Unavailable Adria Bolanos Unavailable [phone] Functional Status No Results Mental Status No [...] Daily Indication: dm Sliding Scale Insulin: Insulin Hwciw91-754, 0 Units;151-200, 3 Units;201-251, 6 Units;252-300, 9 [...] * Text: * Atherosclerotic heart disease of [place] coronary artery without angina pectoris* Code: * [...] 2022 * End Date: * Text: * [facility] (current) use of aspirin* Code: * Start Date: SunFebruary 25 00:00:00 EDT 2022 * End Date: * Text: * parts counterman (current) use of insulin* Code: * Start Date: SunFebruary 25 00:00:00 EDT 2022 * End Date: * Text: * Old myocardial infarction* Code: * Start Date: SunFebruary 25 00:00:00 EDT 2022 * End Date: * Text: Reason for Referral Past Medical History
--- OUTSIDE RECORDS SUMMARY | 2025-01-06 13:17 | XMS_ITS | Clinical Summary ---
Author Organization [facility] Address [address] [place] [address] Phone Care Team Providers Care Sales Utility Representative Name Role Phone Yuri Prajapati MD Primary Care Provider [phone] Active Problems Problem Noted Date Diagnosed Date Chronic pain syndrome 02/08/2018 Somatic symptom disorder, pe rsistent, severe, with predominant pain 02/08/2018 Social History Tobacco Use Types Packs/Day Years Used Date Smoking Tobacco: Never Assessed Comments Unknown Sex and Gender Information Value Date Recorded Sex Assigned at Not on file Legal Sex Female 1:12 PM CDT Gender Identity Not on file Sexual Orientation Not on file Plan of Treatment Health Maintenance Due Date Last Done Comments Hepatitis C Virus (HCV) Screening 1940 TdaP Immunization 1940 Zoster Immunization (1 of 2) 1991 Pneumococcal Immunization (50+ years) (2 of 2 - PPSV23) 06/14/2016 06/14/2015 Respiratory Syncytial Virus (RSV) Immunization (Adult) (1 - 1-dose 75+ series) 2016 Influenza Immunization (#1) 06/15/202408/15, 08/21/2016, 08/11/2015 SARS-COV-2 Immunization ( season) 2024 08/21/2021, 12/21/2020, 11/24/2020 Pneumococcal Immunization Combined Discontinued 06/14/2015 DTaP/Tdap/Td Immunization Discontinued 08/30/2015 Hepatitis B Immunization Aged Out No longer eligible based on patient's age to complete this topic Meningococcal Immunization (ACWY) Aged Out No longer eligible based on patient's age to complete this topic Rotavirus Immunization Aged Out No lo nger eligible based on patient's age to complete this topic Insurance MEDICARE [facility] [place] [address] Care Teams Sales Utility Representative Relationship Specialty Start Date End Date Yuri Prajapati MD [address], [address] [place] [address] PCP - General Internal Medicine 01/31/18
--- OUTSIDE RECORDS SUMMARY | 2025-01-06 13:17 | XMS_ITS | Clinical Summary ---
Author Organization [facility] Address [address] [place] [address] Phone Care Team Providers Care Business Trainer Name Role Phone Ryan Randhawa MD Primary Care Provider [phone] Allergies Active Allergy Reactions Criticality Noted Date Comments Acetaminophen Rash,Hives High 11/14/2017 Shaking was hospitalized Shaking was hospitalized [...] hospitalized Shaking was hospitalized Amoxicillin-Pot Clavulanate Renal Dysfunctions,Other (See Comments) High 08/18/2020 Hospitalized Hospitalized Other reaction(s): Renal Dysfunctions, Renal Injury Hospitalized Hospitalized Hospitalized Hospitalized Hospitalized Hospitalized Hospitalized Hospitalized Hospitalized Bee Pollen Itching Low 02/01/2004 Tramadol Other (See Comments) High 04/03/2016 Other reaction(s): Mental Status Changes/Sedation Other reaction(s): Mental Status Changes/Sedation Medications furosemide (LASIX) 20 mg tablet Take 20 mg by mouth daily. Active insulin glargine (LANTUS) 100 unit/mL injection Inject 15 Units by subcutaneous injection daily at bedtime . Active gabapentin (NEURONTIN) 100 mg capsule Take 100 mg by mouth. Active SAMREEN PEN NEEDLE 32 gauge x 5/32 Needle 9 Active lancets (Accu-Chek Fastclix Lancet Drum) USE 1 PEN NEEDLE TO CHECK GLUCOSE TWICE DAILY 0 Active Insulin [place], Disposable, (Samreen Pen Needle) 32 gauge x 5/32 Needle USE WITH INSULIN INJECTIONS ONCE DAILY 0 Active blood sugar diagnostic (Accu-Chek Jazmín Plus test strp) Strip USE 1 STRIP TO CHECK GLUCOSE SIX TIMES DAILY FOR ONE WEEK THEN ONE TWICE DAILY 0 Active insulin lispro (HumaLOG KwikPen Insulin) 100 unit/mL pen syringe INJECT 10 UNITS SUBCUTANEOUSLY THREE TIMES DAILY 0 Active famotidine (PEPCID) 20 mg tablet Take 20 mg by mouth. Active cyanocobalamin (VITAMIN B-12) 100 mcg tablet Take 100 mcg by mouth daily. Active aspirin (ECOTRIN EC) 81 mg Tablet, Delayed Release (E.C.) Take 81 mg by mouth daily. Active cloNIDine HCL (CATAPRES) 0.1 mg tablet 0.1 mg. 3 Active amLODIPine (NORVASC) 5 mg tablet Take 1 Tablet by mouth daily. 4 Active carvediloL (COREG) 6.25 mg tablet TAKE 1 TABLET BY MOUTH EVERY 12 HOURS WITH FOOD OR A SNACK 4 Active Active Problems Problem Noted Date Diagnosed Date CKD (chronic kidney disease) stage 3, GFR 30-59 ml/min 08/19/2020 Type 2 diabetes mellitus treated with insulin Hyponatremia 06/17/2019 Iron deficiency anemia 11/14/2017 Resolved Problems Problem Noted Date Diagnosed Date Resolved Date Type 2 diabetes mellitus wit hout complication, without long-term current use of insulin 06/17/2019 08/19/2020 Encounters Date Type Department Care Team Description 12/31/2024 External Device Data ST[facility] ABSTRACTION Provider, Abstract 12/20/2024 External Device Data [facility] ABSTRACTION Provider, Abstract 12/19/2024 External Device Data [facility] ABSTRACTION Provider, Abstract 12/09/2024 External Device Data [facility] ABSTRACTION Provider, Abstract 11/11/2024 External Device Data [facility] ABSTRACTION Provider, Abstract 11/06/2024 External Device Data [facility] ABSTRACTION Provider, Abstract from Last 3 Months Family History Medical History Relation Name Comments Heart Disease Brother Heart Disease Father Breast Cancer Mother Lung Cancer Mother Breast Cancer Sister 1 Diabetes Sister 1 Breast Cancer Sister 2 Heart Disease Sister 2 Diabetes Sister 3 Heart Disease Sister 4 Cancer Son 1 Healthy Son 2 Healthy Son 3 Relation Name Status Comments Brother Alive Father Mother Sister 1 Sister 2 Sister 3 Sister 4 Alive Son 1 Son 2 Son 3 Social History Tobacco Use Types Packs/Day Years Used Date Smoking Tobacco: Never Alcohol Use Standard Drinks/Week Comments No 0 (1 standard drink = 0.6 oz pur e alcohol) Comments No Sex and Gender Information Value Date Recorded Sex Assigned at Not on file Legal Sex Female 10:21 AM CDT Gender Identity Not on file Sexual Orientation Not on file Last Filed Vital Signs Vital Sign Reading Time Taken Comments Blood Pressure 125/64 12/13/2023 11:27 AM MANAGEMENT ACCOUNTS MANAGER Pulse 69 12/13/2023 11:27 AM MANAGEMENT ACCOUNTS MANAGER Temperature 36 C (96.8 F) 12/13/2023 11:27 AM MANAGEMENT ACCOUNTS MANAGER Respiratory Rate 14 12/13/2023 11:27 AM MANAGEMENT ACCOUNTS MANAGER Oxygen Saturation 96% 12/13/2023 11:27 AM MANAGEMENT ACCOUNTS MANAGER Inhaled Oxygen Concentration - - Weight 68.1 kg (150 lb 3.2 oz) 12/13/2023 11:27 AM MANAGEMENT ACCOUNTS MANAGER Height 160 cm (5' 3 ) 04/28/2022 12:48 PM CDT Body Mass Index 26.61 04/28/2022 12:48 PM CDT Plan of Treatment Upcoming Encounters Date Type Department Care Team (Late st Contact Info) Description 01/07/2025 10:00 AM CDT Office Visit [facility] Oncology and Hematology - [place] [address] [place] [address] [facility] [address] [place] [address] Francisco Yeager MD [address] [facility] [address] [place] [address] Health Maintenance Due Date Last Done Comments DIABETES ANNUAL FOOT EXAM 1959 DIABETES MICROALBUMIN ANNUAL SCREEN 1958 LDL CHOLESTEROL ANNUAL 1958 Traditional Medicare (ACO) A nnual Wellness Visit 1959 ZOSTER VACCINE (2 of 3) 03/23/2008 01/27/2008 DTAP/TDAP/TD VACCINES (1 - Tdap) 08/31/2015 08/30/20 15, 06/13/2000 RSV VACCINE (60+ or ) (1 - 1-dose 75+ series) 2016 DIABETES ANNUAL RETINAL EXAM 11/22/202305/2023, 04/27/2022, 04/27/2022, Additional history exists INFLUENZA VACCINE (#1) 2024 2, 07/18/2021, 08/21/2016, Additional history exists DIABETES HBA1C Q 6 MONTHS 12/06/20242023, 02/27/2024, 11/21/2023, Additional history exists PNEUMOCOCCAL VACCINE 50+ YEARS Completed 0 06/14/2015, 03/21/2012, 03/21/2012, Additional history exists COLORECTAL SCREENING Discontinued 12/25/2018, 12/25/2018, 09/30/2015, Additional history exists Colorectal Cancer Screening Discontinued OSTEOPOROSIS SCREENING Completed 10/06/2023, 2018 FIT-DNA Q 3 years Discontinued FIT/FOBT Q 1 year Discontinued Flex Sig/CT Colonography Q 5 years Discontinued Procedures Procedure Name Priority Date/Time Associated Diagnosis Comments HEMOGLOBIN A1C Routine 08/18/2020 from Last 3 Months or Most Recently Relevant to Health Maintenance Results * HEMOGLOBIN A1C (08/18/2020) Blood Lynda MAURICE CHEMISTRY ORDERABLES Liza l Result NON [facility] from Last 3 Months or Most Recently Relevant to Health Maintenance Insurance MEDICARE PART A AND B [facility] MEDICARE PART A AND B [employer] [facility] [facility] Care Teams Business Trainer Relationship Specialty Start Date End Date Ryan Randhawa MD [address] [place] [address] PCP - General Family Practice 06/12/23
--- OUTSIDE RECORDS SUMMARY | 2025-01-06 13:17 | XMS_ITS | Clinical Summary ---
Author Organization [facility] Address [facility] [place] [address] Care Team Providers Care Icu Specialist Name Role Phone Diana Bradford MD Unavailable [phone] Ml Valencia MD Primary Care Provider [phone] Allergies Active Allergy Reactions Criticality Noted Date Comments Acetaminophen Hives,Rash,Urticar ia Medium 11/14/2017 Shaking was hospitalized Shaking was [...] hospitalized Shaking was hospitalized Amoxicillin-Pot Clavulanate Other (See comments) High 08/18/2020 Hospitalized Hospitalized Hospitalized Bee Pollen Itching Low 02/01/2004 Tramadol Mental status changes,Other (See comments) High 04/03/2016 Other reaction(s): Mental Status Changes/Sedation Other reaction(s): Mental Status Changes/Sedation Other reaction(s): Mental Status Changes/Sedation Other reaction(s): Mental Status Changes/Sedation Medications furosemide (LASIX) 20 mg tablet Take 20 mg by mouth daily. Active insulin glargine (LANTUS) 100 unit/mL injection Inject 10 Units under the skin nightly. Active famotidine (PEPCID) 20 mg tablet Take 20 mg by mouth 2 (two) times a day Active Accu-Chek Jazmín Plus test strp strip USE 1 STRIP TO CHECK GLUCOSE SIX TIMES DAILY FOR ONE WEEK THEN ONE TWICE DAILY 0 Active blood-glucose meter misc USE TO CHECK GLUCOSE 4 TIMES DAILY 0 Active HumaLOG KwikPen Insulin 100 unit/mL insulin pen INJECT 10 UNITS SUBCUTANEOUSLY THREE TIMES DAILY 0 Active Accu-Chek Fastclix Lancet Drum misc USE 1 PEN NEEDLE TO CHECK GLUCOSE TWICE DAILY 0 Active BD Samreen 2nd Gen Pen Needle 32 gauge x 5/32 needle 4 TIMES DAILY 0 Active hydrocortisone 1 % cream Apply topically 2 (two) times a day Active gabapentin (NEURONTIN) 100 mg capsule TAKE 1 CAPSULE BY MOUTH THREE TIMES DAILY 90 capsule 1 Active azelastine (ASTELIN) 137 mcg (0.1 %) nasal spray USE 1 SPRAY(S) IN EACH NOSTRIL EVERY 12 HOURS 1 Active cyanocobalamin (Vitamin B-12) 1,000 mcg tablet Take 1 tablet by mouth daily Active aspirin 81 mg enteric coated tablet Take 81 mg by mouth daily Active nitroglycerin (NITROSTAT) 0.4 mg SL tabletIndicati ons:Coronary artery disease involving [place] tribe coronary artery of [place] tribe heart without angina pectoris Place 1 tablet (0.4 mg total) under the tongue every 5 (five) minutes as needed for chest pain May repeat dose every 5 minutes for up to 3 doses total. 25 tablet 3 2 Active mometasone (ELOCON) 0.1 % ointment APPLY TOPICALLY TO THE AFFECTED AREA(S) 3 TIMES WEEKLY 1 Active sacubitriL-joe sartan (ENTRESTO) 49-51 mg tabletIndicati ons:chronic heart failure Take 1 tablet by mouth 2 (two) times a day 60 tablet 5 2 Active metoprolol (LOPRESSOR) 100 mg tablet 3 Active atorvastatin (LIPITOR) 20 mg tablet Take 20 mg by mouth daily for 90 days 3 Active tobramycin-dex AMETHasone (TOBRADEX) ophthalmic solution INSTILL 1 DROP INTO AFFECTED EYE 4 TIMES DAILY 2 Active NIFEdipine CC 30 mg 24 hr tablet Take 30 mg by mouth daily 3 Active hydrALAZINE (APRESOLINE) 25 mg tablet 3 Active albuterol HFA (PROVENTIL HFA,VENTOLIN HFA,PROAIR HFA) 90 mcg/actuation inhaler INHALE 1 PUFF BY MOUTH EVERY 4 HOURS NEEDED FOR SHORTNESS OF BREATH FOR WHEEZING 1 Active clopidogreL (PLAVIX) 75 mg tablet TAKE 1 TABLET BY MOUTH ONCE DAILY IN THE MORNING 30 tablet 3 Active Active Problems Problem Noted Date Diagnosed Date Post PTCA 06/27/2022 Ischemic cardiomyopathy 06/27/2022 CKD (chronic kidney disease) stage 3, GFR 30-59 ml/min 06/27/2022 Abnormal findings on diagnostic imaging of breas t 01/03/2021 Lumbar radiculopathy 02/27/2018 Overview (02/27/2018): Added automatically from request for surgery [id number] Surgical History Surgery Date Site/Laterality Comments EYE SURGERY Cataracts CARPAL TUNNEL RELEASE APPENDECTOMY SHOULDER ARTHROSCOPY JOINT REPLACEMENT Right Knee Arthroplasty CORONARY ANGIOPLASTY WITH ST ENT PLACEMENT Medical History Medical History Date Comments Hypertension Hyperlipidemia CHF (congestive heart failure) (HCC) 10/2017 Anemia Type 2 diabetes mellitus (HCC) Neuropathy Feet Arthritis Cataract Coronary artery disease invo lving [place] tribe coronary artery of [place] tribe heart Myocardial infarction (HCC) Family History Medical History Relation Name Comments Breast cancer Mother Lung cancer Mother Breast cancer Mother's Sister 1 Breast cancer Mother's Sister 2 Breast cancer Sister Bladder Cancer Son Kidney cancer Son Relation Name Status Comments Mother Mother's Sister 1 Mother's Sister 2 Sister Son Social History Tobacco Use Types Packs/Day Years Used Date Smoking Tobacco: Never Passive Smoke Exposure: Never Smokeless Tobacco: Never Alcohol Use Standard Drinks/Week Comments No 0 (1 standard drink = 0.6 oz pur e alcohol) Personal Safety Answer Date Recorded Getting School Help Needed Not on file 10/17 Comments Unknown Sex and Gender Information Value Date Recorded Sex Assigned at Not on file Legal Sex Female 4:05 PM CDT Gender Identity Not on file Sexual Orientation Not on file Obstetrics History Last Filed Vital Signs Vital Sign Reading Time Taken Comments Blood Pressure 168/90 12/20/2022 1:30 PM THERMAL MOLDER Pulse 69 12/20/2022 1:30 PM THERMAL MOLDER Temperature - - Respiratory Rate - - Oxygen Saturation 99% 12/20/2022 1:30 PM THERMAL MOLDER Inhaled Oxygen Concentration - - Weight 71.2 kg (157 lb) 12/20/2022 1:30 PM THERMAL MOLDER Height 160 cm (5' 3 ) 12/20/2022 1:30 PM THERMAL MOLDER Body Mass Index 27.81 12/20/2022 1:30 PM THERMAL MOLDER Plan of Treatment Health Maintenance Due Date Last Done Comments Depression Screening 1941 Fall Risk Assessment 1941 Osteoporosis Screening-Bone Density Scan 1941 Hepatitis B Screening 1959 Well Visit 65+ 2006 Zoster Vaccine (2 of 3) 03/23/2008 01/27/2008 DTaP/Tdap/Td Vaccine (1 - Tdap) 08/31/2015 5, 06/13/2000 Influenza Vaccine (#1) 2024 2, 07/18/2021, 08/08/2018, Additional history exists Pneumococcal vaccine 65+ Completed 018, 06/14/2015, 07/20/2013, Additional history exists Insurance MEDICARE [facility] [place] [address] MEDICARE [facility] MEDICARE [facility] Care Teams Icu Specialist Relationship Specialty Start Date End Date Ml Valencia MD PCP - General Internal Medicine 11/20/22 Diana Bradford MD Property Manager Obstetrics and Gynecology 08/09/20
--- OUTSIDE RECORDS SUMMARY | 2025-01-06 13:17 | XMS_ITS | Referral Summary ---
Author Organization [facility] Address [facility] [place] [address] Care Team Providers Care Resolution Analyst Name Role Phone Diana Bradford MD Unavailable [phone] Ml Valencia MD Primary Care Provider [phone] Allergies Active Allergy Reactions Criticality Noted Date [...] mg SL tabletIndicati ons:Coronary artery disease involving [place] and [place] tribes coronary artery of [place] and [place] tribes heart without angina pectoris Place 1 tablet [...] (02/27/2018): Added automatically from request for surgery [id number] Social History Tobacco Use Types Packs/Day Years [...] Comments Blood Pressure 168/90 12/20/2022 1:30 PM CONVENTIONAL MORTGAGE UNDERWRITER Pulse 69 12/20/2022 1:30 PM CONVENTIONAL MORTGAGE UNDERWRITER Temperature - - Respiratory Rate - - Oxygen Saturation 99% 12/20/2022 1:30 PM CONVENTIONAL MORTGAGE UNDERWRITER Inhaled Oxygen Concentration - - Weight 71.2 kg (157 lb) 12/20/2022 1:30 PM CONVENTIONAL MORTGAGE UNDERWRITER Height 160 cm (5' 3 ) 12/20/2022 1:30 PM CONVENTIONAL MORTGAGE UNDERWRITER Body Mass Index 27.81 12/20/2022 1:30 PM CONVENTIONAL MORTGAGE UNDERWRITER Plan of Treatment Not on file Insurance MEDICARE [facility] MEDICARE [facility] MEDICARE [facility] [facility] Care Teams Resolution Analyst Relationship Specialty Start Date End Date Ml Valencia MD PCP - General Internal Medicine 11/20/22 Diana Bradford MD Human Factors Ergonomist Obstetrics and Gynecology 08/09/20
--- OUTSIDE RECORDS SUMMARY | 2025-01-06 13:17 | XMS_ITS | Encounter Summary ---
Author Organization [facility] Address [address] [place] [address] Care Team Providers Care Primary Care Nurse Practitioner Name Role Phone Yuri Prajapati MD Primary Care Provider [phone] Encounter Details Date Type Department Care Team (Late st Contact Info) Description 12/09/2021 Lab Requisition [facility] DermPath Lab [address] [address] Shady Hopkins MD [address] [facility] [place] [address] Social History Tobacco Use Types Packs/Day Years [...] Priority Date/Time Associated Diagnosis Comments DERMATOPATHOLOGY Routine 12/07/2021 12:0 0 AM RETAIL BEAUTY SPECIALIST documented in this encounter Results * DERMATOPATHOLOGY (12/07/2021 12:00 AM RETAIL BEAUTY SPECIALIST) Case Report Dermatopathology Report Case: [id number] Authorizing Provider: Shady Hopkins MD Collected: 12/07/2021 12:00 AM Ordering Location: [facility] Derm[facility] Lab Received: 12/09/2021 07:56 AM Pathologist: Chiquis Mckeon MD Specimens: A) - Skin, right presybeterian B) - Skin, crown 2 3:01 PM RETAIL BEAUTY SPECIALIST DERMATOPATHOLOGY LABORATORY Final Diagnosis Specimen A. SKIN, right presybeterian: BASAL CELL CARCINOMA, NODULAR TYPE (C44.319) Specimen B. 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 Path # [id number]. B: BCCA vs scar. Path # [id number]. 2 3:01 PM RETAIL BEAUTY SPECIALIST DERMATOPATHOLOGY LABORATORY Gross Description Specimen A: Received is one formalin filled container labeled with the patient's name and designated right presybeterian. The specimen consists of a shave biopsy measuring [id number]. Jar 0. Specimen B: Received is one formalin filled container labeled with the patient's name and designated crown. The specimen consists of a shave biopsy measuring [id number]. Jar 0. 2 3:01 PM RETAIL BEAUTY SPECIALIST DERMATOPATHOLOGY LABORATORY Microscopic Description Specimen A. SKIN, right presybeterian: Within the dermis there are aggregates of basaloid cells with a high nuclear to cytoplasmic ratio and peripheral palisading. Specimen B. SKIN, crown: Sections show nests, cords, and strands of cytologically bland melanocytes that mature with descent into the dermis. There are areas in which the melanocytes have a neuroid appearance. 2 3:01 PM RETAIL BEAUTY SPECIALIST DERMATOPATHOLOGY LABORATORY Disclaimer An external and internal positive and negative controls are appropriate for the histochemical, immunohistochemical and immunofluorescence stain(s) in this case (if any), except where stated explicitly. The performance characteristics of the stain(s) cited in this report were developed and its performance characteristic determined by the Dermatopathology Laboratory at [facility], directed by Dr. Rayna Turk. These tests need not be, and therefore are not, approved by the [place] Food and Drug Administration. The tests are used for clinical purposes. Billing Codes Specimen Charges Stain Charges 95318 41997 1 1 2 3:01 PM RETAIL BEAUTY SPECIALIST DERMATOPATHOLOGY LABORATORY Embedded Images 2 3:01 PM RETAIL BEAUTY SPECIALIST DERMATOPATHOLOGY LABORATORY Pathology/Cytology TISSUE SPECIMEN FROM SKIN / Unknown 12/07/2021 12/09/2021 7:56 AM RETAIL BEAUTY SPECIALIST Miscellaneous samples (specimen) TISSUE SPECIMEN FROM SKIN / Unknown 12/07/2021 12/09/2021 7:56 AM RETAIL BEAUTY SPECIALIST Shady Hopkins MD LAB - PATHOLOGY/CYTO LOGY ORDERABLES DERMATOPATHOLOGY LABORATORY [facility] - Department of Dermatology [facility] Medicine [address] [place] [address], [address] [phone] documented in this encounter Visit Diagnoses Not on filedocumented in this encounter Care Teams Primary Care Nurse Practitioner Relationship Specialty Start Date End Date Yuri Prajapati MD [address] [place] [phone] PCP - General 01/25/22 documented as of this encounter
== END 2025-01-06 11:07 | disposition home or self-care (01) ==
PROVIDERS: PCP Family Medicine; Visit Provider Internal Medicine Hematology & Oncology
DX: D64.9 Anemia, unspecified (principal)
CPT/HCPCS: 36415; 80048; 82607; 82728; 82746; 83540; 83550; 85025

== ENCOUNTER 2025-03-30 13:54 | Outpatient (CLI) | payer MEDICARE, OTHER, SELFPAY ==
--- OUTSIDE RECORDS SUMMARY | 2025-03-30 15:00 | XMS_ITS | Clinical Summary ---
Author Organization [facility] Address [address] [place] [address] Phone Care Team Providers Care Group Exercise Instructor Name Role Phone Yuri Prajapati MD Primary Care Provider [phone] Allergies Active Allergy Reactions Criticality Noted Date Comments Acetaminophen Hives,Rash Medium 11/14/2017 Shaking was hospitalized Shaking was hospitalized Shaking was hospitalized Amoxicillin-Pot Clavulanate Other (see comments) High 08/18/2020 Other reaction(s): Renal Dysfunctions, Renal Injury Hospitalized Hospitalized Hospitalized Hospitalized Hospitalized Hospitalized Pollen Extract Itching 02/01/2004 Tramadol High 04/03/2016 Other reaction(s): Mental Status Changes/Sedation Medications nateglinide (STARLIX) 120 MG tablet 1 tid ac 0 11/30/19 18 Active cholecalciferol (VITAMIN D-[address]) 1000 units tablet Take 1,000 Units by mouth daily. Active gabapentin (NEURONTIN) 100 MG capsule Take 100 mg by mouth 3 (three) times a day 2 06/24/20 19 Active TRULICITY 0.75 MG/0.5ML solution pen-injector INJECT 1 SUBCUTANEOUSLY ONCE A WEEK 02/23/20 20 Active metoprolol tartrate (LOPRESSOR) 100 MG tablet Take 100 mg by mouth every 12 (twelve) hours 02/23/20 20 Active chlorthalidone (HYGROTON) 25 MG tablet TAKE 1 2 (ONE HALF) TABLET BY MOUTH ONCE DAILY 12/31/19 20 Active BD PEN NEEDLE JOCELIN U/F 32G X 4 MM misc USE WITH INSULIN INJECTIONS ONCE DAILY 03/13/20 20 Active ACCU-CHEK MK PLUS test strip USE 1 STRIP TO CHECK GLUCOSE TWICE DAILY 03/29/20 20 Active CREON 02757-32577 units capsule TAKE 1 CAPSULE BY MOUTH THREE TIMES DAILY WITH MEALS 03/29/20 20 Active Blood Glucose Calibration (Accu-Chek SmartView Control) liquid USE TO CHECK GLUCOSE 4 TIMES DAILY 11/23/19 20 Active HumaLOG KWIKPEN 100 UNIT/ML solution pen-injector INJECT 10 UNITS SUBCUTANEOUSLY THREE TIMES DAILY 07/19/20 Active Accu-Chek FastClix Lancets misc USE 1 PEN NEEDLE TO CHECK GLUCOSE TWICE DAILY 07/08/20 20 Active traMADol (ULTRAM) 50 MG tablet TAKE 1 TABLET BY MOUTH ONCE DAILY NEEDED FOR PAIN 07/08/20 20 Active albuterol HFA (PROVENTIL HFA) 108 (90 Base) MCG/ACT inhaler INHALE 1 PUFF BY MOUTH EVERY 4 HOURS NEEDED FOR SHORTNESS OF BREATH FOR WHEEZING 01/12/20 21 Active Azelastine HCl 137 MCG/SPRAY solution USE 1 SPRAY(S) IN EACH NOSTRIL EVERY 12 HOURS 12/30/19 21 Active metFORMIN (GLUCOPHAGE) 500 MG tablet Take by mouth 11/22/19 18 Active famotidine (PEPCID) 20 MG tablet Take 20 mg by mouth Active mometasone (ELOCON) 0.1 % ointment 06/27/20 21 Active Lantus SoloStar 100 UNIT/ML injection 06/15/20 21 Active cyanocobalamin (VITAMIN B-12) 100 MCG tablet Take 5 tablets (500 mcg total) by mouth 02/02/20 22 Active furosemide (LASIX) 20 MG tablet Take 1 tablet by mouth once daily 90 tablet 08/05/20 22 Active NIFEdipine CC (ADALAT CC) 30 MG 24 hr tablet Take 30 mg by mouth 1 (one) time each day 09/21/20 22 Active atorvastatin (LIPITOR) 80 MG tablet Take 80 mg by mouth 1 (one) time each day 07/04/20 22 Active clopidogrel (PLAVIX) 75 MG tablet TAKE 1 TABLET BY MOUTH ONCE DAILY IN THE MORNING 09/25/20 22 Active Entresto 49-51 MG per tablet Take 1 tablet by mouth in the morning and 1 tablet before bedtime. 08/05/20 22 Active Active Problems Problem Noted Date Diagnosed [...] 3a chronic kidney disease 12/05/2017 08/03/2021 Immunizations Immunization Administration Dates Next Due Fluzone High-Dose 07/21/2020 [...] = 0.6 oz pur e alcohol) Comments Unknown Sex and Gender Information Value Date Recorded Sex Assigned at Not on file Legal Sex Female 7:42 AM [facility] Gender Identity Not on file Sexual Orientation [...] 11:28 AM CDT Height 160 cm (5' 3) 02/01/2022 11:28 AM CDT Body Mass Index 26.57 02/01/2022 11:28 AM CDT Plan of Treatment Health Maintenance Due Date Last Done Comments Diabetic Foot Exam 1950 Pneumococcal PPSV23/PCV13 65 + Years / High and Highest Risk (2 of 4 - PPSV23) 08/09/2015 06/14/2015 Ophthalmology Exam 10/28/2016 10/28/2015, 0 02/11/2015, 10/27/2013, Additional history exists Influenza Vaccine (Season Ended) 2025 07/29/2022, 07/18/2021, 07/29/2013, Additional history exists Insurance MEDICARE [employer] Care Teams Group Exercise Instructor Relationship Specialty Start Date End Date Yuri Prajapati MD [address] [place] [address] PCP - General 01/01/19
--- OUTSIDE RECORDS SUMMARY | 2025-03-30 15:01 | XMS_ITS | Referral Summary ---
Author Organization [facility] Address [facility] [place] [address] Care Team Providers Care Otr Van Cdl Truck Driver Name Role Phone Diana Bradford MD Unavailable [phone] Ml Valencia MD Primary Care Provider [phone] Allergies Active Allergy Reactions Criticality Noted Date [...] mg SL tabletIndicati ons:Coronary artery disease involving [place] coronary artery of soboba heart without angina pectoris Place 1 tablet [...] (02/27/2018): Added automatically from request for surgery [id number] Social History Tobacco Use Types Packs/Day Years [...] Comments Blood Pressure 168/90 12/20/2022 1:30 PM JEWELRY FINISHER Pulse 69 12/20/2022 1:30 PM JEWELRY FINISHER Temperature - - Respiratory Rate - - Oxygen Saturation 99% 12/20/2022 1:30 PM JEWELRY FINISHER Inhaled Oxygen Concentration - - Weight 71.2 kg (157 lb) 12/20/2022 1:30 PM JEWELRY FINISHER Height 160 cm (5' 3) 12/20/2022 1:30 PM JEWELRY FINISHER Body Mass Index 27.81 12/20/2022 1:30 PM JEWELRY FINISHER Plan of Treatment Not on file Insurance MEDICARE [facility] MEDICARE [facility] MEDICARE [facility] Care Teams Otr Van Cdl Truck Driver Relationship Specialty Start Date End Date Ml Valencia MD PCP - General Internal Medicine 11/20/22 Diana Bradford MD Police Captain Obstetrics and Gynecology 08/09/20
--- OUTSIDE RECORDS SUMMARY | 2025-03-30 15:01 | XMS_ITS | CONTINUITY OF CARE DOCUMENT ---
Author Name edward euntony Address Unknown Organization [facility] Address [address] [place] [address] [address] [place] [address] Phone [phone] Care Team Providers Care Long Filler Cigar Roller Machine Name Role Phone Connor Zelaya MD Unavailable Connor Zelaya MD Unavailable Alo TAVERA, [facility] Unavailable PROBLEMS Condition Status Date Provider Notes Family History of Hypertension: active ? Amanda Santos DRIER AND GRINDER TENDER HTN active Sherrie Santos DRIER AND GRINDER TENDER CHF active Sherrie Santos DRIER AND GRINDER TENDER Shortness of breath active Sherrie Santos DRIER AND GRINDER TENDER Hyperlipidemia active Sherrie Santos DRIER AND GRINDER TENDER Diabetes mellitus, type 2 active Sherrie kelley DRIER AND GRINDER TENDER ENCOUNTERS Date Type Provider Location Encounter Diag nosis - In-person encounter Office Visit Connor Zelaya MD [facility] Family History of Hypertension:HTNCHFShortness of breathHyperlipidemiaDiabetes [...] 2 every evening 9 Sarah Quintanilla [place] [address] UNIT ORAL CAPSULE DELAYED RELEASE PARTICLES active [...] Payer name Policy type / Coverage type [place] party ID [place] [employer] Medicare [id number] [facility] [place] [phone] ADVANCE DIRECTIVES Name Date DISCUSSED - NO DECISION MADE TREATMENT PLAN Date Name Performer Cardiology [facility] follow up:Lipid levels followed by PCP. Her updated medication list for this problem includes: Atorvastatin Calcium 40 Mg Oral Tablet (Atorvastatin calcium) ..... Take one tablet daily Sherrie Santos NP Cardiology hospital follow up: B P today: 132/70 Sherrie Santos NP [facility] follow up: H er updated medication list [...] up:Improved on Lasix. B eing followed by belt brander plans to have PFTs, 6 min walk test, home sleep study, and nuclear medicine lung VQ perfusion studies with pulmonary in the near future. Sherrie Santos NP HISTORY OF PROCEDURES Procedure Date Procedure Name Provider Procedure Notes S tatus EKG Connor Zelaya MD completed SNOMED-CT: [id number] Current Medications Documented Connor Zelaya MD completed
--- OUTSIDE RECORDS SUMMARY | 2025-03-30 15:01 | XMS_ITS | Clinical Summary ---
Author Organization [facility] Address [facility] [place] [address] Care Team Providers Care Juvenile Corrections Officer Name Role Phone Diana Bradford MD Unavailable [phone] Ml Valencia MD Primary Care Provider [phone] Allergies Active Allergy Reactions Criticality Noted Date [...] mg SL tabletIndicati ons:Coronary artery disease involving [place] coronary artery of [place] heart without angina pectoris Place 1 tablet [...] (02/27/2018): Added automatically from request for surgery [id number] Surgical History Surgery Date Site/Laterality Comments EYE SURGERY Cataracts CARPAL TUNNEL RELEASE APPENDECTOMY SHOULDER ARTHROSCOPY JOINT REPLACEMENT Right Knee Arthroplasty CORONARY ANGIOPLASTY WITH ST ENT PLACEMENT Medical History Medical History Date Comments Hypertension Hyperlipidemia CHF (congestive heart failure) (HCC) 10/2017 Anemia Type 2 diabetes mellitus (HCC) Neuropathy Feet Arthritis Cataract Coronary artery disease invo lving [place] coronary artery of [place] heart Myocardial infarction (HCC) Family History Medical [...] Comments Blood Pressure 168/90 12/20/2022 1:30 PM AUDIOLOGIST Pulse 69 12/20/2022 1:30 PM AUDIOLOGIST Temperature - - Respiratory Rate - - Oxygen Saturation 99% 12/20/2022 1:30 PM AUDIOLOGIST Inhaled Oxygen Concentration - - Weight 71.2 kg (157 lb) 12/20/2022 1:30 PM AUDIOLOGIST Height 160 cm (5' 3) 12/20/2022 1:30 PM AUDIOLOGIST Body Mass Index 27.81 12/20/2022 1:30 PM AUDIOLOGIST Plan of Treatment Health Maintenance Due Date Last Done Comments Depression Screening 1941 Fall Risk Assessment 1941 Osteoporosis Screening-Bone Density Scan 1941 Hepatitis B Screening 1959 Well Visit 65+ 2006 Zoster Vaccine (2 of 3) 03/23/2008 01/27/2008 DTaP/Tdap/Td Vaccine (1 - Tdap) 08/31/2015 5, 06/13/2000 Influenza Vaccine (Season Ended) 2025 07/29/2022, 07/18/2021, 08/08/2018, Additional history exists Pneumococcal vaccine 65+ Completed 018, 06/14/2015, 07/20/2013, Additional history exists [place] [address] [facility] STAC[place] [id number] MEDICARE [facility] MEDICARE [facility] Care Teams Juvenile Corrections Officer Relationship Specialty Start Date End Date Ml Valencia MD PCP - General Internal Medicine 11/20/22 Diana Bradford MD Learning Manager Obstetrics and Gynecology 08/09/20
--- OUTSIDE RECORDS SUMMARY | 2025-03-30 15:01 | XMS_ITS | Clinical Summary ---
Author Organization [facility] Address [address] [place] [address] Phone Care Team Providers Care Scout Leaser Name Role Phone Yuri Prajapati MD Primary Care Provider [phone] Active Problems Problem Noted Date Diagnosed Date [...] Immunization (1 of 2) 1991 Pneumococcal Immunization (5 0+ years) (2 of 2 - PPSV23) 06/14/2016 06/14/2015 Respiratory Syncytial Virus (RSV) Immunization (Adult) (1 - 1-dose 75+ series) 2016 SARS-COV-2 Immunization ( season) 2024 08/21/2021, 12/21/2020, 11/24/2020 Influenza Immunization (Seas on Ended) 2025 08/28/2017, 08/21/2016, 08/11/2015 Pneumococcal Immunization Combined Discontinued 06/14/2015 DTaP/Tdap/Td Immunization Discontinued 08/30/2015 Hepatitis B Immunization Aged Out No longer eligible based on patient's age to complete this topic Human Papillomavirus (HPV) Immunization Aged Out No longer eligible based on patient's age to complete this topic Meningococcal Immunization (ACWY) Aged Out No longer eligible based on patient's age to complete this topic Rotavirus Immunization Aged Out No lo nger eligible based on patient's age to complete this topic Insurance MEDICARE [facility] Care Teams Scout Leaser Relationship Specialty Start Date End Date Yuri Prajapati MD [address], [address] [place] [address] PCP - General Internal Medicine 01/31/18
--- OUTSIDE RECORDS SUMMARY | 2025-03-30 15:01 | XMS_ITS | Encounter Summary ---
Author Organization [facility] Address [address] [facility] [place] [address] Care Team Providers Care Co Founder & Ceo Name Role Phone Yuri Prajapati MD Primary Care Provider [phone] Encounter Details Date Type Department Care Team (Late st Contact Info) Description 06/12/2022 Lab Requisition [facility] Care DermPath Lab [address] [facility], [facility] [place] [id number] Shady Hopkins MD [address] [facility] [place] [address] Social History Tobacco Use Types Packs/Day Years Used Date Smoking Tobacco: Never Smokeless Tobacco: Never Alcohol Use Standard Drinks/Week Comments Not Currently 0 (1 standard drink = 0.6 oz pur e alcohol) Comments Unknown Sex and Gender Information Value Date Recorded Sex Assigned at Not on file Legal Sex Female 8:50 AM CDT Gender Identity Not on file Sexual Orientation Not on file documented as of this encounter Plan of Treatment Not on file documented as of this encounter Procedures Procedure Name Priority Date/Time Associated Diagnosis Comments DERMATOPATHOLOGY Routine 06/09/2022 12:0 0 AM CDT documented in this encounter Results * DERMATOPATHOLOGY (06/09/2022 12:00 AM CDT) Case Report Dermatopathology Report Case: [id number] Authorizing Provider: Shady Hopkins MD Collected: 06/09/2022 12:00 AM Ordering Location: [facility] DermPath Lab Received: 06/12/2022 04:50 PM Pathologist: Ailyn Nesbitt MD Specimen: Skin, left ear lobe 2 4:37 PM CDT DERMATOPATHOLOGY LABORATORY Final Diagnosis Specimen A. 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 BCC vs. Other. Path# [id number] 2 4:37 PM CDT DERMATOPATHOLOGY LABORATORY Gross Description Specimen A: Received is one formalin filled container labeled with the patient's name and designated left ear lobe. The specimen consists of a shave biopsy measuring [id number] and another piece of tissue measuring [id number]. Jar 0. 4:37 PM CDT DERMATOPATHOLOGY LABORATORY [...] characteristic determined by the Dermatopathology Laboratory at [facility], directed by Dr. Rayna Turk. These tests need not be, and therefore are not, approved by the [place] Food and Drug Administration. The tests are used for clinical purposes. Billing Codes Specimen Charges Stain Charges 99988 1 98678 1 2 4:37 PM CDT DERMATOPATHOLOGY LABORATORY Embedded Images 2 4:37 PM CDT DERMATOPATHOLOGY LABORATORY Pathology/Cytolog y TISSUE SPECIMEN FROM SKIN / Unknown 06/09/2022 06/12/2022 4:50 PM CDT us Shady Hopkins MD LAB - PATHOLOGY/CYTOLOGY ORDER ADRIAN Final Result DERMATOPATHOLOGY LABORATORY [facility] - Department of Dermatology [facility] Specialized Medicine [facility] [facility], [address]rd [address] [phone] documented in this encounter Visit Diagnoses Not on filedocumented in this encounter Care Teams Co Founder & Ceo Relationship Specialty Start Date End Date Yuri Prajapati MD [address] [place] [address] PCP - General 01/25/22 documented as of this encounter
--- OUTSIDE RECORDS SUMMARY | 2025-03-30 15:01 | XMS_ITS ---
Author Name Auto Generated, Auto Generated Organization [facility] Address [address] [place] [address] Phone [phone] Care Team Providers Care Medical Coordinator Pesticide Use Name Role Phone Jac Ray Unavailable Adria Bolanos Unavailable [phone] Functional Status No Results Mental Status No Results Allergies and Intolerances Name Onset Date Reaction Severity amoxicillin (Allergy) SunFebruary 26 16:25:00 EDT 20 Tylenol (Allergy) SunFebruary 26 16:24:00 EDT 2022 [...] Indication: Edema SunMarch 09 17:00:00 EDT 2022Mar 18 01:00:00 EDT 2022 cloNIDine HCL 0.1 mg tablet 1 tablet TAB LET Oral PRN Indication: HTNGIVE IF SBP IS GREATER THAN 170 SunMarch 09 17:00:00 EDT 2022Mar 18 01:00:00 EDT 2022 FeroSuL 325 mg (65 mg iron) tablet 1 tablet TABLET Oral 1 Time Daily Indication: Anemia SunMarch 09 14:00:00 EDT 2022Mar 18 01:00:00 EDT 2022 Alanaglchadwick Darden U-100 Insulin 100 unit/mL (3 mL) [...] Daily Indication: dm Sliding Scale Insulin: Insulin Oulmy22-529, 0 Units;151-200, 3 Units;201-251, 6 Units;252-300, 9 [...] * Text: * Atherosclerotic heart disease of citizen [place] coronary artery without angina pectoris* Code: * [...] 2022 * End Date: * Text: * long-term (current) use of aspirin* Code: * Start Date: SunFebruary 25 00:00:00 EDT 2022 * End Date: * Text: * long-term (current) use of insulin* Code: * Start Date: SunFebruary 25 00:00:00 EDT 2022 * End Date: * Text: * Old myocardial infarction* Code: * Start Date: SunFebruary 25 00:00:00 EDT 2022 * End Date: * Text: Reason for Referral Past Medical History
--- OUTSIDE RECORDS SUMMARY | 2025-03-30 15:01 | XMS_ITS | Clinical Summary ---
Author Organization [facility] Address [address] [facility] [place] [address] Care Team Providers Care Land Survey Technician Name Role Phone Yuri Prajapati MD Primary Care Provider [phone] Source Comments [facility],non-owned Affiliates and Associated Physician Practices is amultiple site organization consisting of ambulatory clinics and hospital sitesin [place], [place], [place] and [place]. This disclosure is being madepursuant to the Care Everywhere program and may not contain all information available regarding this patient. Last updated 18.[facility] Allergies Active Allergy Reactions Criticality Noted Date [...] document. Alwaysverify current medications with the patient. blood glucose calibration liquid (ACCU-CHEK SMARTVIEW CONTROL) liquid USE TO CHECK GLUCOSE 4 TIMES DAILY 11/23/19 20 Active clotrimazole 1% cream - hydrocortisone 1 % Cream 50:50 CREA APPLY TOPICALLY THREE TIMES DAILY NEEDED 08/25/20 19 Active atorvastatin (LIPITOR) 40 MG tablet 11/30/19 18 Active dulaglutide (TRULICITY) 0.75 MG/0.5ML injection INJECT 1 SUBCUTANEOUSLY ONCE A WEEK 11/27/19 20 Active famotidine (PEPCID) 20 MG tablet Take 1 (one) tablet by mouth 2 times daily Active furosemide (LASIX) 20 MG tablet TAKE 1 TABLET BY MOUTH ONCE DAILY 08/09/20 19 Active gabapentin (NEURONTIN) 100 MG capsule TAKE 1 CAPSULE BY MOUTH THREE TIMES DAILY 06/24/20 19 Active blood glucose (ACCU-CHEK MK PLUS) test strip USE 1 STRIP TO CHECK GLUCOSE TWICE DAILY 03/29/20 20 Active insulin glargine (Lantus/Semglee) 100 units/ml injection 02/26/20 18 Active Insulin Lispro (HUMALOG KWIKPEN) 100 UNIT/ML 05/13/20 20 Active losartan (COZAAR) 100 MG tablet 11/30/19 18 Active metFORMIN ER 24hr (GLUCOPHAGE XR) 500 MG tablet TAKE 2 TABLETS BY MOUTH IN THE MORNING AND 1 WITH LUNCH AND 1 WITH SUPPER 08/27/20 19 Active metoprolol tartrate (LOPRESSOR) 50 MG tablet Take 2 (two) tablets by mouth 2 times daily Active pancrelipase (CREON) 59992-[address] units capsule TAKE 1 CAPSULE BY MOUTH THREE TIMES DAILY WITH MEALS 03/29/20 20 Active pantoprazole EC (PROTONIX) 40 MG tablet Take 1 (one) tablet by mouth once daily Active traMADol (ULTRAM) 50 MG tablet 07/08/20 20 Active albuterol HFA (PROVENTIL;VENTOLI N;PROAIR) 108 (90 Base) MCG/ACT inhaler INHALE 1 PUFF BY MOUTH EVERY 4 HOURS NEEDED FOR SHORTNESS OF BREATH FOR WHEEZING 01/12/20 21 Active amLODIPine (NORVASC) 5 MG tablet 11/03/19 21 Active Azelastine HCl 137 MCG/SPRAY SOLN USE 1 SPRAY(S) IN EACH NOSTRIL EVERY 12 HOURS 12/30/19 21 Active hydrocortisone (HYTONE) 1 % cream A ctive Accu-Chek FastClix Lancets USE TO CHECK BLOOD SUGAR 4 TIMES DAILY 12/30/19 21 Active mometasone (ELOCON) 0.1 % ointment APPLY TOPICALLY TO THE AFFECTED AREA(S) 3 TIMES WEEKLY 08/31/20 21 Active amLODIPine (NORVASC) 2.5 MG tablet TAKE 1 TABLET BY MOUTH ONCE DAILY TO MAKE 7.5 MG TOTAL 10/06/20 21 Active cyanocobalamin 100 MCG tablet Take 5 (five) tablets by mouth 02/02/20 Active tobramycin-dexAMET Hasone (Tobradex) 0.3-0.1 % ophthalmic suspension INSTILL 1 DROP INTO AFFECTED EYE 4 TIMES DAILY 04/07/20 Active sacubitril-valsart an (Entresto) 24-26 MG tablet Take 1 (one) tablet by mouth every 12 hours 03/27/20 Active sacubitril-valsart an (Entresto) 49-51 MG tablet Take 1 (one) tablet by mouth 2 times daily 05/12/20 Active nitroGLYCERIN (Nitrostat) 0.4 MG tablet Dissolve 1 (one) tablet under the tongue 04/13/20 Active clopidogrel (plaVIX) 75 MG tablet 03/27/20 Active Cyanocobalamin 1000 MCG Take 1 (one) tablet by mouth once daily Active atorvastatin (Lipitor) 40 MG tablet Take 2 (two) tablets by mouth at bedtime Active aspirin EC (Ecotrin) 81 MG tablet Take 1 (one) tablet by mouth once daily Active Hospital, Clinic, or Other Facility Administered Medication Ordered Dose Route Frequency Start Date End Date Status triamcinolone acetonide (Kenalog-40) injection 40 mgIndications:Right rotator cuff tear arthropathy 40 mg IX ONCE 03/18/2025 03/18/2025 End ed lidocaine PF (Xylocaine MPF) 1 % injection 3 mLIndications:Right rotator cuff tear arthropathy 3 mL IX ONCE 03/18/2025 03/18/2025 End ed Active Problems Problem Noted Date Diagnosed Date Acute kidney failure 04/22/2020 Hyponatremia 01/01/2019 Lumbar radiculopathy 02/27/2018 Overview (07/14/2020): Added automatically from request for surgery [id number] Essential (primary) hypertension 12/05/2017 Low back pain 12/05/2017 Polyneuropathy 12/05/2017 Type 2 diabetes mellitus wit h unspecified diabetic retinopathy without macular edema 12/05/2017 Iron deficiency anemia 11/14/2017 Encounters Date Type Department Care Team Description 03/18/2025 2:15 PM CDT Office Visit [facility] [address] [place] [address], [address] [place] [address] Hallie Hawk, PAMartineC Right rotator cuff tear arthropathy (Primary Dx) from Last 3 Months Social History Tobacco [...] 2:49 PM CDT Height 157.5 cm (5' 2) 03/07/2022 2:49 PM CDT Body Mass Index [...] 07/14/2020 DIABETES-HGB A1C 07/14/2020 COVID-19 VACCINE ( season) 2024 DEPRESSION SCREENING 10/15/2024 DIABETES - URINE PROTEIN SCREENING 10/15/2024 INFLUENZA VACCINE (Season Ended) 2025 07/29/2022, 07/18/2021, 08/21/2016, Additional history exists HEPATITIS B VACCINE Aged Out No longe [...] age to complete this topic [place] [address] [facility] MEDICARE [facility] [address] Care Teams Land Survey Technician Relationship Specialty Start Date End Date Yuri Prajapati MD [address] [place] [address] PCP - General 01/25/22
--- OUTSIDE RECORDS SUMMARY | 2025-03-30 15:01 | XMS_ITS | Encounter Summary ---
Author Organization [facility] Address [address] [facility] [place] [address] Care Team Providers Care Software Packaging Engineer Name Role Phone Yuri Prajapati MD Primary Care Provider [phone] Encounter Details Date Type Department Care Team (Late st Contact Info) Description 12/09/2021 Lab Requisition [facility] DermPath Lab [address] [facility] [place] [id number] Shady Hopkins MD [address] [place] [address] Social History Tobacco Use Types Packs/Day Years [...] Comments DERMATOPATHOLOGY Routine 12/07/2021 12:0 0 AM BRIDGE REPAIRER documented in this encounter Results * DERMATOPATHOLOGY (12/07/2021 12:00 AM BRIDGE REPAIRER) Case Report Dermatopathology Report Case: [id number] Authorizing Provider: Shady Hopkins MD Collected: 12/07/2021 12:00 AM Ordering Location: [facility] DermPath Lab Received: 12/09/2021 07:56 AM Pathologist: Chiquis Mckeon MD Specimens: A) - Skin, right cheondoism B) - Skin, crown 2 3:01 PM [facility] DERMATOPATHOLOGY LABORATORY Final Diagnosis Specimen A. SKIN, right cheondoism: BASAL CELL CARCINOMA, NODULAR TYPE (C44.319) Specimen B. SKIN, crown: INTRADERMAL NEVUS, NEUROTIZED (D22.9) 2 3:01 PM [facility] DERMATOPATHOLOGY LABORATORY at 1501 BRIDGE REPAIRER Clinical History A: BCCA. Path # [id number]. B: BCCA vs scar. Path # [id number]. 2 3:01 PM [facility] DERMATOPATHOLOGY LABORATORY Gross Description Specimen A: Received is one formalin filled container labeled with the patient's name and designated right cheondoism. The specimen consists of a shave biopsy measuring [id number]. Jar 0. Specimen B: Received is one formalin filled container labeled with the patient's name and designated crown. The specimen consists of a shave biopsy measuring [id number]. Jar 0. 2 3:01 PM [facility] DERMATOPATHOLOGY LABORATORY Microscopic Description Specimen A. SKIN, right cheondoism: Within the dermis there are aggregates of basaloid cells with a high nuclear to cytoplasmic ratio and peripheral palisading. Specimen B. SKIN, crown: Sections show nests, cords, and strands of cytologically bland melanocytes that mature with descent into the dermis. There are areas in which the melanocytes have a neuroid appearance. 2 3:01 PM [facility] DERMATOPATHOLOGY LABORATORY Disclaimer An external and internal positive and negative controls are appropriate for the histochemical, immunohistochemical and immunofluorescence stain(s) in this case (if any), except where stated explicitly. The performance characteristics of the stain(s) cited in this report were developed and its performance characteristic determined by the Dermatopathology Laboratory at [facility], directed by Dr. Rayna Turk. These tests need not be, and therefore are not, approved by the [place] Food and Drug Administration. The tests are used for clinical purposes. Billing Codes Specimen Charges Stain Charges 91329 38451 1 1 2 3:01 PM [facility] DERMATOPATHOLOGY LABORATORY Embedded Images 2 3:01 PM [facility] DERMATOPATHOLOGY LABORATORY Pathology/Cytology TISSUE SPECIMEN FROM SKIN / Unknown 12/07/2021 12/09/2021 7:56 AM BRIDGE REPAIRER Miscellaneous samples (specimen) TISSUE SPECIMEN FROM SKIN / Unknown 12/07/2021 12/09/2021 7:56 AM BRIDGE REPAIRER us Shady Hopkins MD LAB - PATHOLOGY/CYTOLOGY ORDER ADRIAN Final Result DERMATOPATHOLOGY LABORATORY [facility] - Department of Dermatology [facility] Medicine [address] [place] [address], [address] [phone] documented in this encounter Visit Diagnoses Not on filedocumented in this encounter Care Teams Software Packaging Engineer Relationship Specialty Start Date End Date Yuri Prajapati MD [address] [place] [address] PCP - General 01/25/22 documented as of this encounter
--- OUTSIDE RECORDS SUMMARY | 2025-03-30 15:01 | XMS_ITS | Clinical Summary ---
Author Organization [facility] Address [address] [place] [address] Phone Care Team Providers Care Manager Costing Name Role Phone Ryan Randhawa MD Primary Care Provider [phone] Allergies Active Allergy Reactions Criticality Noted Date [...] CHECK GLUCOSE TWICE DAILY 0 Active Insulin [place], Disposable, (Samreen Pen Needle) 32 gauge x [...] 4 Active carvediloL (COREG) 6.25 mg tablet Take 25 mg by mouth 2 times daily with meals. 4 Active Jardiance 25 mg tablet Take 25 mg by mouth daily in the morning. Active Active Problems Problem Noted Date Diagnosed Date CKD (chronic kidney disease) stage 3, GFR 30-59 ml/min 08/19/2020 Type 2 diabetes mellitus treated with insulin Hyponatremia 06/17/2019 Iron deficiency anemia 11/14/2017 Resolved Problems Problem Noted Date Diagnosed Date Resolved Date Type 2 diabetes mellitus wit hout complication, without long-term current use of insulin 06/17/2019 08/19/2020 Encounters Date Type Department Care Team Description 03/03/2025 External Device Data ST[facility] ABSTRACTION Provider, Abstract 01/07/2025 10:00 AM CDT Office Visit [facility] - [place] [address] [place] [id number] Francisco Yeager MD Chronic anemia (Primary Dx) 12/31/2024 External Device Data ST[facility] ABSTRACTION Provider, [...] Packs/Day Years Used Date Smoking Tobacco: Never Tobacco Cessation:Counseling Given: Not Answered Alcohol Use Standard Drinks/Week Comments No 0 (1 standard drink = 0.6 oz pur e alcohol) Comments No Sex and Gender Information Value Date Recorded Sex Assigned at Not on file Legal Sex Female 10:21 AM CDT Gender Identity Not on file Sexual Orientation Not on file Last Filed Vital Signs Vital Sign Reading Time Taken Comments Blood Pressure 122/59 01/07/2025 9:54 AM CDT Pulse 60 01/07/2025 9:54 AM CDT Temperature 36.2 C (97.2 F) 01/07/2025 9:54 AM CDT Respiratory Rate 15 01/07/2025 9:54 AM CDT Oxygen Saturation 96% 01/07/2025 9:54 AM CDT Inhaled Oxygen Concentration - - Weight 67.8 kg (149 lb 6.4 oz) 01/07/2025 9:54 A M CDT Height 160 cm (5' 3) 04/28/2022 12:48 PM CDT Body Mass Index 26.47 04/28/2022 12:48 PM CDT Plan of Treatment Upcoming Encounters Date Type Department Care Team (Late st Contact Info) Description 09/28/2025 11:00 AM [employer] DIVISION MANAGER Office Visit [facility] - [place] [address] [facility] [address] [place] [address] Francisco Yeager MD [address] [facility] [address] [place] [address] Health Maintenance Due Date Last Done Comments DIABETES ANNUAL FOOT EXAM 1959 DIABETES MICROALBUMIN ANNUAL SCREEN 1959 LDL CHOLESTEROL ANNUAL 1959 ZOSTER VACCINE (2 of 3) 03/23/2008 01/27/2008 DTAP/TDAP/TD VACCINES (1 - Tdap) 08/31/2015 08/30/20 15, 06/13/2000 RSV VACCINE (60+ or ) (1 - 1-dose 75+ series) 2016 DIABETES ANNUAL RETINAL EXAM 11/22/202305/2023, 04/27/2022, 04/27/2022, Additional history exists INFLUENZA VACCINE (#1) 2024 2, 07/18/2021, 08/21/2016, Additional history exists DIABETES HBA1C Q 6 MONTHS 12/06/20242023, 02/27/2024, 11/21/2023, Additional history exists OSTEOPOROSIS SCREENING 10/06/2028 10/06/2023, 2018 PNEUMOCOCCAL VACCINE 50+ YEARS Completed 0 06/14/2015, 03/21/2012, 03/21/2012, Additional history exists COLORECTAL SCREENING Discontinued 12/25/2018, 12/25/2018, 09/30/2015, Additional history exists Colorectal Cancer Screening Discontinued FIT-DNA Q 3 years Discontinued FIT/FOBT Q 1 year Discontinued Flex Sig/CT Colonography Q 5 years Discontinued Procedures Procedure Name Priority Date/Time Associated Diagnosis Comments HEMOGLOBIN A1C Routine 08/18/2020 from Last 3 Months or Most Recently Relevant to Health Maintenance Results * HEMOGLOBIN A1C (08/18/2020) Blood us Lynda MAURICE CHEMISTRY ORDERABLES Liza l Result NON [facility] from Last 3 Months or Most Recently Relevant to Health Maintenance Insurance MEDICARE PART A AND B [facility] MEDICARE PART A AND B [facility] Care Teams Manager Costing Relationship Specialty Start Date End Date Ryan Randhawa MD [address] [place] [id number] PCP - General Family Practice 06/12/23
== END 2025-03-30 13:55 | disposition home or self-care (01) ==
LOC: ANHAUDIO 13:55
PROVIDERS: PCP Family Medicine; Visit Provider Otolaryngology Otolaryngology/Facial Plastic Surgery
DX: H90.72 Mixed conductive and sensorineural hearing loss, unilateral, left ear, with unrestricted hearing on the contralateral side (principal); H93.13 Tinnitus, bilateral
CPT/HCPCS: 92557; 92567